=== PATIENT | female | born 1990 ===

== ENCOUNTER 2024-06-25 05:31 | Inpatient (IN) ==
--- NOTE | 2024-06-10 11:53 | Anesthesiology Consultation ---
Date of Service June 10, 2024 Assessment & Plan (1) Encounter for pre-operative examination: Chart Review Chart Review: data entry representative initiated - BSG to anesthesiologist/OB's discretion (gestational DM- on insulin) -Infectious Disease screening: Per PAT nursing assessment on 06/10/24. No known infectious disease contacts in past 10 days or current infectious disease symptoms. No recent travel outside the country. History Surgery Operation Date: 06/25/24 07:30 Proposed Procedures p Repeat Section - Federico Rodriguez MD Height/Weight Height: 5 ft 5 in Weight: 113.398 kg Allergies Allergy/AdvReac Type Severity Reaction Status Date / Time No Known Allergies Allergy Verified 06/10/24 11:17 Medications Home Medications Medication Instructions Recorded Confirmed Last Taken 1 tab PO HS 06/10/24 06/10/24 Unknown insulin glargine 100 unit/mL (3 20 unit subcut HS 06/10/24 06/10/24 Unknown mL) subcutaneous pen (Lantus Solostar U-100 Insulin) Past Medical History Medical History Chronic hypertension no current meds Gestational diabetes IDDM History of asthma as a child Past Surgical History Surgical History History of 11/2021 History of tonsillectomy and adenoidectomy age 17 [place] teeth extracted 2014 Social History Smoking Status: Never smoker Do You Dip or Chew Tobacco: No Hx Alcohol Use: No Hx Substance Use: No substance use type: does not use
[2024-06-25 06:20] LABS: Basophils # (auto) 0.06 K/uL (0.00-0.20); Basophils % (auto) 0.5 %; Eosinophils # (auto) 0.14 K/uL (0.00-0.50); Eosinophils % (auto) 1.2 %; Hematocrit (blood only) 39.9 % (37.0-47.0); Hemoglobin 13.6 g/dl (12.0-16.0); Immature Granulocytes # (auto) 0.08 K/uL (0.01-0.20); Immature Granulocytes % (auto) 0.7 %; Lymphocytes # (auto) 2.65 K/uL (1.20-3.40); Lymphocytes % (auto) 23.2 %; Mean Corpuscular Hemoglobin 28.5 pg (25.0-34.0); Mean Corpuscular Hgb Conc 34.1 g/dL (32.0-36.0); Mean Corpuscular Volume 83.5 fL (80.0-100.0); Mean Platelet Volume 11.2 fL (9.4-12.4); Monocytes # (auto) 0.78 K/uL (0.11-0.59); Monocytes % (auto) 6.8 %; Neutrophils # (auto) 7.69 K/uL (1.40-6.50); Neutrophils % (auto) 67.6 %; Platelet Count 257 K/uL (130-400); RDW Coefficient of Variation 13.2 % (11.5-14.5); RDW Standard Deviation 40.5 fL (36.4-46.3); Red Blood Count 4.78 M/uL (4.20-5.40)
[2024-06-25] MEDS: ACETAMINOPHEN 500 MG TAB PO SCH (06:39)
[2024-06-25] MEDS ORDERED: MoRPHine SULFATE PF 1 MG/ML 10 ML AMP/VIAL ONE (06:45)
[2024-06-25] MEDS ORDERED: fentaNYL citrate PF 100 MCG/2 ML VIAL ONE ×3 (06:45→08:56)
[2024-06-25] MEDS ORDERED: OXYTOCIN 10 UNITS/ML VIAL ONE ×2 (06:45→08:36)
[2024-06-25] MEDS ORDERED: PHENYLEPHRINE HCL 25 MG/250 ML NSS IV ONE (06:46)
[2024-06-25] MEDS: SODIUM CHLORIDE 0.9% 1,000 ML IV SCH ×3 (07:03→10:45)
[2024-06-25] MEDS ORDERED: ePHEDrine sulfate 50 MG/ML AMP IV PRN (07:08)
[2024-06-25] MEDS ORDERED: MoRPHine SULFATE 2 MG/ML CARP IV PRN (07:08)
[2024-06-25] MEDS ORDERED: diphenhydrAMINE 50 MG/ML VIAL IV PRN (07:08)
[2024-06-25] MEDS ORDERED: NALOXONE HCL 1 MG in SODIUM CHLORIDE 0.9% 1,000 ML IV PRN (07:08)
[2024-06-25] MEDS ORDERED: HYDROmorphone INJ 0.5 MG/0.5 ML SYR IV PRN (07:08)
[2024-06-25] MEDS ORDERED: ONDANSETRON INJ 2 MG/ML 2 ML VIAL IV PRN ×2 (07:08→09:23)
[2024-06-25] MEDS ORDERED: NALOXONE HCL 0.4 MG/1 ML VIAL/CARP IV PRN (07:08)
[2024-06-25] MEDS ORDERED: NALOXONE HCL 0.08 MG in SYRINGE 1.8 ML IV PRN (07:08)
[2024-06-25] MEDS ORDERED: NALBUPHINE HCL INJ 10 MG/ML AMP IV PRN (07:08)
[2024-06-25] MEDS ORDERED: NO NARCOTICS OR SEDATIVES SCH (07:15)
[2024-06-25] MEDS ORDERED: DC INTRASPINAL MORPHINE SCH (07:15)
[2024-06-25] MEDS: CITRIC ACID/SODIUM CITRATE 15 ML UDC PO SCH (07:38)
[2024-06-25] MEDS: cefOXitin 2,000 MG in DEXTROSE 5 % MINI-B 50 ML IV SCH (07:40)
[2024-06-25] MEDS ORDERED: DEXAMETHASONE SOD INJ 4 MG/ML VIAL ONE (08:05)
[2024-06-25] MEDS ORDERED: ONDANSETRON INJ 2 MG/ML 2 ML VIAL ONE (08:05)
[2024-06-25] MEDS: OXYTOCIN 10 UNITS/ML 10ML VIAL IM ONE (08:25)
[2024-06-25] MEDS ORDERED: PHENYLEPHRINE 100MCG/ML 5ML SYR ONE (08:36)
[2024-06-25] MEDS ORDERED: SENNA 8.6 MG TAB PO PRN (09:23)
[2024-06-25] MEDS ORDERED: CALCIUM CARBONATE 500 MG CHEWABLE TAB PO PRN (09:23)
[2024-06-25] MEDS ORDERED: HYDROCORTISONE ACETATE 25 MG SUPP PR PRN (09:23)
[2024-06-25] MEDS ORDERED: MAGNESIUM HYDROXIDE SUSP 30 ML UDC PO PRN (09:23)
[2024-06-25] MEDS ORDERED: BENZOCAINE 20% SPRY 85 APPLN/85 GM CAN EXT PRN (09:23)
--- OUTSIDE RECORDS SUMMARY | 2024-06-25 09:25 | External Medical Summary | Summary of Care ---
Author Name Unknown Organization [facility] Address [address] [facility] [place] [address] Phone [phone] Care Team Providers Care Prop Making Supervisor Name Role Phone Elina Will DO Primary Care Provider [phone] Reason for Visit * Reason Comments pre-op exam Encounter Details Date Type Department Care Team (Latest Contact Info) Description 06/12/2024 9:15 AM EST Office Visit Gynecology/Obstetric s Jarvis'chris Alvarado [address] [place] [id number] Federico Rodriguez MD [address] [place] [phone] Cristiane Alvarado Stress Tests [place] [address] [place] [phone] High-risk in third trimester*; Chronic hypertension affecting ; Hx of section; History of gestational hypertension; Obesity in , antepartum; Insulin controlled gestational diabetes mellitus (GDM) in second trimester; Excessive growth affecting management of in third trimester, single or unspecified fetus; GBS (group B Streptococcus carrier), +RV culture, currently Allergies No known active allergiesdocumented as of this encounter (statuses as of 06/12/2024) Medications /Folic Acid Oral Tablet Take 1 Tablet by mouth once. Active two.42.solutions System w/Device Kit Use to test blood sugars 4 times daily (fasting, 1 hour after breakfast, lunch, and dinner) 1 Kit 4 Active OneTouch Verio In Vitro Strip (Glucose Blood) Use to test blood sugars 4 times daily (fasting, 1 hour after breakfast, lunch, and dinner) 125 Strip 6 4 Active OneTouch Delica Lancets 30G Use to test blood sugars 4 times daily (fasting, 1 hour after breakfast, lunch, and dinner) 200 Each 6 4 Active Insulin Pen Needle 31G X 8 MM Use to inject insulin nightly as directed. 100 Each 3 4 Active Insulin Glargine Solostar 100 UNIT/ML Subcutaneous Solution Pen-injector (Lantus SoloStar) Inject 20 Units under the skin at bedtime. 15 mL 3 4 Active Breast PumpIndications:B reast feeding status of mother Use as directed. 1 Each 4 Active Aspirin 81 MG Oral Tablet Delayed Release Take 1 Tablet by mouth in the morning. 06/12/20 24 Discontinu ed(Medicat ion List Clean Up) documented as of this encounter (statuses as of 06/12/2024) Active Problems Problem Noted Date Diagnosed Date GBS (group B Streptococcus c mary), +RV culture, currently 06/04/2024 Excessive growth affec ting management of in third trimester 2024 Assessment & Plan (05/29/2024 4:06 PM EST): Repeat c/s planned, now end of week 39. Could consider moving closer to 39w0d. Discussed that unscheduled c/s would be performed if she presents in labor. Assessment & Plan (2024 12:24 PM EST): EFW today at 99%ile with normal DONNIE. Sandra is planning repeat c/s. Sugars reviewed in and under good control. Delivery currently indicated at ~39 weeks and plan unchanged based on LGA alone. Antepartum anemia complicating 024 Insulin controlled gestation al diabetes mellitus (GDM) in second trimester 01/03/2024 Overview (06/09/2024): Diagnosed at 13 weeks Nutrition consult ordered Lab Results Component Value Date/Time 50-G GESTATIONAL GLUCOSE, 1 HOUR - [facility] 187 (H) 12/26/2023 12:34 PM 100-G GESTATIONAL GLUCOSE, 1 HOUR - [facility] 190 (H) 12/29/2023 09:55 AM 100-G GESTATIONAL GLUCOSE, 2 HOUR - [facility] 161 (H) 12/29/2023 10:56 AM 100-G GESTATIONAL GLUCOSE, 3 HOUR - [facility] 82 12/29/2023 11:54 AM 100-G GESTATIONAL GLUCOSE, FASTING - [facility] 95 (H) 12/29/2023 08:50 AM 01/04/24 hemoglobin A1c in process 01/04/24: MFM ADAPT consult complete. Enrolled in Current Health. Instructions provided to report blood sugars each week for MFM review 01/07/24: RPM reviewed; Stable 01/14/24: RPM reviewed; Stable overall, continue diet control 01/21/20240776-GOA-sairdb 01/28/20246891-TQW-ardyfxwz fasting blood sugars (95-98). Advised to watch diet, eat bedtime snack, and avoid fasting longer than 8 to 10 hours. Will review again next week, and if persists, will schedule for follow up ADAPT with maternal medicine nurse practitioner. 02/04/20247720-VZE-tzwguk (1 elevated fasting blood sugar) 02/11/2024-RPM-4 of 7 elevated fasting blood sugars. Patient and C PARs messaged to schedule follow up ADAPT. 02/12/24: ADAPT f/u complete. FBS elevated; will start Lantus 15 units HS. 02/19/20248457-ERS-viavbmog fasting blood sugars. Maternal medicine nurse practitioners to review. 02/19/24: RPM reviewed; increased to Lantus 20 units at bedtime 02/25/20246218-IFM-ymcuevf stable (1 elevated post prandial lunch) 03/03/20245596-PJQ-lohpoq 03/10/20247455-VTI-xviowi. Few missed readings. 03/17/20247552-OEK-tlwwff 03/24/24: RPM reviewed; Stable 03/31/24: RPM reviewed; Stable; continue Lantus 20 units at bedtime 04/07/20246950-ZXR-ithugf 04/14/20246655-AWB-pircei 04/21/20247338-ZJL-vebnqe (1 elevated post prandial dinner) 04/28/20242102-PZN-qfhvda 05/05/20242704-FXL-zcwlit 05/12/20248801-GRB-hvchod 05/19/24: RPM reviewed; blood sugars stable, continue Lantus 20 units at bedtime 05/26/20242517-ZUE-tlvnght stable (2 elevated post prandial dinner values) 06/02/20249928-WSZ-tmaufu 06/09/24: RPM reviewed; stable Assessment & Plan (05/29/2024 4:09 PM EST): Working with ADAPT. Assessment & Plan (04/03/2024 9:08 AM EDT): Working with ADAPT. Assessment & Plan (03/06/2024 12:34 PM EDT): She presents for follow-up of growth secondary to GDMA2 and class 3 obesity. She has a history of gestational hypertension and a history of previous C- section. Today's ultrasound notes the following: The estimated weight is appropriate for gestational age in the 68th percentile. Mild left urinary tract dilation is noted (5.6 mm). The remainder of the visualized anatomy is unremarkable in appearance. The DONNIE is normal. Assessment & Plan (02/11/2024 2:00 PM EDT): The patient states that her blood sugars are began to become elevated in the fasting time. . I told her that this is typical. Also, because of the early diagnosis in , I would expect for her to be on some type of medication by the end of the . We did discuss the need for nonstress testing beginning at 32 weeks if she is placed on medication for blood sugar control. Assessment & Plan (01/11/2024 9:05 AM EDT): Working with ADAPT. Assessment & Plan (01/04/2024 1:07 PM EDT): CONSIDERATIONS: Reviewed etiology and risks associated with gestational diabetes mellitus (GDM), including risks to , fetus, and maternal progression to Type 2 DM. Instructed on proper use of glucometer; supplies ordered, if indicated. Advised that life-long screening for diabetes is recommended every 1-3 years. RECOMMENDATIONS: Recommend monitoring blood sugars with daily fasting blood sugar (maintained at less than or equal to 95) and 1 hour postprandial measurements (maintained at less than or equal to 140). Medications should be adjusted to maintain these target values. Report levels to MFM (Maternal- Medicine) weekly. Recommend nutrition consult with RDN (Registered Dietitian Fibrous Wallboard Inspector). Lifestyle changes are also indicated including optimizing gestational weight gain and physical activity of 30 minutes per day, if not otherwise contraindicated in . Insulin is preferred if medications are indicated to optimize euglycemia. Metformin (preferred over glyburide) may also be used in some circumstances. Reviewed the risks and benefits of each. Recommend hemoglobin A1c testing now if diagnosed with GDM prior to 24 weeks as there is potential for pre-existing diabetes. (Hemoglobin A1c is currently in process) If result is 6.5% or greater, then will diagnose with overt Type 2 DM and treat as pre-existing diabetes. If compliance later in gestation is question, a HBA1c can be assessed with a goal of less than 6%. Recommend early anatomy evaluation at 11-16 weeks gestation. Recommend anatomy survey at 19-20 weeks. Recommend echocardiography at 21-23 weeks if hemoglobin A1c 6.5% or greater Recommend ultrasound, surveillance and delivery as follows: A1GDM, delivery should be accomplished by EDC due class III obesity. A2GDM, recommend growth assessment with MFM every 4 weeks, initiate surveillance at 32 weeks and continue until delivery at 39 weeks. Recommend intrapartum monitoring every 1-2 hours (A2GDM) or every 4 hours (A1GDM) and treat with insulin if indicated. Recommend 2-hour glucose tolerance testing with 75-gram glucose load 6-8 weeks . History of gestational hypertension 12/14/2023 Overview (12/17/2023): 11/2021: First , induced at 37w due to gestational hypertension Recommend starting daily ASA 81 mg Baseline Preeclampsia Labs Lab Results Component Value Date/Time PLT 300 12/07/2023 12:22 PM CREATININE - [facility] 0.7 12/07/2023 12:22 PM AST - [facility] 14 12/07/2023 12:22 PM ALT - [facility] 17 12/07/2023 12:22 PM PROTEIN/ CREATININE RATIO, URINE - [facility] 113 12/07/2023 11:56 AM BP Readings from Last 10 Encounters: 12/07/23 140/84 Assessment & Plan (12/17/2023 9:43 AM EDT): CONSIDERATIONS: Explained to patient that in a woman who has always had normal blood pressures, gestational hypertension (GHTN) is defined as persistent elevations in her BP after 20 weeks gestation. Elevated BP is defined as greater than or equal to 140mmHg systolic or greater than 90mmHg diastolic on two separate occasions at least 4 hours apart after 20 weeks gestation. Explained to patient that women with hypertension during are at significantly increased risk for placental abruption, pre-eclampsia/eclampsia, delivery, gestational diabetes, growth restriction, stillbirth, delivery, hemorrhage, and maternal morbidity. These risks are related to the severity of the hypertension RECOMMENDATIONS: Recommend patient be followed clinically. Also recommend labwork with AST/ALT and platelets, and urine protein screen. If diagnosed with gestational hypertension recommend Maternal Medicine ultrasound for growth within 1 week of GHTN diagnosis and then every 4 weeks thereafter. Reviewed that GHTN, pre-eclampsia and HELLP are not preventable conditions. There is some evidence that daily ASA 81mg may decrease the risk for recurrence in patients with additional risk factors we recommend that proceed with starting this therapy at 13 weeks. Obesity in , antepartum 12/14/2023 Overview (02/01/2024): Pre gravid BMI: 40.7 Class 3 obesity Lab Results Component Value Date/Time 50-G GESTATIONAL GLUCOSE, 1 HOUR - [facility] 187 (H) 12/26/2023 12:34 PM 100-G GESTATIONAL GLUCOSE, 1 HOUR - [facility] 190 (H) 12/29/2023 09:55 AM 100-G GESTATIONAL GLUCOSE, 2 HOUR - [facility] 161 (H) 12/29/2023 10:56 AM 100-G GESTATIONAL GLUCOSE, 3 HOUR - [facility] 82 12/29/2023 11:54 AM 100-G GESTATIONAL GLUCOSE, FASTING - [facility] 95 (H) 12/29/2023 08:50 AM HEMOGLOBIN A1C - [facility] 5.5 01/04/2024 12:14 PM Assessment & Plan (02/11/2024 1:59 PM EDT): I reviewed the ultrasound with her. The anatomy that was visualized appears unremarkable and the biometry is appropriate for the gestational age. The amniotic fluid volume is subjectively normal and the fetus is in the breech presentation. Assessment & Plan (12/17/2023 9:44 AM EDT): CONSIDERATIONS: Discussed obstetrical risks associated with class III obesity (pre- BMI of greater than or equal to 40) Reviewed that the accuracy of ultrasound at diagnosing anomalies is significantly decreased for women with an increased BMI. RECOMMENDATIONS: Recommend restricting weight gain during to 11-20 pounds. Patient should be referred for a nutrition consult. Recommend evaluation for signs and symptoms (snoring, excessive daytime sleepiness witnessed apnea or unexplained hypoxia) of obstructive sleep apnea. If any of these are present, referral to Sleep Medicine specialist for further evaluation should be considered. Recommend performing gestational diabetes mellitus screen now (if not performed at first visit) and repeat again at 26-28 weeks if early screen is normal. Recommend Maternal- Medicine ultrasound for anatomy at 20 weeks and for growth every 4 weeks thereafter. For patients with Class 3 obesity, we recommend baseline preeclamptic labs with CBC, serum AST/ALT/creatinine and toagqao-pd-uarehgignj ratio or 24-hour urine protein LIDIA if not already done. For patients with Class 3 obesity, we recommend weekly surveillance starting at 34 weeks and delivery by EDC. Recommend anesthesia consult during the antepartum period. Health counseling 12/07/2023 Overview (06/12/2024): Problem Action Taken Date entered Entered by Date resolved Current needs or questions Patient denies having any current needs or questions 12/07/2023 Susannah Leal RN 12/07/2023 Problem Action Taken Date entered Entered by Date resolved Current needs or questions Patient denies having any current needs or questions 01/04/2024 Susannah Leal RN 01/04/2024 Problem Action Taken Date entered Entered by Date resolved Current needs or questions NST today Patient denies having any current needs or questions 05/12/2024 Treesa Azul RN 05/12/2024 Problem Action Taken Date entered Entered by Date resolved Current needs or questions Patient denies having any current needs or questions 06/02/2024 Navjot Renner, GHASSAN 06/02/24 Problem Action Taken Date entered Entered by Date resolved Current needs or questions Patient denies having any current needs or questions 06/06/2024 Susannah Leal RN 06/06/2024 Problem Action Taken Date entered Entered by Date resolved Current needs or questions Patient denies having any current needs or questions 06/09/2024 Gabriella Reeder RN 06/09/2024 Problem Action Taken Date entered Entered by Date resolved Current needs or questions Patient denies having any current needs or questions 06/12/2024 Teresa Azul RN 06/12/2024 Assessment & Plan (05/19/2024 11:00 AM EST): Problem Action Taken Date entered Entered by Date resolved Backache Encourage good posture and body mechanics/ belly band 05/19/2024 Teresa Azul RN 05/19/2024 High-risk 12/07/2023 Class 3 severe obesity due t o excess calories with serious comorbidity and body mass index (BMI) of 40.0 to 44.9 in adult 12/07/2023 Overview (12/22/2023): Recommend restricting weight gain during to 11-20 pounds. Patient should be referred for a nutrition consult. Recommend evaluation for signs and symptoms (snoring, excessive daytime sleepiness witnessed apnea or unexplained hypoxia) of obstructive sleep apnea. If any of these are present, referral to Sleep Medicine specialist for further evaluation should be considered. Recommend performing gestational diabetes mellitus screen now (if not performed at first visit) and repeat again at 26-28 weeks if early screen is normal. Recommend Maternal- Medicine ultrasound for anatomy at 20 weeks and for growth every 4 weeks thereafter. For patients with Class 3 obesity, we recommend baseline preeclamptic labs with CBC, serum AST/ALT/creatinine and mbuogfd-lr-qsxgabgwyg ratio or 24-hour urine protein LIDIA if not already done. For patients with Class 3 obesity, we recommend weekly surveillance starting at 34 weeks and delivery by EDC. . Chronic hypertension affecting 024 Overview (12/14/2023): BP elevated at first visit Past history of gestational hypertension Denies past history of chronic hypertension Per OB note 12/07/23: ? cHTN Will monitor BPs at home, if elevated next visit will make cHTN dx. BP Readings from Last 20 Encounters: 12/07/23 140/84 Assessment & Plan (2024 12:23 PM EST): BP Readings from Last 5 Encounters: 04/28/24 130/80 03/28/24 128/80 02/29/24 124/72 02/01/24 134/72 01/04/24 132/76 BP currently stable without medication. Initiate therapy to maintain BP < 140/90. Assessment & Plan (04/03/2024 9:08 AM EDT): BP Readings from Last 5 Encounters: 03/28/24 128/80 02/29/24 124/72 02/01/24 134/72 01/04/24 132/76 12/07/23 140/84 BP currently stable without medication. Initiate therapy to maintain BP < 140/90. Assessment & Plan (12/07/2023 1:50 PM EDT): BP elevated at NOB 140/84 ? cHTN Will monitor BPs at home, if elevated next visit will make cHTN dx. Hx of section 12/07/2023 Overview (12/17/2023): 11/2021: primary / failed induction 2023 Plan: undecided Estimated Date of Delivery Comme nts Yes 06/29/2024 Based on last me nstrual period of 09/23/2023 (Exact Date) documented as of this encounter (statuses as of 06/12/2024) Resolved Problems Problem Noted Date Diagnosed Date Resolved Date Pyelectasis of fetus on ultrasound 03/06/2024 05/05/2024 Assessment & Plan (2024 12:24 PM EST): Resolved today. Assessment & Plan (03/06/2024 12:59 PM EDT): CONSIDERATIONS: urinary tract dilation is found in approximately 1% of pregnancies and for the woman who is under 35 years of age at the time of delivery, this may be considered a normal variant of and is not associated with an increased risk for aneuploidy. urinary tract dilation can be physiologic 50 to 70 percent of the time. The other common causes of urinary tract dilation are some type of urinary obstruction (10-30%) and bladder reflux (10-40%). RECOMMENDATIONS: We will re-evaluate on follow-up scans. We recommend alerting the director informatics providing care of this finding if it persists into the 3rd trimester. with 12 completed weeks gestation 12/17/2023 02/01/2024 documented as of this encounter (statuses as of 06/12/2024) Immunizations Name Administration Dates Next Due TDAP, Age 7 and older, IM (Adacel) 03/28/2024 documented as of this encounter Social History Tobacco Use Types Packs/Day Years Used Date Smoking Tobacco: Never Smokeless Tobacco: Never Alcohol Use Standard Drinks/Week Comments Not Currently 0 (1 standard drink = 0.6 oz pur e alcohol) PHQ-2 Answer Date Recorded PHQ Adult Total Score 0 05/20/2024 Hunger Vital Sign Answer Date Recorded Within the past 12 months, y ou worried that your food would run out before you got the money to buy more. Never true 04/16/20 24 Within the past 12 months, t he food you bought just didn't last and you didn't have money to get more. Never true 04/16/2024 [place] Depression Scale Answer Date Recorded [place] Depression Scale Total 0 12/07/2023 The thought of harming myself has occurred to me . Never 12/07/2023 Childcare Answer Date Recorded Do you feel overwhelmed with taking care of a child, family member or friend? No 04/16/2024 Does your family need help f inding childcare? (Household - for ages 0-17 years) Not on file 04/16/2024 Clothing Answer Date Recorded Have you been unable to get clothing when it was really needed? No 04/16/2024 Is your family able to get c lothes or diapers when needed? (Household - for ages 0-17 years) Not on file 04/16/2024 Personal Safety Answer Date Recorded Do you feel unsafe or have concerns for your saf ety? No 04/16/2024 Do you have concerns for you r family's safety? (Household - for ages 0-17 years) Not on file 04/16/2024 Utilities Answer Date Recorded Do you have trouble paying y our heating, water, or electric bill? No 04/16/2024 Is your family able to pay t he heat, water, or electric bill? (Household - for ages 0-17 years) Not on file 04/16/2024 Does your family have access to good internet? (Household - for ages 0-17 years) Not on file 04/16/2024 Employment Status Answer Date Recorded Are you unemployed or without regular income? No 04/16/2024 Does the household have a [facility] source [facility] income? (Household - for ages 0-17 years) Not on file 04/16/2024 Social Connections Answer Date Recorded How often do you feel lonely or isolated from th ose around you? Never 04/16/2024 Financial Resource Strain Answer Date R ecorded Do you have any trouble payi ng for your medications, or do you think you might in the future? No 04/16/2024 Does your family have troubl e paying for medicine? (Household - for ages 0-17 years) Not on file 04/16/2024 Transportation Needs Answer Date Record ed Do you have trouble getting a ride to medical visits or work? (Adult - for ages 18 years and over) Not on file 04/16/2024 Does your family have a hard time getting a ride to doctors visits? (Household - for ages 0-17 years) Not on file 04/16/2024 Has lack of transportation k ept you from medical appointments, meetings, work, or from getting things needed for daily living? Check all that apply. No 04/16/2024 Do you (or your family) have trouble finding or paying for a ride (transportation)? (Household - for ages 0-17 years) Not on file 04/16/2024 Housing Stability Answer Date Recorded Do you currently live in a s helter or have no steady place to sleep at night? No 04/16/2024 Do you think you are at risk of becoming homeless? (Adult - for ages 18 years and over) Not on file 04/16/2024 Does your family worry about paying for your home or becoming homeless? (Household - for ages 0-17 years) Not on file 1 Are you homeless or worried that you might be in the future? No 04/16/2024 Are you (or your family) beatrice eless or worried that you might be in the future? (Household - for ages 0-17 years) Not on file Food Insecurity Answer Date Recorded Do you need food for this week? No 04/16/2024 Are you able to get enough f ood for your family? (Household - for ages 0-17 years) Not on file 04/16/2024 Does your family need food t his week? (Household - for ages 0-17 years) Not on file 04/16/2024 Do you always have enough fo od for your family? (Household - for ages 0-17 years) Not on file 04/16/2024 Estimated Date of Delivery Comme nts Yes 06/29/2024 Based on last me nstrual period of 09/23/2023 (Exact Date) Sex and Gender Information Value Date Recorded Sex Assigned at Female 04/09/2023 6:41 PM EDT Legal Sex Female 6:03 AM EST Gender Identity Female 04/09/2023 6:41 PM EDT Sexual Orientation Straight 04/09/2023 6: 41 PM EDT documented as of this encounter Last Filed Vital Signs Vital Sign Reading Time Taken Comments Blood Pressure 132/80 06/12/2024 9:31 AM EST Pulse - - Temperature - - Respiratory Rate - - Oxygen Saturation - - Inhaled Oxygen Concentration - - Weight 115.7 kg (255 lb) 06/12/2024 9:31 AM EST Height - - Body Mass Index 43.77 05/22/2024 10:20 AM EST documented in this encounter Progress Notes * Federico Rodriguez MD - 06/12/2024 12:15 PM EST ASSESSMENT assessment with Non-stress Test completed on 06/12/2024 at 37 weeks gestation for indication of diabetes mellitus and obesity heart baseline: 160 bpm Variability: Moderate Decelerations: absent Accelerations: present Contractions: None NST start time: 9:55am NST stop time: 10:30 NST strip reviewed, interpreted, and approved by OB provider, araceli . NST strip stored in clinic storage file * Federico Rodriguez MD - 06/12/2024 9:54 AM EST Patient is doing well no significant complaints. Patient feels good movement every day. Discussed with the patient reason for repeat section. Discussed her condition of insulin-dependent gestational diabetes. Also the fact it at 37 weeks she had an estimated weight of 8 lb 3 oz. told the patient that I agreed with her decision to have a repeat section especially withher current risk factors. * Teresa Azul RN - 06/12/2024 9:32 AM EST Had nausea and vomiting this am. Here for pre op prior to for 06/25 for repeat . [facility] proven recovery discussed. Scrub given. documented in this encounter H&P Notes * Federico Rodriguez MD - 06/12/2024 9:59 AM EST Sandra Garrido is a 34 year old, , Pre-menopausal female, being consulted for Repeat complicated by insulin-dependent gestational diabetes. Macrosomia diagnosed by ultrasound on 05/29/2024 PAST MEDICAL HISTORY: Past Medical History: Diagnosis Date Gestational diabetes 2023 Gestational hypertension 2021 PAST SURGICAL HISTORY: Past Surgical History: Procedure Laterality Date IA DELIVERY ONLY 2021 IA TONSILLECTOMY PRIMARY/SECONDARY LESS THAN AGE 13 FAMILY HISTORY: Family History Problem Relation Name Age of Onset No Known Problems Mother Hyperlipidemia Father SOCIAL HISTORY: Social History Tobacco Use Smoking status: Never Smokeless tobacco: Never Substance Use Topics Alcohol use: Not Currently Drug use: Not Currently ALLERGIES: Patient has no known allergies. ROS: Constitutional: (-) fever chills sweats or weight loss Eyes: (-) negative, no amaurosis fugax, pain, blurred vision, or redness ENT: (-) negative: no headaches, vertigo, hearing loss, sinus, ear, or throat problems Cardiovascular: (-) negative: no chest pain, dyspnea, syncope, or palpitations Pulmonary : (-) negative: no cough, wheezing, or shortness of breath Abdominal/GI: (-) negative: no pain, heartburn, dysphagia, bleeding, change in bowel habits, nauseaor vomiting Musculoskeletal: (-) negative: no pain Skin: (-) negative: no rash or new or changing moles Neurology: (-) negative: no focal neurologic defect PHYSICAL EXAMINATION: Most Recent Vital Signs: BP 132/80 | Wt 115.7 kg (255 lb) | LMP 09/23/2023 (Exact Date) | BMI 43.77 kg/m | BSA 2.29 m Constitutional: no acute distress HEENT: Head normocephalic, sclera clear, and neck supple, no adenopathy Heart: Regular rate & rhythm and no murmurs Lungs: respirations even and unlabored and lungs clear to auscultation Breast: Inspection negative No nipple retraction or dimpling No nipple discharge or bleeding No axillary or supraclavicular adenopathy Normal to palpation without dominant masses Abdomen: soft, non-tender, and no rebound Neuro: alert and to person, place and time with fluent speech and no focal motor/sensory deficits noted LABS: IMAGING: Abdominal ultrasound on 05/29/2024 revealed an estimated weight of 8 lb 3 oz. IMPRESSION: Sandra Garrido is a 34 year old with intrauterine complicated by gestational diabetes.And macrosomia. PLAN: Repeat at 39+ weeks gestation. documented in this encounter Plan of Treatment Upcoming Encounters Date Type Department Care Team (Late st Contact Info) Description 06/16/2024 1:00 PM EST Office Visit Gynecology/Obstetrics Jumana Alvarado [address] [facility] [place] [address] WilliamerChloe CRNP [address] [place] [address] [place], Non Stress Tests [place]akia [address] [place] [address] 06/20/2024 1:00 PM EST Office Visit Gynecology/Obstetrics Jumana Alvarado [address] [place] [address] BackerChloe CRNP [address] [place] [address] [place], Non Stress Tests [place]akia [address] [place] [address] 07/02/2024 10:30 AM EST Office Visit Gynecology/Obstetrics Jumana Alvarado [address] [place] [address] BackerChloe CRNP [address] [place] [address] Health Maintenance Due Date Last Done Comments Hepatitis B Vaccine (1 of 3 - 19+ 3-dose series) 2010 COVID-19 Vaccine (2023- season) 2024 Influenza Vaccine (FLU shot) (#1) 2024 GFR 03/28/2025 03/28/2024, 11/17, 08/11/2023, Additional history exists Depression Screening 05/20/2025 05/20/2024 Pap Smear 12/06/2026 12/07/2023 Cervical Cancer Screening 12/06/2028 HPV/Co-Test 12/06/2028 12/07/2023 DTap/Tdap Vaccines (2 - Td or Tdap) 03/28/2034 03/28/2024 HPV (Gardasil) Vaccine Aged Out No lo nger eligible based on patient's age to complete this topic MENINGOCOCCAL (MENACTRA/MENVEO) Aged Out No longer eligible based on patient's age to complete this topic Pneumococcal Vaccine: Pediatrics (0 to 5 Years) and At-Risk Patients (6 to 18 Years and 19+ Years) Aged Out No longer eric echavarria based on patient's age to complete this topic documented as of this encounter Medical Devices Not on filedocumented as of this encounter Visit Diagnoses Diagnosis High risk , antepartum- Primary Class 3 severe obesity due to excess calories with serious comorbidity and body mass index (BMI) of 40.0 to 44.9 in adult (FORM[facility]LY [facility]) Screening for malignant neoplasm of cervix Screening for malignant neoplasm of the cervix Elevated BP without diagnosis of hypertension Hx of section Other postprocedural status Obesity in , antepartum- Primary Obesity complicating , childbirth, or the puerperium, antepartum condition or complication Hx of section Other postprocedural status History of gestational hypertension Supervision of high risk in first trimester Unspecified high-risk with 12 completed weeks gestation Diet controlled gestational diabetes mellitus (GDM) in second trimester- Primary Supervision of high risk , antepartum, second trimester 14 weeks gestation of state, incidental Obesity in , antepartum- Primary Obesity complicating , childbirth, or the puerperium, antepartum condition or complication Diet controlled gestational diabetes mellitus (GDM) in second trimester 15 weeks gestation of state, incidental Class 3 severe obesity due to excess calories with serious comorbidity and body mass index (BMI) of 40.0 to 44.9 in adult ([facility])- Primary Obesity in , antepartum Obesity complicating , childbirth, or the puerperium, antepartum condition or complication Diet controlled gestational diabetes mellitus (GDM) in second trimester Insulin controlled gestational diabetes mellitus (GDM) in second trimester- Primary Obesity in , antepartum Obesity complicating , childbirth, or the puerperium, antepartum condition or complication Chronic hypertension affecting Hx of section Other postprocedural status Pyelectasis of fetus on ultrasound Abnormal findings on screening Pyelectasis of fetus on ultrasound- Primary Abnormal findings on screening Insulin controlled gestational diabetes mellitus (GDM) in second trimester Chronic hypertension affecting Obesity in , antepartum Obesity complicating , childbirth, or the puerperium, antepartum condition or complication Ultrasound for screening for growth restriction screening for growth retardation using ultrasonics 27 weeks gestation of state, incidental Insulin controlled gestational diabetes mellitus (GDM) in second trimester- Primary Excessive growth affecting management of in third trimester, single or unspecified fetus Chronic hypertension affecting Pyelectasis of fetus on ultrasound Abnormal findings on screening 31 weeks gestation of state, incidental High-risk in third trimester- Primary Chronic hypertension affecting Hx of section Other postprocedural status History of gestational hypertension Obesity in , antepartum Obesity complicating , childbirth, or the puerperium, antepartum condition or complication Insulin controlled gestational diabetes mellitus (GDM) in second trimester Excessive growth affecting management of in third trimester, single or unspecified fetus Chronic hypertension affecting - Primary Excessive growth affecting management of in third trimester, single or unspecified fetus Insulin controlled gestational diabetes mellitus (GDM) in second trimester High-risk in third trimester- Primary Chronic hypertension affecting Hx of section Other postprocedural status History of gestational hypertension Obesity in , antepartum Obesity complicating , childbirth, or the puerperium, antepartum condition or complication Insulin controlled gestational diabetes mellitus (GDM) in second trimester Excessive growth affecting management of in third trimester, single or unspecified fetus GBS (group B Streptococcus carrier), +RV culture, currently Supervision of other high-risk documented in this encounter Care Teams Prop Making Supervisor Relationship Specialty Start Date End Date Elina Will DO [address] [place] [address] PCP - General Family Medicine 11/09/23 documented as of this encounter"
--- OUTSIDE RECORDS SUMMARY | 2024-06-25 09:25 | External Medical Summary | Summary of Care ---
Author Name Unknown Organization [facility] Address [address] [facility] [place] [address] Phone [phone] Care Team Providers Care Stick Puller Name Role Phone Elina Will DO Primary Care Provider [phone] Reason for Visit * Reason Onset Date Comments Advice 06/16/2024 Encounter Details Date Type Department Care Team (Late st Contact Info) Description 06/16/2024 Telephone Gynecology/Obstetrics [facility] [address] [place] [address] Chloe Hurtado CRNP [address] [facility] [place] [address] Advice Allergies No known active allergiesdocumented as of this encounter (statuses as of 06/17/2024) Medications /Folic Acid Oral Tablet Take 1 Tablet by mouth once. Active Sub[employer]Data Verio Flex System w/Device Kit Use to test blood sugars 4 times daily (fasting, 1 hour after breakfast, lunch, and dinner) 1 Kit 4 Active BoedoTouch Verio In Vitro Strip (Glucose Blood) Use [...] Use as directed. 1 Each 4 Active documented as of this encounter (statuses as of 06/17/2024) Active Problems Problem Noted Date Diagnosed Date GBS (group B Streptococcus c arrliz), +RV culture, currently 06/04/2024 Excessive growth affec [...] mellitus (GDM) in second trimester 01/03/2024 Overview (06/16/2024): Diagnosed at 13 weeks Nutrition consult ordered [...] RPM reviewed; Stable overall, continue diet control 01/21/20248371-SXY-lybbom 01/28/20243876-VAK-uuwoitat fasting blood sugars (95-98). Advised to watch diet, eat bedtime snack, and avoid fasting longer than 8 to 10 hours. Will review again next week, and if persists, will schedule for follow up ADAPT with maternal medicine nurse practitioner. 02/04/20243446-VSZ-czsvmu (1 elevated fasting blood sugar) 02/11/2024-RPM-4 of 7 elevated fasting blood sugars. Patient and C PARs messaged to schedule follow up ADAPT. 02/12/24: ADAPT f/u complete. FBS elevated; will start Lantus 15 units HS. 02/19/20248267-RNJ-wawvgrkf fasting blood sugars. Maternal medicine nurse practitioners to review. 02/19/24: RPM reviewed; increased to Lantus 20 units at bedtime 02/25/20247916-NNE-ouxgsvq stable (1 elevated post prandial lunch) 03/03/20245944-BQV-rdgnut 03/10/20241523-JUY-nbbasi. Few missed readings. 03/17/20241072-ARJ-szxipy 03/24/24: RPM reviewed; Stable 03/31/24: RPM reviewed; Stable; continue Lantus 20 units at bedtime 04/07/20240666-QQC-jjjrfi 04/14/20245814-KPW-egnxrq 04/21/20247746-LCB-awicqd (1 elevated post prandial dinner) 04/28/20248899-MMI-inxvkw 05/05/20242888-NLD-xbuwsp 05/12/20240364-JHZ-tmmrix 05/19/24: RPM reviewed; blood sugars stable, continue Lantus 20 units at bedtime 05/26/20247350-QBE-amqpidq stable (2 elevated post prandial dinner values) 06/02/20246650-UFZ-nveqpx 06/09/24: RPM reviewed; stable 06/16/20242083-EYE-gztfkpq stable (rare elevation) Assessment & Plan (05/29/2024 4:09 PM EST): [...] Recommend nutrition consult with RDN (Registered Dietitian Farm Operations Manager). Lifestyle changes are also indicated including optimizing [...] preeclamptic labs with CBC, serum AST/ALT/creatinine and xdwmqwt-ej-nolmxjxtpr ratio or 24-hour urine protein LIDIA if not already done. For patients with Class 3 obesity, we recommend weekly surveillance starting at 34 weeks and delivery by EDC. Recommend anesthesia consult during the antepartum period. Health counseling 12/07/2023 Overview (06/16/2024): Problem Action Taken Date entered Entered by Date resolved Current needs or questions Patient denies having any current needs or questions 12/07/2023 Susannah Leal, GHASSAN 12/07/2023 Problem Action Taken Date entered Entered by Date resolved Current needs or questions Patient denies having any current needs or questions 01/04/2024 Susannah Leal, GHASSAN 01/04/2024 Problem Action Taken Date entered Entered by Date resolved Current needs or questions NST today Patient denies having any current needs or questions 05/12/2024 Teresa Azul RN 05/12/2024 Problem Action Taken Date [...] or questions 06/12/2024 Teresa Azul RN 06/12/2024 Problem Action Taken Date entered Entered by Date resolved Current needs or questions Patient denies having any current needs or questions 06/16/2024 Teresa Azul RN 06/16/2024 Assessment & Plan (05/19/2024 11:00 AM EST): [...] preeclamptic labs with CBC, serum AST/ALT/creatinine and bblsplx-zp-vzhtspjddi ratio or 24-hour urine protein LIDIA if [...] as of this encounter (statuses as of 06/17/2024) Resolved Problems Problem Noted Date Diagnosed Date [...] on follow-up scans. We recommend alerting the pattern vault clerk providing care of this finding if it persists into the 3rd trimester. with 12 completed weeks gestation 12/17/2023 02/01/2024 documented as of this encounter (statuses as of 06/17/2024) Immunizations Name Administration Dates Next Due TDAP, Age 7 and older, IM (Adacel) 03/28/2024 documented as of this encounter Social History Tobacco Use Types Packs/Day Years Used Date Smoking Tobacco: Never Smokeless Tobacco: Never Alcohol Use Standard Drinks/Week Comments Not Currently 0 (1 standard drink = 0.6 oz pur e alcohol) PHQ-2 Answer Date Recorded PHQ Adult Total Score 0 06/12/2024 Hunger Vital Sign Answer Date Recorded Within the past 12 months, y ou worried that your food would run out before you got the money to buy more. Never true 04/16/20 24 Within the past 12 months, t he food you bought just didn't last and you didn't have money to get more. Never true 04/16/2024 [place] Depression Scale Answer Date Recorded [place] Depression Scale Total 0 12/07/2023 The thought [...] No 04/16/2024 Does the household have a re gular source of income? (Household - for ages [...] PM EDT documented as of this encounter Miscellaneous Notes * Telephone Encounter - Susannah Leal RN - 06/17/2024 9:38 AM EST Patient called back. States last evening she was trying to fix her stove and she felt a little/minor shock from wires. Patient reports feeling fine. Is feeling + FM. Denies pain, bleeding, fluid leaking or any concerning symptoms. Advised patient to continue to monitor movement counts and other symptoms. Advised her to call the nurse triage back with any concerns,changes or DFM. Advised massimo ent office will be closing early today and closed tomorrow so make sure to call nurse/oncall line for any concerns. She verbalized understanding. * Telephone Encounter - Susannah Leal RN - 06/17/2024 7:39 AM EST Attempted to call patient. No answer, LVM to return call. * Telephone Encounter - Anca Hurtado OSA - 06/16/2024 6:00 PM EST Spoke to pt today. Pt states she is 38 weeks and she went over to unplug a wire and got a electric shock . Pt is concerns from the electric shock if the baby will be okay . Pt is requesting a nurse to call her . Please assist. Thank you documented in this encounter Plan of Treatment Upcoming Encounters Date Type Department Care Team (Late st Contact Info) Description 06/20/2024 1:00 PM EST Office Visit Gynecology/Obstetrics Jumana Alvarado [address] [place] [address] Chloe Hurtado CRNP [address] [place] [address] Cristiane Alvarado Stress Tests [facility] [address] [place] [address] 07/02/2024 10:30 AM EST Office Visit Gynecology/Obstetrics Jumana Alvarado [address] [place] [address] Chloe Hurtado CRNP [address] [place] [address] Health Maintenance Due Date Last Done Comments Hepatitis B Vaccine (1 of 3 - 19+ 3-dose series) 2010 COVID-19 Vaccine ( season) 2024 Influenza Vaccine (FLU shot) (#1) 2024 GFR 03/28/2025 03/28/2024, 11/17, 08/11/2023, Additional history exists Depression Screening 06/12/2025 06/12/2024 Pap Smear 12/06/2026 12/07/2023 Cervical Cancer Screening [...] and 19+ Years) Aged Out No longer eligib le based on patient's age to complete this topic documented as of this encounter Medical Devices Not on filedocumented as of this encounter Care Teams Stick Puller Relationship Specialty Start Date End Date Elina Will DO [address] [place] [address] PCP - General Family Medicine 11/09/23 documented as of this encounter
--- OUTSIDE RECORDS SUMMARY | 2024-06-25 09:25 | External Medical Summary | Summary of Care ---
Author Name Unknown Organization [facility] Address [address] [facility] [place] [address] Phone [phone] Care Team Providers Care Teletype Or Varitype Keyboard Operator Name Role Phone Elina Will DO Primary Care Provider [phone] Reason for Visit * Reason Onset Date Comments Advice 06/16/2024 Encounter Details Date Type Department Care Team (Late st Contact Info) Description 06/16/2024 Telephone Gynecology/Obstetrics [facility] [address] [place] [address] Chloe Hurtado CRNP [address] [facility] [place] [address] Advice Allergies No known active allergiesdocumented as of this encounter (statuses as of 06/17/2024) Medications /Folic Acid Oral Tablet Take 1 Tablet by mouth once. Active [employer] Verio Flex System w/Device Kit Use to test blood sugars 4 times daily (fasting, 1 hour after breakfast, lunch, and dinner) 1 Kit 4 Active TechfooTouch Verio In Vitro Strip (Glucose Blood) Use [...] RPM reviewed; Stable overall, continue diet control 01/21/20247299-LYU-mxmllk 01/28/20241401-RMV-thczgnka fasting blood sugars (95-98). Advised to watch diet, eat bedtime snack, and avoid fasting longer than 8 to 10 hours. Will review again next week, and if persists, will schedule for follow up ADAPT with maternal medicine nurse practitioner. 02/04/20248289-YHQ-torepd (1 elevated fasting blood sugar) 02/11/2024-RPM-4 of 7 elevated fasting blood sugars. Patient and C PARs messaged to schedule follow up ADAPT. 02/12/24: ADAPT f/u complete. FBS elevated; will start Lantus 15 units HS. 02/19/20242438-GNF-tfmdzutx fasting blood sugars. Maternal medicine nurse practitioners to review. 02/19/24: RPM reviewed; increased to Lantus 20 units at bedtime 02/25/20243666-BPO-rokdwqc stable (1 elevated post prandial lunch) 03/03/20241927-UTJ-ebyrke 03/10/20247982-XHL-gwsjzj. Few missed readings. 03/17/20247234-WLX-huoepb 03/24/24: RPM reviewed; Stable 03/31/24: RPM reviewed; Stable; continue Lantus 20 units at bedtime 04/07/20244591-PWF-evgqqw 04/14/20248083-NAN-fcdkxe 04/21/20247039-YOG-qdwebb (1 elevated post prandial dinner) 04/28/20248907-QBO-yxtbzs 05/05/20246230-JRR-ewwrlg 05/12/20248963-HPT-kddsxv 05/19/24: RPM reviewed; blood sugars stable, continue Lantus 20 units at bedtime 05/26/20247744-UPY-fozgifh stable (2 elevated post prandial dinner values) 06/02/20242808-VSR-gzfaqy 06/09/24: RPM reviewed; stable 06/16/20244727-DIE-whdesrr stable (rare elevation) Assessment & Plan (05/29/2024 [...] Recommend nutrition consult with RDN (Registered Dietitian Booking Officer). Lifestyle changes are also indicated including optimizing [...] preeclamptic labs with CBC, serum AST/ALT/creatinine and kzlqfqo-lk-uiitkbupzv ratio or 24-hour urine protein LIDIA if [...] any current needs or questions 06/12/2024 Teresa Auzl RN 06/12/2024 Problem Action Taken Date entered [...] preeclamptic labs with CBC, serum AST/ALT/creatinine and hosgecb-jv-chexajvnyi ratio or 24-hour urine protein LIDIA if [...] on follow-up scans. We recommend alerting the lastex thread winder providing care of this finding if it [...] money to get more. Never true 04/16/2024 [place] Depression Scale Answer Date Recorded [place] Depression Scale Total 0 12/07/2023 The thought [...] 06/20/2024 1:00 PM EST [facility] [address] [place] [address] Chloe Hurtado CRNP [address] [place] [address] Christian[place] Non Stress Tests [facility] [address] [place] [address] 07/02/2024 10:30 AM EST Office Visit Gynecology/Obstetrics Jumana Alvarado [address] [place] [address] BackerChloe CRNP [address] [place] [address] Health Maintenance Due Date Last Done Comments Hepatitis B Vaccine (1 of 3 - 19+ 3-dose series) 2010 COVID-19 Vaccine ( - 2023- season) 2024 Influenza Vaccine (FLU shot) (#1) [...] filedocumented as of this encounter Care Teams Teletype Or Varitype Keyboard Operator Relationship Specialty Start Date End Date Elina Will DO [address] [place] [address] PCP - General Family Medicine 11/09/23 documented as of this encounter
--- OUTSIDE RECORDS SUMMARY | 2024-06-25 09:25 | External Medical Summary | Summary of Care ---
Author Name Unknown Organization [facility] Address [address] [facility] [place] [address] Phone [phone] Care Team Providers Care Health Therapist Name Role Phone Elina Will DO Primary Care Provider [phone] Reason for Visit * Reason Comments Return Visit Non Stress Test Encounter Details Date Type Department Care Team (Late st Contact Info) Description 06/06/2024 1:00 PM EST Office Visit Gynecology/Obstetri cs [facility] [address] [place] [address] Chloe Hurtado CRNP [address] [place] [address] [facility] Non Stress Tests [facility] [address] [place] [address] High-risk in third trimester*; Chronic hypertension affecting ; Hx of section; History of gestational hypertension; Obesity in , antepartum; Insulin controlled gestational diabetes mellitus (GDM) in second trimester; Excessive growth affecting management of in third trimester, single or unspecified fetus; GBS (group B Streptococcus carrier), +RV culture, currently Allergies No known active allergiesdocumented as of this encounter (statuses as of 06/06/2024) Medications /Folic Acid Oral Tablet Take 1 Tablet by mouth once. Active Aspirin 81 MG Oral Tablet Delayed Release Take 1 Tablet by mouth in the morning. Active OneTouch Verio Flex System w/Device Kit Use to test blood sugars 4 times daily (fasting, 1 hour after breakfast, lunch, and dinner) 1 Kit 4 Active ChowNowTouch VerGazelle In Vitro Strip (Glucose Blood) Use to test blood sugars 4 times daily (fasting, 1 hour after breakfast, lunch, and dinner) 125 Strip 6 4 Active ChowNowTouch Delica Lancets 30G Use to test blood [...] as of this encounter (statuses as of 06/06/2024) Active Problems Problem Noted Date Diagnosed Date GBS (group B Streptococcus c arrier), +RV culture, currently 06/04/2024 Excessive growth affec [...] mellitus (GDM) in second trimester 01/03/2024 Overview (06/02/2024): Diagnosed at 13 weeks Nutrition consult ordered [...] RPM reviewed; Stable overall, continue diet control 01/21/20248341-CYK-bslqgb 01/28/20248400-LWC-hzqvhkbn fasting blood sugars (95-98). Advised to watch diet, eat bedtime snack, and avoid fasting longer than 8 to 10 hours. Will review again next week, and if persists, will schedule for follow up ADAPT with maternal medicine nurse practitioner. 02/04/20240485-NKW-raewiu (1 elevated fasting blood sugar) 02/11/2024-RPM-4 of 7 elevated fasting blood sugars. Patient and C PARs messaged to schedule follow up ADAPT. 02/12/24: ADAPT f/u complete. FBS elevated; will start Lantus 15 units HS. 02/19/20243601-VBS-swfnztym fasting blood sugars. Maternal medicine nurse practitioners to review. 02/19/24: RPM reviewed; increased to Lantus 20 units at bedtime 02/25/20249634-RVG-qzttqgm stable (1 elevated post prandial lunch) 03/03/20249805-RXU-gkcfwp 03/10/20245708-PLE-ofxigg. Few missed readings. 03/17/20245180-WVI-vqylll 03/24/24: RPM reviewed; Stable 03/31/24: RPM reviewed; Stable; continue Lantus 20 units at bedtime 04/07/20243642-ILF-ppxlvy 04/14/20247222-FJA-zyxggv 04/21/20243818-MSL-uohauc (1 elevated post prandial dinner) 04/28/20248626-DII-rjhjce 05/05/20249089-RJI-isgzsn 05/12/20242077-LDZ-fkdkge 05/19/24: RPM reviewed; blood sugars stable, continue Lantus 20 units at bedtime 05/26/20249585-UGG-ffgtmst stable (2 elevated post prandial dinner values) 06/02/20246719-XAK-omtmnm Assessment & Plan (05/29/2024 4:09 PM EST): [...] Recommend nutrition consult with RDN (Registered Dietitian Shipping Clerk). Lifestyle changes are also indicated including optimizing [...] preeclamptic labs with CBC, serum AST/ALT/creatinine and uwunjek-pi-fkuiqrkntn ratio or 24-hour urine protein LIDIA if not already done. For patients with Class 3 obesity, we recommend weekly surveillance starting at 34 weeks and delivery by EDC. Recommend anesthesia consult during the antepartum period. Health counseling 12/07/2023 Overview (06/06/2024): Problem Action Taken Date entered Entered by [...] any current needs or questions 06/02/2024 Navjot Renner RN 06/02/24 Problem Action Taken Date entered Entered by Date resolved Current needs or questions Patient denies having any current needs or questions 06/06/2024 Susannah Leal RN 06/06/2024 Assessment & Plan (05/19/2024 11:00 AM EST): [...] preeclamptic labs with CBC, serum AST/ALT/creatinine and kzaquyw-xv-zxmmqtoeof ratio or 24-hour urine protein LIDIA if [...] as of this encounter (statuses as of 06/06/2024) Resolved Problems Problem Noted Date Diagnosed Date [...] on follow-up scans. We recommend alerting the leaf coverer providing care of this finding if it persists into the 3rd trimester. with 12 completed weeks gestation 12/17/2023 02/01/2024 documented as of this encounter (statuses as of 06/06/2024) Immunizations Name Administration Dates Next Due TDAP, [...] money to get more. Never true 04/16/2024 [place] Depression Scale Answer Date Recorded [place] Depression Scale Total 0 12/07/2023 The thought [...] Sign Reading Time Taken Comments Blood Pressure 128/80 06/06/2024 12:56 PM EST Pulse - - Temperature - - Respiratory Rate - - Oxygen Saturation - - Inhaled Oxygen Concentration - - Weight 115.2 kg (254 lb) 06/06/2024 12:56 PM EST Height - - Body Mass Index 43.6 05/22/2024 10:20 AM EST documented in this encounter Progress Notes * Carolina Kohler CMA - 06/06/2024 12:56 PM EST 36w5d Waking up with stiff swollen hands and numbness in fingertips. * Chloe Hurtado CRNP - 06/06/2024 12:56 PM EST ASSESSMENT assessment with Non-stress Test completed on 06/06/2024 at 36.5 weeks gestation for indication of gestational diabetes mellitus and obesity heart baseline: 140 bpm Variability: Moderate Decelerations: absent Accelerations: present Contractions: Present x1 NST start time: 1254 NST stop time: 1317 NST strip reviewed, interpreted, and approved by OB provider, LINDA Barclay . NST strip stored in clinic storage file documented in this encounter Nursing Notes * Susannah Leal RN - 06/06/2024 1:18 PM EST Patient seen by [facility] Channel Opener. Patient denies any questions or concerns. Susannah Leal RN documented in this encounter Plan of Treatment Upcoming Encounters Date Type Department Care Team (Late st Contact Info) Description 06/09/2024 9:45 AM EST Office Visit Gynecology/Obstetrics [facility] [address] [place] [address] Jenni Smith CRNP [address] [place] [address] [facility] Non Stress Tests [facility] [address] [place] [address] 06/12/2024 9:15 AM EST Office Visit Gynecology/Obstetrics [facility] [address] [place] [address] Federico Rodriguez MD [address] [place] [address] [facility] Non Stress Tests [facility] [address] [place] [address] 06/16/2024 1:00 PM EST Office Visit Gynecology/Obstetrics [facility] [address] [place] [address] Chloe Hurtado CRNP [address] [place] [address] [facility], Non Stress Tests [facility] [address] [place] [address] 06/20/2024 1:00 PM EST Office Visit Gynecology/Obstetrics [facility] [address] [place] [address] BackChloe garcia CRNP [address] [place] [address] [facility], Non Stress Tests [facility] [address] [place] [address] 07/02/2024 10:30 AM EST Office Visit Gynecology/Obstetrics [facility] [address] [place] [address] BackerChloe CRNP [address] [place] [address] Health Maintenance Due Date Last Done Comments [...] 5 Years) and At-Risk Patients (6 to 64 Years) Aged Out No longer eligible based on patient's age to complete this topic documented as of this encounter Medical Devices Not on filedocumented as of this encounter Visit Diagnoses Diagnosis High risk , antepartum- Primary Class 3 severe obesity due to excess calories with serious comorbidity and body mass index (BMI) of 40.0 to 44.9 in adult ([facility]) Screening for malignant neoplasm of cervix Screening [...] of 40.0 to 44.9 in adult ([facility])- Primary Obesity in , antepartum Obesity complicating [...] high-risk documented in this encounter Care Teams Health Therapist Relationship Specialty Start Date End Date Elina Will DO [address] [place] [address] PCP - General Family Medicine 11/09/23 documented as of this encounter
--- OUTSIDE RECORDS SUMMARY | 2024-06-25 09:25 | External Medical Summary | Summary of Care ---
Author Name Unknown Organization [facility] Address [address] [facility] [place] [address] Phone [phone] Care Team Providers Care Warehouse Supervisor 3Rd Shift Name Role Phone Elina Will DO Primary Care Provider [phone] Reason for Visit * Reason Comments Return Visit Non Stress Test Encounter Details Date Type Department Care Team (Late st Contact Info) Description 06/20/2024 1:00 PM EST Office Visit Gynecology/Obstetri cs [facility] [address] [place] [address] Chloe Hurtado CRNP [address] [place] [address] [facility] Non Stress Tests [facility] [address] [place] [address] High-risk in third trimester*; Chronic hypertension affecting ; Hx of section; History of gestational hypertension; Obesity in , antepartum; Insulin controlled gestational diabetes mellitus (GDM) in second trimester; Excessive growth affecting management of in third trimester, single or unspecified fetus; GBS (group B Streptococcus carrier), +RV culture, currently Allergies No known active allergiesdocumented as of this encounter (statuses as of 06/20/2024) Medications /Folic Acid Oral Tablet Take 1 Tablet by mouth once. Active [employer] System w/Device Kit Use to test blood [...] as of this encounter (statuses as of 06/20/2024) Active Problems Problem Noted Date Diagnosed Date [...] RPM reviewed; Stable overall, continue diet control 01/21/20242001-WDR-qskrau 01/28/20243729-HLF-oupzrctx fasting blood sugars (95-98). Advised to watch diet, eat bedtime snack, and avoid fasting longer than 8 to 10 hours. Will review again next week, and if persists, will schedule for follow up ADAPT with maternal medicine nurse practitioner. 02/04/20243920-WUW-nrxczw (1 elevated fasting blood sugar) 02/11/2024-RPM-4 of 7 elevated fasting blood sugars. Patient and [facility] PARs messaged to schedule follow up ADAPT. 02/12/24: ADAPT f/u complete. FBS elevated; will start Lantus 15 units HS. 02/19/20243222-PNN-gtktdbtv fasting blood sugars. Maternal medicine nurse practitioners to review. 02/19/24: RPM reviewed; increased to Lantus 20 units at bedtime 02/25/20247865-DFT-yonnugj stable (1 elevated post prandial lunch) 03/03/20241782-DEV-kpluri 03/10/20246455-BXX-dlatoz. Few missed readings. 03/17/20249765-UWB-zswgxv 03/24/24: RPM reviewed; Stable 03/31/24: RPM reviewed; Stable; continue Lantus 20 units at bedtime 04/07/20247960-NZU-kintmv 04/14/20243254-ZMK-ddurij 04/21/20245257-YCO-veelzv (1 elevated post prandial dinner) 04/28/20244420-ZNP-jwkmmj 05/05/20242282-IUB-ihrscy 05/12/20249679-WPF-ogyntj 05/19/24: RPM reviewed; blood sugars stable, continue Lantus 20 units at bedtime 05/26/20247695-KLP-iykkori stable (2 elevated post prandial dinner values) 06/02/20249358-TCZ-pagggm 06/09/24: RPM reviewed; stable 06/16/20244582-WQP-xovjxzx stable (rare elevation) Assessment & Plan (05/29/2024 [...] Recommend nutrition consult with RDN (Registered Dietitian Autocad Electrical Designer). Lifestyle changes are also indicated including optimizing [...] preeclamptic labs with CBC, serum AST/ALT/creatinine and agryykq-bk-mxxjerteil ratio or 24-hour urine protein LIDIA if [...] any current needs or questions 06/06/2024 Susannah Leal, GHASSAN 06/06/2024 Problem Action Taken Date entered Entered [...] preeclamptic labs with CBC, serum AST/ALT/creatinine and iscoeqz-fh-jqvvbvamzw ratio or 24-hour urine protein LIDIA if [...] as of this encounter (statuses as of 06/20/2024) Resolved Problems Problem Noted Date Diagnosed Date [...] on follow-up scans. We recommend alerting the communications project lead providing care of this finding if it persists into the 3rd trimester. with 12 completed weeks gestation 12/17/2023 02/01/2024 documented as of this encounter (statuses as of 06/20/2024) Immunizations Name Administration Dates Next Due TDAP, [...] money to get more. Never true 04/16/2024 [place] Depression Scale Answer Date Recorded [place] Depression Scale Total 0 12/07/2023 The thought [...] Sign Reading Time Taken Comments Blood Pressure 132/82 06/20/2024 1:17 PM EST Pulse - - Temperature - - Respiratory Rate - - Oxygen Saturation - - Inhaled Oxygen Concentration - - Weight - - Height - - Body Mass Index - - documented in this encounter Progress Notes * Chloe Hurtado CRNP - 06/20/2024 12:49 PM EST ASSESSMENT assessment with Non-stress Test completed on 06/20/2024 at 38.5 weeks gestation for indication of gestational diabetes mellitus and obesity heart baseline: 140 bpm Variability: Moderate Decelerations: absent Accelerations: present Contractions: None NST start time: 1250 NST stop time: 1313 NST strip reviewed, interpreted, and approved by OB provider, LINDA Barclay . NST strip stored in clinic storage file documented in this encounter Plan of Treatment Upcoming Encounters Date Type Department Care Team (Late st Contact Info) Description 06/24/2024 11:45 AM EST Office Visit Gynecology/Obstetrics [facility] [address] [place] [address] Jenni Smith CRNP [address] [place] [address] [facility] [address] [place] [address] 07/02/2024 10:30 AM EST Office Visit Gynecology/Obstetrics [facility] [address] [place] [address] Chloe Hurtado CRNP [address] [place] [address] Health Maintenance Due Date Last Done Comments Hepatitis B Vaccine (1 of 3 - 19+ 3-dose series) 2010 COVID-19 Vaccine (2023- season) 2024 Influenza Vaccine (FLU shot) (#1) 2024 GFR 03/28/2025 03/28/2024, 0606/2023, 08/11/2023, Additional history exists Depression Screening 06/12/2025 [...] (BMI) of 40.0 to 44.9 in adult ([facility]) Screening for malignant neoplasm of cervix Screening [...] (BMI) of 40.0 to 44.9 in adult ([facility])- Primary Obesity in , antepartum Obesity complicating [...] high-risk documented in this encounter Care Teams Warehouse Supervisor 3Rd Shift Relationship Specialty Start Date End Date Elina Will DO [address] [place] [address] PCP - General Family Medicine 11/09/23 documented as of this encounter
--- OUTSIDE RECORDS SUMMARY | 2024-06-25 09:25 | External Medical Summary | Summary of Care ---
Author Name Unknown Organization [facility] Address [address] [place] [address] Phone [phone] Care Team Providers Care Corporate Tax Preparer Name Role Phone Elina Will DO Primary Care Provider [phone] Reason for Visit * Reason Comments Return Visit Non Stress Test Encounter Details Date Type Department Care Team (Latest Contact Info) Description 06/09/2024 9:45 AM EST Office Visit Gynecology/Obstetric s [facility] [address] [facility] [place] [address] Jenni Smith CRNP [address] [place] [address] [facility] Non Stress Tests [facility] [address] [employer] [place] [address] High-risk in third trimester*; Chronic hypertension affecting ; Hx of section; History of gestational hypertension; Obesity in , antepartum; Insulin controlled gestational diabetes mellitus (GDM) in second trimester; Excessive growth affecting management of in third trimester, single or unspecified fetus; GBS (group B Streptococcus carrier), +RV culture, currently Allergies No known active allergiesdocumented as of this encounter (statuses as of 06/09/2024) Medications /Folic Acid Oral Tablet Take 1 [...] as of this encounter (statuses as of 06/09/2024) Active Problems Problem Noted Date Diagnosed Date [...] RPM reviewed; Stable overall, continue diet control 01/21/20249591-EQZ-cdsomr 01/28/20246147-CJF-xamuenso fasting blood sugars (95-98). Advised to watch diet, eat bedtime snack, and avoid fasting longer than 8 to 10 hours. Will review again next week, and if persists, will schedule for follow up ADAPT with maternal medicine nurse practitioner. 02/04/20240036-VNY-jyyeqj (1 elevated fasting blood sugar) 02/11/2024-RPM-4 of 7 elevated fasting blood sugars. Patient and C PARs messaged to schedule follow up ADAPT. 02/12/24: ADAPT f/u complete. FBS elevated; will start Lantus 15 units HS. 02/19/20242807-FYA-yjgkpgta fasting blood sugars. Maternal medicine nurse practitioners to review. 02/19/24: RPM reviewed; increased to Lantus 20 units at bedtime 02/25/20247803-WGU-aiebjep stable (1 elevated post prandial lunch) 03/03/20249332-NIR-qwwpwq 03/10/20249030-QBU-nrekoh. Few missed readings. 03/17/20243980-TPZ-pgpkiw 03/24/24: RPM reviewed; Stable 03/31/24: RPM reviewed; Stable; continue Lantus 20 units at bedtime 04/07/20249769-VTZ-qyldyb 04/14/20246772-OXG-bvhpnd 04/21/20242230-BVR-wuukbc (1 elevated post prandial dinner) 04/28/20248343-QZO-tabkav 05/05/20248865-BUR-gwdbla 05/12/20241930-SUZ-hbtgeo 05/19/24: RPM reviewed; blood sugars stable, continue Lantus 20 units at bedtime 05/26/20247288-FQD-gxoljad stable (2 elevated post prandial dinner values) 06/02/20244166-CXA-oscakv 06/09/24: RPM reviewed; stable Assessment & Plan [...] Recommend nutrition consult with RDN (Registered Dietitian Rd Mechanical Engineer). Lifestyle changes are also indicated including optimizing [...] preeclamptic labs with CBC, serum AST/ALT/creatinine and ejmczxk-kv-lqnfhgoecl ratio or 24-hour urine protein LIDIA if not already done. For patients with Class 3 obesity, we recommend weekly surveillance starting at 34 weeks and delivery by EDC. Recommend anesthesia consult during the antepartum period. Health counseling 12/07/2023 Overview (06/09/2024): Problem Action Taken Date entered Entered by [...] or questions 06/09/2024 Gabriella Reeder RN 06/09/2024 Assessment & Plan (05/19/2024 11:00 AM EST): [...] preeclamptic labs with CBC, serum AST/ALT/creatinine and bwhiqyt-yb-ijhjfouxfj ratio or 24-hour urine protein LIDIA if [...] as of this encounter (statuses as of 06/09/2024) Resolved Problems Problem Noted Date Diagnosed Date [...] on follow-up scans. We recommend alerting the electric truck operator providing care of this finding if it persists into the 3rd trimester. with 12 completed weeks gestation 12/17/2023 02/01/2024 documented as of this encounter (statuses as of 06/09/2024) Immunizations Name Administration Dates Next Due TDAP, [...] money to get more. Never true 04/16/2024 [place] Depression Scale Answer Date Recorded [place] Depression Scale Total 0 12/07/2023 The thought [...] 04/16/2024 Does the household have a re lar source of income? (Household - for ages [...] Sign Reading Time Taken Comments Blood Pressure 128/82 06/09/2024 10:13 AM EST Pulse - - Temperature - - Respiratory Rate - - Oxygen Saturation - - Inhaled Oxygen Concentration - - Weight 115.8 kg (255 lb 6.4 oz) 024 10:13 AM EST Height - - Body Mass Index 43.84 05/22/2024 10:20 AM EST documented in this encounter Progress Notes * Jenni Smith CRNP - 06/09/2024 11:31 AM EST 37w1d No concerns today. Has preop scheduled for later in the week. ASSESSMENT assessment with Non-stress Test completed on 06/09/2024 at 37.1weeks gestation for indicationof gestational diabetes mellitus heart baseline: 140 bpm Variability: Moderate Decelerations: absent Accelerations: present Contractions: None NST start time: 1108 NST stop time: 1133 NST strip reviewed, interpreted, and approved by OB Jenni levi CRNP . NST strip stored in clinic storage file * Carolina Kohler CMA - 06/09/2024 10:13 AM EST 37w1d Denies any concerns documented in this encounter Nursing Notes * Gabriella Reeder RN - 06/09/2024 10:41 AM EST Patient seen by [facility] Commercial Airplane Pilot. Patient denies any questions or concerns. Gabriella Reeder, RN documented in this encounter Plan of Treatment Upcoming Encounters Date Type Department Care Team (Late st Contact Info) Description 06/12/2024 9:15 AM EST Office Visit Gynecology/Obstetrics [facility] [address] [place] [address] Federico Rodriguez MD [address] [place] [address] [facility], Non Stress Tests [facility] [address] [place] [address] 06/16/2024 1:00 PM EST Office Visit Gynecology/Obstetrics [facility] [address] [place] [address] Chloe Hurtado CRNP [address] [place] [address] [facility], Non Stress Tests [facility] [address] [place] [address] 06/20/2024 1:00 PM EST Office Visit Gynecology/Obstetrics [facility] [address] [place] [address] Chloe Hurtado CRNP [address] [place] [address] [facility], Non Stress Tests [facility] [address] [place] [address] 07/02/2024 10:30 AM EST Office Visit Gynecology/Obstetrics [facility] [address] [place] [address] Backer, LINDA Saxena [address] [place] [address] Health Maintenance Due Date Last Done Comments [...] (BMI) of 40.0 to 44.9 in adult ([facility]) Screening for malignant neoplasm of cervix Screening [...] (BMI) of 40.0 to 44.9 in adult ([facility])- Primary Obesity in , antepartum Obesity complicating [...] high-risk documented in this encounter Care Teams Corporate Tax Preparer Relationship Specialty Start Date End Date Elina Will DO [address] [place] [address] PCP - General Family Medicine 11/09/23 documented as of this encounter
--- OUTSIDE RECORDS SUMMARY | 2024-06-25 09:25 | External Medical Summary | Summary of Care ---
Author Name Unknown Organization [facility] Address [address] [place] [facility] [place] [address] Phone [phone] Care Team Providers Care Buggyman Name Role Phone Elina Will DO Primary Care Provider [phone] Reason for Visit * Reason Comments Non Stress Test Return Visit Encounter Details Date Type Department Care Team (Latest Contact Info) Description 06/24/2024 11:45 AM EST Office Visit Gynecology/Obstetric s [facility] [address] [place] [address] Jenni Smith CRNP [address] [place] [address] [facility] Non Stress Tests [place] [address] [place] [address] High-risk in third trimester*; Chronic hypertension affecting ; Hx of section; History of gestational hypertension; Obesity in , antepartum; Insulin controlled gestational diabetes mellitus (GDM) in second trimester; Excessive growth affecting management of in third trimester, single or unspecified fetus; GBS (group B Streptococcus carrier), +RV culture, currently Allergies No known active allergiesdocumented as of this encounter (statuses as of 06/24/2024) Medications /Folic Acid Oral Tablet Take 1 Tablet by mouth once. Active Electro-LuminX System w/Device Kit Use to test blood [...] as of this encounter (statuses as of 06/24/2024) Active Problems Problem Noted Date Diagnosed Date [...] mellitus (GDM) in second trimester 01/03/2024 Overview (06/23/2024): Diagnosed at 13 weeks Nutrition consult ordered [...] RPM reviewed; Stable overall, continue diet control 01/21/20248142-LNQ-qhcnvy 01/28/20243488-HGE-bqqsfoll fasting blood sugars (95-98). Advised to watch diet, eat bedtime snack, and avoid fasting longer than 8 to 10 hours. Will review again next week, and if persists, will schedule for follow up ADAPT with maternal medicine nurse practitioner. 02/04/20244598-IOL-eqlogr (1 elevated fasting blood sugar) 02/11/2024-RPM-4 of 7 elevated fasting blood sugars. Patient and C PARs messaged to schedule follow up ADAPT. 02/12/24: ADAPT f/u complete. FBS elevated; will start Lantus 15 units HS. 02/19/20242052-MKJ-mjpsladh fasting blood sugars. Maternal medicine nurse practitioners to review. 02/19/24: RPM reviewed; increased to Lantus 20 units at bedtime 02/25/20244114-XES-fiptgzw stable (1 elevated post prandial lunch) 03/03/20243866-JIS-qxjbcc 03/10/20247648-ZBA-wearug. Few missed readings. 03/17/20241579-KYW-qxzsaq 03/24/24: RPM reviewed; Stable 03/31/24: RPM reviewed; Stable; continue Lantus 20 units at bedtime 04/07/20247862-NXA-wxzozp 04/14/20249305-QOW-rfzmxa 04/21/20248280-YBQ-fhnusx (1 elevated post prandial dinner) 04/28/20245853-TSW-soyohe 05/05/20249071-NFH-onghei 05/12/20247377-RHP-njlbpr 05/19/24: RPM reviewed; blood sugars stable, continue Lantus 20 units at bedtime 05/26/20244462-BAW-vqmmwgw stable (2 elevated post prandial dinner values) 06/02/20241546-TBF-funkwl 06/09/24: RPM reviewed; stable 06/16/20244069-QJQ-twqisrg stable (rare elevation) 06/23/20241695-OCM-vbynuo Assessment & Plan (05/29/2024 4:09 PM EST): [...] Recommend nutrition consult with RDN (Registered Dietitian Bale Piler). Lifestyle changes are also indicated including optimizing [...] preeclamptic labs with CBC, serum AST/ALT/creatinine and yjqnmxo-ox-qzhsbrsrzd ratio or 24-hour urine protein LIDIA if not already done. For patients with Class 3 obesity, we recommend weekly surveillance starting at 34 weeks and delivery by EDC. Recommend anesthesia consult during the antepartum period. Health counseling 12/07/2023 Overview (06/24/2024): Problem Action Taken Date entered Entered by [...] or questions 06/16/2024 Teresa Azul RN 06/16/2024 Problem Action Taken Date entered Entered by Date resolved Current needs or questions Patient denies having any current needs or questions 06/24/2024 Susannah Leal RN 06/24/2024 Assessment & Plan (05/19/2024 11:00 AM EST): [...] preeclamptic labs with CBC, serum AST/ALT/creatinine and bhaocrn-ty-gckpmxkzer ratio or 24-hour urine protein LIDIA if [...] as of this encounter (statuses as of 06/24/2024) Resolved Problems Problem Noted Date Diagnosed Date [...] on follow-up scans. We recommend alerting the cryptographic clerk providing care of this finding if it persists into the 3rd trimester. with 12 completed weeks gestation 12/17/2023 02/01/2024 documented as of this encounter (statuses as of 06/24/2024) Immunizations Name Administration Dates Next Due TDAP, Age 7 and older, IM (Adacel) 03/28/2024 documented as of this encounter Social History Tobacco Use Types Packs/Day Years Used Date Smoking Tobacco: Never Smokeless Tobacco: Never Alcohol Use Standard Drinks/Week Comments Not Currently 0 (1 standard drink = 0.6 oz pur e alcohol) PHQ-2 Answer Date Recorded PHQ Adult Total Score 0 06/23/2024 Hunger Vital Sign Answer Date Recorded Within the past 12 months, y ou worried that your food would run out before you got the money to buy more. Never true 04/16/20 24 Within the past 12 months, t he food you bought just didn't last and you didn't have money to get more. Never true 04/16/2024 [place] Depression Scale Answer Date Recorded [place] Depression Scale Total 0 12/07/2023 The thought [...] No 04/16/2024 Does the household have a [facility] source of income? (Household - for ages [...] Sign Reading Time Taken Comments Blood Pressure 140/88 06/24/2024 11:47 AM EST Pulse - - Temperature - - Respiratory Rate - - Oxygen Saturation - - Inhaled Oxygen Concentration - - Weight 116.6 kg (257 lb) 06/24/2024 11:47 AM EST Height - - Body Mass Index 44.11 05/22/2024 10:20 AM EST documented in this encounter Progress Notes * Jenni Smith CRNP - 06/24/2024 12:24 PM EST 39w2d No concerns. C/s scheduled for tomorrow. Aware to call today for time. Planning condoms for PP contraception. ASSESSMENT assessment with Non-stress Test completed on 06/24/2024 at 39.2weeks gestation for indication of gestational diabetes mellitus heart baseline: 140 bpm Variability: Moderate Decelerations: absent Accelerations: present Contractions: None NST start time: 1241 NST stop time: 1317 NST strip reviewed, interpreted, and approved by OB provider, LINDA Hurtado . NST strip stored in clinic storage file * Carolina Kohler CMA - 06/24/2024 11:47 AM EST 39w2d Denies any concerns. scheduled for tomorrow 06/25. documented in this encounter Nursing Notes * Susannah Leal RN - 06/24/2024 12:01 PM EST Patient seen by [facility]. Patient denies any questions or concerns. Susannah Leal RN documented in this encounter Plan of Treatment Upcoming Encounters Date Type Department Care Team (Late st Contact Info) Description 07/02/2024 10:30 AM EST [facility] [address] [place] [address] [place], LINDA Saxena [address] [place] [address] Health Maintenance Due Date Last Done Comments Hepatitis B Vaccine (1 of 3 - 19+ 3-dose series) 2010 COVID-19 Vaccine ( season) 2024 Influenza Vaccine (FLU shot) (#1) 2024 GFR 03/28/2025 03/28/2024, 0606/2023, 08/11/2023, Additional history exists Depression Screening 06/23/2025 06/23/2024 Pap Smear 12/06/2026 12/07/2023 Cervical Cancer Screening [...] (BMI) of 40.0 to 44.9 in adult ([facility]) Screening for malignant neoplasm of [...] (BMI) of 40.0 to 44.9 in adult ([facility])- Primary Obesity in , antepartum [...] high-risk documented in this encounter Care Teams Buggyman Relationship Specialty Start Date End Date Elina Will DO [address] [place] [address] PCP - General Family Medicine 11/09/23 documented as of this encounter
--- OUTSIDE RECORDS SUMMARY | 2024-06-25 09:25 | External Medical Summary | Summary of Care ---
Author Name Unknown Organization [facility] Address [address] [place] [address] Phone [phone] Care Team Providers Care Psychiatric Lpn Name Role Phone Elina Will DO Primary Care Provider [phone] Reason for Visit * Reason Comments Return Visit Non Stress Test Encounter Details Date Type Department Care Team (Late st Contact Info) Description 06/16/2024 1:00 PM EST Office Visit Gynecology/Obstetri cs [facility] [address] [place] [address] Chloe Hurtado CRNP [address] [place] [address] [facility] Non Stress Tests [place] [address] [place] [address] High-risk in third trimester*; Chronic hypertension affecting ; Hx of section; History of gestational hypertension; Obesity in , antepartum; Insulin controlled gestational diabetes mellitus (GDM) in second trimester; Excessive growth affecting management of in third trimester, single or unspecified fetus; GBS (group B Streptococcus carrier), +RV culture, currently Allergies No known active allergiesdocumented as of this encounter (statuses as of 06/16/2024) Medications /Folic Acid Oral Tablet Take 1 Tablet by mouth once. Active [employer] System w/Device Kit Use to test blood [...] as of this encounter (statuses as of 06/16/2024) Active Problems Problem Noted Date Diagnosed Date [...] RPM reviewed; Stable overall, continue diet control 01/21/20247072-DKN-knygfn 01/28/20246604-CGW-qlzhcuzr fasting blood sugars (95-98). Advised to watch diet, eat bedtime snack, and avoid fasting longer than 8 to 10 hours. Will review again next week, and if persists, will schedule for follow up ADAPT with maternal medicine nurse practitioner. 02/04/20244633-ADM-jgfzzs (1 elevated fasting blood sugar) 02/11/2024-RPM-4 of 7 elevated fasting blood sugars. Patient and C PARs messaged to schedule follow up ADAPT. 02/12/24: ADAPT f/u complete. FBS elevated; will start Lantus 15 units HS. 02/19/20243687-BNI-jsewftkl fasting blood sugars. Maternal medicine nurse practitioners to review. 02/19/24: RPM reviewed; increased to Lantus 20 units at bedtime 02/25/20245244-OLK-ddcibcl stable (1 elevated post prandial lunch) 03/03/20247163-DXP-qmwtdy 03/10/20245470-IEU-jswsgw. Few missed readings. 03/17/20247321-JCS-vnukix 03/24/24: RPM reviewed; Stable 03/31/24: RPM reviewed; Stable; continue Lantus 20 units at bedtime 04/07/20248488-EHD-ceaymk 04/14/20248141-NFL-xpdmdc 04/21/20241244-VES-senbxe (1 elevated post prandial dinner) 04/28/20246532-OOD-bzyjjg 05/05/20248807-DXQ-pswwrt 05/12/20247336-AND-ktdfwj 05/19/24: RPM reviewed; blood sugars stable, continue Lantus 20 units at bedtime 05/26/20243978-YOC-fdkbweo stable (2 elevated post prandial dinner values) 06/02/20244641-PYY-vcidbw 06/09/24: RPM reviewed; stable 06/16/20241708-NCB-ztudfco stable (rare elevation) Assessment & Plan (05/29/2024 [...] Recommend nutrition consult with RDN (Registered Dietitian Health Nurse). Lifestyle changes are also indicated including optimizing [...] preeclamptic labs with CBC, serum AST/ALT/creatinine and ftaoxtn-mo-rgifrikuzz ratio or 24-hour urine protein LIDIA if [...] preeclamptic labs with CBC, serum AST/ALT/creatinine and brxgrnj-af-hlfjnsnycg ratio or 24-hour urine protein LIDIA if [...] as of this encounter (statuses as of 06/16/2024) Resolved Problems Problem Noted Date Diagnosed Date [...] on follow-up scans. We recommend alerting the controller instructor providing care of this finding if it persists into the 3rd trimester. with 12 completed weeks gestation 12/17/2023 02/01/2024 documented as of this encounter (statuses as of 06/16/2024) Immunizations Name Administration Dates Next Due TDAP, [...] money to get more. Never true 04/16/2024 [place] Depression Scale Answer Date Recorded [place] Depression Scale Total 0 12/07/2023 The thought [...] Sign Reading Time Taken Comments Blood Pressure 124/74 06/16/2024 1:13 PM EST Pulse - - Temperature - - Respiratory Rate - - Oxygen Saturation - - Inhaled Oxygen Concentration - - Weight 116.2 kg (256 lb 3.2 oz) 06/16/2024 1:13 PM EST Height - - Body Mass Index 43.98 05/22/2024 10:20 AM EST documented in this encounter Progress Notes * Chloe Hurtado CRNP - 06/16/2024 1:26 PM EST 38w1d Good movement. No regular ctx. Denies LOF/bleeding. C/S scheduled for 1/8. Normal BP. Return later this week as scheduled for NST. LINDA Barclay ASSESSMENT assessment with Non-stress Test completed on 06/16/2024 at 38.1 weeks gestation for indication of gestational diabetes mellitus, obesity, and chronic hypertension heart baseline: 140 bpm Variability: Moderate Decelerations: absent Accelerations: present Contractions: x1 NST start time: 1310 NST stop time: 1343 NST strip reviewed, interpreted, and approved by OB provider, LINDA Barclay . NST strip stored in clinic storage file * Carolina Kohler CMA - 06/16/2024 1:13 PM EST 38w1d Denies any concerns Some possible contractions but nothing timeable documented in this encounter Plan of Treatment Upcoming Encounters Date Type Department Care Team (Late st Contact Info) Description 06/20/2024 1:00 PM EST Office Visit Gynecology/Obstetrics [facility] [address] [place] [address] Chloe Hurtado CRNP [address] [place] [address] [facility], Non Stress Tests [place] [address] [place] [address] 07/02/2024 10:30 AM EST Office Visit Gynecology/Obstetrics [facility] [address] [place] [address] Chloe Hurtado CRNP [address] [place] [address] Health Maintenance Due Date Last Done Comments Hepatitis B Vaccine (1 of 3 - 19+ 3-dose series) 2010 COVID-19 Vaccine (2023- season) 2024 Influenza Vaccine (FLU shot) (#1) 2024 GFR 03/28/2025 03/28/2024, 06/06/2023, 08/11/2023, Additional history exists Depression Screening 06/12/2025 [...] (BMI) of 40.0 to 44.9 in adult ([facility]) Screening for malignant neoplasm of cervix [...] (BMI) of 40.0 to 44.9 in adult ([facility])- Primary Obesity in , antepartum Obesity [...] high-risk documented in this encounter Care Teams Psychiatric Lpn Relationship Specialty Start Date End Date Elina Will DO [address] [place] [address] [address] PCP - General Family Medicine 11/09/23 documented as of this encounter
--- OUTSIDE RECORDS SUMMARY | 2024-06-25 09:25 | External Medical Summary | Summary of Care ---
Author Name Unknown Organization [facility] Address [address] [facility] [place] [address] Phone [phone] Care Team Providers Care Probate Judge Name Role Phone Elina Will DO Primary Care Provider [phone] Reason for Visit * Reason Onset Date Comments Advice 06/16/2024 Encounter Details Date Type Department Care Team (Late st Contact Info) Description 06/16/2024 Telephone Gynecology/Obstetrics [facility] [address] [place] [address] Chloe Hurtado CRNP [address] [place] [address] Advice Allergies No known active allergiesdocumented as of this encounter (statuses as of 06/17/2024) Medications /Folic Acid Oral Tablet Take 1 Tablet by mouth once. Active Trigger[employer]io Verio Flex System w/Device Kit Use to test blood sugars 4 times daily (fasting, 1 hour after breakfast, lunch, and dinner) 1 Kit 4 Active Omtool, LtdTouch Verio In Vitro Strip (Glucose Blood) Use [...] RPM reviewed; Stable overall, continue diet control 01/21/20246720-FXQ-atrizk 01/28/20240081-HHR-slimamaj fasting blood sugars (95-98). Advised to watch diet, eat bedtime snack, and avoid fasting longer than 8 to 10 hours. Will review again next week, and if persists, will schedule for follow up ADAPT with maternal medicine nurse practitioner. 02/04/20247079-KXZ-zfjjvi (1 elevated fasting blood sugar) 02/11/2024-RPM-4 of 7 elevated fasting blood sugars. Patient and C PARs messaged to schedule follow up ADAPT. 02/12/24: ADAPT f/u complete. FBS elevated; will start Lantus 15 units HS. 02/19/20244270-MAR-ndrvaudg fasting blood sugars. Maternal medicine nurse practitioners to review. 02/19/24: RPM reviewed; increased to Lantus 20 units at bedtime 02/25/20242780-DJH-rsuzoeo stable (1 elevated post prandial lunch) 03/03/20244106-IJX-wkmjla 03/10/20240333-IUA-xvcbqw. Few missed readings. 03/17/20247069-MNL-suhihl 03/24/24: RPM reviewed; Stable 03/31/24: RPM reviewed; Stable; continue Lantus 20 units at bedtime 04/07/20240492-RKJ-chvmzq 04/14/20249189-KPH-rsppmm 04/21/20246258-NBN-bsrmtl (1 elevated post prandial dinner) 04/28/20245874-TLQ-gibzce 05/05/20247052-RLP-arwfra 05/12/20240189-ZXN-obncvh 05/19/24: RPM reviewed; blood sugars stable, continue Lantus 20 units at bedtime 05/26/20243780-SQV-gcaytei stable (2 elevated post prandial dinner values) 06/02/20245780-MCM-gjrimt 06/09/24: RPM reviewed; stable 06/16/20242437-SHO-rwfubgj stable (rare elevation) Assessment & Plan (05/29/2024 [...] Recommend nutrition consult with RDN (Registered Dietitian Library Science Professor). Lifestyle changes are also indicated including optimizing [...] preeclamptic labs with CBC, serum AST/ALT/creatinine and zzwcdkp-gv-yvdhhcjqjw ratio or 24-hour urine protein LIDIA if [...] preeclamptic labs with CBC, serum AST/ALT/creatinine and tjlupgb-qi-patpsmrppd ratio or 24-hour urine protein LIDIA if [...] on follow-up scans. We recommend alerting the emergency vehicle dispatcher providing care of this finding if it [...] money to get more. Never true 04/16/2024 [place] Depression Scale Answer Date Recorded [place] Depression Scale Total 0 12/07/2023 The thought [...] 06/20/2024 1:00 PM EST [facility] [address] [place] [address] Chloe Hurtado CRNP [address] [place] [address] [facility] Non Stress Tests [place] [address] [place] [address] 07/02/2024 10:30 AM EST Office Visit Gynecology/Obstetrics [facility] [address] [place] [address] BackerChloe CRNP [address] [place] [address] Health Maintenance Due Date Last Done Comments [...] filedocumented as of this encounter Care Teams Probate Judge Relationship Specialty Start Date End Date Elina Will DO [address] [place] [address] PCP - General Family Medicine 11/09/23 documented as of this encounter
--- OUTSIDE RECORDS SUMMARY | 2024-06-25 09:26 | External Medical Summary | Summary of Care ---
Author Name Unknown Organization [facility] Address [address] [place] [facility] [address] Phone [phone] Care Team Providers Care Tank Maker Wood Name Role Phone Elina Will DO Primary Care Provider [phone] Reason for Visit * Reason Comments Return Visit Encounter Details Date Type Department Care Team (Late st Contact Info) Description 05/22/2024 10:15 AM EST Office Visit Gynecology/Obstetric s Jumana Alvarado [address] [place] [address] Jenni Smith CRNP [address] [place] [address] [place] Non Stress Tests [place] [address] [employer] [place] [address] High-risk in third trimester*; Chronic hypertension affecting ; Hx of section; History of gestational hypertension; Obesity in , antepartum; Insulin controlled gestational diabetes mellitus (GDM) in third trimester; Excessive growth affecting management of in third trimester, single or unspecified fetus; Insulin controlled gestational diabetes mellitus (GDM) in second trimester Allergies No known active allergiesdocumented as of this encounter (statuses as of 05/22/2024) Medications /Folic Acid Oral Tablet Take 1 Tablet by mouth once. Active Aspirin 81 MG Oral Tablet Delayed Release Take 1 Tablet by mouth in the morning. Active Regalister Flex System w/Device Kit Use to test [...] as of this encounter (statuses as of 05/22/2024) Active Problems Problem Noted Date Diagnosed Date Excessive growth affec ting management of in third trimester 2024 Assessment & Plan (2024 12:24 PM EST): EFW today at 99%ile with normal DONNIE. Sandra is planning repeat c/s. Sugars reviewed in and under good control. Delivery currently indicated at ~39 weeks and plan unchanged based on LGA alone. Antepartum anemia complicating 024 Insulin controlled gestation al diabetes mellitus (GDM) in second trimester 01/03/2024 Overview (05/19/2024): Diagnosed at 13 weeks Nutrition consult ordered [...] RPM reviewed; Stable overall, continue diet control 01/21/20244439-VSJ-ceezmn 01/28/20247774-LXP-dsepoutf fasting blood sugars (95-98). Advised to watch diet, eat bedtime snack, and avoid fasting longer than 8 to 10 hours. Will review again next week, and if persists, will schedule for follow up ADAPT with maternal medicine nurse practitioner. 02/04/20241440-VDA-mjkgzj (1 elevated fasting blood sugar) 02/11/2024-RPM-4 of 7 elevated fasting blood sugars. Patient and [facility] PARs messaged to schedule follow up ADAPT. 02/12/24: ADAPT f/u complete. FBS elevated; will start Lantus 15 units HS. 02/19/20247171-URU-ubbijpgu fasting blood sugars. Maternal medicine nurse practitioners to review. 02/19/24: RPM reviewed; increased to Lantus 20 units at bedtime 02/25/20241433-WLF-sqonkpk stable (1 elevated post prandial lunch) 03/03/20241484-UKX-tiggya 03/10/20246595-GKQ-kcteia. Few missed readings. 03/17/20249483-EPV-segzeq 03/24/24: RPM reviewed; Stable 03/31/24: RPM reviewed; Stable; continue Lantus 20 units at bedtime 04/07/20248227-FKW-wmujun 04/14/20241380-WEI-gytqig 04/21/20241657-NVD-wqrqsi (1 elevated post prandial dinner) 04/28/20246727-YAZ-hhxuue 05/05/20241773-PPY-skzyjp 05/12/20244571-ZZJ-juibyv 05/19/24: RPM reviewed; blood sugars stable, continue Lantus 20 units at bedtime Assessment & Plan (04/03/2024 9:08 AM EDT): [...] Recommend nutrition consult with RDN (Registered Dietitian Knocker Off). Lifestyle changes are also indicated including optimizing [...] preeclamptic labs with CBC, serum AST/ALT/creatinine and wflrcug-lm-zphcdqqbpq ratio or 24-hour urine protein LIDIA if not already done. For patients with Class 3 obesity, we recommend weekly surveillance starting at 34 weeks and delivery by EDC. Recommend anesthesia consult during the antepartum period. Health counseling 12/07/2023 Overview (05/12/2024): Problem Action Taken Date entered Entered by [...] having any current needs or questions 05/12/2024 Tereas Azul RN 05/12/2024 Assessment & Plan (05/19/2024 11:00 AM EST): [...] preeclamptic labs with CBC, serum AST/ALT/creatinine and sckhmwz-zq-ptbkbgmouv ratio or 24-hour urine protein LIDIA if [...] as of this encounter (statuses as of 05/22/2024) Resolved Problems Problem Noted Date Diagnosed Date [...] on follow-up scans. We recommend alerting the manager style providing care of this finding if it persists into the 3rd trimester. with 12 completed weeks gestation 12/17/2023 02/01/2024 documented as of this encounter (statuses as of 05/22/2024) Immunizations Name Administration Dates Next Due TDAP, [...] money to get more. Never true 04/16/2024 [place] Depression Scale Answer Date Recorded [place] Depression Scale Total 0 12/07/2023 The thought [...] Sign Reading Time Taken Comments Blood Pressure 122/76 05/22/2024 10:20 AM EST Pulse - - Temperature - - Respiratory Rate - - Oxygen Saturation - - Inhaled Oxygen Concentration - - Weight 114.3 kg (252 lb) 05/22/2024 10:20 AM EST Height 162.6 cm (5' 4") 05/22/2024 10:20 AM EST Body Mass Index 43.26 05/22/2024 10:20 AM EST documented in this encounter Progress Notes * Jenni Smith CRNP - 05/22/2024 11:18 AM EST 34w4d No concerns. Baby is active. No contractions or bleeding. Reports good control of blood sugars on insulin. BP is good, checking at home as well. Has growth u/s next with MFM. ASSESSMENT assessment with Non-stress Test completed on 05/22/2024 at 34.4weeks gestation for indication of gestational diabetes mellitus, obesity, and chronic hypertension heart baseline: 140 bpm Variability: Moderate Decelerations: absent Accelerations: present Contractions: None NST start time: 1117 NST stop time: 1200 NST strip reviewed, interpreted, and approved by OB providerJenni CRNP . NST strip stored in clinic storage file documented in this encounter Plan of Treatment Upcoming Encounters Date Type Department Care Team (Late st Contact Info) Description 05/26/2024 1:15 PM EST Office Visit Gynecology/Obstetrics Jumana Alvarado [address] [place] [address] [place], LINDA Saxena [address] [place] [address] [facility] Non Stress Tests [place] [phone] 05/29/2024 11:00 AM EST Imaging [facility], [address] [place] [phone] 06/02/2024 1:00 PM EST Office Visit Gynecology/Obstetrics [place] [address] [place], LINDA Saxena [address] [place] [address] [place], Non Stress Tests [place] [address] [place] [address] 06/06/2024 1:00 PM EST Office Visit Gynecology/Obstetrics [facility] [address] [place] [address] Backer, LINDA Saxena [address] [place] [address] [facility] Non Stress Tests [place] [address] [place] [address] 06/09/2024 9:45 AM EST Office Visit Gynecology/Obstetrics [facility] [address] [place] [address] Jenni Smith CRNP [address] [place] [address] [facility] Non Stress Tests [place] [address] [place] [address] 06/12/2024 9:15 AM EST Office Visit Gynecology/Obstetrics [facility] [address] [place] [address] Federico Rodriguez MD [address] [place] [phone] Alvarado, Non Stress Tests [place] [address] [place] [address] 06/12/2024 10:15 AM EST Office Visit Gynecology/Obstetrics [facility] [address] [place] [address] Jenni Smith CRNP [address] [place] [address] Cristiane Alvarado Stress Tests [place] [address] [place] [address] 06/16/2024 1:00 PM EST Office Visit Gynecology/Obstetrics [facility]visy[facility] Alvarado [address] [place], [place] [address] Chloe Hurtado CRNP [address] [place] [address] Cristiane Alvarado Stress Tests [place] [address] [place] [address] 06/20/2024 1:00 PM EST Office Visit Gynecology/Obstetrics [facility]vis[facility]orah[facility] Alvarado [address] [place] [address] Chloe Hurtado CRNP [address] [place] [address] Cristiane Alvarado Stress Tests [place] [address] [place] [address] 07/02/2024 10:30 AM EST Office Visit Gynecology/Obstetrics Jarvisyeni Alvarado [address] [place] [address] Chloe Hurtado CRNP [address] [place] [address] Health Maintenance Due Date Last Done Comments Hepatitis B Vaccine (1 of 3 - 19+ 3-dose series) 2010 COVID-19 Vaccine (2023-25 season) 2024 Influenza Vaccine (FLU shot) (#1) [...] of 40.0 to 44.9 in adult ([facility]) Screening for malignant neoplasm of cervix Screening [...] of 40.0 to 44.9 in adult ([facility])- Primary Obesity in , antepartum Obesity complicating [...] in third trimester, single or unspecified fetus High-risk in third trimester- Primary Chronic hypertension affecting Hx of section Other postprocedural status History of gestational hypertension Obesity in , antepartum Obesity complicating , childbirth, or the puerperium, antepartum condition or complication Insulin controlled gestational diabetes mellitus (GDM) in third trimester Excessive growth affecting management of in third trimester, single or unspecified fetus Insulin controlled gestational diabetes mellitus (GDM) in second trimester documented in this encounter Care Teams Tank Maker Wood Relationship Specialty Start Date End Date Elina Will DO [address] [place] [address] PCP - General Family Medicine 11/09/23 documented as of this encounter
--- OUTSIDE RECORDS SUMMARY | 2024-06-25 09:26 | External Medical Summary | Summary of Care ---
Author Name Unknown Organization [facility] Address [address] [place] [facility] [place] [address] Phone [phone] Care Team Providers Care Cane Weigher Helper Name Role Phone Elina Will DO Primary Care Provider [phone] Reason for Visit * Reason Comments Non Stress Test Return Visit Encounter Details Date Type Department Care Team (Late st Contact Info) Description 06/02/2024 1:00 PM EST Office Visit Gynecology/Obstetric s [facility] [address] [place] [address] Chloe Hurtado CRNP [address] [place] [address] [place] Non Stress Tests [place] [address] [place] [address] High-risk in third trimester*; Chronic hypertension affecting ; Hx of section; History of gestational hypertension; Obesity in , antepartum; Insulin controlled gestational diabetes mellitus (GDM) in second trimester; Excessive growth affecting management of in third trimester, single or unspecified fetus Allergies No known active allergiesdocumented as of this encounter (statuses as of 06/02/2024) Medications /Folic Acid Oral Tablet Take 1 Tablet by mouth once. Active Aspirin 81 MG Oral Tablet Delayed Release Take 1 Tablet by mouth in the morning. Active Codon Devices[employer] Flex System w/Device Kit Use to test [...] as of this encounter (statuses as of 06/02/2024) Active Problems Problem Noted Date Diagnosed Date [...] RPM reviewed; Stable overall, continue diet control 01/21/20248589-MGY-nubnyg 01/28/20246515-YFO-yljqnuer fasting blood sugars (95-98). Advised to watch diet, eat bedtime snack, and avoid fasting longer than 8 to 10 hours. Will review again next week, and if persists, will schedule for follow up ADAPT with maternal medicine nurse practitioner. 02/04/20240433-WML-tknllm (1 elevated fasting blood sugar) 02/11/2024-RPM-4 of 7 elevated fasting blood sugars. Patient and C PARs messaged to schedule follow up ADAPT. 02/12/24: ADAPT f/u complete. FBS elevated; will start Lantus 15 units HS. 02/19/20249188-CQB-yejhkkby fasting blood sugars. Maternal medicine nurse practitioners to review. 02/19/24: RPM reviewed; increased to Lantus 20 units at bedtime 02/25/20240139-AHW-zidlafn stable (1 elevated post prandial lunch) 03/03/20247090-IRG-yiyaet 03/10/20245774-UQK-osduzw. Few missed readings. 03/17/20242442-ZJT-vfanck 03/24/24: RPM reviewed; Stable 03/31/24: RPM reviewed; Stable; continue Lantus 20 units at bedtime 04/07/20240276-VLM-lhoccb 04/14/20240540-RRB-ilvpvx 04/21/20241713-SEC-hrdoqp (1 elevated post prandial dinner) 04/28/20249987-SGK-wsxysc 05/05/20248946-PVD-cvzijq 05/12/20248816-IEL-alzdzo 05/19/24: RPM reviewed; blood sugars stable, continue Lantus 20 units at bedtime 05/26/20248017-YJP-svuketq stable (2 elevated post prandial dinner values) 06/02/20244993-OYG-longvd Assessment & Plan (05/29/2024 4:09 PM EST): [...] Recommend nutrition consult with RDN (Registered Dietitian Proposal Review Analyst). Lifestyle changes are also indicated including optimizing [...] preeclamptic labs with CBC, serum AST/ALT/creatinine and gomxtih-xs-isqzqgyplx ratio or 24-hour urine protein LIDIA if not already done. For patients with Class 3 obesity, we recommend weekly surveillance starting at 34 weeks and delivery by EDC. Recommend anesthesia consult during the antepartum period. Health counseling 12/07/2023 Overview (06/02/2024): Problem Action Taken Date entered Entered by [...] or questions 06/02/2024 Navjot Renner RN 06/02/24 Assessment & Plan (05/19/2024 11:00 AM EST): [...] preeclamptic labs with CBC, serum AST/ALT/creatinine and lbrwawj-ny-eyxfzgekfo ratio or 24-hour urine protein LIDIA if [...] as of this encounter (statuses as of 06/02/2024) Resolved Problems Problem Noted Date Diagnosed Date [...] on follow-up scans. We recommend alerting the html developer providing care of this finding if it persists into the 3rd trimester. with 12 completed weeks gestation 12/17/2023 02/01/2024 documented as of this encounter (statuses as of 06/02/2024) Immunizations Name Administration Dates Next Due TDAP, [...] money to get more. Never true 04/16/2024 [place] Depression Scale Answer Date Recorded [place] Depression Scale Total 0 12/07/2023 The thought [...] Sign Reading Time Taken Comments Blood Pressure 128/78 06/02/2024 1:37 PM EST Pulse - - Temperature - - Respiratory Rate - - Oxygen Saturation - - Inhaled Oxygen Concentration - - Weight - - Height - - Body Mass Index - - documented in this encounter Progress Notes * Chloe Hurtado CRNP - 06/02/2024 12:56 PM EST 36w1d Baby is active. No ctx or leaking/bleeding. Growth scan with MFM last week - AC and EFW >99%ile. GDMA 2 managed by ADAPT. GBS today. Retail Account Manager Documentation Provider requested calender tender. Name of calender tender: LINDA Villeda ASSESSMENT assessment with Non-stress Test completed on 06/02/2024 at 36.1 weeks gestation for indication of gestational diabetes mellitus, obesity, and chronic hypertension heart baseline: 130 bpm Variability: Moderate Decelerations: absent Accelerations: present Contractions: None NST start time: 1254 NST stop time: 1332 NST strip reviewed, interpreted, and approved by OB provider, LINDA Barclay . NST strip stored in clinic storage file documented in this encounter Nursing Notes * Navjot Renner RN - 06/02/2024 1:19 PM EST Patient seen by [facility] Detail Supervisor. Patient denies any questions or concerns. documented in this encounter Plan of Treatment Upcoming Encounters Date Type Department Care Team (Late st Contact Info) Description 06/06/2024 1:00 PM EST Office Visit Gynecology/Obstetrics Jumana Alvarado [address] [place], [place] [address] Chloe Hurtado CRNP [address] [place] [address] [facility] Non Stress Tests [place] [address] [place] [address] 06/09/2024 9:45 AM EST Office Visit Gynecology/Obstetrics Jumana Alvarado [address] [place] [address] Jenni Smith CRNP [address] [place] [address] Cristiane Alvarado Stress Tests [place] [address] [place] [address] 06/12/2024 9:15 AM EST Office Visit Gynecology/Obstetrics Jumana Escobars [address] [place] [address] Federico Rodriguez MD [address] [place] [address] [facility] Non Stress Tests [place] [address] [place] [address] 06/16/2024 1:00 PM EST Office Visit Gynecology/Obstetrics Jumana Escobars [address] [place] [address] Chloe Hurtado CRNP [address] [place] [address] [place] Non Stress Tests [place] [address] [place] [address] 06/20/2024 1:00 PM EST Office Visit Gynecology/Obstetrics Jumana Alvarado [address] [place] [address] BackChloe garcia CRNP [address] [place] [address] [place], Non Stress Tests [place] [address] [place] [address] 07/02/2024 10:30 AM EST Office Visit Gynecology/Obstetrics Jumana Watts [place] [address] Chloe Hurtado CRNP [address] [place] [address] Pending Results Name Type Priority Associated Diagnoses Date /Time GROUP B STREP CULTURE/PCR Lab Routine High-risk in third trimester 06/02/2024 1:48 PM EST Health Maintenance Due Date Last Done Comments [...] (BMI) of 40.0 to 44.9 in adult ([facility]) Screening for malignant neoplasm of [...] (BMI) of 40.0 to 44.9 in adult ([facility])- Primary Obesity in , antepartum [...] in third trimester, single or unspecified fetus documented in this encounter Care Teams Cane Weigher Helper Relationship Specialty Start Date End Date Elina Will DO [address] [place] [address] [address] PCP - General Family Medicine 11/09/23 documented as of this encounter
--- OUTSIDE RECORDS SUMMARY | 2024-06-25 09:26 | External Medical Summary | Summary of Care ---
Author Name Unknown Organization [facility] Address [address] [place] [address] Phone [phone] Care Team Providers Care Snaker Name Role Phone Elina Will DO Primary Care Provider [phone] Reason for Visit * Reason Comments Healthy Beginnings Return Non Stress Test Encounter Details Date Type Department Care Team (Late st Contact Info) Description 05/19/2024 11:00 AM EST Office Visit Gynecology/Obstetric s [facility]vis[facility]chris Alvarado [address] [place] [address] Hesham Fontenot MD [address] [place] [address] [place] Non Stress Tests [place] [address] [place] [address] High-risk in third trimester*; Chronic hypertension affecting ; Hx of section; History of gestational hypertension; Obesity in , antepartum; Insulin controlled gestational diabetes mellitus (GDM) in second trimester; Excessive growth affecting management of in third trimester, single or unspecified fetus Allergies No known active allergiesdocumented as of this encounter (statuses as of 05/19/2024) Medications /Folic Acid Oral Tablet Take 1 Tablet by mouth once. Active Aspirin 81 MG Oral Tablet Delayed Release Take 1 Tablet by mouth in the morning. Active [employer] Flex System w/Device Kit Use to test [...] as of this encounter (statuses as of 05/19/2024) Active Problems Problem Noted Date Diagnosed Date [...] mellitus (GDM) in second trimester 01/03/2024 Overview (05/12/2024): Diagnosed at 13 weeks Nutrition consult ordered [...] RPM reviewed; Stable overall, continue diet control 01/21/20241301-WWI-bxzqzp 01/28/20249641-ZXE-mntjxzcs fasting blood sugars (95-98). Advised to watch diet, eat bedtime snack, and avoid fasting longer than 8 to 10 hours. Will review again next week, and if persists, will schedule for follow up ADAPT with maternal medicine nurse practitioner. 02/04/20244275-ETF-bbullc (1 elevated fasting blood sugar) 02/11/2024-RPM-4 of 7 elevated fasting blood sugars. Patient and [facility] PARs messaged to schedule follow up ADAPT. 02/12/24: ADAPT f/u complete. FBS elevated; will start Lantus 15 units HS. 02/19/20240983-NDL-pilwrbrp fasting blood sugars. Maternal medicine nurse practitioners to review. 02/19/24: RPM reviewed; increased to Lantus 20 units at bedtime 02/25/20244667-VUP-jkkondr stable (1 elevated post prandial lunch) 03/03/20241229-PTV-wrjutk 03/10/20248141-SQN-jheeoq. Few missed readings. 03/17/20241173-JNW-mcsjne 03/24/24: RPM reviewed; Stable 03/31/24: RPM reviewed; Stable; continue Lantus 20 units at bedtime 04/07/20241237-JBA-kqyxhx 04/14/20244364-DDL-hwpjoh 04/21/20247674-VBA-tweqtx (1 elevated post prandial dinner) 04/28/20241505-IUH-szotua 05/05/20246864-GZT-frxxdu 05/12/20248095-DKI-ekxcep Assessment & Plan (04/03/2024 9:08 AM EDT): [...] Recommend nutrition consult with RDN (Registered Dietitian Clinical Resource Coordinator). Lifestyle changes are also indicated including optimizing [...] preeclamptic labs with CBC, serum AST/ALT/creatinine and rkgbcuq-zg-aqmohztfcv ratio or 24-hour urine protein LIDIA if [...] or questions 05/12/2024 Teresa Azul RN 05/12/2024 Assessment & Plan (05/19/2024 [...] preeclamptic labs with CBC, serum AST/ALT/creatinine and enynpfu-kj-naqkqgkimf ratio or 24-hour urine protein LIDIA if [...] as of this encounter (statuses as of 05/19/2024) Resolved Problems Problem Noted Date Diagnosed Date [...] on follow-up scans. We recommend alerting the annealing torch operator providing care of this finding if it persists into the 3rd trimester. with 12 completed weeks gestation 12/17/2023 02/01/2024 documented as of this encounter (statuses as of 05/19/2024) Immunizations Name Administration Dates Next Due TDAP, Age 7 and older, IM (Adacel) 03/28/2024 documented as of this encounter Social History Tobacco Use Types Packs/Day Years Used Date Smoking Tobacco: Never Smokeless Tobacco: Never Alcohol Use Standard Drinks/Week Comments Not Currently 0 (1 standard drink = 0.6 oz pur e alcohol) PHQ-2 Answer Date Recorded PHQ Adult Total Score 0 04/16/2024 Hunger Vital Sign Answer Date Recorded Within the past 12 months, y ou worried that your food would run out before you got the money to buy more. Never true 04/16/20 24 Within the past 12 months, t he food you bought just didn't last and you didn't have money to get more. Never true 04/16/2024 [place] Depression Scale Answer Date Recorded [place] Depression Scale Total 0 12/07/2023 The thought [...] No 04/16/2024 Does the household have a [facility] source of income? (Household - for ages [...] Sign Reading Time Taken Comments Blood Pressure 118/76 05/19/2024 10:49 AM EST Pulse - - Temperature - - Respiratory Rate - - Oxygen Saturation - - Inhaled Oxygen Concentration - - Weight 117.5 kg (259 lb) 05/19/2024 10:49 AM EST Height 162.6 cm (5' 4") 05/19/2024 10:49 AM EST Body Mass Index 44.46 05/19/2024 10:49 AM EST documented in this encounter Progress Notes * Hesham Fontenot MD - 05/19/2024 11:33 AM EST NST only ASSESSMENT assessment with Non-stress Test completed on 05/19/2024 at 34weeks gestation for indication ofchronic hypertension heart baseline: 140 bpm Variability: Moderate Decelerations: absent Accelerations: present Contractions: None NST start time: 1152 NST stop time: 1220 NST strip reviewed, interpreted, and approved by OB provider, rian. NST strip stored in clinic storage file documented in this encounter Nursing Notes * Georgia Venegas LPN - 05/19/2024 11:31 AM EST 34w1d NST Denies concerns. documented in this encounter Miscellaneous Notes * Assessment & Plan Note - Teresa Azul RN - 05/19/2024 11:00 AM EST Associated Problem(s): Health counseling Problem Action Taken Date entered Entered by Date resolved Backache Encourage good posture and body mechanics/ belly band 05/19/2024 Teresa Azul RN 05/19/2024 documented in this encounter Plan of Treatment Upcoming Encounters Date Type Department Care Team (Late st Contact Info) Description 05/22/2024 10:15 AM EST Office Visit Gynecology/Obstetrics Jumaan Alvarado [address] [place] [address] Jenni Smith CRNP [address] [place] [address] [place], Non Stress Tests [place] [address] [place] [address] 05/26/2024 1:15 PM EST Office Visit Gynecology/Obstetrics Jarvis'chris Escobars [address] [place] [address] Backer, LINDA Saxena [address] [place] [address] Al[place], Non Stress Tests [place] [address] [place] [address] 05/29/2024 11:00 AM EST Imaging Maternal Medicine Imaging, [place]akia Alvarado [address] [place] [address] 06/02/2024 1:00 PM EST Office Visit Gynecology/Obstetrics Jumana Escobars [address] [place] [address] Backer, LINDA Saxena [address] [place] [address] Al[place], Non Stress Tests [place] [address] [place] [address] 06/06/2024 1:00 PM EST Office Visit Gynecology/Obstetrics Jumana Escobars [address] [place] [address] Backer, LINDA Saxena [address] [place] [address] Al[place]ado, Non Stress Tests [place] [address] [place] [address] 06/09/2024 9:45 AM EST Office Visit Gynecology/Obstetrics Jumana Escobars [address] [place] [address] Jenni Smith CRNP [address] [place] [address] [facility] Non Stress Tests [place] [address] [place] [address] 06/12/2024 9:15 AM EST Office Visit Gynecology/Obstetrics [facility] Alvarado [address] [place] [address] Federico Rodriguez MD [address] [place] [address] [facility] Non Stress Tests [place] [address] [place] [address] 06/12/2024 10:15 AM EST Office Visit Gynecology/Obstetrics [facility] Alvarado [address] [place] [address] Jenni Smith CRNP [address] [place] [address] [place] Non Stress Tests [place] [address] [place] [address] 06/16/2024 1:00 PM EST Office Visit Gynecology/Obstetrics [facility] Alvarado [address] [place] [address] Chloe Hurtado CRNP [address] [place] [address] [place] Non Stress Tests [place] [address] [place] [address] 06/20/2024 1:00 PM EST Office Visit Gynecology/Obstetrics [facility] Alvarado [address] [place] [address] Chloe Hurtado CRNP [address] [place] [address] [place] Non Stress Tests [place] [address] [place] [address] 07/02/2024 10:30 AM EST Office Visit Gynecology/Obstetrics Jumana Alvarado [address] [place] [address] Chloe Hurtado CRNP [address] [place] [address] Scheduled Orders Name Type Priority Associated Diagnoses Orde r Schedule NON-STRESS TEST Procedures Routine High-risk in third trimester Chronic hypertension affecting Hx of section History of gestational hypertension Obesity in , antepartum Insulin controlled gestational diabetes mellitus (GDM) in second trimester Excessive growth affecting management of in third trimester, single or unspecified fetus Ordered: 05/19/2024 Health Maintenance Due Date Last Done Comments Hepatitis B Vaccine (1 of 3 - 19+ 3-dose series) 2010 COVID-19 Vaccine ( season) 2024 Influenza Vaccine (FLU shot) (#1) 2024 GFR 03/28/2025 03/28/2024, 11/17, 08/11/2023, Additional history exists Depression Screening 04/16/2025 04/16/2024 Pap Smear 12/06/2026 12/07/2023 Cervical Cancer Screening [...] (BMI) of 40.0 to 44.9 in adult ([facility]) Screening for malignant neoplasm of cervix [...] (BMI) of 40.0 to 44.9 in adult ([facility])- Primary Obesity in , antepartum Obesity [...] fetus documented in this encounter Care Teams Snaker Relationship Specialty Start Date End Date Elina Will DO [address] [place] [address] PCP - General Family Medicine 11/09/23 documented as of this encounter
--- OUTSIDE RECORDS SUMMARY | 2024-06-25 09:26 | External Medical Summary | Summary of Care ---
Author Name Unknown Organization [facility] Address [address] [place] [address] Phone [phone] Care Team Providers Care Mica Patcher Name Role Phone Elina Will DO Primary Care Provider [phone] Encounter Details Date Type Department Care Team (Late st Contact Info) Description 05/29/2024 11:00 AM EST Office Visit [facility] [employer] [facility] Obstetrics Maternal Medicine, [address] [place] [address] Yaneth Cid DO [address] [place] [address] Chronic hypertension affecting *; Excessive growth affecting management of in third trimester, single or unspecified fetus; Insulin controlled gestational diabetes mellitus (GDM) in second trimester Allergies No known active allergiesdocumented as of this encounter (statuses as of 05/30/2024) Medications /Folic Acid Oral Tablet Take 1 Tablet by mouth once. Active Aspirin 81 MG Oral Tablet Delayed Release Take 1 Tablet by mouth in the morning. Active [employer] Flex System w/Device Kit Use to test blood sugars 4 times daily (fasting, 1 hour after breakfast, lunch, and dinner) 1 Kit 4 Active [employer] In Vitro Strip (Glucose Blood) Use to test blood sugars 4 times daily (fasting, 1 hour after breakfast, lunch, and dinner) 125 Strip 6 4 Active [employer] Lancets 30G Use to test blood [...] as of this encounter (statuses as of 05/30/2024) Active Problems Problem Noted Date Diagnosed Date [...] mellitus (GDM) in second trimester 01/03/2024 Overview (05/26/2024): Diagnosed at 13 weeks Nutrition consult ordered [...] RPM reviewed; Stable overall, continue diet control 01/21/20246978-QSZ-trkkls 01/28/20247407-DVC-tlgrtaqn fasting blood sugars (95-98). Advised to watch diet, eat bedtime snack, and avoid fasting longer than 8 to 10 hours. Will review again next week, and if persists, will schedule for follow up ADAPT with maternal medicine nurse practitioner. 02/04/20244069-FBY-vbcesr (1 elevated fasting blood sugar) 02/11/2024-RPM-4 of 7 elevated fasting blood sugars. Patient and [facility] PARs messaged to schedule follow up ADAPT. 02/12/24: ADAPT f/u complete. FBS elevated; will start Lantus 15 units HS. 02/19/20244884-EAO-cgviokvu fasting blood sugars. Maternal medicine nurse practitioners to review. 02/19/24: RPM reviewed; increased to Lantus 20 units at bedtime 02/25/20240392-BRM-dnfuann stable (1 elevated post prandial lunch) 03/03/20246644-CEH-vrofty 03/10/20247726-UCE-lgggav. Few missed readings. 03/17/20243670-CGR-jpoahp 03/24/24: RPM reviewed; Stable 03/31/24: RPM reviewed; Stable; continue Lantus 20 units at bedtime 04/07/20245231-WXN-qvndhl 04/14/20246822-BUK-ygmylf 04/21/20245010-XKF-xoxnln (1 elevated post prandial dinner) 04/28/20248856-UJC-fapmna 05/05/20246965-YPN-usjeum 05/12/20249565-FWT-yvglqw 05/19/24: RPM reviewed; blood sugars stable, continue Lantus 20 units at bedtime 05/26/20245493-MAZ-adipxjt stable (2 elevated post prandial dinner values) Assessment & Plan (05/29/2024 4:09 PM EST): [...] Recommend nutrition consult with RDN (Registered Dietitian Transition Mgr). Lifestyle changes are also indicated including optimizing [...] preeclamptic labs with CBC, serum AST/ALT/creatinine and axzpapn-og-dfdzicqfgv ratio or 24-hour urine protein LIDIA if [...] preeclamptic labs with CBC, serum AST/ALT/creatinine and gkdlccg-zg-eoodibsztd ratio or 24-hour urine protein LIDIA if [...] as of this encounter (statuses as of 05/30/2024) Resolved Problems Problem Noted Date Diagnosed Date [...] on follow-up scans. We recommend alerting the problem manager providing care of this finding if it persists into the 3rd trimester. with 12 completed weeks gestation 12/17/2023 02/01/2024 documented as of this encounter (statuses as of 05/30/2024) Immunizations Name Administration Dates Next Due TDAP, [...] money to buy more. Never true 04/16/20 Within the past 12 months, t he food you bought just didn't last and you didn't have money to get more. Never true 04/16/2024 [place] Depression Scale Answer Date Recorded [place] Depression Scale Total 0 12/07/2023 The [...] PM EDT documented as of this encounter Progress Notes * Yaneth Cid, - 05/29/2024 4:01 PM EST MATERNAL MEDICINE VISIT Patient location: CLINIC. I was not in a hospital or clinic location. After connecting through [employer], patient was verified with two unique identifiers. Patient (or authorized legal product sales representative) was then informed that this was a Telemedicine visit and being conducted confidentially over secure lines. My office door was closed. No one else was in the room with me. Patient acknowledged consent and understanding of privacy and security of the Telemedicine visit, and gave permission to have atelemedicine presenter stay in the room in order to assist with the history and to conduct the examas needed. I informed the patient that I have reviewed their record in [facility] and presented the opportunity for them to ask any questions regarding the visit today. The patient agreed to participate. Sandra Garrido presented today at 35w4d for an ultrasound and follow-up of her high risk . She was seen for the following indications: Problem List Items Addressed This Visit Chronic hypertension affecting - Primary Insulin controlled gestational diabetes mellitus (GDM) in second trimester Working with ADAPT. Excessive growth affecting management of in third trimester Repeat c/s planned, now end of week 39. Could consider moving closer to 39w0d. Discussed that unscheduled c/s would be performed if she presents in labor. We reviewed today's ultrasound findings. Patient presented for growth assessment at 35w 4d. Large AC noted at >99% with overall EFW of 3715 g at >99%. DONNIE 10.8 cm. Cephalic presentation. BPP 8/8. (For full details, please refer to ultrasound report provided separately). Ms. Garrido's questions were answered to her satisfaction. She was advised to contact our office or her OB provider for any additional questions regarding her . RECOMMENDATIONS: Follow up with MFM for ultrasound as clinically indicated. 2x weekly NSTs. Delivery at 39 weeks. Thank you for allowing us to participate in the care of this patient. Please call with any questions. I spent a total of 21 minutes on the date of service in preparation, delivery, and documentation ofthe care provided to Sandra Garrido excluding any time spent in the performance of separately billed services. Yaneth Cid DO 05/29/2024 4:01 PM documented in this encounter Miscellaneous Notes * Assessment & Plan Note - Yaneth Cid DO - 05/29/2024 4:09 PM EST Associated Problem(s): Insulin controlled gestational diabetes mellitus (GDM) in second trimester Working with ADAPT. * Assessment & Plan Note - Yaneth Cid DO - 05/29/2024 4:06 PM EST Associated Problem(s): Excessive growth affecting management of in third trimester Repeat c/s planned, now end of week 39. Could consider moving closer to 39w0d. Discussed that unscheduled c/s would be performed if she presents in labor. documented in this encounter Plan of Treatment Upcoming Encounters Date Type Department Care Team (Late st Contact Info) Description 06/02/2024 1:00 PM EST Office Visit Gynecology/Obstetrics Jumana Alvarado [address] [place] [address] Chloe Hurtado CRNP [address] [place] [address] [place] Non Stress Tests [place] [address] [place] [address] 06/06/2024 1:00 PM EST Office Visit Gynecology/Obstetrics Jumana Alvarado [address] [place] [address] Chloe Hurtado CRNP [address] [place] [address] [place] Non Stress Tests [place] [address] [place] [address] 06/09/2024 9:45 AM EST Office Visit Gynecology/Obstetrics [facility] [address] [place] [address] Jenni Smith CRNP [address] [place] [address] [place], Non Stress Tests [place] [address] [place] [address] 06/12/2024 9:15 AM EST Office Visit Gynecology/Obstetrics [facility] [address] [place] [address] Federico Rodriguez MD [address] [place] [address] [facility] Non Stress Tests [place] [address] [place] [address] 06/16/2024 1:00 PM EST Office Visit Gynecology/Obstetrics [facility] [address] [place] [address] Chloe Hurtado CRNP [address] [place] [address] [facility] Non Stress Tests [place] [address] [place] [address] 06/20/2024 1:00 PM EST Office Visit Gynecology/Obstetrics [facility] [address] [place] [address] Chloe Hurtado CRNP [address] [place] [address] [place], Non Stress Tests [place] [address] [place] [address] 07/02/2024 10:30 AM EST Office Visit Gynecology/Obstetrics Jumana Alvarado [address] [place] [address] Chloe Hurtado CRNP [address] [place] [address] Health Maintenance Due Date Last Done Comments [...] trimester documented in this encounter Care Teams Mica Patcher Relationship Specialty Start Date End Date Elina Will DO [address] [place] [address] PCP - General Family Medicine 11/09/23 documented as of this encounter
--- OUTSIDE RECORDS SUMMARY | 2024-06-25 09:26 | External Medical Summary | Summary of Care ---
Author Name Unknown Organization [facility] Address [address] [place] [address] Phone [phone] Care Team Providers Care Coding Validator Name Role Phone Elina Will DO Primary Care Provider [phone] Reason for Visit * Reason Comments Non Stress Test Encounter Details Date Type Department Care Team (Late st Contact Info) Description 05/12/2024 1:15 PM EST Office Visit Gynecology/Obstetric s [facility] [address] [place] [address] Chloe Hurtado CRNP [address] [place] [address] [place] Non Stress Tests [place] [address] [place] [address] High-risk in third trimester*; Chronic hypertension affecting ; Hx of section; History of gestational hypertension; Obesity in , antepartum; Insulin controlled gestational diabetes mellitus (GDM) in second trimester; Excessive growth affecting management of in third trimester, single or unspecified fetus Allergies No known active allergiesdocumented as of this encounter (statuses as of 05/12/2024) Medications /Folic Acid Oral Tablet Take 1 Tablet by mouth once. Active Aspirin 81 MG Oral Tablet Delayed Release Take 1 Tablet by mouth in the morning. Active [employer] Flex System w/Device Kit Use to test [...] as of this encounter (statuses as of 05/12/2024) Active Problems Problem Noted Date Diagnosed Date [...] RPM reviewed; Stable overall, continue diet control 01/21/20242916-TCA-qqtkdf 01/28/20242538-PIW-efhrbmod fasting blood sugars (95-98). Advised to watch diet, eat bedtime snack, and avoid fasting longer than 8 to 10 hours. Will review again next week, and if persists, will schedule for follow up ADAPT with maternal medicine nurse practitioner. 02/04/20244679-HKN-nktqvr (1 elevated fasting blood sugar) 02/11/2024-RPM-4 of 7 elevated fasting blood sugars. Patient and [facility] PARs messaged to schedule follow up ADAPT. 02/12/24: ADAPT f/u complete. FBS elevated; will start Lantus 15 units HS. 02/19/20244641-QVL-pacigmyu fasting blood sugars. Maternal medicine nurse practitioners to review. 02/19/24: RPM reviewed; increased to Lantus 20 units at bedtime 02/25/20248726-OSQ-fosjmrf stable (1 elevated post prandial lunch) 03/03/20245577-JJC-qlgsmo 03/10/20240782-QZQ-wpbosm. Few missed readings. 03/17/20245286-HOA-ggjwhj 03/24/24: RPM reviewed; Stable 03/31/24: RPM reviewed; Stable; continue Lantus 20 units at bedtime 04/07/20242396-OZX-omjwko 04/14/20244143-TLM-bmhfyr 04/21/20245429-MIG-cflbge (1 elevated post prandial dinner) 04/28/20242794-YVQ-szuqfb 05/05/20248748-NJX-ehrnhr 05/12/20244006-LAY-rsvpvh Assessment & Plan (04/03/2024 9:08 AM EDT): [...] Recommend nutrition consult with RDN (Registered Dietitian Reversing [employer]). Lifestyle changes are also indicated including optimizing [...] preeclamptic labs with CBC, serum AST/ALT/creatinine and aqvaibw-vl-zuqvqlgics ratio or 24-hour urine protein LIDIA if [...] or questions 05/12/2024 Teresa Azul RN 05/12/2024 High-risk 12/07/2023 Class 3 severe obesity due [...] preeclamptic labs with CBC, serum AST/ALT/creatinine and lpdmjvv-jz-tkfufxxdge ratio or 24-hour urine protein LIDIA if [...] as of this encounter (statuses as of 05/12/2024) Resolved Problems Problem Noted Date Diagnosed Date [...] on follow-up scans. We recommend alerting the store stock associate providing care of this finding if it persists into the 3rd trimester. with 12 completed weeks gestation 12/17/2023 02/01/2024 documented as of this encounter (statuses as of 05/12/2024) Immunizations Name Administration Dates Next Due TDAP, [...] money to get more. Never true 04/16/2024 [place] Depression Scale Answer Date Recorded [place] Depression Scale Total 0 12/07/2023 The thought [...] Sign Reading Time Taken Comments Blood Pressure 126/76 05/12/2024 1:08 PM EST Pulse - - Temperature - - Respiratory Rate - - Oxygen Saturation - - Inhaled Oxygen Concentration - - Weight 113.9 kg (251 lb) 05/12/2024 1:08 PM EST Height - - Body Mass Index 43.08 02/29/2024 2:12 PM EDT documented in this encounter Progress Notes * Chloe Hurtado CRNP - 05/12/2024 1:34 PM EST ASSESSMENT assessment with Non-stress Test completed on 05/12/2024 at 33.1 weeks gestation for indication of gestational diabetes mellitus and chronic hypertension heart baseline: 130 bpm Variability: Moderate Decelerations: absent Accelerations: present Contractions: None NST start time: 1404 (time not changed to DST) NST stop time: 1437 NST strip reviewed, interpreted, and approved by OB provider, LINDA Barclay . NST strip stored in clinic storage file documented in this encounter Nursing Notes * Teresa Azul RN - 05/12/2024 1:49 PM EST Patient seen by [facility] Quality Tester. documented in this encounter Plan of Treatment Upcoming Encounters Date Type Department Care Team (Late st Contact Info) Description 05/16/2024 2:30 PM EST Office Visit Gynecology/Obstetrics [facility] Alvarado [address] [place] [address] Hesham Fontenot MD [address] [place] [address] [place] Non Stress Tests [place] [address] [place] [address] 05/19/2024 11:00 AM EST Office Visit Gynecology/Obstetrics [facility]os Alvarado [address] [place] [address] Hesham Fontenot MD [address] [place] [address] [place], Non Stress Tests [place] [address] [place] [address] 05/22/2024 10:15 AM EST Office Visit Gynecology/Obstetrics Nicos Alvarado [address] [place] [address] Jenni Smith CRNP [address] [place] [address] [place], Non Stress Tests [place] [address] [place] [address] 05/26/2024 1:15 PM EST Office Visit Gynecology/Obstetrics [facility] [address] [place] [address] Chloe Hurtado CRNP [address] [place] [address] [place], Non Stress Tests [place] [address] [place] [address] 05/29/2024 11:00 AM EST Imaging Maternal Medicine Imaging, [place] Alvarado [address] [place], [place] [address] 06/02/2024 1:00 PM EST Office Visit Gynecology/Obstetrics Nicos Alvarado [address] [place] [address] Chloe Hurtado CRNP [address] [place] [address] [place], Non Stress Tests [place] [address] [place] [address] 06/06/2024 1:00 PM EST Office Visit Gynecology/Obstetrics [facility] [address] [place] [address] Chloe Hurtado CRNP [address] [place] [address] [place], Non Stress Tests [place] [address] [place] [address] 06/09/2024 9:45 AM EST Office Visit Gynecology/Obstetrics [facility] [address] [place] [address] Jenni Smith CRNP [address] [place] [address] [place], Non Stress Tests [place] [address] [place] [address] 06/12/2024 9:15 AM EST Office Visit Gynecology/Obstetrics [facility] [address] [place] [address] Federico Rodriguez MD [address] [place] [address] [place], Non Stress Tests [place] [address] [place] [address] 06/12/2024 10:15 AM EST Office Visit Gynecology/Obstetrics [facility] [address] [place] [address] Jenni Smith CRNP [address] [place] [address] [place], Non Stress Tests [place] [address] [place] [address] 06/16/2024 1:00 PM EST Office Visit Gynecology/Obstetrics [facility] [address] [place] [address] Chloe Hurtado CRNP [address] [place] [address] [place], Non Stress Tests [place] [address] [place] [address] 06/20/2024 1:00 PM EST Office Visit Gynecology/Obstetrics [facility]umana Alvarado [address] [place] [address] Chloe Hurtado CRNP [address] [place] [address] [place], Non Stress Tests [place] [address] [place] [address] 07/02/2024 10:30 AM EST Office Visit Gynecology/Obstetrics [facility] Alvarado [address] [place] [address] Chloe Hurtado CRNP [address] [place] [address] Health Maintenance Due Date Last Done Comments [...] (BMI) of 40.0 to 44.9 in adult ([facility]) Screening for malignant neoplasm of cervix Screening [...] (BMI) of 40.0 to 44.9 in adult ([facility])- Primary Obesity in , antepartum Obesity complicating [...] fetus documented in this encounter Care Teams Coding Validator Relationship Specialty Start Date End Date Elina Will DO [address] [place] [address] PCP - General Family Medicine 11/09/23 documented as of this encounter
--- OUTSIDE RECORDS SUMMARY | 2024-06-25 09:26 | External Medical Summary ---
Author Name Unknown Address Unknown Organization K01:[facility] [place] [address] [place] [address] Laboratory Report Ordering Provider Test Date Status ANIVAL BUSCH 06/02/2024 13:48:35 Final Observation Date Value Abnormality Reference (Units ) Status Streptococcus agalactiae DNA [Presence] in Specimen by SHELBY with probe detection 06/02/2024 13:48:35 Positive Abnormal Negative Final Group B Streptococcus detect ed by culture-enhanced PCR (amplified probe). GBS GBSCT - [facility] 06/02/2024 13:48:35 13.5 Final GBS SPCCT - [facility] 06/02/2024 13:48:35 0.0 Final Performing Location [facility] [place] - [address] [place] [address]
--- OUTSIDE RECORDS SUMMARY | 2024-06-25 09:26 | External Medical Summary | Summary of Care ---
Author Name Unknown Organization [facility] Address [address] [place] [address] Phone [phone] Care Team Providers Care Supervisor [employer] Name Role Phone Elina Will DO Primary Care Provider [phone] Reason for Visit * Reason Comments Non Stress Test Encounter Details Date Type Department Care Team (Late st Contact Info) Description 05/26/2024 1:15 PM EST Office Visit Gynecology/Obstetric s [facility] [address] [place] [address] Chloe Hurtado CRNP [address] [place] [address] [place] Non Stress Tests [place] [address] [place] [address] High-risk in third trimester*; Chronic hypertension affecting ; Hx of section; History of gestational hypertension; Obesity in , antepartum; Insulin controlled gestational diabetes mellitus (GDM) in second trimester; Excessive growth affecting management of in third trimester, single or unspecified fetus Allergies No known active allergiesdocumented as of this encounter (statuses as of 05/26/2024) Medications /Folic Acid Oral Tablet Take 1 Tablet by mouth once. Active Aspirin 81 MG Oral Tablet Delayed Release Take 1 Tablet by mouth in the morning. Active [employer] [facility] Flex System w/Device Kit Use to test [...] as of this encounter (statuses as of 05/26/2024) Active Problems Problem Noted Date Diagnosed Date [...] RPM reviewed; Stable overall, continue diet control 01/21/20244564-SJS-nukwtm 01/28/20248881-NLH-oedofcfd fasting blood sugars (95-98). Advised to watch diet, eat bedtime snack, and avoid fasting longer than 8 to 10 hours. Will review again next week, and if persists, will schedule for follow up ADAPT with maternal medicine nurse practitioner. 02/04/20242680-IIG-qgzooe (1 elevated fasting blood sugar) 02/11/2024-RPM-4 of 7 elevated fasting blood sugars. Patient and [facility] PARs messaged to schedule follow up ADAPT. 02/12/24: ADAPT f/u complete. FBS elevated; will start Lantus 15 units HS. 02/19/20246424-YTD-kvqaaoqp fasting blood sugars. Maternal medicine nurse practitioners to review. 02/19/24: RPM reviewed; increased to Lantus 20 units at bedtime 02/25/20244100-KSX-dbmpifm stable (1 elevated post prandial lunch) 03/03/20248689-PGF-kjjqtd 03/10/20246919-FBO-ovejxw. Few missed readings. 03/17/20244781-GNQ-vxomye 03/24/24: RPM reviewed; Stable 03/31/24: RPM reviewed; Stable; continue Lantus 20 units at bedtime 04/07/20247219-UWD-lxxvxs 04/14/20246588-NTR-gmsafl 04/21/20244937-WSX-relrqu (1 elevated post prandial dinner) 04/28/20243520-JCT-fkdjqk 05/05/20240168-JZS-jnwvkb 05/12/20249186-ODJ-eutdcn 05/19/24: RPM reviewed; blood sugars stable, continue Lantus 20 units at bedtime 05/26/20248288-VYB-mvyvajy stable (2 elevated post prandial dinner values) Assessment & Plan (04/03/2024 9:08 AM EDT): [...] Recommend nutrition consult with RDN (Registered Dietitian Lube Man). Lifestyle changes are also indicated including optimizing [...] preeclamptic labs with CBC, serum AST/ALT/creatinine and atqpszr-vj-ldijzdgiyd ratio or 24-hour urine protein LIDIA if [...] preeclamptic labs with CBC, serum AST/ALT/creatinine and llnjsiu-go-qxbkssocio ratio or 24-hour urine protein LIDIA if [...] as of this encounter (statuses as of 05/26/2024) Resolved Problems Problem Noted Date Diagnosed Date [...] on follow-up scans. We recommend alerting the mounter hand providing care of this finding if it persists into the 3rd trimester. with 12 completed weeks gestation 12/17/2023 02/01/2024 documented as of this encounter (statuses as of 05/26/2024) Immunizations Name Administration Dates Next Due TDAP, [...] money to get more. Never true 04/16/2024 [place] Depression Scale Answer Date Recorded [place] Depression Scale Total 0 12/07/2023 The thought [...] Reading Time Taken Comments Blood Pressure 118/76 05/26/2024 1:12 PM EST Pulse - - Temperature - - Respiratory Rate - - Oxygen Saturation - - Inhaled Oxygen Concentration - - Weight 114.3 kg (252 lb) 05/26/2024 1:12 PM EST Height - - Body Mass Index 43.26 05/22/2024 10:20 AM EST documented in this encounter Progress Notes * Chloe Hurtado CRNP - 05/26/2024 1:10 PM EST ASSESSMENT assessment with Non-stress Test completed on 05/26/2024 at 35.1 weeks gestation for indicationof gestational diabetes mellitus, obesity, and chronic hypertension heart baseline: 140 bpm Variability: Moderate Decelerations: absent Accelerations: present Contractions: None NST start time: 1310 NST stop time: 1335 NST strip reviewed, interpreted, and approved by OB provider, LINDA Barclay . NST strip stored in clinic storage file documented in this encounter Plan of Treatment Upcoming Encounters Date Type Department Care Team (Late st Contact Info) Description 05/29/2024 11:00 AM EST Imaging Maternal Medicine Imaging, [place] Alvarado [address] [place] [phone] 06/02/2024 1:00 PM EST Office Visit Gynecology/Obstetrics [facility]ana Alvarado [address] [place] [address] Chloe Hurtado CRNP [address] [place] [address] [place] Non Stress Tests [place] [address] [place] [address] 06/06/2024 1:00 PM EST Office Visit Gynecology/Obstetrics [facility]umana Alvarado [address] [place] [address] Chloe Hurtado CRNP [address] [place] [address] [place], Non Stress Tests [place] [address] [place] [address] 06/09/2024 9:45 AM EST Office Visit Gynecology/Obstetrics [facility] [address] [place] [address] Jenni Smith CRNP [address] [place] [address] [place], Non Stress Tests [place] [address] [place] [address] 06/12/2024 9:15 AM EST Office Visit Gynecology/Obstetrics [facility] [address] [place] [address] Federico Rodriguez MD [address] [place] [address] [place], Non Stress Tests [place] [address] [place] [address] 06/12/2024 10:15 AM EST Office Visit Gynecology/Obstetrics [facility] [address] [place] [address] Jenni Smith CRNP [address] [place] [address] [place], Non Stress Tests [place] [address] [place] [address] 06/16/2024 1:00 PM EST Office Visit Gynecology/Obstetrics [facility] [address] [place] [address] Chloe Hurtado CRNP [address] [place] [address] [place], Non Stress Tests [place] [place] [address] 06/20/2024 1:00 PM EST Office Visit Gynecology/Obstetrics Jumana Alvarado [address] [place] [address] BackerChloe CRNP [address] [place] [address] [place], Non Stress Tests [place] [address] [place] [address] 07/02/2024 10:30 AM EST Office Visit Gynecology/Obstetrics Jumana Alvarado [address] [place] [address] BackerChloe CRNP [address] [place] [address] Health Maintenance Due Date Last Done Comments Hepatitis B Vaccine (1 of 3 - 19+ 3-dose series) 2010 COVID-19 Vaccine (2023- season) 2024 Influenza Vaccine (FLU shot) (#1) 2024 GFR 03/28/2025 03/28/2024, 0606/2023, 08/11/2023, Additional history exists Depression Screening 05/20/2025 [...] (BMI) of 40.0 to 44.9 in adult ([facility]) Screening for malignant neoplasm of cervix Screening [...] (BMI) of 40.0 to 44.9 in adult ([facility])- Primary Obesity in , antepartum Obesity complicating [...] fetus documented in this encounter Care Teams Supervisor [employer] Relationship Specialty Start Date End Date Elina Will DO [address] [place] [address] PCP - General Family Medicine 11/09/23 documented as of this encounter
--- OUTSIDE RECORDS SUMMARY | 2024-06-25 09:26 | External Medical Summary | Summary of Care ---
Author Name Unknown Organization [facility] Address [address] [facility] [place] [address] Phone [phone] Care Team Providers Care Computational Sciences Professor Name Role Phone Elina Will DO Primary Care Provider [phone] Reason for Visit * Reason Comments Return Visit Encounter Details Date Type Department Care Team (Late st Contact Info) Description 05/16/2024 2:30 PM EST Office Visit Gynecology/Obstetric s [facility]um[facility] Alvarado [address] [place] [address] Hesham Fontenot MD [address] [employer] [place] [address] Cristiane Alvarado Stress Tests [place] [address] [employer] [place] [address] High-risk in third trimester*; Chronic hypertension affecting ; Hx of section; History of gestational hypertension; Obesity in , antepartum; Insulin controlled gestational diabetes mellitus (GDM) in second trimester; Excessive growth affecting management of in third trimester, single or unspecified fetus Allergies No known active allergiesdocumented as of this encounter (statuses as of 05/16/2024) Medications /Folic Acid Oral Tablet Take 1 Tablet by mouth once. Active Aspirin 81 MG Oral Tablet Delayed Release Take 1 Tablet by mouth in the morning. Active Valmet AutomotiveTouch Mediastreamio Flex System w/Device Kit Use to test [...] as of this encounter (statuses as of 05/16/2024) Active Problems Problem Noted Date Diagnosed Date [...] RPM reviewed; Stable overall, continue diet control 01/21/20248817-WLD-akygpq 01/28/20245389-JOB-lcvsitsp fasting blood sugars (95-98). Advised to watch diet, eat bedtime snack, and avoid fasting longer than 8 to 10 hours. Will review again next week, and if persists, will schedule for follow up ADAPT with maternal medicine nurse practitioner. 02/04/20241361-JMB-hfzjsi (1 elevated fasting blood sugar) 02/11/2024-RPM-4 of 7 elevated fasting blood sugars. Patient and [facility] PARs messaged to schedule follow up ADAPT. 02/12/24: ADAPT f/u complete. FBS elevated; will start Lantus 15 units HS. 02/19/20240948-BOC-mqyqgwer fasting blood sugars. Maternal medicine nurse practitioners to review. 02/19/24: RPM reviewed; increased to Lantus 20 units at bedtime 02/25/20243798-JRS-mdzwglz stable (1 elevated post prandial lunch) 03/03/20242864-LUP-qeimii 03/10/20244261-OOC-pejcdx. Few missed readings. 03/17/20242299-FHK-gjgsrj 03/24/24: RPM reviewed; Stable 03/31/24: RPM reviewed; Stable; continue Lantus 20 units at bedtime 04/07/20244661-VQU-amulqu 04/14/20240563-QAA-rmbelr 04/21/20242106-FDY-bbbiqb (1 elevated post prandial dinner) 04/28/20240262-UOU-bwtpmm 05/05/20245296-XDN-anhibg 05/12/20244062-BRP-vbiwiv Assessment & Plan (04/03/2024 9:08 AM EDT): [...] Recommend nutrition consult with RDN (Registered Dietitian Flower Maker). Lifestyle changes are also indicated including optimizing [...] preeclamptic labs with CBC, serum AST/ALT/creatinine and gzttoly-xw-axacizfmoq ratio or 24-hour urine protein LIDIA if [...] preeclamptic labs with CBC, serum AST/ALT/creatinine and wnyegte-gx-eznnctogai ratio or 24-hour urine protein LIDIA if [...] as of this encounter (statuses as of 05/16/2024) Resolved Problems Problem Noted Date Diagnosed Date [...] on follow-up scans. We recommend alerting the sprinkler fitter providing care of this finding if it persists into the 3rd trimester. with 12 completed weeks gestation 12/17/2023 02/01/2024 documented as of this encounter (statuses as of 05/16/2024) Immunizations Name Administration Dates Next Due TDAP, [...] money to get more. Never true 04/16/2024 [place] Depression Scale Answer Date Recorded [place] Depression Scale Total 0 12/07/2023 The thought [...] Sign Reading Time Taken Comments Blood Pressure 124/76 05/16/2024 2:55 PM EST Pulse - - Temperature - - Respiratory Rate - - Oxygen Saturation - - Inhaled Oxygen Concentration - - Weight 114.8 kg (253 lb) 05/16/2024 2:55 PM EST Height 162.6 cm (5' 4") 05/16/2024 2:55 PM EST Body Mass Index 43.43 05/16/2024 2:55 PM EST documented in this encounter Progress Notes * Hesham Fontenot MD - 05/16/2024 2:50 PM EST NST Only . ASSESSMENT assessment with Non-stress Test completed on 05/16/2024 at 33weeks gestation for indication of chronic hypertension heart baseline: 130 bpm Variability: Moderate Decelerations: absent Accelerations: present Contractions: None NST start time: 1531 NST stop time: 1540 NST strip reviewed, interpreted, and approved by OB provider, Po. NST strip stored in clinic storage file documented in this encounter Plan of Treatment Upcoming Encounters Date Type Department Care Team (Late st Contact Info) Description 05/19/2024 11:00 AM EST Office Visit Gynecology/Obstetrics [facility] [address] [place] [address] Hesham Fontenot MD [address] [place] [address] [facility] Non Stress Tests [place] [address] [place] [address] 05/22/2024 10:15 AM EST Office Visit Gynecology/Obstetrics [facility] [address] [place] [address] Jenni Smith CRNP [address] [place] [address] [facility] Non Stress Tests [place] [address] [place] [address] 05/26/2024 1:15 PM EST Office Visit Gynecology/Obstetrics [facility] [address] [place] [address] Chloe Hurtado CRNP [address] [place] [address] [facility] Non Stress Tests [place] [address] [place] [address] 05/29/2024 11:00 AM EST Imaging Maternal Medicine Imaging, Lakia Alvarado [address] [place] [id number] 06/02/2024 1:00 PM EST Office Visit Gynecology/Obstetrics Jumana Escobars [address] [place] [address] Chloe Hurtado CRNP [address] [place] [address] Alvarado, Non Stress Tests [place] [address] [place] [address] 06/06/2024 1:00 PM EST Office Visit Gynecology/Obstetrics Jumana Alvarado [address] [place] [address] Chloe Hurtado CRNP [address] [place] [address] Alvarado, Non Stress Tests [place] [address] [place] [address] 06/09/2024 9:45 AM EST Office Visit Gynecology/Obstetrics Jumana Alvarado [address] [place] [address] Jenni Smith CRNP [address] [place] [address] Alvarado, Non Stress Tests [place] [address] [place] [address] 06/12/2024 9:15 AM EST Office Visit Gynecology/Obstetrics Jumana Escobars [address] [place] [address] Federico Rodriguez MD [address] [place] [address] Alvarado, Non Stress Tests [place] [address] [place] [address] 06/12/2024 10:15 AM EST Office Visit Gynecology/Obstetrics [facility] [address] [place] [address] Jenni Smith CRNP [address] [place] [address] Alvarado, Non Stress Tests [place] [address] [place] [address] 06/16/2024 1:00 PM EST Office Visit Gynecology/Obstetrics [facility] [address] [place] [address] BackChloe garcia CRNP [address] [place] [address] Alvarado, Non Stress Tests [place] [address] [place] [address] 06/20/2024 1:00 PM EST Office Visit Gynecology/Obstetrics [facility] [address] [place] [address] Chloe Hurtado CRNP [address] [place] [address] Alvarado, Non Stress Tests [place] [address] [place] [address] 07/02/2024 10:30 AM EST Office Visit Gynecology/Obstetrics [facility] [address] [place] [address] BackerChloe CRNP [address] [place] [address] Health Maintenance Due Date Last Done Comments Hepatitis B Vaccine (1 of 3 - 19+ 3-dose series) 2010 COVID-19 Vaccine (2023- season) 2024 Influenza Vaccine (FLU shot) (#1) 2024 GFR 03/28/2025 03/28/2024, 0606/2023, 08/11/2023, Additional history exists Depression Screening 04/16/2025 [...] fetus documented in this encounter Care Teams Computational Sciences Professor Relationship Specialty Start Date End Date Elina Will DO [address] [place] [address] [address] PCP - General Family Medicine 11/09/23 documented as of this encounter
--- OUTSIDE RECORDS SUMMARY | 2024-06-25 09:26 | External Medical Summary | Summary of Care ---
Author Name Unknown Organization [facility] Address [address] [facility] [place] [address] Phone [phone] Care Team Providers Care Public Health Administrator Name Role Phone Elina Will DO Primary Care Provider [phone] Reason for Visit * Reason Onset Date Comments 05/30/2024 FMLA forms Encounter Details Date Type Department Care Team (Late st Contact Info) Description 05/30/2024 Telephone [facility] [address] [place] [address] Chloe Hurtado CRNP [address] [place] [address] (FMLA forms) Allergies No known active allergiesdocumented as of this encounter (statuses as of 05/30/2024) Medications /Folic Acid Oral Tablet Take 1 Tablet by mouth once. Active Aspirin 81 MG Oral Tablet Delayed Release Take 1 Tablet by mouth in the morning. Active Homeloc Verio Flex System w/Device Kit Use to test blood sugars 4 times daily (fasting, 1 hour after breakfast, lunch, and dinner) 1 Kit 4 Active InsightsOneuch Verio In Vitro Strip (Glucose Blood) Use to test blood sugars 4 times daily (fasting, 1 hour after breakfast, lunch, and dinner) 125 Strip 6 4 Active flipClassTouch Delica Lancets 30G Use to test blood [...] RPM reviewed; Stable overall, continue diet control 01/21/20243763-UHE-mjvhxp 01/28/20247638-TNQ-xryoudir fasting blood sugars (95-98). Advised to watch diet, eat bedtime snack, and avoid fasting longer than 8 to 10 hours. Will review again next week, and if persists, will schedule for follow up ADAPT with maternal medicine nurse practitioner. 02/04/20243539-NCS-nzifjv (1 elevated fasting blood sugar) 02/11/2024-RPM-4 of 7 elevated fasting blood sugars. Patient and [facility] PARs messaged to schedule follow up ADAPT. 02/12/24: ADAPT f/u complete. FBS elevated; will start Lantus 15 units HS. 02/19/20247501-ITD-abhslfhh fasting blood sugars. Maternal medicine nurse practitioners to review. 02/19/24: RPM reviewed; increased to Lantus 20 units at bedtime 02/25/20247649-SVQ-crxsmww stable (1 elevated post prandial lunch) 03/03/20244395-EWZ-mmkbbw 03/10/20242196-PJK-hwzxtb. Few missed readings. 03/17/20243377-LJX-ibccev 03/24/24: RPM reviewed; Stable 03/31/24: RPM reviewed; Stable; continue Lantus 20 units at bedtime 04/07/20247846-SPL-fwxzha 04/14/20240519-EMR-ioudpn 04/21/20241250-YYC-cdsvvr (1 elevated post prandial dinner) 04/28/20245497-TRR-paujyc 05/05/20244237-IVS-bifvxi 05/12/20244054-VAM-tqioen 05/19/24: RPM reviewed; blood sugars stable, continue Lantus 20 units at bedtime 05/26/20240841-TML-lcnexyq stable (2 elevated post prandial dinner values) [...] Recommend nutrition consult with RDN (Registered Dietitian Accountant Tax). Lifestyle changes are also indicated including optimizing [...] preeclamptic labs with CBC, serum AST/ALT/creatinine and mecwiqx-cv-nqhnwqlwfi ratio or 24-hour urine protein LIDIA if [...] preeclamptic labs with CBC, serum AST/ALT/creatinine and zqtamty-py-xgrvsqfsud ratio or 24-hour urine protein LIDIA if [...] on follow-up scans. We recommend alerting the rn behavioral health providing care of this finding if it [...] money to get more. Never true 04/16/2024 [place] Depression Scale Answer Date Recorded [place] Depression Scale Total 0 12/07/2023 The thought [...] encounter Miscellaneous Notes * Telephone Encounter - Carolina Kohler CMA - 05/30/2024 7:33 AM EST FMLA forms for fiance filled out and placed in triage for product picker on Sunday at appointment. documented in this encounter Plan of Treatment Upcoming Encounters Date Type Department Care Team (Late st Contact Info) Description 06/02/2024 1:00 PM EST Office Visit Gynecology/Obstetrics [facility] [address] [place] [address] Chloe Hurtado CRNP [address] [place] [address] [facility] Non Stress Tests [place] [address] [place] [address] 06/06/2024 1:00 PM EST Office Visit Gynecology/Obstetrics [facility] [address] [place] [address] Chloe Hurtado CRNP [address] [place] [address] [facility] Non Stress Tests [place] [address] [place] [address] 06/09/2024 9:45 AM EST Office Visit Gynecology/Obstetrics [facility] [address] [place] [address] Jenni Smith CRNP [address] [place] [address] Christiano, Non Stress Tests [place] [address] [place] [address] 06/12/2024 9:15 AM EST Office Visit Gynecology/Obstetrics [facility] [address] [place] [address] Federico Rodriguez MD [address] [place] [address] Cristiane Alvarado Stress Tests [place] [address] [place] [address] 06/16/2024 1:00 PM EST Office Visit Gynecology/Obstetrics [facility]um[facility] Alvarado [address] [place] [address] Chloe Hurtado CRNP [address] [place] [address] Cristiane Alvarado Stress Tests [place] [address] [place] [address] 06/20/2024 1:00 PM EST Office Visit Gynecology/Obstetrics Jumana Alvarado [address] [place] [address] Chloe Hurtado CRNP [address] [place] [address] Cristiane Alvarado Stress Tests [place] [address] [place] [address] 07/02/2024 10:30 AM EST Office Visit Gynecology/Obstetrics Jumana Alvarado [address] [place] [address] Chloe Hurtado CRNP [address] [place] [address] Health Maintenance Due Date Last Done Comments [...] filedocumented as of this encounter Care Teams Public Health Administrator Relationship Specialty Start Date End Date Elina Will DO [address] [place] [address] PCP - General Family Medicine 11/09/23 documented as of this encounter
--- OUTSIDE RECORDS SUMMARY | 2024-06-25 09:26 | External Medical Summary | Summary of Care ---
Author Name Unknown Organization [facility] Address [address] [place] [facility] [place] [address] Phone [phone] Care Team Providers Care Consumer Advocate Name Role Phone Elina Will DO Primary Care Provider [phone] Reason for Visit * Reason Comments Non Stress Test Return Visit Encounter Details Date Type Department Care Team (Late st Contact Info) Description 06/02/2024 1:00 PM EST Office Visit Gynecology/Obstetric s [facility] [address] [place] [address] Chloe Hurtado CRNP [address] [place] [address] [facility] Non Stress Tests [place] [address] [place] [address] High-risk in third trimester*; Chronic hypertension affecting [...] Tablet by mouth in the morning. Active Vtion Wireless Technologyio Flex System w/Device Kit Use to test [...] RPM reviewed; Stable overall, continue diet control 01/21/20247502-YQE-uojgmw 01/28/20244162-GDC-hhqqdexh fasting blood sugars (95-98). Advised to watch diet, eat bedtime snack, and avoid fasting longer than 8 to 10 hours. Will review again next week, and if persists, will schedule for follow up ADAPT with maternal medicine nurse practitioner. 02/04/20242825-KEF-xrmaxj (1 elevated fasting blood sugar) 02/11/2024-RPM-4 of 7 elevated fasting blood sugars. Patient and C PARs messaged to schedule follow up ADAPT. 02/12/24: ADAPT f/u complete. FBS elevated; will start Lantus 15 units HS. 02/19/20245176-XWU-qgznimta fasting blood sugars. Maternal medicine nurse practitioners to review. 02/19/24: RPM reviewed; increased to Lantus 20 units at bedtime 02/25/20244011-OYO-ewvqptc stable (1 elevated post prandial lunch) 03/03/20245740-VYF-vjrnsg 03/10/20245475-WWT-yjiapj. Few missed readings. 03/17/20245884-ZTY-ffcvfc 03/24/24: RPM reviewed; Stable 03/31/24: RPM reviewed; Stable; continue Lantus 20 units at bedtime 04/07/20241718-CID-ifbwll 04/14/20240129-DZC-ftpatg 04/21/20245254-DBV-xyysbv (1 elevated post prandial dinner) 04/28/20245400-JNJ-tiqmhw 05/05/20246551-EVG-sbziqg 05/12/20245786-WNC-qmgvvp 05/19/24: RPM reviewed; blood sugars stable, continue Lantus 20 units at bedtime 05/26/20244529-HVW-diwohbu stable (2 elevated post prandial dinner values) 06/02/20245638-MVW-spwrcs Assessment & Plan (05/29/2024 4:09 PM EST): [...] Recommend nutrition consult with RDN (Registered Dietitian Employee Benefits Director). Lifestyle changes are also indicated including optimizing [...] preeclamptic labs with CBC, serum AST/ALT/creatinine and swfzqwj-hn-rwugrrbrxq ratio or 24-hour urine protein LIDIA if [...] preeclamptic labs with CBC, serum AST/ALT/creatinine and tpvbxqv-id-jnxyejfqgn ratio or 24-hour urine protein LIDIA if [...] on follow-up scans. We recommend alerting the occupational medicine physician providing care of this finding if it [...] money to get more. Never true 04/16/2024 [place] Depression Scale Answer Date Recorded [place] Depression Scale Total 0 12/07/2023 The thought [...] GDMA 2 managed by ADAPT. GBS today. Estimator Paperboard Boxes Documentation Provider requested svp innovation partnerships. Name of svp innovation partnerships: LINDA Villeda ASSESSMENT assessment with Non-stress Test [...] 06/02/2024 1:19 PM EST Patient seen by [facility] Shield Operator. Patient denies any questions or concerns. documented in this encounter Plan of Treatment Upcoming Encounters Date Type Department Care Team (Late st Contact Info) Description 06/06/2024 1:00 PM EST Office Visit Gynecology/Obstetrics [facility] Alvarado [address] [place] [address] Chloe Hurtado CRNP [address] [place] [address] [facility] Non Stress Tests [place] [address] [place] [address] 06/09/2024 9:45 AM EST Office Visit Gynecology/Obstetrics Jumana Alvarado [address] [place] [address] Jenni Smith CRNP [address] [place] [address] Cristiane Alvarado Stress Tests [facility] [address] [place] [address] 06/12/2024 9:15 AM EST Office Visit Gynecology/Obstetrics [facility] Escobars [address] [place] [address] Federico Rodriguez MD [address] [place] [address] Christiano Non Stress Tests [place] [address] [place] [address] 06/16/2024 1:00 PM EST Office Visit Gynecology/Obstetrics Jum[facility] Escobars [address] [place] [address] Chloe Hurtado CRNP [address] [place] [address] Christian[facility] Non Stress Tests [place] [address] [place] [address] 06/20/2024 1:00 PM EST Office Visit Gynecology/Obstetrics Jumana Alvarado [address] [place] [address] BackChloe garcia CRNP [address] [place] [address] Christiano, Non Stress Tests [place] [address] 07/02/2024 10:30 AM EST Office Visit Gynecology/Obstetrics [facility]umana Watts [place] [address] Chloe Hurtado CRNP [address] [place] [address] Pending Results Name Type Priority Associated Diagnoses [...] (BMI) of 40.0 to 44.9 in adult ([facility]) Screening for malignant neoplasm of [...] (BMI) of 40.0 to 44.9 in adult ([facility])- Primary Obesity in , antepartum [...] fetus documented in this encounter Care Teams Consumer Advocate Relationship Specialty Start Date End Date Elina Will DO [address] [place] [address] PCP - General Family Medicine 11/09/23 documented as of this encounter
--- OUTSIDE RECORDS SUMMARY | 2024-06-25 09:26 | External Medical Summary | Summary of Care ---
Author Name Unknown Organization [facility] Address [address] [place] [address] Phone [phone] Care Team Providers Care Java Websphere Developer Name Role Phone Elina Will DO Primary Care Provider [phone] Encounter Details Date Type Department Care Team (Late st Contact Info) Description 05/29/2024 11:00 AM EST Office Visit Pole Lift Operator Obstetrics Maternal Medicine, [address] [place] [address] Yaneth Cid DO [address] [place] [address] Chronic hypertension affecting *; Excessive growth affecting management of in third trimester, single or unspecified fetus; Insulin controlled gestational diabetes mellitus (GDM) in second trimester Allergies No known active allergiesdocumented as of this encounter (statuses as of 05/29/2024) Medications /Folic Acid Oral Tablet Take 1 Tablet by mouth once. Active Aspirin 81 MG Oral Tablet Delayed Release Take 1 Tablet by mouth in the morning. Active Delve Networks Flex System w/Device Kit Use to test blood sugars 4 times daily (fasting, 1 hour after breakfast, lunch, and dinner) 1 Kit 4 Active Alteryx[employer]io In Vitro Strip (Glucose Blood) Use to test blood sugars 4 times daily (fasting, 1 hour after breakfast, lunch, and dinner) 125 Strip 6 4 Active NeuralieveTouch Delica Lancets 30G Use to test blood [...] as of this encounter (statuses as of 05/29/2024) Active Problems Problem Noted Date Diagnosed Date [...] RPM reviewed; Stable overall, continue diet control 01/21/20246228-BVP-znbvpz 01/28/20248059-GYX-mbxoxowb fasting blood sugars (95-98). Advised to watch diet, eat bedtime snack, and avoid fasting longer than 8 to 10 hours. Will review again next week, and if persists, will schedule for follow up ADAPT with maternal medicine nurse practitioner. 02/04/20244130-YNH-bascsp (1 elevated fasting blood sugar) 02/11/2024-RPM-4 of 7 elevated fasting blood sugars. Patient and [facility] PARs messaged to schedule follow up ADAPT. 02/12/24: ADAPT f/u complete. FBS elevated; will start Lantus 15 units HS. 02/19/20240177-YZI-ycflraqa fasting blood sugars. Maternal medicine nurse practitioners to review. 02/19/24: RPM reviewed; increased to Lantus 20 units at bedtime 02/25/20245408-FVB-wfvjbxb stable (1 elevated post prandial lunch) 03/03/20247324-PDT-pfques 03/10/20246254-AXZ-zchvtf. Few missed readings. 03/17/20241016-SZC-gpxazx 03/24/24: RPM reviewed; Stable 03/31/24: RPM reviewed; Stable; continue Lantus 20 units at bedtime 04/07/20247707-NPV-zvyhmb 04/14/20245984-YOU-mmbkqc 04/21/20242721-KCW-bylbse (1 elevated post prandial dinner) 04/28/20243833-LAP-xqcbxz 05/05/20243626-NEU-tjkwkk 05/12/20246882-RYQ-lgtfuf 05/19/24: RPM reviewed; blood sugars stable, continue Lantus 20 units at bedtime 05/26/20248480-LSL-nhefeyp stable (2 elevated post prandial dinner values) [...] Recommend nutrition consult with RDN (Registered Dietitian Chinese Medicine Practitioner). Lifestyle changes are also indicated including optimizing [...] preeclamptic labs with CBC, serum AST/ALT/creatinine and aagtuhv-co-sdrobyawza ratio or 24-hour urine protein LIDIA if [...] preeclamptic labs with CBC, serum AST/ALT/creatinine and dvuushj-vo-rusfmxnrwj ratio or 24-hour urine protein LIDIA if [...] as of this encounter (statuses as of 05/29/2024) Resolved Problems Problem Noted Date Diagnosed Date [...] on follow-up scans. We recommend alerting the practice representative providing care of this finding if it persists into the 3rd trimester. with 12 completed weeks gestation 12/17/2023 02/01/2024 documented as of this encounter (statuses as of 05/29/2024) Immunizations Name Administration Dates Next Due TDAP, [...] money to get more. Never true 04/16/2024 [place] Depression Scale Answer Date Recorded [place] Depression Scale Total 0 12/07/2023 The thought [...] hospital or clinic location. After connecting through [employer], patient was verified with two unique identifiers. Patient (or authorized legal used equipment sales representative) was then informed that this [...] that I have reviewed their record in [employer] and presented the opportunity for them to [...] [facility]um[facility]ado [address] [place] [address] Chloe Hurtado CRNP [address] [place] [address] [place] Non Stress Tests [facility] [address] [place] [address] 06/06/2024 1:00 PM EST Office Visit Gynecology/Obstetrics [facility] [address] [place] [address] Chloe Hurtado CRNP [address] [place] [address] [place] Non Stress Tests [facility] [address] [place] [address] 06/09/2024 9:45 AM EST Office Visit Gynecology/Obstetrics [facility] [address] [place] [address] Jenni Smith CRNP [address] [place] [address] [place], Non Stress Tests [facility] [address] [place] [address] 06/12/2024 9:15 AM EST Office Visit Gynecology/Obstetrics [facility] [address] [place] [address] Federico Rodriguez MD [address] [place] [address] [facility] Non Stress Tests [facility] [address] [place] [address] 06/16/2024 1:00 PM EST Office Visit Gynecology/Obstetrics [facility] [address] [place] [address] Chloe Hurtado CRNP [address] [place] [address] [place] Non Stress Tests [facility] [address] [place] [address] 06/20/2024 1:00 PM EST Office Visit Gynecology/Obstetrics [facility] [address] [place] [address] Chloe Hurtado CRNP [address] [place] [address] [place], Non Stress Tests [facility] [address] [place] [address] 07/02/2024 10:30 AM EST Office Visit Gynecology/Obstetrics [facility] [address] [place] [address] Chloe Hurtado CRNP [address] [place] [address] Health Maintenance Due Date Last Done Comments [...] trimester documented in this encounter Care Teams Java Websphere Developer Relationship Specialty Start Date End Date Elina Will DO [address] [place] [address] PCP - General Family Medicine 11/09/23 documented as of this encounter
--- OUTSIDE RECORDS SUMMARY | 2024-06-25 09:27 | External Medical Summary | Summary of Care ---
Author Name Unknown Organization [facility] Address [address] [facility] [place] [address] Phone [phone] Care Team Providers Care Drainlayer Name Role Phone Elina Will DO Primary Care Provider [phone] Reason for Visit * Reason Onset Date Comments Non Stress Test 05/02/2024 Encounter Details Date Type Department Care Team (Late st Contact Info) Description 05/02/2024 [facility] [address] [place] [address] Jenni Smith CRNP [address] [facility] [place] [address] Non Stress Test Allergies No known active allergiesdocumented as of this encounter (statuses as of 05/02/2024) Medications /Folic Acid Oral Tablet Take 1 Tablet by mouth once. Active Aspirin 81 MG Oral Tablet Delayed Release Take 1 Tablet by mouth in the morning. Active [employer]Apps Verio Flex System w/Device Kit Use to test blood sugars 4 times daily (fasting, 1 hour after breakfast, lunch, and dinner) 1 Kit 4 Active MyLifeio In Vitro Strip (Glucose Blood) Use to test blood sugars 4 times daily (fasting, 1 hour after breakfast, lunch, and dinner) 125 Strip 6 4 Active Compl[employer] Control[employer] Delica Lancets 30G Use to test blood [...] as of this encounter (statuses as of 05/02/2024) Active Problems Problem Noted Date Diagnosed Date Excessive growth affec ting management of in third trimester 2024 Assessment & Plan (2024 12:24 PM EST): EFW today at 99%ile with normal DONNIE. Sandra is planning repeat c/s. Sugars reviewed in and under good control. Delivery currently indicated at ~39 weeks and plan unchanged based on LGA alone. Antepartum anemia complicating 024 Pyelectasis of fetus on ultrasound 02/16 Assessment & Plan (2024 12:24 PM EST): [...] on follow-up scans. We recommend alerting the jacquard card lacer providing care of this finding if it persists into the 3rd trimester. Insulin controlled gestation al diabetes mellitus (GDM) in second trimester 01/03/2024 Overview (04/28/2024): Diagnosed at 13 weeks Nutrition consult ordered [...] RPM reviewed; Stable overall, continue diet control 01/21/20247926-EIN-kngtek 01/28/20245290-RME-atrfabkt fasting blood sugars (95-98). Advised to watch diet, eat bedtime snack, and avoid fasting longer than 8 to 10 hours. Will review again next week, and if persists, will schedule for follow up ADAPT with maternal medicine nurse practitioner. 02/04/20246370-LBB-psrxuy (1 elevated fasting blood sugar) 02/11/2024-RPM-4 of 7 elevated fasting blood sugars. Patient and C PARs messaged to schedule follow up ADAPT. 02/12/24: ADAPT f/u complete. FBS elevated; will start Lantus 15 units HS. 02/19/20246501-RUY-zlhiinoo fasting blood sugars. Maternal medicine nurse practitioners to review. 02/19/24: RPM reviewed; increased to Lantus 20 units at bedtime 02/25/20241818-PSD-yskxeow stable (1 elevated post prandial lunch) 03/03/20243600-ESH-dldlnx 03/10/20247500-TDH-rxmchi. Few missed readings. 03/17/20246435-UFA-fhofua 03/24/24: RPM reviewed; Stable 03/31/24: RPM reviewed; Stable; continue Lantus 20 units at bedtime 04/07/20243652-WHX-jhrlue 04/14/20249778-UOE-mhtozd 04/21/20241397-FNP-uluxfl (1 elevated post prandial dinner) 04/28/20242088-GBK-nmjooz Assessment & Plan (04/03/2024 9:08 AM EDT): [...] Recommend nutrition consult with RDN (Registered Dietitian Forming Yardage Control Operator). Lifestyle changes are also indicated including optimizing [...] preeclamptic labs with CBC, serum AST/ALT/creatinine and xjqmgbu-ei-hjwpxprqph ratio or 24-hour urine protein LIDIA if not already done. For patients with Class 3 obesity, we recommend weekly surveillance starting at 34 weeks and delivery by EDC. Recommend anesthesia consult during the antepartum period. Health counseling 12/07/2023 Overview (01/04/2024): Problem Action Taken Date entered Entered by Date resolved Current needs or questions Patient denies having any current needs or questions 12/07/2023 Susannah Leal RN 12/07/2023 Problem Action Taken Date entered Entered by Date resolved Current needs or questions Patient denies having any current needs or questions 01/04/2024 Susannah Leal RN 01/04/2024 High-risk 12/07/2023 Class 3 severe obesity due [...] preeclamptic labs with CBC, serum AST/ALT/creatinine and mobvhmc-ha-ofxeddjhyp ratio or 24-hour urine protein LIDIA if [...] as of this encounter (statuses as of 05/02/2024) Resolved Problems Problem Noted Date Diagnosed Date Resolved Date with 12 completed weeks gestation 12/17/2023 02/01/2024 documented as of this encounter (statuses as of 05/02/2024) Immunizations Name Administration Dates Next Due TDAP, [...] money to get more. Never true 04/16/2024 [place] Depression Scale Answer Date Recorded [place] Depression Scale Total 0 12/07/2023 The thought [...] 04/16/2024 Transportation Needs Answer Date Record ed READ ONLY Do you have troubl e getting a ride to medical visits or work? Never True 04/16/2024 Does your family have a hard [...] place to sleep at night? No 04/16/2024 READ ONLY Do you think you a re at risk of becoming homeless? No 04/16/2024 Does your family worry about paying [...] encounter Miscellaneous Notes * Telephone Encounter - Genesis Haney OSA - 05/02/2024 1:12 PM EST Patient is rescheduled to 06/20 due to the holiday and having no providers. * Telephone Encounter - Julianna Carmona OSA - 05/02/2024 12:29 PM EST Pt gets NSTs done 2x per week Her 06/19/2024 NST w/ Jenni Smith was cx due to change in Jenni's schedule. NO available appts to reschedule her to. Please contact pt directly w/ new appt date/time, documented in this encounter Plan of Treatment Upcoming Encounters Date Type Department Care Team (Late st Contact Info) Description 05/05/2024 10:00 AM EST Office Visit Gynecology/Obstetrics [facility] [address] [place] [address] Chloe Hurtado CRNP [address] [place] [address] Cristiane Alvarado Stress Tests [facility] [address] [place] [address] 05/08/2024 11:15 AM EST Office Visit Gynecology/Obstetrics [facility] [address] [place] [address] Jenni Smith CRNP [address] [place] [address] [facility], Non Stress Tests [facility] [address] [place] [address] 05/12/2024 10:45 AM EST Office Visit Gynecology/Obstetrics [facility] [address] [place] [address] Chloe Hurtado CRNP [address] [place] [address] [place] Non Stress Tests [facility] [address] [place] [address] 05/16/2024 2:30 PM EST Office Visit Gynecology/Obstetrics [facility] [address] [place] [address] Hesham Fontenot MD [address] [place] [address] [facility] Non Stress Tests [facility] [address] [place] [address] 05/19/2024 9:00 AM EST Office Visit Gynecology/Obstetrics [facility] [address] [place] [address] Hesham Fontenot MD [address] [place] [address] [place] Non Stress Tests [facility] [address] [place] [address] 05/22/2024 10:15 AM EST Office Visit Gynecology/Obstetrics [facility] [address] [place] [address] Jenni Smith CRNP [address] [place] [address] [facility], Non Stress Tests [facility] [address] [place] [address] 05/26/2024 1:15 PM EST Office Visit Gynecology/Obstetrics [facility] [address] [place] [address] Chloe Hurtado CRNP [address] [place] [address] [facility], Non Stress Tests [facility] [address] [place] [address] 05/29/2024 11:00 AM EST Imaging Maternal Medicine Imaging, [facility] [address] [place] [address] 06/02/2024 1:00 PM EST Office Visit Gynecology/Obstetrics [facility] [address] [place] [address] Chloe Hurtado CRNP [address] [place] [address] [facility], Non Stress Tests [facility] [address] [place] [address] 06/06/2024 1:00 PM EST Office Visit Gynecology/Obstetrics [facility] [address] [place] [address] Chloe Hurtado CRNP [address] [place] [address] [facility], Non Stress Tests [facility] [address] [place] [address] 06/09/2024 9:45 AM EST Office Visit Gynecology/Obstetrics [facility] [address] [place] [address] Jenni Smith CRNP [address] [place] [address] [facility], Non Stress Tests [facility] [address] [place] [address] 06/12/2024 10:15 AM EST Office Visit Gynecology/Obstetrics [facility] [address] [place] [address] Jenni Smith CRNP [address] [place] [address] [place] Non Stress Tests [facility] [address] [place] [address] 06/16/2024 1:00 PM EST Office Visit Gynecology/Obstetrics [facility] [address] [place] [address] Chloe Hurtado CRNP [address] [place] [address] [facility], Non Stress Tests [facility] [address] [place] [address] 06/20/2024 1:00 PM EST Office Visit Gynecology/Obstetrics [facility] [address] [place] [address] Chloe Hurtado CRNP [address] [place] [address] [facility], Non Stress Tests [facility] [address] [place] [address] Health Maintenance Due Date Last Done Comments [...] filedocumented as of this encounter Care Teams Drainlayer Relationship Specialty Start Date End Date Elina Will DO [address] [place] [address] PCP - General Family Medicine 11/09/23 documented as of this encounter
--- OUTSIDE RECORDS SUMMARY | 2024-06-25 09:27 | External Medical Summary | Summary of Care ---
Author Name Unknown Organization [facility] Address [address] [facility] [place] [address] Phone [phone] Care Team Providers Care Sanitary Landfill Operator Name Role Phone Elina Will DO Primary Care Provider [phone] Reason for Visit * Reason Comments Return Visit Non Stress Test Encounter Details Date Type Department Care Team (Late st Contact Info) Description 05/05/2024 10:00 AM EST Office Visit Gynecology/Obstetric s [facility] [address] [place] [address] Chloe Hurtado CRNP [address] [place] [address] [place] Non Stress Tests [facility] [address] [place] [address] High-risk in third trimester*; Chronic hypertension affecting ; Hx of section; History of gestational hypertension; Obesity in , antepartum; Insulin controlled gestational diabetes mellitus (GDM) in third trimester; Excessive growth affecting management of in third trimester, single or unspecified fetus Allergies No known active allergiesdocumented as of this encounter (statuses as of 05/05/2024) Medications /Folic Acid Oral Tablet Take 1 Tablet by mouth once. Active Aspirin 81 MG Oral Tablet Delayed Release Take 1 Tablet by mouth in the morning. Active SlickLoginio Flex System w/Device Kit Use to test [...] as of this encounter (statuses as of 05/05/2024) Active Problems Problem Noted Date Diagnosed Date [...] mellitus (GDM) in second trimester 01/03/2024 Overview (05/05/2024): Diagnosed at 13 weeks Nutrition consult ordered [...] RPM reviewed; Stable overall, continue diet control 01/21/20246956-WXA-lmtlgb 01/28/20243653-ILJ-pilddogu fasting blood sugars (95-98). Advised to watch diet, eat bedtime snack, and avoid fasting longer than 8 to 10 hours. Will review again next week, and if persists, will schedule for follow up ADAPT with maternal medicine nurse practitioner. 02/04/20240589-DLM-wecoqv (1 elevated fasting blood sugar) 02/11/2024-RPM-4 of 7 elevated fasting blood sugars. Patient and [facility] PARs messaged to schedule follow up ADAPT. 02/12/24: ADAPT f/u complete. FBS elevated; will start Lantus 15 units HS. 02/19/20245300-ROY-gywenobj fasting blood sugars. Maternal medicine nurse practitioners to review. 02/19/24: RPM reviewed; increased to Lantus 20 units at bedtime 02/25/20241176-GJZ-fckvqae stable (1 elevated post prandial lunch) 03/03/20241148-XCL-dqvqqj 03/10/20249006-JGN-rdsnqa. Few missed readings. 03/17/20247743-VDS-ljanje 03/24/24: RPM reviewed; Stable 03/31/24: RPM reviewed; Stable; continue Lantus 20 units at bedtime 04/07/20249591-AGM-nziojt 04/14/20249429-MDD-gxeibw 04/21/20246269-TLQ-zuwmrq (1 elevated post prandial dinner) 04/28/20249688-LOM-tchsmu 05/05/20242869-MFG-kygwco Assessment & Plan (04/03/2024 9:08 AM EDT): [...] Recommend nutrition consult with RDN (Registered Dietitian Commission Auditor). Lifestyle changes are also indicated including optimizing [...] preeclamptic labs with CBC, serum AST/ALT/creatinine and kkfqljn-ym-xouscbcgch ratio or 24-hour urine protein LIDIA if [...] preeclamptic labs with CBC, serum AST/ALT/creatinine and tcpqghi-ve-fevngtrlkb ratio or 24-hour urine protein LIDIA if [...] as of this encounter (statuses as of 05/05/2024) Resolved Problems Problem Noted Date Diagnosed Date [...] on follow-up scans. We recommend alerting the refractory specialist providing care of this finding if it persists into the 3rd trimester. with 12 completed weeks gestation 12/17/2023 02/01/2024 documented as of this encounter (statuses as of 05/05/2024) Immunizations Name Administration Dates Next Due TDAP, [...] money to get more. Never true 04/16/2024 [place] Depression Scale Answer Date Recorded [place] Depression Scale Total 0 12/07/2023 The thought [...] Sign Reading Time Taken Comments Blood Pressure - - Pulse - - Temperature - - Respiratory Rate - - Oxygen Saturation - - Inhaled Oxygen Concentration - - Weight 112.8 kg (248 lb 9.6 oz) 10:16 AM EST Height - - Body Mass Index 42.67 02/29/2024 2:12 PM EDT documented in this encounter Progress Notes * Carolina Kohler CMA - 05/05/2024 10:16 AM EST [id number] Denies any concerns * Chloe Hurtado CRNP - 05/05/2024 10:12 AM EST ASSESSMENT assessment with Non-stress Test completed on 05/05/2024 at 32.1 weeks gestation for indication of gestational diabetes mellitus and chronic hypertension heart baseline: 140 bpm Variability: Moderate Decelerations: absent Accelerations: present Contractions: None NST start time: 1107 (time not changed to DST) NST stop time: 1142 NST strip reviewed, interpreted, and approved by OB provider, LINDA Barclay . NST strip stored in clinic storage file documented in this encounter Plan of Treatment Upcoming Encounters Date Type Department Care Team (Late st Contact Info) Description 05/08/2024 11:15 AM EST Office Visit Gynecology/Obstetrics [facility] [address] [place] [address] Jenni Smith CRNP [address] [place] [address] [place], Non Stress Tests [facility] [address] [place] [address] 05/12/2024 10:45 AM EST Office Visit Gynecology/Obstetrics [facility] [address] [place] [address] Chloe Hurtado CRNP [address] [place] [address] [facility], Non Stress Tests [facility] [address] [place] [address] 05/16/2024 2:30 PM EST Office Visit Gynecology/Obstetrics [facility] [address] [place] [address] Hesham Fontenot MD [address] [place] [address] [facility], Non Stress Tests [facility] [address] [place] [address] 05/19/2024 9:00 AM EST Office Visit Gynecology/Obstetrics [facility] [address] [place] [address] Hesham Fontenot MD [address] [place] [address] [facility], Non Stress Tests [facility] [address] [place] [address] 05/22/2024 10:15 AM EST Office Visit Gynecology/Obstetrics [facility] [address] [place] [address] Jenni Smith CRNP [address] [place] [address] [facility], Non Stress Tests [facility] [address] [place] [address] 05/26/2024 1:15 PM EST Office Visit Gynecology/Obstetrics [facility] [address] [place] [address] Chloe Hurtado CRNP [address] [place] [address] [facility], Non Stress Tests [facility] [address] [place] [address] 05/29/2024 11:00 AM EST Imaging Maternal Medicine Imaging, [facility] [address] [place] [address] 06/02/2024 1:00 PM EST Office Visit Gynecology/Obstetrics [facility] [address] [place] [address] Chloe Hurtado CRNP [address] [place] [address] [facility], Non Stress Tests [facility] [address] [place] [address] 06/06/2024 1:00 PM EST Office Visit Gynecology/Obstetrics [facility] [address] [place] [address] BackerChloe CRNP [address] [place] [address] [facility], Non Stress Tests [facility] [address] [place] [address] 06/09/2024 9:45 AM EST Office Visit Gynecology/Obstetrics [facility] [address] [place] [address] Jenni Smith CRNP [address] [place] [address] [facility], Non Stress Tests [facility] [address] [place] [address] 06/12/2024 10:15 AM EST Office Visit Gynecology/Obstetrics [facility] [address] [place] [address] Jenni Smith CRNP [address] [place] [address] [facility], Non Stress Tests [facility] [address] [place] [address] 06/16/2024 1:00 PM EST Office Visit Gynecology/Obstetrics [facility] [address] [place] [address] BackerChloe CRNP [address] [place] [address] [facility], Non Stress Tests [facility] [address] [place] [address] 06/20/2024 1:00 PM EST Office Visit Gynecology/Obstetrics [facility] [address] [place] [address] Backer, Chloe Corteznett, LINDA [address] [place] [address] [place], Non Stress Tests [facility] [address] [place] [address] Health Maintenance Due Date Last Done Comments [...] fetus documented in this encounter Care Teams Sanitary Landfill Operator Relationship Specialty Start Date End Date Elina Will DO [address] [place] [address] PCP - General Family Medicine 11/09/23 documented as of this encounter
--- OUTSIDE RECORDS SUMMARY | 2024-06-25 09:27 | External Medical Summary | Summary of Care ---
Author Name Unknown Organization [facility] Address [address] [place] [address] Phone [phone] Care Team Providers Care Button Breaker Name Role Phone Elina Will DO Primary Care Provider [phone] Encounter Details Date Type Department Care Team (Late st Contact Info) Description 04/29/2024 Telephone [facility] [address] [place] [address] Elina Haddad PA-C [address] [place] [address] Allergies No known active allergiesdocumented as of this encounter (statuses as of 04/29/2024) Medications /Folic Acid Oral Tablet Take 1 Tablet by mouth once. Active Aspirin 81 MG Oral Tablet Delayed Release Take 1 Tablet by mouth in the morning. Active [employer] Verio Flex System w/Device Kit Use to test blood sugars 4 times daily (fasting, 1 hour after breakfast, lunch, and dinner) 1 Kit 4 Active VeriTaineruch Verio In Vitro Strip (Glucose Blood) Use [...] as of this encounter (statuses as of 04/29/2024) Active Problems Problem Noted Date Diagnosed Date Antepartum anemia complicating 024 Pyelectasis of fetus on ultrasound 02/16 Assessment & Plan (03/06/2024 12:59 PM EDT): [...] on follow-up scans. We recommend alerting the assistant toddler teacher providing care of this finding if it [...] RPM reviewed; Stable overall, continue diet control 01/21/20245132-LRM-avgxyy 01/28/20242513-HYB-ncumxxty fasting blood sugars (95-98). Advised to watch diet, eat bedtime snack, and avoid fasting longer than 8 to 10 hours. Will review again next week, and if persists, will schedule for follow up ADAPT with maternal medicine nurse practitioner. 02/04/20240372-SNK-svuvqw (1 elevated fasting blood sugar) 02/11/2024-RPM-4 of 7 elevated fasting blood sugars. Patient and [facility] PARs messaged to schedule follow up ADAPT. 02/12/24: ADAPT f/u complete. FBS elevated; will start Lantus 15 units HS. 02/19/20243780-KIF-ajwwkpwb fasting blood sugars. Maternal medicine nurse practitioners to review. 02/19/24: RPM reviewed; increased to Lantus 20 units at bedtime 02/25/20248770-HIO-wlhnhjk stable (1 elevated post prandial lunch) 03/03/20245463-MXP-gyrejl 03/10/20241903-ZQL-itirhq. Few missed readings. 03/17/20242801-JOG-bgamnr 03/24/24: RPM reviewed; Stable 03/31/24: RPM reviewed; Stable; continue Lantus 20 units at bedtime 04/07/20248885-IYG-znbdmt 04/14/20249468-SPK-rpbxxh 04/21/20246468-CKU-nltonh (1 elevated post prandial dinner) 04/28/20242190-QSN-bksktx Assessment & Plan (04/03/2024 9:08 AM EDT): [...] Recommend nutrition consult with RDN (Registered Dietitian Dinner Cook). Lifestyle changes are also indicated including optimizing [...] preeclamptic labs with CBC, serum AST/ALT/creatinine and ruoiyjz-hl-awmzxgjszx ratio or 24-hour urine protein LIDIA if [...] preeclamptic labs with CBC, serum AST/ALT/creatinine and xpnefck-vz-qceahoggxl ratio or 24-hour urine protein LIDIA if [...] 20 Encounters: 12/07/23 140/84 Assessment & Plan (04/03/2024 9:08 AM EDT): [...] as of this encounter (statuses as of 04/29/2024) Resolved Problems Problem Noted Date Diagnosed Date Resolved Date with 12 completed weeks gestation 12/17/2023 02/01/2024 documented as of this encounter (statuses as of 04/29/2024) Immunizations Name Administration Dates Next Due TDAP, [...] money to get more. Never true 04/16/2024 [place] Depression Scale Answer Date Recorded [place] Depression Scale Total 0 12/07/2023 The thought [...] encounter Miscellaneous Notes * Telephone Encounter - Georgia Venegas LPN - 04/29/2024 7:59 AM EST ----- Message from Elina Haddad sent at 04/29/2024 7:58 AM EST ----- Please inform patient her recent CBC shows anemia has improved. We do not need iron supplementationat this time. Thanks! Elina Haddad PA-C documented in this encounter Plan of Treatment Upcoming Encounters Date Type Department Care Team (Late st Contact Info) Description 2024 11:00 AM EST Imaging Maternal Medicine Imaging, [facility] [address] [place] [phone] 2024 11:00 AM EST Office Visit Public Health Teacher Obstetrics Maternal Medicine, [facility] [address] [place] [address] Yaneth Cid, DO [address] [place] [address] 05/05/2024 10:00 AM EST Office Visit Gynecology/Obstetrics [facility] [address] [place] [address] Chloe Hurtado CRNP [address] [place] [address] Christian[place], Non Stress Tests [facility] [address] [place] [address] 05/08/2024 11:15 AM EST Office Visit Gynecology/Obstetrics [facility] [address] [place] [address] Jenni Smith CRNP [address] [place] [address] Christiano, Non Stress Tests [facility] [address] [place] [address] 05/12/2024 10:45 AM EST Office Visit Gynecology/Obstetrics [facility] [address] [place] [address] Chloe Hurtado CRNP [address] [place] [address] [place], Non Stress Tests [facility] [address] [place] [address] 05/16/2024 2:30 PM EST Office Visit Gynecology/Obstetrics [facility] [address] [place] [address] Hesham Fontenot MD [address] [place] [address] [facility], Non Stress Tests [facility] [address] [place] [address] 05/19/2024 9:00 AM EST Office Visit Gynecology/Obstetrics [facility] [address] [place] [address] Hesham Fontenot MD [address] [place] [address] [place], Non Stress Tests [facility] [address] [place] [address] 05/22/2024 10:15 AM EST Office Visit Gynecology/Obstetrics [facility] [address] [place] [address] Jenni Smith CRNP [address] [place] [address] [place], Non Stress Tests [facility] [address] [place] [address] 05/26/2024 1:15 PM EST Office Visit Gynecology/Obstetrics [facility] [address] [place] [address] Chloe Hurtado CRNP [address] [place] [address] [facility], Non Stress Tests [facility] [address] [place] [address] 05/29/2024 11:00 AM EST Imaging Maternal Medicine Imaging, [facility]ado [address] [place] [address] 06/02/2024 1:00 PM EST Office Visit Gynecology/Obstetrics [facility] [address] [place] [address] Chloe Hurtado CRNP [address] [place] [address] [place], Non Stress Tests [facility] [address] [place] [address] 06/06/2024 1:00 PM EST Office Visit Gynecology/Obstetrics [facility]o [address] [place] [address] Chloe Hurtado CRNP [address] [place] [address] [facility], Non Stress Tests [facility] [address] [place] [address] 06/09/2024 9:45 AM EST Office Visit Gynecology/Obstetrics [facility] [address] [place] [address] Jenni Smith CRNP [address] [place] [address] [facility], Non Stress Tests [facility] [address] [place] [address] 06/12/2024 10:15 AM EST Office Visit Gynecology/Obstetrics [facility] [address] [place] [address] Jenni Smith CRNP [address] [place] [address] [facility], Non Stress Tests [facility] [address] [place] [address] 06/16/2024 1:00 PM EST Office Visit Gynecology/Obstetrics [facility] [address] [place] [address] Chloe Hurtado CRNP [address] [place] [address] Christiano Non Stress Tests [facility] [address] [place] [address] 06/19/2024 10:15 AM EST Office Visit Gynecology/Obstetrics [facility] [address] [place] [address] Jenni Smith CRNP [address] [place] [address] Christiano Non Stress Tests [facility] [address] [place] [address] Health Maintenance Due Date Last Done Comments [...] filedocumented as of this encounter Care Teams Button Breaker Relationship Specialty Start Date End Date Elina Will DO [address] [place] [address] PCP - General Family Medicine 11/09/23 documented as of this encounter
--- OUTSIDE RECORDS SUMMARY | 2024-06-25 09:27 | External Medical Summary ---
Author Name Unknown Address Unknown Organization K0G[facility] - [address] [place] [address] Laboratory Report Ordering Provider Test Date Status ANIVAL BUSCH 04/28/2024 13:44:00 Final Observation Date Value Abnormality Reference (Units ) Status Color of Urine by Auto 04/28/2024 13:44:00 Yellow Light Yellow, Yellow Final Clarity, Urine 04/28/2024 13:44:00 Clear Clear Final Glucose [Mass/volume] in Urine by Automated test strip 04/28/2024 13:44:00 Negative Negative (mg/dL) Final Bilirubin.total [Presence] in Urine by Automated test strip 04/28/2024 13:44:00 Negative Negative Final Ketones [Mass/volume] in Urine by Automated test strip 04/28/2024 13:44:00 Negative Negative (mg/dL) Final Specific gravity, Urine 04/28/2024 13:44:00 >=1.030 1.003-1.030 Final Hemoglobin [Presence] in Urine by Automated test strip 04/28/2024 13:44:00 Negative Negative Final pH, Urine 04/28/2024 13:44:00 6.5 5.0, 5.5, 6.0, 6.5, 7.0, 7.5 (units) Final Protein [Mass/volume] in Urine by Automated test strip 04/28/2024 13:44:00 Negative Negative (mg/dL) Final Urobilinogen, Urine 04/28/2024 13:44:00 0.2 0.2, 1.0 (mg/dL) Final Nitrite [Presence] in Urine by Automated test strip 04/28/2024 13:44:00 Negative Negative Final Leukocyte esterase [Presence] in Urine by Automated test strip 04/28/2024 13:44:00 Negative Negative Final Performing Location [facility] [address] - [address] [place] [address]
--- OUTSIDE RECORDS SUMMARY | 2024-06-25 09:27 | External Medical Summary | Summary of Care ---
Author Name Unknown Organization [facility] Address [address] [place] [address] Phone [phone] Care Team Providers Care Sash Maker Name Role Phone Elina Will DO Primary Care Provider [phone] Encounter Details Date Type Department Care Team (Late st Contact Info) Description 2024 11:00 AM EST Office Visit Waiter/Waitress Counter Obstetrics Maternal Medicine, [address] [place] [address] Yaneth Cid DO [address] [place], [place] [id number] Insulin controlled gestational diabetes mellitus (GDM) in second trimester*; Excessive growth affecting management of in third trimester, single or unspecified fetus; Chronic hypertension affecting ; Pyelectasis of fetus on ultrasound; 31 weeks gestation of Allergies No known active allergiesdocumented as of this encounter (statuses as of 05/02/2024) Medications /Folic Acid Oral Tablet Take 1 Tablet by mouth once. Active Aspirin 81 MG Oral Tablet Delayed Release Take 1 Tablet by mouth in the morning. Active BlueStripe SoftwareTouch Verio Flex System w/Device Kit Use to [...] EFW today at 99%ile with normal DONNIE. Carmenbreonna is planning repeat c/s. Sugars reviewed in [...] on follow-up scans. We recommend alerting the outside physical damage appraiser providing care of this finding if it [...] RPM reviewed; Stable overall, continue diet control 01/21/20248277-BAE-txpqft 01/28/20245610-VXH-qjkldftw fasting blood sugars (95-98). Advised to watch diet, eat bedtime snack, and avoid fasting longer than 8 to 10 hours. Will review again next week, and if persists, will schedule for follow up ADAPT with maternal medicine nurse practitioner. 02/04/20247108-NDT-elxsuf (1 elevated fasting blood sugar) 02/11/2024-RPM-4 of 7 elevated fasting blood sugars. Patient and [facility] PARs messaged to schedule follow up ADAPT. 02/12/24: ADAPT f/u complete. FBS elevated; will start Lantus 15 units HS. 02/19/20243913-TFC-nrmmgidz fasting blood sugars. Maternal medicine nurse practitioners to review. 02/19/24: RPM reviewed; increased to Lantus 20 units at bedtime 02/25/20247058-[facility]MC-mfrnyfm stable (1 elevated post prandial lunch) 03/03/20244774-RQA-pqoqzo 03/10/20246986-IKF-nmlhtu. Few missed readings. 03/17/20249394-ADT-xopgce 03/24/24: RPM reviewed; Stable 03/31/24: RPM reviewed; Stable; continue Lantus 20 units at bedtime 04/07/20249878-QEZ-xmyozn 04/14/20249405-KAP-heopvd 04/21/20241994-IDI-kknamo (1 elevated post prandial dinner) 04/28/20248268-YUO-tqqggm Assessment & Plan (04/03/2024 9:08 AM EDT): [...] Recommend nutrition consult with RDN (Registered Dietitian Physician Vice President). Lifestyle changes are also indicated including optimizing [...] preeclamptic labs with CBC, serum AST/ALT/creatinine and ippwxwc-ox-nltqgpvdlx ratio or 24-hour urine protein LIDIA if [...] preeclamptic labs with CBC, serum AST/ALT/creatinine and lnrmsqi-bj-pswwjchuvr ratio or 24-hour urine protein LIDIA if [...] money to get more. Never true 04/16/2024 [place] Depression Scale Answer Date Recorded [place] Depression Scale Total 0 12/07/2023 The thought [...] encounter Progress Notes * Yaneth Cid, - 2024 12:25 PM EST Sandra presented today at 31w4d for an ultrasound for the following indications: Insulin controlled gestational diabetes mellitus (GDM) in second trimester Excessive growth affecting management of in third trimester, single or unspecified fetus Assessment & Plan: EFW today at 99%ile with normal DONNIE. Sandra is planning repeat c/s. Sugars reviewed in and under good control. Delivery currently indicated at ~39 weeks and plan unchanged based on LGA alone. Chronic hypertension affecting Assessment & Plan: BP Readings from Last 5 Encounters: 04/28/24 130/80 03/28/24 128/80 02/29/24 124/72 02/01/24 134/72 01/04/24 132/76 BP currently stable without medication. Initiate therapy to maintain BP < 140/90. Pyelectasis of fetus on ultrasound Assessment & Plan: Resolved today. 31 weeks gestation of Ultrasound summary: Patient presented for growth assessment at 31w 4d. Large AC noted at >99% with overall EFW of 2466 g at >99%. DONNIE 13.8 cm. Cephalic presentation. I reviewed the ultrasound images. Sandra was given the opportunity to meet with me if she had anyquestions. Please refer to the ultrasound report for additional details about today's ultrasound examination. RECOMMENDATIONS: Recommend follow up ultrasound with MFM in 4 weeks for growth secondary to above indications. 2x weekly NSTs. See prior formal MFM consultation note. Thank you for allowing us to participate in the care of this patient. Please call with any questions. Yaneth Cid DO 2024 12:25 PM documented in this encounter Miscellaneous Notes * Assessment & Plan Note - Yaneth Cid DO - 2024 12:24 PM EST Associated Problem(s): Pyelectasis of fetus on ultrasound Resolved today. * Assessment & Plan Note - Yaneth Cid DO - 2024 12:23 PM EST Associated Problem(s): Chronic hypertension affecting BP Readings from Last 5 Encounters: 04/28/24 130/80 03/28/24 128/80 02/29/24 124/72 02/01/24 134/72 01/04/24 132/76 BP currently stable without medication. Initiate therapy to maintain BP < 140/90. * Assessment & Plan Note - Yaneth Cid DO - 2024 12:23 PM EST Associated Problem(s): Excessive growth affecting management of in third trimester EFW today at 99%ile with normal DONNIE. Sandra is planning repeat c/s. Sugars reviewed in and under good control. Delivery currently indicated at ~39 weeks and plan unchanged based on LGA alone. documented in this encounter Plan of Treatment Upcoming Encounters Date Type Department Care Team (Late st Contact Info) Description 05/05/2024 10:00 AM EST Office Visit Gynecology/Obstetrics [facility] [address] [place], [place] [address] Chloe Hurtado CRNP [address] [place] [address] Christiano Non Stress Tests [facility] [address] [place] [address] 05/08/2024 11:15 AM EST Office Visit Gynecology/Obstetrics [facility] [address] [place] [address] Jenni Smith CRNP [address] [place] [address] Christiano Non Stress Tests [facility] [address] [place] [address] 05/12/2024 10:45 AM EST Office Visit Gynecology/Obstetrics [facility] [address] [place] [address] Chloe Hurtado CRNP [address] [place] [address] Christiano Non Stress Tests [facility] [address] [place] [address] 05/16/2024 2:30 PM EST Office Visit Gynecology/Obstetrics [facility] [address] [place] [address] Hesham Fontenot MD [address] [place] [address] Christiano Non Stress Tests [facility] [address] [place] [address] 05/19/2024 9:00 AM EST Office Visit Gynecology/Obstetrics [facility] [address] [place] [address] Hesham Fontenot MD [address] [place] [address] [facility], Non Stress Tests [facility] [address] [place] [address] 05/22/2024 10:15 AM EST Office Visit Gynecology/Obstetrics [facility] [address] [place] [address] Jenni Smith CRNP [address] [place] [address] Christiano Non Stress Tests [facility] [address] [place] [address] 05/26/2024 1:15 PM EST Office Visit Gynecology/Obstetrics [facility] [address] [place] [address] Chloe Hurtado CRNP [address] [place] [address] Christiano Non Stress Tests [facility] [address] [place] [address] 05/29/2024 11:00 AM EST Imaging Maternal Medicine Imaging, [facility] Alvarado [address] [place] [address] 06/02/2024 1:00 PM EST Office Visit Gynecology/Obstetrics [facility] [address] [place] [address] Chloe Hurtado CRNP [address] [place] [address] Al[facility], Non Stress Tests [facility] [address] [place] [address] 06/06/2024 1:00 PM EST Office Visit Gynecology/Obstetrics [facility] [address] [place] [address] Chloe Hurtado CRNP [address] [place] [address] Alvarado, Non Stress Tests [facility] [address] [place] [address] 06/09/2024 9:45 AM EST Office Visit Gynecology/Obstetrics [facility] [address] [place] [address] Jenni Smith CRNP [address] [place] [address] [facility], Non Stress Tests [facility] [address] [place] [address] 06/12/2024 10:15 AM EST Office Visit Gynecology/Obstetrics [facility] [address] [place] [address] Jenni Smith CRNP [address] [place] [address] Al[facility]ado, Non Stress Tests [facility] [address] [place] [address] 06/16/2024 1:00 PM EST Office Visit Gynecology/Obstetrics [facility] [address] [place] [address] Chloe Hurtado CRNP [address] [place] [address] Christiano, Non Stress Tests [facility] [address] [place] [address] 06/19/2024 10:15 AM EST Office Visit Gynecology/Obstetrics [facility] [address] [place] [address] Jenni Smith CRNP [address] [place] [address] Christiano, Non Stress Tests [facility] [address] [place] [address] Health Maintenance Due Date Last Done Comments [...] screening 31 weeks gestation of state, incidental documented in this encounter Care Teams Sash Maker Relationship Specialty Start Date End Date Elina Will DO [address] [place] [address] PCP - General Family Medicine 11/09/23 documented as of this encounter
--- OUTSIDE RECORDS SUMMARY | 2024-06-25 09:27 | External Medical Summary ---
Author Name Unknown Address Unknown Organization K01:[facility] - [address] [place] [address] Laboratory Report Ordering Provider Test Date Status CALDERON ALCARAZ 04/28/2024 14:00:34 Final Observation Date Value Abnormality Reference (Units ) Status WBC, Total 04/28/2024 14:00:34 12.95 Above high normal 4 .00-10.80 (K/uL) Final RBC 04/28/2024 14:00:34 4.34 3.85-5.15 (M/uL) Final Hemoglobin 04/28/2024 14:00:34 12.4 12.0-15.3 (g/dL) Final Anemia reflex testing trigge rs on a HGB < 12.0 for Females and HGB < 13.0 for Males in accordance with the WHO Anemia Guidelines
Anemia reflex testing triggers on a HGB < 12.0 for Females and HGB < 13.0 for Males in accordance with the WHO Anemia Guidelines HCT 04/28/2024 14:00:34 38.9 36.0-45.2 (%) Final MCV 04/28/2024 14:00:34 89.6 81.5-97.5 (fL) Final MCH 04/28/2024 14:00:34 28.6 27.0-34.0 (pg) Final MCHC 04/28/2024 14:00:34 31.9 32.0-36.0 (g/dL) Final RDW 04/28/2024 14:00:34 13.1 11.5-15.5 (%) Final Platelets 04/28/2024 14:00:34 276 140-400 (K /uL) Final MPV 04/28/2024 14:00:34 11.4 6.6-11.1 ( fL) Final Nucleated erythrocytes/100 leukocytes [Ratio] in Blood by Automated count 04/28/2024 14:00:34 0 <=0 (/100 WBCs) Fi nal Performing Location [facility] - [address] [facility] [address]
--- OUTSIDE RECORDS SUMMARY | 2024-06-25 09:27 | External Medical Summary | Summary of Care ---
Author Name Unknown Organization [facility] Address [address] [facility] [place] [address] Phone [phone] Care Team Providers Care Disability Rater Name Role Phone Elina Will DO Primary Care Provider [phone] Reason for Visit * Reason Onset Date Comments Diabetes 04/11/2024 Encounter Details Date Type Department Care Team (Late st Contact Info) Description 04/11/2024 1:00 PM EDT Scheduled Telephone Lakia Christensen [address] [place] [address] Alysha Eckert RDN [address] [place] [id number] Allergies No known active allergiesdocumented as of this encounter (statuses as of 04/11/2024) Medications Medication Sig Dispensed Refills Start Date End Date Status /Folic Acid Oral Tablet Take 1 Tablet by mouth once. Active Aspirin 81 MG Oral Tablet Delayed Release Take 1 Tablet by mouth in the morning. Active [employer] SpAToKDPOF Verio Flex System w/Device Kit Use to test blood sugars 4 times daily (fasting, 1 hour after breakfast, lunch, and dinner) 1 Kit 01/01/2024 Active OneTouch Verio In Vitro Strip (Glucose Blood) Use to test blood sugars 4 times daily (fasting, 1 hour after breakfast, lunch, and dinner) 125 Strip 6 01/01/2024 Active OneTouch Delica Lancets 30G Use to test blood sugars 4 times daily (fasting, 1 hour after breakfast, lunch, and dinner) 200 Each 6 01/01/2024 Active Insulin Pen Needle 31G X 8 MM Use to inject insulin nightly as directed. 100 Each 3 02/12/2024 Active Insulin Glargine Solostar 100 UNIT/ML Subcutaneous Solution Pen-injector (Lantus SoloStar) Inject 20 Units under the skin at bedtime. 15 mL 3 02/19/2024 Active Breast PumpIndications:Breast feeding status of mother Use as directed. 1 Each 03/28/2024 Active documented as of this encounter (statuses as of 04/11/2024) Active Problems Problem Noted Date Diagnosed Date Antepartum anemia complicating 024 Pyelectasis of fetus on ultrasound 02/16 Last Assessment & Plan: CONSIDERATIONS: urinary tract dilation is found in [...] on follow-up scans. We recommend alerting the sas developer providing care of this finding if it persists into the 3rd trimester. Insulin controlled gestation al diabetes mellitus (GDM) in second trimester 01/03/2024 Overview: Diagnosed at 13 weeks Nutrition consult ordered [...] RPM reviewed; Stable overall, continue diet control 01/21/20245106-COD-humpwz 01/28/20248583-TAD-lrhbwjfy fasting blood sugars (95-98). Advised to watch diet, eat bedtime snack, and avoid fasting longer than 8 to 10 hours. Will review again next week, and if persists, will schedule for follow up ADAPT with maternal medicine nurse practitioner. 02/04/20248933-GUK-ozhyeh (1 elevated fasting blood sugar) 02/11/2024-RPM-4 of 7 elevated fasting blood sugars. Patient and [facility] PARs messaged to schedule follow up ADAPT. 02/12/24: ADAPT f/u complete. FBS elevated; will start Lantus 15 units HS. 02/19/20243762-STQ-cbszfwjf fasting blood sugars. Maternal medicine nurse practitioners to review. 02/19/24: RPM reviewed; increased to Lantus 20 units at bedtime 02/25/20246934-ZRK-zqnqylu stable (1 elevated post prandial lunch) 03/03/20248369-ZWC-rjhdhc 03/10/20246989-ZYW-wznosz. Few missed readings. 03/17/20245828-PTY-onmroo 03/24/24: RPM reviewed; Stable 03/31/24: RPM reviewed; Stable; continue Lantus 20 units at bedtime 04/07/20249990-KVN-hxsggn Last Assessment & Plan: Working with ADAPT. History of gestational hypertension 12/14/2023 Overview: 11/2021: First , induced at 37w due [...] Readings from Last 10 Encounters: 12/07/23 140/84 Last Assessment & Plan: CONSIDERATIONS: Explained to patient that in a [...] 13 weeks. Obesity in , antepartum 12/14/2023 Overview: Pre gravid BMI: 40.7 Class 3 obesity [...] A1C - [facility] 5.5 01/04/2024 12:14 PM Last Assessment & Plan: I reviewed the ultrasound with her. The anatomy that was visualized appears unremarkable and the biometry is appropriate for the gestational age. The amniotic fluid volume is subjectively normal and the fetus is in the breech presentation. Health counseling 12/07/2023 Overview: Problem Action Taken Date entered Entered by Date resolved Current needs or questions Patient denies having any current needs or questions 12/07/2023 Susannah Leal RN 12/07/2023 Problem Action Taken Date entered Entered by Date resolved Current needs or questions Patient denies having any current needs or questions 01/04/2024 Susannah Leal RN 01/04/2024 Supervision of high-risk , second trime ster 12/07/2023 Class 3 severe obesity due t o excess calories with serious comorbidity and body mass index (BMI) of 40.0 to 44.9 in adult 12/07/2023 Overview: Recommend restricting weight gain during to 11-20 [...] preeclamptic labs with CBC, serum AST/ALT/creatinine and utoylgo-ys-aaqdgvsnab ratio or 24-hour urine protein LIDIA if not already done. For patients with Class 3 obesity, we recommend weekly surveillance starting at 34 weeks and delivery by EDC. . Chronic hypertension affecting 024 Overview: BP elevated at first visit Past history of gestational hypertension Denies past history of chronic hypertension Per OB note 12/07/23: ? cHTN Will monitor BPs at home, if elevated next visit will make cHTN dx. BP Readings from Last 20 Encounters: 12/07/23 140/84 Last Assessment & Plan: BP Readings from Last 5 Encounters: 03/28/24 128/80 02/29/24 124/72 02/01/24 134/72 01/04/24 132/76 12/07/23 140/84 BP currently stable without medication. Initiate therapy to maintain BP < 140/90. Hx of section 12/07/2023 Overview: 11/2021: primary / failed induction 2023 Plan: undecided Estimated Date of Delivery Comme nts Yes 06/29/2024 Based on last me nstrual period of 09/23/2023 (Exact Date) documented as of this encounter (statuses as of 04/11/2024) Resolved Problems Problem Noted Date Diagnosed Date Resolved Date with 12 completed weeks gestation 12/17/2023 02/01/2024 documented as of this encounter (statuses as of 04/11/2024) Immunizations Name Administration Dates Next Due TDAP, Age 7 and older, IM (Adacel) 03/28/2024 documented as of this encounter Social History Tobacco Use Types Packs/Day Years Used Date Smoking Tobacco: Never Smokeless Tobacco: Never Alcohol Use Standard Drinks/Week Comments Not Currently 0 (1 standard drink = 0.6 oz pur e alcohol) Hunger Vital Sign Answer Date Recorded Within the past 12 months, y ou worried that your food would run out before you got the money to buy more. Never true 02/26/20 24 Within the past 12 months, t he food you bought just didn't last and you didn't have money to get more. Never true 02/26/2024 Friend Depression Scale Answer Date Recorded Friend Depression Scale Total 0 12/07/2023 The thought of harming myself has occurred to me . Never 12/07/2023 Childcare Answer Date Recorded Do you feel overwhelmed with taking care of a child, family member or friend? No 02/26/2024 Does your family need help f inding childcare? (Household - for ages 0-17 years) Not on file 02/26/2024 Clothing Answer Date Recorded Have you been unable to get clothing when it was really needed? No 02/26/2024 Is your family able to get c lothes or diapers when needed? (Household - for ages 0-17 years) Not on file 02/26/2024 Personal Safety Answer Date Recorded Do you feel unsafe or have concerns for your saf ety? No 02/26/2024 Do you have concerns for you r family's safety? (Household - for ages 0-17 years) Not on file 02/26/2024 Utilities Answer Date Recorded Do you have trouble paying y our heating, water, or electric bill? No 02/26/2024 Is your family able to pay t he heat, water, or electric bill? (Household - for ages 0-17 years) Not on file 02/26/2024 Does your family have access to good internet? (Household - for ages 0-17 years) Not on file 02/26/2024 Employment Status Answer Date Recorded Are you unemployed or without regular income? No 02/26/2024 Does the household have a re lar source of income? (Household - for ages 0-17 years) Not on file 02/26/2024 Social Connections Answer Date Recorded How often do you feel lonely or isolated from th ose around you? Never 02/26/2024 Financial Resource Strain Answer Date R ecorded Do you have any trouble payi ng for your medications, or do you think you might in the future? No 02/26/2024 Does your family have troubl e paying for medicine? (Household - for ages 0-17 years) Not on file 02/26/2024 Transportation Needs Answer Date Record ed READ ONLY Do you have troubl e getting a ride to medical visits or work? Never True 02/26/2024 Does your family have a hard time getting a ride to doctors visits? (Household - for ages 0-17 years) Not on file 02/26/2024 Has lack of transportation k ept you from medical appointments, meetings, work, or from getting things needed for daily living? Check all that apply. No 02/26/2024 Do you (or your family) have trouble finding or paying for a ride (transportation)? (Household - for ages 0-17 years) Not on file 02/26/2024 Housing Stability Answer Date Recorded Do you currently live in a s helter or have no steady place to sleep at night? No 02/26/2024 READ ONLY Do you think you a re at risk of becoming homeless? No 02/26/2024 Does your family worry about paying for your home or becoming homeless? (Household - for ages 0-17 years) Not on file 0 02/26/2024 Are you homeless or worried that you might be in the future? No 02/26/2024 Are you (or your family) beatrice eless or worried that you might be in the future? (Household - for ages 0-17 years) Not on file Food Insecurity Answer Date Recorded Do you need food for this week? No 02/26/2024 Are you able to get enough f ood for your family? (Household - for ages 0-17 years) Not on file 02/26/2024 Does your family need food t his week? (Household - for ages 0-17 years) Not on file 02/26/2024 Do you always have enough fo od for your family? (Household - for ages 0-17 years) Not on file 02/26/2024 Estimated Date of Delivery Comme nts Yes 06/29/2024 Based on last me nstrual period of 09/23/2023 (Exact Date) Sex and Gender Information Value Date Recorded Sex Assigned at Female 04/09/2023 6:41 PM EDT Gender Identity Female 04/09/2023 6:41 PM EDT Sexual Orientation Straight 04/09/2023 6: 41 PM EDT Job Start Date Occupation Industry Not on file Not on file Not on file documented as of this encounter Miscellaneous Notes * Telephone Encounter - Alysha Eckert RDN - 04/11/2024 2:37 PM EDT Contacted pt regarding rescheduling canceled GDM follow-up appointment from February 27. Patientstates she is doing well, but notes she is now taking insulin to help improve her fasting glucose levels. States she is still following diet plan we discussed at previous visit. States she is priminginsulin pen and rotating sites of injection. Notes since taking insulin, her fasting glucose levelshave been from 78-84. She notes post prandial levels have been 90-120. She denies elevated levels.Reminded her of need for monitoring portion sizes of high-carb foods. She again declines follow-up appointment, but states she will contact me if any questions or concerns arise. Alysha Eckert RDN, Clinical Dietitian II, [facility] Clinical Nutrition Services [facility] [address] [place] [phone] Available via [employer] documented in this encounter Plan of Treatment Upcoming Encounters Date Type Department Care Team (Late st Contact Info) Description 04/28/2024 1:30 PM EST Office Visit Gynecology/Obstetrics Jarvisyeni Escobars [address] [place] [address] Backer, LINDA Saxena [address] [place] [address] Nurse Christiano [facility] Return Lakia [address] [place] [address] 2024 11:00 AM EST Imaging Maternal Medicine Imaging, Lakia Dacostagail [place] [phone] 05/29/2024 11:00 AM EST Imaging Maternal Medicine Imaging, Lakia Delgado[address] [place] [phone] Health Maintenance Due Date Last Done Comments Depression Screening 2003 Hepatitis B Vaccine (1 of 3 - 19+ 3-dose series) 2010 COVID-19 Vaccine ( season) 2024 Influenza Vaccine (FLU shot) (#1) 2024 GFR 03/28/2025 03/28/2024, 11/17, 08/11/2023, Additional history exists Pap Smear 12/06/2026 12/07/2023 Cervical Cancer Screening [...] filedocumented as of this encounter Care Teams Disability Rater Relationship Specialty Start Date End Date Elina Will DO [address] [place] [address] PCP - General Family Medicine 11/09/23 documented as of this encounter
--- OUTSIDE RECORDS SUMMARY | 2024-06-25 09:27 | External Medical Summary | Summary of Care ---
Author Name Unknown Organization [facility] Address [address] [place] [facility] [place] [address] Phone [phone] Care Team Providers Care Real Estate Associate Name Role Phone Elina Will DO Primary Care Provider [phone] Reason for Visit * Reason Comments Return Visit Encounter Details Date Type Department Care Team (Late st Contact Info) Description 04/28/2024 1:30 PM EST Office Visit Gynecology/Obstetri sruthi Alvarado [address] [place] [phone] Chloe Hurtado CRNP [address] [place] [address] Nurse Jonny Alvarado Beginnings Return Lakia [address] [place] [address] High-risk in third trimester*; Chronic hypertension affecting ; Hx of section; History of gestational hypertension; Obesity in , antepartum; Insulin controlled gestational diabetes mellitus (GDM) in second trimester; Pyelectasis of fetus on ultrasound Allergies No known active allergiesdocumented as of this encounter (statuses as of 04/28/2024) Medications /Folic Acid Oral Tablet Take 1 Tablet by mouth once. Active Aspirin 81 MG Oral Tablet Delayed Release Take 1 Tablet by mouth in the morning. Active Pivot3Touch Hivelocity Flex System w/Device Kit Use to test [...] as of this encounter (statuses as of 04/28/2024) Active Problems Problem Noted Date Diagnosed Date [...] on follow-up scans. We recommend alerting the property condition assessor providing care of this finding if it [...] RPM reviewed; Stable overall, continue diet control 01/21/20248859-OAG-pjmefm 01/28/20246594-ZWA-qjuofnvy fasting blood sugars (95-98). Advised to watch diet, eat bedtime snack, and avoid fasting longer than 8 to 10 hours. Will review again next week, and if persists, will schedule for follow up ADAPT with maternal medicine nurse practitioner. 02/04/20244877-UEB-tlrkck (1 elevated fasting blood sugar) 02/11/2024-RPM-4 of 7 elevated fasting blood sugars. Patient and [facility] PARs messaged to schedule follow up ADAPT. 02/12/24: ADAPT f/u complete. FBS elevated; will start Lantus 15 units HS. 02/19/20249016-EZU-ijxlrhvn fasting blood sugars. Maternal medicine nurse practitioners to review. 02/19/24: RPM reviewed; increased to Lantus 20 units at bedtime 02/25/20240669-ODT-ilnwkkt stable (1 elevated post prandial lunch) 03/03/20245831-XIM-xuwqzc 03/10/20249232-ZMT-ejphwn. Few missed readings. 03/17/20243033-YFL-sytmuf 03/24/24: RPM reviewed; Stable 03/31/24: RPM reviewed; Stable; continue Lantus 20 units at bedtime 04/07/20249961-ZPN-qswjhb 04/14/20242865-KTJ-rorktl 04/21/20244560-AWK-hstlsv (1 elevated post prandial dinner) 04/28/20249151-NBX-dvfowd Assessment & Plan (04/03/2024 9:08 AM EDT): [...] Recommend nutrition consult with RDN (Registered Dietitian Psychology Department Chair). Lifestyle changes are also indicated including optimizing [...] preeclamptic labs with CBC, serum AST/ALT/creatinine and wotwfww-mg-kehkrunoei ratio or 24-hour urine protein LIDIA if [...] preeclamptic labs with CBC, serum AST/ALT/creatinine and ccezftp-mi-rvzchabifl ratio or 24-hour urine protein LIDIA if [...] as of this encounter (statuses as of 04/28/2024) Resolved Problems Problem Noted Date Diagnosed Date Resolved Date with 12 completed weeks gestation 12/17/2023 02/01/2024 documented as of this encounter (statuses as of 04/28/2024) Immunizations Name Administration Dates Next Due TDAP, [...] Sign Reading Time Taken Comments Blood Pressure 130/80 04/28/2024 1:35 PM EST Pulse - - Temperature - - Respiratory Rate - - Oxygen Saturation - - Inhaled Oxygen Concentration - - Weight 112 kg (247 lb) 04/28/2024 1:35 PM EST Height - - Body Mass Index 42.4 02/29/2024 2:12 PM EDT documented in this encounter Progress Notes * Ashanti Shrestha LPN - 04/28/2024 1:39 PM EST 31w1d Denies vaginal bleeding/rom + movement No new concerns * Chloe Hurtado CRNP - 04/28/2024 1:35 PM EST 31w1d Baby is moving well. No leaking, bleeding, regular ctx. BP stable. Pt has decided she wants a repeat C/S; message sent to Katerina to schedule. Followed by MFM, has a growth scan with them this week. ADAPT is managing blood sugars. Start twice weekly NSTs at 32 weeks for GDMA 2. LINDA Barclay documented in this encounter Plan of Treatment Upcoming Encounters Date Type Department Care Team (Late st Contact Info) Description 2024 11:00 AM EST Imaging Maternal Medicine Imaging, [facility] [address] [place] [phone] 05/16/2024 2:30 PM EST Office Visit Gynecology/Obstetrics [facility] [address] [place] [address] Hesham Fontenot MD [address] [place] [address] Alvarado, Non Stress Tests Lakia [address] [place] [address] 05/22/2024 10:15 AM EST Office Visit Gynecology/Obstetrics [facility] [address] [place] [address] Jenni Smith CRNP [address] [place] [address] Alvarado, Non Stress Tests Lakia [address] [place] [address] 05/26/2024 1:15 PM EST Office Visit Gynecology/Obstetrics Jumana Escobars [address] [place] [address] BackerChloe CRNP [address] [place] [address] Alvarado, Non Stress Tests Lakia [address] [place] [address] 05/29/2024 11:00 AM EST Imaging Maternal Medicine Imaging, Lakia Alvarado [address] [place] [phone] 06/02/2024 1:00 PM EST Office Visit Gynecology/Obstetrics [facility] [address] [place] [address] BackerChloe CRNP [address] [place] [address] Alvarado, Non Stress Tests Lakia [address] [place] [address] 06/06/2024 1:00 PM EST Office Visit Gynecology/Obstetrics [facility] [address] [place] [address] Chloe Hurtado CRNP [address] [place] [address] Alvarado, Non Stress Tests Lakia [address] [place] [address] 06/09/2024 9:45 AM EST Office Visit Gynecology/Obstetrics [facility] Al[facility] [address] [place] [address] Jenni Smith CRNP [address] [place] [address] Christiano, Non Stress Tests Lakia [address] [place] [address] 06/12/2024 10:15 AM EST Office Visit Gynecology/Obstetrics [facility] [address] [place] [address] Jenni Smith CRNP [address] [place] [address] Christiano Non Stress Tests Lakia [address] [place] [address] 06/16/2024 1:00 PM EST Office Visit Gynecology/Obstetrics [facility] [address] [place] [address] Chloe Hurtado CRNP [address] [place] [address] Christiano, Non Stress Tests Lakia [address] [place] [address] 06/19/2024 10:15 AM EST Office Visit Gynecology/Obstetrics [facility] [address] [place] [address] Jenni Smith CRNP [address] [place] [address] Alvarado, Non Stress Tests Lakia [address] [place] [address] Health Maintenance Due Date Last Done Comments [...] Not on filedocumented as of this encounter Procedures Procedure Name Priority Date/Time Associated Diagnosis Comments URINALYSIS OBSTETRICS, POINT OF CARE Routine 04/28/2024 1:44 PM EST High-risk in third trimester Chronic hypertension affecting documented in this encounter Results * URINALYSIS OBSTETRICS, POINT OF CARE (04/28/2024 1:44 PM EST) Color, Urine Yellow Light Yellow, Yellow 04/28/2024 1:47 PM EST [facility] [place] [address] Clarity, Urine Clear Clear 04/28/2024 1:47 PM EST [facility] [place] [facility] Glucose, Urine Negative Negative mg/dL 04/28/2024 1:47 PM EST [facility] [place] [address] Bilirubin, Urine Negative Negative 04/28/2024 1:47 PM EST [facility] [place] [facility] Ketone, Urine Negative Negative mg/dL 04/28/2024 1:47 PM EST [facility] [place] Specific [place], Urine >=1.030 1.003 - 1.030 04/28/2024 1:47 PM EST [facility] [place] Blood, Urine Negative Negative 04/28/2024 1:47 PM EST [facility] [place] [address] pH, Urine 6.5 5.0, 5.5, 6.0, 6.5, 7.0, 7.5 units 04/28/2024 1:47 PM EST [facility] [place] Protein, Urine Negative Negative mg/dL 04/28/2024 1:47 PM EST [facility] [place] [address] Urobilinogen, Urine 0.2 0.2, 1.0 mg/dL 04/28/2024 1:47 PM EST [facility] [place] [facility] Nitrite, Urine Negative Negative 04/28/2024 1:47 PM EST [facility] [place] [address] Esterase, Urine Negative Negative 04/28/2024 1:47 PM EST [facility] [place] [address] Urine 04/28/2024 1:44 PM EST 04/28/2024 1:47 PM EST Chloe Wall Backer WIND SITE MANAGER LAB POINT O F CARE TEST DOCKED DEVICE UNSOLICITED RESULTS Final Result [facility] [place] [address] [facility] [place] [address] documented in this encounter Visit Diagnoses Diagnosis High risk [...] ultrasonics 27 weeks gestation of state, incidental High-risk in third trimester- Primary Chronic hypertension affecting Hx of section Other postprocedural status History of gestational hypertension Obesity in , antepartum Obesity complicating , childbirth, or the puerperium, antepartum condition or complication Insulin controlled gestational diabetes mellitus (GDM) in second trimester Pyelectasis of fetus on ultrasound Abnormal findings on screening documented in this encounter Care Teams Real Estate Associate Relationship Specialty Start Date End Date Elina Will DO [address] [place] [address] PCP - General Family Medicine 11/09/23 documented as of this encounter
--- OUTSIDE RECORDS SUMMARY | 2024-06-25 09:27 | External Medical Summary | Summary of Care ---
Author Name Unknown Organization [facility] Address [address] [facility] [place] [address] Phone [phone] Care Team Providers Care Machine Brush Maker Name Role Phone Elina Will DO Primary Care Provider [phone] Reason for Visit * Reason Comments Outpatient Testing Encounter Details Date Type Department Care Team (Late st Contact Info) Description 04/28/2024 2:10 PM EST Laboratory Laboratory, [facility] [address] [facility] [address] [facility] [address] [facility] [place] [address] Antepartum anemia complicating Allergies No known active allergiesdocumented as of this encounter (statuses as of 04/28/2024) Medications /Folic Acid Oral Tablet Take 1 Tablet by mouth once. Active Aspirin 81 MG Oral Tablet Delayed Release Take 1 Tablet by mouth in the morning. Active [employer] in [employer] Box Verio Flex System w/Device Kit Use to test blood sugars 4 times daily (fasting, 1 hour after breakfast, lunch, and dinner) 1 Kit 4 Active Jukedocsuch Verio In Vitro Strip (Glucose Blood) Use [...] on follow-up scans. We recommend alerting the middle school baseball coach providing care of this finding if it [...] RPM reviewed; Stable overall, continue diet control 01/21/20241976-HRR-afynsd 01/28/20247303-CJW-ibpktpxt fasting blood sugars (95-98). Advised to watch diet, eat bedtime snack, and avoid fasting longer than 8 to 10 hours. Will review again next week, and if persists, will schedule for follow up ADAPT with maternal medicine nurse practitioner. 02/04/20245869-IOE-nexljd (1 elevated fasting blood sugar) 02/11/2024-RPM-4 of 7 elevated fasting blood sugars. Patient and [facility] PARs messaged to schedule follow up ADAPT. 02/12/24: ADAPT f/u complete. FBS elevated; will start Lantus 15 units HS. 02/19/20245987-UFD-asarnvua fasting blood sugars. Maternal medicine nurse practitioners to review. 02/19/24: RPM reviewed; increased to Lantus 20 units at bedtime 02/25/20249055-OMN-xcapyib stable (1 elevated post prandial lunch) 03/03/20241974-FBS-eiehge 03/10/20241775-QSC-xkgslw. Few missed readings. 03/17/20243593-IRF-bvboof 03/24/24: RPM reviewed; Stable 03/31/24: RPM reviewed; Stable; continue Lantus 20 units at bedtime 04/07/20241541-TGC-ttgjxl 04/14/20242083-FQC-kgxkmk 04/21/20242442-QPX-vonykm (1 elevated post prandial dinner) 04/28/20242906-KZA-wynydd Assessment & Plan (04/03/2024 9:08 AM EDT): [...] Recommend nutrition consult with RDN (Registered Dietitian Ceramic Restorer). Lifestyle changes are also indicated including optimizing [...] preeclamptic labs with CBC, serum AST/ALT/creatinine and xygannf-uh-taglnqxdbp ratio or 24-hour urine protein LIDIA if [...] preeclamptic labs with CBC, serum AST/ALT/creatinine and fsuhbhk-gj-qgomkwyaug ratio or 24-hour urine protein LIDIA if [...] money to get more. Never true 04/16/2024 [place] Depression Scale Answer Date Recorded [place] Depression Scale Total 0 12/07/2023 The thought [...] PM EDT documented as of this encounter Plan of Treatment Upcoming Encounters Date Type Department Care Team (Late st Contact Info) Description 2024 11:00 AM EST Imaging Maternal Medicine Imaging, [facility] [address] [place] [address] 05/05/2024 10:00 AM EST Office Visit Gynecology/Obstetrics [facility] [address] [place] [address] Chloe Hurtado CRNP [address] [place] [address] [place], Non Stress Tests [facility] [address] [place] [address] 05/16/2024 2:30 PM EST Office Visit Gynecology/Obstetrics [facility] [address] [place] [address] Hesham Fontenot MD [address] [place] [address] Christiano Non Stress Tests [facility] [address] [place] [address] 05/22/2024 10:15 AM EST Office Visit Gynecology/Obstetrics [facility] [address] [place] [address] Jenni Smith CRNP [address] [place] [address] Christian[place] Non Stress Tests [facility] [address] [place] [address] 05/26/2024 1:15 PM EST Office Visit Gynecology/Obstetrics [facility] [address] [place] [address] Chloe Hurtado CRNP [address] [place] [address] Christian[place] Non Stress Tests [facility] [address] [place] [address] 05/29/2024 11:00 AM EST Imaging Maternal Medicine Imaging, [facility] [address] [place], [place] [address] 06/02/2024 1:00 PM EST Office Visit Gynecology/Obstetrics [facility] [address] [place] [address] Chloe Hurtado CRNP [address] [place] [address] [place], Non Stress Tests [facility] [address] [place] [address] 06/06/2024 1:00 PM EST Office Visit Gynecology/Obstetrics [facility] [address] [place] [address] Chloe Hurtado CRNP [address] [place] [address] [place], Non Stress Tests [facility] [address] [place] [address] 06/09/2024 9:45 AM EST Office Visit Gynecology/Obstetrics [facility] [address] [place] [address] Jenni Smith CRNP [address] [place] [address] [place], Non Stress Tests [facility] [address] [place] [address] 06/12/2024 10:15 AM EST Office Visit Gynecology/Obstetrics [facility] [address] [place] [address] Jenni Smith CRNP [address] [place] [address] [place], Non Stress Tests [facility] [address] [place] [address] 06/16/2024 1:00 PM EST Office Visit Gynecology/Obstetrics [facility] [address] [place] [address] Chloe Hurtado CRNP [address] [place] [address] [place], Non Stress Tests [facility] [address] [place] [address] 06/19/2024 10:15 AM EST Office Visit Gynecology/Obstetrics [facility] [address] [place] [address] Jenni Smith CRNP [address] [place] [address] [place], Non Stress Tests [facility] [address] [place] [address] Pending Results Name Type Priority Associated Diagnoses Date /Time CBC WITH WBC DIFFERENTIAL AND ANEMIA REFLEX WORKUP Lab Routine Antepartum anemia complicating 04/28/2024 2:00 PM EST ANEMIA CBC Lab Routine Antepartum anemia complicating 04/28/2024 2:00 PM EST DIFFERENTIAL, AUTOMATED Lab Routine Antepartum anemia complicating 04/28/2024 2:00 PM EST ANEMIA REFLEX CHEMISTRY HOLD Lab Routine Antepartum anemia complicating 04/28/2024 2:00 PM EST Health Maintenance Due Date Last [...] (BMI) of 40.0 to 44.9 in adult ([facility]) Screening for malignant neoplasm of cervix Screening [...] (BMI) of 40.0 to 44.9 in adult ([facility])- Primary Obesity in , antepartum Obesity complicating [...] ultrasonics 27 weeks gestation of state, incidental Antepartum anemia complicating Anemia, antepartum documented in this encounter Care Teams Machine Brush Maker Relationship Specialty Start Date End Date Elina Will DO [address] [place] [address] PCP - General Family Medicine 11/09/23 documented as of this encounter
--- OUTSIDE RECORDS SUMMARY | 2024-06-25 09:27 | External Medical Summary | Summary of Care ---
Author Name Unknown Organization [facility] Address [address] [place] [address] Phone [phone] Care Team Providers Care Acoustic Engineer Name Role Phone Elina Will DO Primary Care Provider [phone] Encounter Details Date Type Department Care Team (Late st Contact Info) Description 2024 11:00 AM EST Office Visit Proofer Obstetrics Maternal Medicine, [address] [place] [address] Yaneth Cid DO [address], [place] [id number] Insulin controlled gestational diabetes mellitus (GDM) in second trimester*; Excessive growth affecting management of in third trimester, single or unspecified fetus; Chronic hypertension affecting ; Pyelectasis of fetus on ultrasound; 31 weeks gestation of Allergies No known active allergiesdocumented as of this encounter (statuses as of 2024) Medications /Folic Acid Oral Tablet Take 1 Tablet by mouth once. Active Aspirin 81 MG Oral Tablet Delayed Release Take 1 Tablet by mouth in the morning. Active Di[employer]onicsTouch Verio Flex System w/Device Kit Use to [...] as of this encounter (statuses as of 2024) Active Problems Problem Noted Date Diagnosed Date [...] on follow-up scans. We recommend alerting the collar tacker providing care of this finding if it [...] RPM reviewed; Stable overall, continue diet control 01/21/20247085-HNI-onitdp 01/28/20244684-KTU-serdgrrz fasting blood sugars (95-98). Advised to watch diet, eat bedtime snack, and avoid fasting longer than 8 to 10 hours. Will review again next week, and if persists, will schedule for follow up ADAPT with maternal medicine nurse practitioner. 02/04/20241776-QWO-mexdba (1 elevated fasting blood sugar) 02/11/2024-RPM-4 of 7 elevated fasting blood sugars. Patient and C PARs messaged to schedule follow up ADAPT. 02/12/24: ADAPT f/u complete. FBS elevated; will start Lantus 15 units HS. 02/19/20248536-SMO-zihmxzpf fasting blood sugars. Maternal medicine nurse practitioners to review. 02/19/24: RPM reviewed; increased to Lantus 20 units at bedtime 02/25/20240102-MRR-aonqvnj stable (1 elevated post prandial lunch) 03/03/20242927-RBF-hmfuaj 03/10/20247848-HFG-ityzmd. Few missed readings. 03/17/20242354-UVI-pryqzn 03/24/24: RPM reviewed; Stable 03/31/24: RPM reviewed; Stable; continue Lantus 20 units at bedtime 04/07/20242674-PIS-ngcdih 04/14/20243433-NDR-xvvgbe 04/21/20242027-TVC-fpvxak (1 elevated post prandial dinner) 04/28/20249692-OKH-edmzcd Assessment & Plan (04/03/2024 9:08 AM EDT): [...] Recommend nutrition consult with RDN (Registered Dietitian Sock Examiner). Lifestyle changes are also indicated including optimizing [...] preeclamptic labs with CBC, serum AST/ALT/creatinine and iaquuwe-ae-zaezydkyak ratio or 24-hour urine protein LIDIA if [...] preeclamptic labs with CBC, serum AST/ALT/creatinine and lmmnkxe-om-isbzowllzi ratio or 24-hour urine protein LIDIA if [...] as of this encounter (statuses as of 2024) Resolved Problems Problem Noted Date Diagnosed Date Resolved Date with 12 completed weeks gestation 12/17/2023 02/01/2024 documented as of this encounter (statuses as of 2024) Immunizations Name Administration Dates Next Due TDAP, [...] money to get more. Never true 04/16/2024 [place] Depression Scale Answer Date Recorded [place] Depression Scale Total 0 12/07/2023 The thought [...] [address] [place], [place] [address] Chloe Hurtado CRNP [address] [place] [address] [place] Non Stress Tests [facility] [address] [place] [address] 05/08/2024 11:15 AM EST Office Visit Gynecology/Obstetrics [facility] [address] [place] [address] Jenni Smith CRNP [address] [place] [address] [place] Non Stress Tests [facility] [address] [place] [address] 05/12/2024 10:45 AM EST Office Visit Gynecology/Obstetrics [facility] [address] [place] [address] Chloe Hurtado CRNP [address] [place] [address] Christian[place] Non Stress Tests [facility] [address] [place] [address] 05/16/2024 2:30 PM EST Office Visit Gynecology/Obstetrics [facility] [address] [place] [address] Hesham Fontenot MD [address] [place] [address] [place] Non Stress Tests [facility] [address] [place] [address] 05/19/2024 9:00 AM EST Office Visit Gynecology/Obstetrics [facility] [address] [place] [address] Hesham Fontenot MD [address] [place] [address] [place], Non Stress Tests [facility] [address] [place] [address] 05/22/2024 10:15 AM EST Office Visit Gynecology/Obstetrics [facility] [address] [place] [address] Jenni Smith CRNP [address] [place] [address] Christian[place] Non Stress Tests [facility] [address] [place] [address] 05/26/2024 1:15 PM EST Office Visit Gynecology/Obstetrics [facility] [address] [place] [address] Chloe Hurtado CRNP [address] [place] [address] Christiano Non Stress Tests [facility] [address] [place] [address] 05/29/2024 11:00 AM EST Imaging Maternal Medicine Imaging, [facility] [address] [place] [address] 06/02/2024 1:00 PM EST Office Visit Gynecology/Obstetrics [facility] [address] [place] [address] Chloe Hurtado CRNP [address] [place] [address] [place], Non Stress Tests [facility] [address] [place] [address] 06/06/2024 1:00 PM EST Office Visit Gynecology/Obstetrics [facility] [address] [place] [address] Chloe Hurtdao CRNP [address] [place] [address] [place], Non Stress Tests [facility] [address] [place] [address] 06/09/2024 9:45 AM EST Office Visit Gynecology/Obstetrics [facility] [address] [place] [address] Jenni Smith CRNP [address] [place] [address] [place], Non Stress Tests [facility] [address] [place] [address] 06/12/2024 10:15 AM EST Office Visit Gynecology/Obstetrics [facility] [address] [place] [address] Jenni Smith CRNP [address] [place] [address] [place], Non Stress Tests [facility] [address] [place] [address] 06/16/2024 1:00 PM EST Office Visit Gynecology/Obstetrics [facility] [address] [place] [address] Chloe Hurtado CRNP [address] [place] [address] Christiano, Non Stress Tests [facility] [address] [place] [address] 06/19/2024 10:15 AM EST Office Visit Gynecology/Obstetrics [facility] [address] [place] [address] Jenni Smith CRNP [address] [place] [address] Christian[place], Non Stress Tests [facility] [address] [place] [address] Health Maintenance Due Date Last Done Comments [...] incidental documented in this encounter Care Teams Acoustic Engineer Relationship Specialty Start Date End Date Elina Will DO [address] [place] [address] PCP - General Family Medicine 11/09/23 documented as of this encounter
--- OUTSIDE RECORDS SUMMARY | 2024-06-25 09:27 | External Medical Summary | Summary of Care ---
Author Name Unknown Organization [facility] Address [address] [facility] [address] Phone [phone] Care Team Providers Care Enterprise Systems Manager Name Role Phone Elina Will DO Primary Care Provider [phone] Reason for Visit * Reason Comments Return Visit Non Stress Test Encounter Details Date Type Department Care Team (Late st Contact Info) Description 05/05/2024 10:00 AM EST Office Visit Gynecology/Obstetric s [facility] [address] [place] [address] Chloe Hurtado CRNP [address] [place] [address] [place] Non Stress Tests [facility] [address] [place] [address] High-risk in third trimester*; Chronic hypertension affecting [...] Tablet by mouth in the morning. Active [employer] Energyio Flex System w/Device Kit Use to test [...] RPM reviewed; Stable overall, continue diet control 01/21/20247928-NYH-lomjjd 01/28/20244402-LZY-midxfggl fasting blood sugars (95-98). Advised to watch diet, eat bedtime snack, and avoid fasting longer than 8 to 10 hours. Will review again next week, and if persists, will schedule for follow up ADAPT with maternal medicine nurse practitioner. 02/04/20241472-PNF-fwnbig (1 elevated fasting blood sugar) 02/11/2024-RPM-4 of 7 elevated fasting blood sugars. Patient and [facility] PARs messaged to schedule follow up ADAPT. 02/12/24: ADAPT f/u complete. FBS elevated; will start Lantus 15 units HS. 02/19/20247176-GSY-fgoevbcq fasting blood sugars. Maternal medicine nurse practitioners to review. 02/19/24: RPM reviewed; increased to Lantus 20 units at bedtime 02/25/20244869-RPC-yxydmtx stable (1 elevated post prandial lunch) 03/03/20245081-PGN-xxldbz 03/10/20241562-NYW-runnch. Few missed readings. 03/17/20249576-AQQ-erlyuc 03/24/24: RPM reviewed; Stable 03/31/24: RPM reviewed; Stable; continue Lantus 20 units at bedtime 04/07/20244832-CXH-wcankv 04/14/20245553-YFX-mnzgga 04/21/20240874-DXS-icrsbl (1 elevated post prandial dinner) 04/28/20240079-JXD-lokvbr 05/05/20248865-YGQ-nymyrd Assessment & Plan (04/03/2024 9:08 AM EDT): [...] Recommend nutrition consult with RDN (Registered Dietitian Asset Administrator). Lifestyle changes are also indicated including optimizing [...] preeclamptic labs with CBC, serum AST/ALT/creatinine and nrxpprf-mf-jlkzgiuyro ratio or 24-hour urine protein LIDIA if [...] preeclamptic labs with CBC, serum AST/ALT/creatinine and waitcjr-so-orpkkulmdi ratio or 24-hour urine protein LIDIA if [...] on follow-up scans. We recommend alerting the traffic survey technician providing care of this finding if it [...] money to get more. Never true 04/16/2024 [place] Depression Scale Answer Date Recorded [place] Depression Scale Total 0 12/07/2023 The thought [...] [address] [place] [address] Jenni Smith CRNP [address] [place] [address] [place], Non Stress Tests [facility] [address] [place] [address] 05/12/2024 10:45 AM EST Office Visit Gynecology/Obstetrics [facility] [address] [place] [address] Chloe Hurtado CRNP [address] [place] [address] [place], Non Stress Tests [facility] [address] [place] [address] 05/16/2024 2:30 PM EST Office Visit Gynecology/Obstetrics [facility] [address] [place] [address] Hesham Fontenot MD [address] [place] [address] [place], Non Stress Tests [facility] [address] [place] [address] 05/19/2024 9:00 AM EST Office Visit Gynecology/Obstetrics [facility] [address] [place] [address] Hesham Fontenot MD [address] [place] [address] [place], Non Stress Tests [facility] [address] [place] [address] 05/22/2024 10:15 AM EST Office Visit Gynecology/Obstetrics [facility] [address] [place] [address] Jenni Smith CRNP [address] [place] [address] [place], Non Stress Tests [facility] [address] [place] [address] 05/26/2024 1:15 PM EST Office Visit Gynecology/Obstetrics [facility] [address] [place] [address] Chloe Hurtado CRNP [address] [place] [address] [place], Non Stress Tests [facility] [address] [place] [address] 05/29/2024 11:00 AM EST Imaging Maternal Medicine Imaging, [facility] [address] [place] [address] 06/02/2024 1:00 PM EST Office Visit Gynecology/Obstetrics [facility] [address] [place] [address] Chloe Hurtado CRNP [address] [place] [address] [place], Non Stress Tests [facility] [address] [place] [address] 06/06/2024 1:00 PM EST Office Visit Gynecology/Obstetrics [facility] [address] [place] [address] BackerChloe CRNP [address] [place] [address] [place], Non Stress Tests [facility] [address] [place] [address] 06/09/2024 9:45 AM EST Office Visit Gynecology/Obstetrics [facility] [address] [place] [address] Jenni Smith CRNP [address] [place] [address] [place], Non Stress Tests [facility] [address] [place] [address] 06/12/2024 10:15 AM EST Office Visit Gynecology/Obstetrics [facility] [address] [place] [address] Jenni Smith CRNP [address] [place] [address] [place], Non Stress Tests [facility] [address] [place] [address] 06/16/2024 1:00 PM EST Office Visit Gynecology/Obstetrics [facility] [address] [place] [address] BackerChloe CRNP [address] [place] [address] [place], Non Stress Tests [facility] [address] [place] [address] 06/20/2024 1:00 PM EST Office Visit Gynecology/Obstetrics [facility] [address] [place] [address] Backer, Chloe Corteznett, LINDA [address] [place] [address] [place], Non Stress Tests [facility] [address] [place] [address] Health Maintenance Due Date Last Done Comments [...] fetus documented in this encounter Care Teams Enterprise Systems Manager Relationship Specialty Start Date End Date Elina iWll DO [address] [place] [address] PCP - General Family Medicine 11/09/23 documented as of this encounter
--- OUTSIDE RECORDS SUMMARY | 2024-06-25 09:27 | External Medical Summary | Summary of Care ---
Author Name Unknown Organization [facility] Address [address] [place] [address] Phone [phone] Care Team Providers Care Juice Mixer Name Role Phone Elina Will DO Primary Care Provider [phone] Reason for Visit * Reason Comments Non Stress Test Encounter Details Date Type Department Care Team (Late st Contact Info) Description 05/08/2024 11:15 AM EST Office Visit Gynecology/Obstetric s [facility] [address] [place] [address] Jenni Smith CRNP [address] [employer] [place] [address] [place] Non Stress Tests [place] [address] [place] [address] High-risk in third trimester*; Chronic hypertension affecting ; Hx of section; History of gestational hypertension; Obesity in , antepartum; Insulin controlled gestational diabetes mellitus (GDM) in second trimester; Excessive growth affecting management of in third trimester, single or unspecified fetus Allergies No known active allergiesdocumented as of this encounter (statuses as of 05/08/2024) Medications /Folic Acid Oral Tablet Take 1 Tablet by mouth once. Active Aspirin 81 MG Oral Tablet Delayed Release Take 1 Tablet by mouth in the morning. Active VlingoToZagsterio Flex System w/Device Kit Use to test [...] as of this encounter (statuses as of 05/08/2024) Active Problems Problem Noted Date Diagnosed Date [...] RPM reviewed; Stable overall, continue diet control 01/21/20246744-TOZ-bzlrkk 01/28/20245314-RBN-rvqhzidf fasting blood sugars (95-98). Advised to watch diet, eat bedtime snack, and avoid fasting longer than 8 to 10 hours. Will review again next week, and if persists, will schedule for follow up ADAPT with maternal medicine nurse practitioner. 02/04/20240759-RDK-lmsjpx (1 elevated fasting blood sugar) 02/11/2024-RPM-4 of 7 elevated fasting blood sugars. Patient and [facility] PARs messaged to schedule follow up ADAPT. 02/12/24: ADAPT f/u complete. FBS elevated; will start Lantus 15 units HS. 02/19/20241909-AAF-pveolcxu fasting blood sugars. Maternal medicine nurse practitioners to review. 02/19/24: RPM reviewed; increased to Lantus 20 units at bedtime 02/25/20246591-QRE-xuverjl stable (1 elevated post prandial lunch) 03/03/20240305-HTD-bygufv 03/10/20241787-OJC-yvhrkt. Few missed readings. 03/17/20243598-KDD-sfhray 03/24/24: RPM reviewed; Stable 03/31/24: RPM reviewed; Stable; continue Lantus 20 units at bedtime 04/07/20242424-OAF-qerpxe 04/14/20244522-QHU-kjibrb 04/21/20249068-LNL-kzvoit (1 elevated post prandial dinner) 04/28/20240521-JPZ-rqjtth 05/05/20246039-TLG-zyecgr Assessment & Plan (04/03/2024 9:08 AM EDT): [...] Recommend nutrition consult with RDN (Registered Dietitian Thread Machine Operator). Lifestyle changes are also indicated including [...] at first visit) and repeat again at -28 weeks if early screen is normal. Recommend Maternal- Medicine ultrasound for anatomy at 20 weeks and for growth every 4 weeks thereafter. For patients with Class 3 obesity, we recommend baseline preeclamptic labs with CBC, serum AST/ALT/creatinine and yqptrme-nc-xjkbbkxukv ratio or 24-hour urine protein LIDIA if [...] preeclamptic labs with CBC, serum AST/ALT/creatinine and pqllyzi-rt-qxfpsfgvgx ratio or 24-hour urine protein LIDIA if [...] as of this encounter (statuses as of 05/08/2024) Resolved Problems Problem Noted Date Diagnosed Date [...] on follow-up scans. We recommend alerting the freelance programmer/app developer providing care of this finding if it persists into the 3rd trimester. with 12 completed weeks gestation 12/17/2023 02/01/2024 documented as of this encounter (statuses as of 05/08/2024) Immunizations Name Administration Dates Next Due TDAP, [...] money to get more. Never true 04/16/2024 [place] Depression Scale Answer Date Recorded [place] Depression Scale Total 0 12/07/2023 The thought [...] - Inhaled Oxygen Concentration - - Weight 113.5 kg (250 lb 3.2 oz) 11:16 AM EST Height - - Body Mass Index 42.95 02/29/2024 2:12 PM EDT documented in this encounter Progress Notes * Jenni Smith CRNP - 05/08/2024 11:38 AM EST 32w4d No concerns. Following with ADAPT for GDM, dose of insulin has remained stable. Baby is very active. Denies contractions, bleeding, LOF. ASSESSMENT assessment with Non-stress Test completed on 05/08/2024 at 32.4weeks gestation for indicationof gestational diabetes mellitus heart baseline: 130 bpm Variability: Moderate Decelerations: absent Accelerations: present Contractions: None NST start time: 1210 NST stop time: 1239 NST strip reviewed, interpreted, and approved by OB provider, LINDA Hurtado . NST strip stored in clinic storage file * Carolina Kohler CMA - 05/08/2024 11:16 AM EST 32w4d NST Denies any concerns documented in this encounter Plan of Treatment Upcoming Encounters Date Type Department Care Team (Late st Contact Info) Description 05/12/2024 1:15 PM EST Office Visit Gynecology/Obstetrics [facility] [address] [place] [address] Backer, LINDA Saxena [address] [place] [address] [place], Non Stress Tests [place] [address] [place] [address] 05/16/2024 2:30 PM EST Office Visit Gynecology/Obstetrics [facility] [address] [place] [address] Hesham Fontenot MD [address] [place] [address] [place], Non Stress Tests [place] [address] [place] [address] 05/19/2024 11:00 AM EST Office Visit Gynecology/Obstetrics [facility] [address] [place] [address] Hesham Fontenot MD [address] [place] [address] Christiano, Non Stress Tests [place] [address] [place] [address] 05/22/2024 10:15 AM EST Office Visit Gynecology/Obstetrics [facility] [address] [place] [address] Jenni Smith CRNP [address] [place] [address] [place], Non Stress Tests [place] [address] [place] [address] 05/26/2024 1:15 PM EST Office Visit Gynecology/Obstetrics [facility] [address] [place] [address] Chloe Hurtado CRNP [address] [place] [address] Christiano, Non Stress Tests [place] [address] [place] [address] 05/29/2024 11:00 AM EST Imaging Maternal Medicine Imaging, [facility] [address] [place] [phone] 06/02/2024 1:00 PM EST Office Visit Gynecology/Obstetrics [facility] [address] [place] [address] Chloe Hurtado CRNP [address] [place] [address] [place], Non Stress Tests [place] [address] [place] [address] 06/06/2024 1:00 PM EST Office Visit Gynecology/Obstetrics [facility] [address] [place] [address] Chloe Hurtado CRNP [address] [place], [place] [address] [place], Non Stress Tests [place] [address] [place] [address] 06/09/2024 9:45 AM EST Office Visit Gynecology/Obstetrics [facility] [address] [place] [address] Jenni Smith CRNP [address] [place] [address] [place], Non Stress Tests [place] [address] [place] [address] 06/12/2024 9:15 AM EST Office Visit Gynecology/Obstetrics [facility] [address] [place] [address] Federico Rodriguez MD [address] [place] [address] [place], Non Stress Tests [place] [address] [place] [address] 06/12/2024 10:15 AM EST Office Visit Gynecology/Obstetrics [facility] [address] [place] [address] Jenni Smith CRNP [address] [place] [address] [place], Non Stress Tests [place] [address] [place] [address] 06/16/2024 1:00 PM EST Office Visit Gynecology/Obstetrics [facility] [address] [place] [address] Chloe Hurtado CRNP [address] [place] [address] Christian[place], Non Stress Tests [place] [address] [place] [address] 06/20/2024 1:00 PM EST Office Visit Gynecology/Obstetrics [facility] [address] [place] [address] Chloe Hurtado CRNP [address] [place] [address] Christian[place], Non Stress Tests [place] [address] [place] [address] 07/02/2024 10:30 AM EST Office Visit Gynecology/Obstetrics [facility] [address] [place] [address] Chloe Hurtado CRNP [address] [place] [address] Health Maintenance Due Date Last Done Comments [...] (BMI) of 40.0 to 44.9 in adult ([facility]) Screening for malignant neoplasm of [...] (BMI) of 40.0 to 44.9 in adult ([facility])- Primary Obesity in , antepartum [...] fetus documented in this encounter Care Teams Juice Mixer Relationship Specialty Start Date End Date Elina Will DO [address] [place] [address] PCP - General Family Medicine 11/09/23 documented as of this encounter
--- OUTSIDE RECORDS SUMMARY | 2024-06-25 09:27 | External Medical Summary ---
Author Name Unknown Address Unknown Organization K01:[facility] [place] [address] [facility] [address] Laboratory Report Ordering Provider Test Date Status CALDERON ALCARAZ 04/28/2024 14:00:34 Final Observation Date Value Abnormality Reference (Units ) Status SYNC LEUKOCYTES IN BLOOD BY AUTOMATED COUNT 04/28/2024 14:00:34 12.95 Above high normal 4.00-10.80 (K/uL) Final Segs 04/28/2024 14:00:34 72.2 40.0-75.0 (%) Final Lymphs % 04/28/2024 14:00:34 19.8 18.0-42.0 (%) Final Monos 04/28/2024 14:00:34 5.8 1.0-11.0 (%) Final Eosinophils 04/28/2024 14:00:34 0.8 0.0-6.0 (%) Final Basos 04/28/2024 14:00:34 0.4 0.0-2.0 (%) Final Immature Granulocyte, Percent 04/28/2024 14:00:34 1.0 0.0-2.0 (%) Final Absolute Segs 04/28/2024 14:00:34 9.35 Above high normal 1.80-7.70 (K/uL) Final Lymphs, absolute 04/28/2024 14:00:34 2.57 1.00-4.80 (K/ul) Final Monos, Abs 04/28/2024 14:00:34 0.75 0.00-1.10 (K/uL) Final Eos, Abs 04/28/2024 14:00:34 0.10 0.00-0.70 (K/uL) Final Basos, Abs 04/28/2024 14:00:34 0.05 0.00-0.20 (K/uL) Final Immature Granulocytes, Number 04/28/2024 14:00:34 0.13 0.00-0.20 (K/uL) Final Performing Location [facility] [place] - [address] [facility] [address]
--- OUTSIDE RECORDS SUMMARY | 2024-06-25 09:28 | External Medical Summary ---
Author Name Unknown Address Unknown Organization K01:[facility] [place] [address] [facility] [address] Laboratory Report Ordering Provider Test Date Status CALDERON ALCARAZ 03/28/2024 16:05:34 Final Observation Date Value Abnormality Reference (Units ) Status SYNC LEUKOCYTES IN BLOOD BY AUTOMATED COUNT 03/28/2024 16:05:34 12.70 Above high normal 4.00-10.80 (K/uL) Final Segs 03/28/2024 16:05:34 73.2 40.0-75.0 (%) Final Lymphs % 03/28/2024 16:05:34 19.1 18.0-42.0 (%) Final Monos 03/28/2024 16:05:34 5.9 1.0-11.0 (%) Final Eosinophils 03/28/2024 16:05:34 0.9 0.0-6.0 (%) Final Basos 03/28/2024 16:05:34 0.3 0.0-2.0 (%) Final Immature Granulocyte, Percent 03/28/2024 16:05:34 0.6 0.0-2.0 (%) Final Absolute Segs 03/28/2024 16:05:34 9.28 Above high normal 1.80-7.70 (K/uL) Final Lymphs, absolute 03/28/2024 16:05:34 2.43 1.00-4.80 (K/ul) Final Monos, Abs 03/28/2024 16:05:34 0.75 0.00-1.10 (K/uL) Final Eos, Abs 03/28/2024 16:05:34 0.12 0.00-0.70 (K/uL) Final Basos, Abs 03/28/2024 16:05:34 0.04 0.00-0.20 (K/uL) Final Immature Granulocytes, Number 03/28/2024 16:05:34 0.08 0.00-0.20 (K/uL) Final Performing Location [facility] [place] [address] [facility] [address]
--- OUTSIDE RECORDS SUMMARY | 2024-06-25 09:28 | External Medical Summary | Summary of Care ---
Author Name Unknown Organization [facility] Address [address] [place] [address] Phone [phone] Care Team Providers Care Order Editor Name Role Phone Elina Will DO Primary Care Provider [phone] Encounter Details Date Type Department Care Team (Late st Contact Info) Description 04/09/2024 Population Health External Data Unspecified Department Allergies No known active allergiesdocumented as of this encounter (statuses as of 04/09/2024) Medications Medication Sig Dispensed Refills Start Date [...] as of this encounter (statuses as of 04/09/2024) Active Problems Problem Noted Date Diagnosed Date [...] follow-up scans. We recommend alerting the manager consumer insights providing care of this finding if it [...] RPM reviewed; Stable overall, continue diet control 01/21/20242765-JNK-nkkrmg 01/28/20244062-HRH-pclzkrlr fasting blood sugars (95-98). Advised to watch diet, eat bedtime snack, and avoid fasting longer than 8 to 10 hours. Will review again next week, and if persists, will schedule for follow up ADAPT with maternal medicine nurse practitioner. 02/04/20247778-YOK-plpfsc (1 elevated fasting blood sugar) 02/11/2024-RPM-4 of 7 elevated fasting blood sugars. Patient and C PARs messaged to schedule follow up ADAPT. 02/12/24: ADAPT f/u complete. FBS elevated; will start Lantus 15 units HS. 02/19/20240959-YMI-efsfxhcn fasting blood sugars. Maternal medicine nurse practitioners to review. 02/19/24: RPM reviewed; increased to Lantus 20 units at bedtime 02/25/20246508-QDC-tniesly stable (1 elevated post prandial lunch) 03/03/20248830-WAR-gmmdsn 03/10/20249394-JHX-pncspa. Few missed readings. 03/17/20244128-ZUA-tsiiez 03/24/24: RPM reviewed; Stable 03/31/24: RPM reviewed; Stable; continue Lantus 20 units at bedtime 04/07/20246627-GSO-skblxh Last Assessment & Plan: Working with ADAPT. [...] preeclamptic labs with CBC, serum AST/ALT/creatinine and iobpwzg-oh-spupgkqobm ratio or 24-hour urine protein LIDIA if [...] as of this encounter (statuses as of 04/09/2024) Resolved Problems Problem Noted Date Diagnosed Date Resolved Date with 12 completed weeks gestation 12/17/2023 02/01/2024 documented as of this encounter (statuses as of 04/09/2024) Immunizations Name Administration Dates Next Due TDAP, [...] money to get more. Never true 02/26/2024 [place] Depression Scale Answer Date Recorded [place] Depression Scale Total 0 12/07/2023 The thought [...] 02/26/2024 Does the household have a re gular [...] on file documented as of this encounter Plan of Treatment Upcoming Encounters Date Type Department Care Team (Late st Contact Info) Description 04/28/2024 1:30 PM EST Office Visit Gynecology/Obstetrics [facility] [address] [place] [address] BackerChloe CRNP [address] [place] [address] Nurse [facility] [place] [phone] 11:00 AM EST Imaging Maternal Medicine Imaging, [place] [phone] 05/29/2024 11:00 AM EST Imaging Maternal Medicine Imaging, [place] [phone] Health Maintenance Due Date Last Done Comments Depression Screening 2003 Hepatitis B Vaccine (1 of 3 - 19+ 3-dose series) 2010 COVID-19 Vaccine ( - 2023- season) 2024 Influenza Vaccine (FLU shot) (#1) 2024 GFR 03/28/2025 03/28/2024, 06/06/2023, 08/11/2023, Additional history exists Pap Smear 12/06/2026 [...] filedocumented as of this encounter Care Teams Order Editor Relationship Specialty Start Date End Date Elina Will DO [address] [place] [address] [address] PCP - General Family Medicine 11/09/23 documented as of this encounter
--- OUTSIDE RECORDS SUMMARY | 2024-06-25 09:28 | External Medical Summary | Summary of Care ---
Author Name Unknown Organization [facility] Address [address] [place] [address] Phone [phone] Care Team Providers Care [employer] Name Role Phone Elina Will DO Primary Care Provider Reason for Visit * Reason Comments Return Visit Encounter Details Date Type Department Care Team (Late st Contact Info) Description 03/28/2024 3:30 PM EDT Office Visit Gynecology/Obstetri sruthi Alvarado [address] [facility] [place] [address] Elina Haddad PA-C [address] [place] [address] Nurse Jonny Alvarado Beginnings Return [place] [address] [place] [address] Supervision of high-risk , second trimester*; Chronic hypertension affecting ; History of gestational hypertension; Obesity in , antepartum; Class 3 severe obesity due to excess calories with serious comorbidity and body mass index (BMI) of 40.0 to 44.9 in adult (HCC); Insulin controlled gestational diabetes mellitus (GDM) in second trimester; Hx of section; Pyelectasis of fetus on ultrasound; Breast feeding status of mother; Need for olldhnekei-ukxipbz-ab rtussis (Tdap) vaccine Allergies No known active allergiesdocumented as of this encounter (statuses as of 03/28/2024) Medications Medication Sig Dispensed Refills Start Date End Date Status /Folic Acid Oral Tablet Take 1 Tablet by mouth once. Active Aspirin 81 MG Oral Tablet Delayed Release Take 1 Tablet by mouth in the morning. Active [employer] Verio Flex System w/Device Kit Use to test blood sugars 4 times daily (fasting, 1 hour after breakfast, lunch, and dinner) 1 Kit 01/01/2024 Active OneTouch Verio In Vitro Strip (Glucose Blood) Use to test blood sugars 4 times daily (fasting, 1 hour after breakfast, lunch, and dinner) 125 Strip 6 01/01/2024 Active [employer] Delica Lancets 30G Use to test blood [...] as of this encounter (statuses as of 03/28/2024) Active Problems Problem Noted Date Diagnosed Date Pyelectasis of fetus on ultrasound 02/16 Last [...] on follow-up scans. We recommend alerting the panel saw operator providing care of this finding if [...] RPM reviewed; Stable overall, continue diet control 01/21/20247607-XBL-jirgip 01/28/20246823-OYM-rvwwmvaq fasting blood sugars (95-98). Advised to watch diet, eat bedtime snack, and avoid fasting longer than 8 to 10 hours. Will review again next week, and if persists, will schedule for follow up ADAPT with maternal medicine nurse practitioner. 02/04/20240838-SBH-ppesdl (1 elevated fasting blood sugar) 02/11/2024-RPM-4 of 7 elevated fasting blood sugars. Patient and [facility] PARs messaged to schedule follow up ADAPT. 02/12/24: ADAPT f/u complete. FBS elevated; will start Lantus 15 units HS. 02/19/20246846-ZKU-ojcunykd fasting blood sugars. Maternal medicine nurse practitioners to review. 02/19/24: RPM reviewed; increased to Lantus 20 units at bedtime 02/25/20243922-ZNT-zzbsgwf stable (1 elevated post prandial lunch) 03/03/20247581-BQX-eqlqdf 03/10/20243820-SCE-whwvqr. Few missed readings. 03/17/20244586-RQY-pndufo 03/24/24: RPM reviewed; Stable Last Assessment & Plan: She presents for follow-up of growth secondary [...] unremarkable in appearance. The DONNIE is normal. History of gestational hypertension 12/14/2023 Overview: 11/2021: [...] preeclamptic labs with CBC, serum AST/ALT/creatinine and riiswcy-kd-bvrsmordmp ratio or 24-hour urine protein LIDIA if [...] 12/07/23 140/84 Last Assessment & Plan: BP elevated at NOB 140/84 ? cHTN Will monitor BPs at home, if elevated next visit will make cHTN dx. Hx of section 12/07/2023 Overview: 11/2021: primary / failed induction 2023 Plan: undecided Estimated Date of Delivery Comme nts Yes 06/29/2024 Based on last me nstrual period of 09/23/2023 (Exact Date) documented as of this encounter (statuses as of 03/28/2024) Resolved Problems Problem Noted Date Diagnosed Date Resolved Date with 12 completed weeks gestation 12/17/2023 02/01/2024 documented as of this encounter (statuses as of 03/28/2024) Immunizations Name Administration Dates Next Due TDAP, [...] money to get more. Never true 02/26/2024 [place] Depression Scale Answer Date Recorded [place] Depression Scale Total 0 12/07/2023 The thought [...] on file documented as of this encounter Last Filed Vital Signs Vital Sign Reading Time Taken Comments Blood Pressure 128/80 03/28/2024 3:31 PM EDT Pulse - - Temperature - - Respiratory Rate - - Oxygen Saturation - - Inhaled Oxygen Concentration - - Weight 110.8 kg (244 lb 3.2 oz) 03/28/2024 3:31 PM EDT Height - - Body Mass Index 41.92 02/29/2024 2:12 PM EDT documented in this encounter Progress Notes * Carolina Kohler CMA - 03/28/2024 3:56 PM EDT Patient here for TDAP injection. Patient doing well no complaints. Injection given IM as ordered. Patient tolerated well. Patient to follow up as directed. Patient instructed to call if any complications. Patient verbalized understanding of instructions given and her follow up appt for WILSON Injection site: Left Deltoid Medication Source: Dispensed stock medication * Carolina Kohler CMA - 03/28/2024 3:31 PM EDT 26w5d Denies any concerns * Elina Haddad PA-C - 03/28/2024 3:20 PM EDT Sandra Garrido is a 33 year old female here for her routine OB appointment at 26w5d Her Estimated Date of Delivery: 06/29/24 She has been having some increased pelvic pressure in the AM. Denies any bleeding, LOF, regular contractions. REVIEW OF SYSTEMS She affirms movement. Denies vaginal bleeding, LOF, contractions, N/V, headaches, vision changes, chest pain, RUQ pain. PHYSICAL EXAM Filed Vitals: 03/28/24 1531 BP: 128/80 Weight: 110.8 kg (244 lb 3.2 oz) +FHT 140s Fundal height 28 cm ASSESSMENT/PLAN Supervision of high-risk , second trimester (Primary) - SYPHILIS ANTIBODY SCREEN WITH REFLEX TO RPR; Future; Expected date: 04/07/2024 - CBC WITH WBC DIFFERENTIAL AND ANEMIA REFLEX WORKUP; Future; Expected date: 04/07/2024 Chronic hypertension affecting - URINALYSIS OBSTETRICS, POINT OF CARE History of gestational hypertension Obesity in , antepartum Class 3 severe obesity due to excess calories with serious comorbidity and body mass index (BMI) of40.0 to 44.9 in adult (HCC) Insulin controlled gestational diabetes mellitus (GDM) in second trimester Hx of section Pyelectasis of fetus on ultrasound Breast feeding status of mother - Breast Pump; Use as directed. Need for pgzyyjbyds-ykmmima-icciizgsp (Tdap) vaccine - TDAP (AGE 7 AND OLDER), ADACEL Supervision of - recommended flu vaccine - patient declined today - recommended tdap vaccine - patient received today - planning to complete CBC and RPR following appointment. - she desires prescription for a breast pump - is planning condoms for contraception - rhogam is not needed d/t AB+ blood type - asking about dental care in , specifically, x-rays. Encouraged to let the office know she is . Can have x-rays with shielding at the abdomen. - labor precautions and kick counts reviewed RTO in 4 weeks for WILSON, PRN with concern. Elina Haddad PA-C 03/28/2024 documented in this encounter Plan of Treatment Upcoming Encounters Date Type Department Care Team (Late st Contact Info) Description 04/03/2024 11:45 AM EDT Imaging Maternal Medicine Imaging, [place] Alvarado [address] [place] [phone] 04/03/2024 11:45 AM EDT Office Visit Production Machine Operator Obstetrics Maternal Medicine, [place] [address] [place] [address] Yaneth Cid, DO [address] [place] [address] 04/28/2024 1:45 PM EST Office Visit Gynecology/Obstetrics Jumana Alvarado [address] [facility] [place] [address] Chloe Hurtado CRNP [address] [place] [address] 2024 11:00 AM EST Imaging Maternal Medicine Lakia Patel [address] [place] [phone] 05/29/2024 11:00 AM EST Imaging Maternal Medicine Imaging, [address] [place] [phone] Pending Results Name Type Priority Associated Diagnoses Date /Time SYPHILIS ANTIBODY SCREEN WITH REFLEX TO RPR Lab Routine Supervision of high-risk , second trimester 03/28/2024 4:05 PM EDT CBC WITH WBC DIFFERENTIAL AND ANEMIA REFLEX WORKUP Lab Routine Supervision of high-risk , second trimester 03/28/2024 4:05 PM EDT Scheduled Orders Name Type Priority Associated Diagnoses Orde r Schedule SYPHILIS ANTIBODY SCREEN WITH REFLEX TO RPR Lab Routine Supervision of high-risk , second trimester Expected: 04/07/2024 (Approximate), Expires: 03/28/2025 CBC WITH WBC DIFFERENTIAL AND ANEMIA REFLEX WORKUP Lab Routine Supervision of high-risk , second trimester Expected: 04/07/2024 (Approximate), Expires: 03/28/2025 Health Maintenance Due Date Last Done Comments Depression Screening 2003 Hepatitis B Vaccine (1 of 3 - 19+ 3-dose series) 2010 COVID-19 Vaccine (2023-2 5 season) 2024 Influenza Vaccine (FLU shot) (#1) 2024 GFR 12/06/2024 12/07/2023, 08/11/2023, 06/27/2023 Pap Smear 12/06/2026 12/07/2023 Cervical Cancer Screening 12/06/2028 HPV/Co-Test 12/06/2028 12/07/2023 DTap/Tdap Vaccines (2 - Td o r Tdap) 03/28/2034 03/28/2024 HPV (Gardasil) Vaccine Aged Out No lo nger eligible based on patient's age to complete this topic MENINGOCOCCAL (MENACTRA/MENVEO) Aged Out No longer eligible b ased on patient's age to complete this topic Pneumococcal Vaccine: Pediatrics (0 to 5 Years) and At-Risk Patients (6 to 64 Years) Aged Out No longer eligible b ased on patient's age to complete this topic documented as of this encounter Medical Devices Not on filedocumented as of this encounter Procedures Procedure Name Priority Date/Time Associated Diagnosis Comments URINALYSIS OBSTETRICS, POINT OF CARE Routine 03/28/2024 3:46 PM EDT Chronic hypertension affecting documented in this encounter Results * URINALYSIS OBSTETRICS, POINT OF CARE (03/28/2024 3:46 PM EDT) Color, Urine Yellow Light Yellow, Yellow 03/28/2024 3:48 PM EDT [facility] Clarity, Urine Clear Clear 03/28/2024 3:48 PM EDT [facility] Glucose, Urine Negative Negative mg/dL 03/28/2024 3:48 PM EDT [facility] Bilirubin, Urine Negative Negative 03/28/2024 3:48 PM EDT [facility] Ketone, Urine Negative Negative mg/dL 03/28/2024 3:48 PM EDT [facility] Specific [place], Urine >=1.030 1.003 - 1.030 03/28/2024 3:48 PM EDT [facility] Blood, Urine Negative Negative 03/28/2024 3:48 PM EDT [facility] pH, Urine 6.0 5.0, 5.5, 6.0, 6.5, 7.0, 7.5 units 03/28/2024 3:48 PM EDT [facility] Protein, Urine Negative Negative mg/dL 03/28/2024 3:48 PM EDT [facility] Urobilinogen, Urine 0.2 0.2, 1.0 mg/dL 03/28/2024 3:48 PM EDT [facility] Nitrite, Urine Negative Negative 03/28/2024 3:48 PM EDT [facility] Esterase, Urine Negative Negative 03/28/2024 3:48 PM EDT [facility] Urine 03/28/2024 3:46 PM EDT 03/28/2024 3:48 PM EDT Elina Haddad PA-C LAB POINT OF CARE TEST DOCKED DEVICE UNSOLICITED RESULTS [facility] [address] [place] [address] documented in this encounter Visit Diagnoses Diagnosis Supervision of high-risk , second trimester- Primary Chronic hypertension affecting History of gestational hypertension Obesity in , antepartum Obesity complicating , childbirth, or the puerperium, antepartum condition or complication Class 3 severe obesity due to excess calories with serious comorbidity and body mass index (BMI) of 40.0 to 44.9 in adult (HCC) Insulin controlled gestational diabetes mellitus (GDM) in second trimester Hx of section Other postprocedural status Pyelectasis of fetus on ultrasound Abnormal findings on screening Breast feeding status of mother care and examination of lactating mother Need for lfjicrkqmi-hjxpxvq-sququdigo (Tdap) vaccine Need for prophylactic vaccination with combined pyhpzedlhj-dqejmvc-zofjguvec (DTP) vaccine documented in this encounter Care Teams [employer] Relationship Specialty Start Date End Date Elina Will DO [address] [place] [address] PCP - General Family Medicine 11/09/23 documented as of this encounter
--- OUTSIDE RECORDS SUMMARY | 2024-06-25 09:28 | External Medical Summary ---
Author Name Unknown Address Unknown Organization [id number] [place] [address] [place] [address] Laboratory Report Ordering Provider Test Date Status CALDERON ALCARAZ 03/28/2024 16:05:34 Final Observation Date Value Abnormality Reference (Units ) Status Ferritin 03/28/2024 16:05:34 32 13-150 (ng /mL) Final Performing Location [facility] [place] [address] [facility] [place] [address]
--- OUTSIDE RECORDS SUMMARY | 2024-06-25 09:28 | External Medical Summary | Summary of Care ---
Author Name Unknown Organization [facility] Address [address] [place] [address] Phone [phone] Care Team Providers Care Paradi Operator Name Role Phone Elina Will DO Primary Care Provider [phone] Encounter Details Date Type Department Care Team (Late st Contact Info) Description 03/31/2024 Orders Only Laboratory, [facility] [address] [facility] [place] [phone] Elina Haddad PA-[place] [address] [facility] [place] [id number] Antepartum anemia complicating * Allergies No known active allergiesdocumented as of this encounter (statuses as of 03/31/2024) Medications Medication Sig Dispensed Refills Start Date End Date Status /Folic Acid Oral Tablet Take 1 Tablet by mouth once. Active Aspirin 81 MG Oral Tablet Delayed Release Take 1 Tablet by mouth in the morning. Active [employer] Verio Flex System w/Device Kit Use to [...] as of this encounter (statuses as of 03/31/2024) Active Problems Problem Noted Date Diagnosed Date [...] on follow-up scans. We recommend alerting the rustic fence builder providing care of this finding if it [...] RPM reviewed; Stable overall, continue diet control 01/21/20241073-JQX-ycbvhc 01/28/20247736-YNH-vdgblszm fasting blood sugars (95-98). Advised to watch diet, eat bedtime snack, and avoid fasting longer than 8 to 10 hours. Will review again next week, and if persists, will schedule for follow up ADAPT with maternal medicine nurse practitioner. 02/04/20247157-OLZ-mnjbzx (1 elevated fasting blood sugar) 02/11/2024-RPM-4 of 7 elevated fasting blood sugars. Patient and C PARs messaged to schedule follow up ADAPT. 02/12/24: ADAPT f/u complete. FBS elevated; will start Lantus 15 units HS. 02/19/20240786-RVX-umramfis fasting blood sugars. Maternal medicine nurse practitioners to review. 02/19/24: RPM reviewed; increased to Lantus 20 units at bedtime 02/25/20249427-BOI-yfjurmm stable (1 elevated post prandial lunch) 03/03/20246296-OCG-iqakhc 03/10/20247048-RWC-wlaolf. Few missed readings. 03/17/20247187-NFN-letiuj 03/24/24: RPM reviewed; Stable 03/31/24: RPM reviewed; Stable; continue Lantus 20 units at bedtime Last Assessment & Plan: She presents for [...] preeclamptic labs with CBC, serum AST/ALT/creatinine and jgyaldk-uz-yjmsvutuhv ratio or 24-hour urine protein LIDIA if [...] as of this encounter (statuses as of 03/31/2024) Resolved Problems Problem Noted Date Diagnosed Date Resolved Date with 12 completed weeks gestation 12/17/2023 02/01/2024 documented as of this encounter (statuses as of 03/31/2024) Immunizations Name Administration Dates Next Due TDAP, [...] money to get more. Never true 02/26/2024 [place] Depression Scale Answer Date Recorded [place] Depression Scale Total 0 12/07/2023 The thought [...] AM EDT Imaging Maternal Medicine Imaging, [place] [address] [facility] [place] [phone] 04/03/2024 11:45 AM EDT Office Visit Reliability Engineer Obstetrics Maternal Medicine, [address] [place] [address] Yaneth Cid, DO [address] [place] [facility] [place] [id number] 04/28/2024 1:45 PM EST [facility] [address] [place] [address] Chloe Hurtado CRNP [address] [place] [address] 2024 11:00 AM EST Imaging Maternal Medicine Imaging, [place] Alvarado [address] [place] [phone] 05/29/2024 11:00 AM EST Imaging Maternal Medicine [place] Patel [address] [place] [phone] Scheduled Orders Name Type Priority Associated Diagnoses Orde r Schedule CBC WITH WBC DIFFERENTIAL AND ANEMIA REFLEX WORKUP Lab Routine Antepartum anemia complicating Expected: 04/28/2024 (Approximate), Expires: 03/31/2025 Health Maintenance Due Date Last Done Comments [...] as of this encounter Visit Diagnoses Diagnosis Antepartum anemia complicating - Primary Anemia, antepartum documented in this encounter Care Teams Paradi Operator Relationship Specialty Start Date End Date Elina Will DO [address] [place] [phone] PCP - General Family Medicine 11/09/23 documented as of this encounter
--- OUTSIDE RECORDS SUMMARY | 2024-06-25 09:28 | External Medical Summary ---
Author Name Unknown Address Unknown Organization K[facility] [address] [place] [address] Laboratory Report Ordering Provider Test Date Status CALDERON ALCARAZ 03/28/2024 15:46:00 Final Observation Date Value Abnormality Reference (Units ) Status Color of Urine by Auto 03/28/2024 15:46:00 Yellow Light Yellow, Yellow Final Clarity, Urine 03/28/2024 15:46:00 Clear Clear Final Glucose [Mass/volume] in Urine by Automated test strip 03/28/2024 15:46:00 Negative Negative (mg/dL) Final Bilirubin.total [Presence] in Urine by Automated test strip 03/28/2024 15:46:00 Negative Negative Final Ketones [Mass/volume] in Urine by Automated test strip 03/28/2024 15:46:00 Negative Negative (mg/dL) Final Specific gravity, Urine 03/28/2024 15:46:00 >=1.030 1.003-1.030 Final Hemoglobin [Presence] in Urine by Automated test strip 03/28/2024 15:46:00 Negative Negative Final pH, Urine 03/28/2024 15:46:00 6.0 5.0, 5.5, 6.0, 6.5, 7.0, 7.5 (units) Final Protein [Mass/volume] in Urine by Automated test strip 03/28/2024 15:46:00 Negative Negative (mg/dL) Final Urobilinogen, Urine 03/28/2024 15:46:00 0.2 0.2, 1.0 (mg/dL) Final Nitrite [Presence] in Urine by Automated test strip 03/28/2024 15:46:00 Negative Negative Final Leukocyte esterase [Presence] in Urine by Automated test strip 03/28/2024 15:46:00 Negative Negative Final Performing Location [facility] - [address] [place] [address]
--- OUTSIDE RECORDS SUMMARY | 2024-06-25 09:28 | External Medical Summary | Summary of Care ---
Author Name Unknown Organization [facility] Address [address] [place] [address] Phone [phone] Care Team Providers Care Casino Supervisor Name Role Phone Elina Will DO Primary Care Provider [phone] Encounter Details Date Type Department Care Team (Late st Contact Info) Description 04/03/2024 11:45 AM EDT Office Visit Floor [facility] Maternal Medicine, [address] [place] [address] Yaneth Cid DO [address] [place], [place] [id number] Pyelectasis of fetus on ultrasound*; Insulin controlled gestational diabetes mellitus (GDM) in second trimester; Chronic hypertension affecting ; Obesity in , antepartum; Ultrasound for screening for growth restriction; 27 weeks gestation of Allergies No known active allergiesdocumented as of this encounter (statuses as of 04/03/2024) Medications Medication Sig Dispensed Refills Start Date End Date Status /Folic Acid Oral Tablet Take 1 Tablet by mouth once. Active Aspirin 81 MG Oral Tablet Delayed Release Take 1 Tablet by mouth in the morning. Active ChangeMobTouch Verio Flex System w/Device Kit Use to [...] as of this encounter (statuses as of 04/03/2024) Active Problems Problem Noted Date Diagnosed Date [...] on follow-up scans. We recommend alerting the administrative liaison providing care of this finding if it [...] - [facility] 95 (H) 12/29/2023 08:50 AM 7/19/24 hemoglobin A1c in process 01/04/24: MFM ADAPT consult complete. Enrolled in Current Health. Instructions provided to report blood sugars each week for MFM review 01/07/24: RPM reviewed; Stable 01/14/24: RPM reviewed; Stable overall, continue diet control 01/21/20245269-QJJ-xpgobv 01/28/20240042-ZBO-lmfrwzcq fasting blood sugars (95-98). Advised to watch diet, eat bedtime snack, and avoid fasting longer than 8 to 10 hours. Will review again next week, and if persists, will schedule for follow up ADAPT with maternal medicine nurse practitioner. 02/04/20247217-TDC-mhuxpj (1 elevated fasting blood sugar) 02/11/2024-RPM-4 of 7 elevated fasting blood sugars. Patient and [facility] PARs messaged to schedule follow up ADAPT. 02/12/24: ADAPT f/u complete. FBS elevated; will start Lantus 15 units HS. 02/19/20243483-XGS-ghzajfww fasting blood sugars. Maternal medicine nurse practitioners to review. 02/19/24: RPM reviewed; increased to Lantus 20 units at bedtime 02/25/20244543-HUS-regghhy stable (1 elevated post prandial lunch) 03/03/20247255-ZYW-qyblih 03/10/20240755-CKY-pvkydo. Few missed readings. 03/17/20240363-EBN-duekjr 03/24/24: RPM reviewed; Stable 03/31/24: RPM reviewed; Stable; continue Lantus 20 units at bedtime Last Assessment & Plan: Working with ADAPT. [...] preeclamptic labs with CBC, serum AST/ALT/creatinine and vwdqget-lt-dbctrsbehp ratio or 24-hour urine protein LIDIA if [...] as of this encounter (statuses as of 04/03/2024) Resolved Problems Problem Noted Date Diagnosed Date Resolved Date with 12 completed weeks gestation 12/17/2023 02/01/2024 documented as of this encounter (statuses as of 04/03/2024) Immunizations Name Administration Dates Next Due TDAP, [...] money to get more. Never true 02/26/2024 [place] Depression Scale Answer Date Recorded [place] Depression Scale Total 0 12/07/2023 The thought [...] on file documented as of this encounter Progress Notes * Yaneth Cid, DO - 04/03/2024 3:18 PM EDT Sandra presented today at 27w4d for an ultrasound for the following indications: Pyelectasis of fetus on ultrasound Insulin controlled gestational diabetes mellitus (GDM) in second trimester Assessment & Plan: Working with ADAPT. Chronic hypertension affecting Assessment & Plan: BP Readings from Last 5 Encounters: 03/28/24 128/80 02/29/24 124/72 02/01/24 134/72 01/04/24 132/76 12/07/23 140/84 BP currently stable without medication. Initiate therapy to maintain BP < 140/90. Obesity in , antepartum Ultrasound for screening for growth restriction 27 weeks gestation of Ultrasound summary: Patient presented at 27w 4d for growth assessment. Normal growth with EFW 1382 g at 94%ile. Normal DONNIE at 16.2 cm. Cephalic presentation. Very mild UTD persists. I reviewed the ultrasound images. Sandra was given the opportunity to meet with me if she had anyquestions. Please refer to the ultrasound report for additional details about today's ultrasound examination. RECOMMENDATIONS: Recommend follow up ultrasound with MFM in 4-6 weeks for growth secondary to above indications. See prior formal MFM consultation note. Thank you for allowing us to participate in the care of this patient. Please call with any questions. Yaneth Cid DO 04/03/2024 3:18 PM documented in this encounter Miscellaneous Notes * Assessment & Plan Note - Yaneth Cid DO - 04/03/2024 9:08 AM EDT Associated Problem(s): Chronic hypertension affecting BP Readings from Last 5 Encounters: 03/28/24 128/80 02/29/24 124/72 02/01/24 134/72 01/04/24 132/76 12/07/23 140/84 BP currently stable without medication. Initiate therapy to maintain BP < 140/90. * Assessment & Plan Note - Yaneth Cid DO - 04/03/2024 9:08 AM EDT Associated Problem(s): Insulin controlled gestational diabetes mellitus (GDM) in second trimester Working with ADAPT. documented in this encounter Plan of Treatment Upcoming Encounters Date Type Department Care Team (Late st Contact Info) Description 04/28/2024 1:30 PM EST Office Visit Gynecology/Obstetrics Jumana Alvarado [address] [place] [id number] Chloe Hurtado CRNP [address] [place] [address] Nurse [facility] [place] [address] [place] [address] 2024 11:00 AM EST Imaging Maternal Medicine Imaging, [place] Alvarado [address] [place] [address] 05/29/2024 11:00 AM EST Imaging Maternal Medicine Imaging, [place] Alvarado [address] [place] [address] Health Maintenance Due Date Last Done Comments [...] as of this encounter Visit Diagnoses Diagnosis Pyelectasis of fetus on ultrasound- Primary Abnormal findings on screening Insulin controlled gestational diabetes mellitus (GDM) in second trimester Chronic hypertension affecting Obesity in , antepartum Obesity complicating , childbirth, or the puerperium, antepartum condition or complication Ultrasound for screening for growth restriction screening for growth retardation using ultrasonics 27 weeks gestation of state, incidental documented in this encounter Care Teams Casino Supervisor Relationship Specialty Start Date End Date Elina Will DO [address] [place] [address] PCP - General Family Medicine 11/09/23 documented as of this encounter
--- OUTSIDE RECORDS SUMMARY | 2024-06-25 09:28 | External Medical Summary | Summary of Care ---
Author Name Unknown Organization [facility] Address [address] [place] [address] Phone [phone] Care Team Providers Care Pack Press Operator Name Role Phone Elina Will DO Primary Care Provider [phone] Encounter Details Date Type Department Care Team (Late st Contact Info) Description 04/03/2024 11:45 AM EDT Office Visit [facility] Obstetrics Maternal Medicine, [address] [place] [address] Yaneth Cid DO [address], [place] [phone] Pyelectasis of fetus on ultrasound*; Insulin controlled gestational diabetes mellitus (GDM) in second trimester; Chronic hypertension affecting ; Obesity in , antepartum; Ultrasound for screening for growth restriction; 27 weeks gestation of Allergies No known active allergiesdocumented as of this encounter (statuses as of 04/04/2024) Medications Medication Sig Dispensed Refills Start Date End Date Status /Folic Acid Oral Tablet Take 1 Tablet by mouth once. Active Aspirin 81 MG Oral Tablet Delayed Release Take 1 Tablet by mouth in the morning. Active [employer] ExperienceTouch Verio Flex System w/Device Kit Use to [...] as of this encounter (statuses as of 04/04/2024) Active Problems Problem Noted Date Diagnosed Date [...] on follow-up scans. We recommend alerting the order clerk providing care of this finding if [...] RPM reviewed; Stable overall, continue diet control 01/21/20248748-KUN-rxwutg 01/28/20244711-BBD-watfyuvg fasting blood sugars (95-98). Advised to watch diet, eat bedtime snack, and avoid fasting longer than 8 to 10 hours. Will review again next week, and if persists, will schedule for follow up ADAPT with maternal medicine nurse practitioner. 02/04/20241024-GEK-ecmgzx (1 elevated fasting blood sugar) 02/11/2024-RPM-4 of 7 elevated fasting blood sugars. Patient and [facility] PARs messaged to schedule follow up ADAPT. 02/12/24: ADAPT f/u complete. FBS elevated; will start Lantus 15 units HS. 02/19/20240070-HSZ-lpsvxrod fasting blood sugars. Maternal medicine nurse practitioners to review. 02/19/24: RPM reviewed; increased to Lantus 20 units at bedtime 02/25/20249923-AFU-cwbbfxk stable (1 elevated post prandial lunch) 03/03/20244766-EZD-lhhydw 03/10/20248021-SJV-wdwsqk. Few missed readings. 03/17/20248531-OHS-hwgesi 03/24/24: RPM reviewed; Stable 03/31/24: RPM reviewed; [...] preeclamptic labs with CBC, serum AST/ALT/creatinine and rfycecu-hi-xdgoshqiuf ratio or 24-hour urine protein LIDIA if [...] as of this encounter (statuses as of 04/04/2024) Resolved Problems Problem Noted Date Diagnosed Date Resolved Date with 12 completed weeks gestation 12/17/2023 02/01/2024 documented as of this encounter (statuses as of 04/04/2024) Immunizations Name Administration Dates Next Due TDAP, [...] money to get more. Never true 02/26/2024 [place] Depression Scale Answer Date Recorded [place] Depression Scale Total 0 12/07/2023 The thought [...] Gynecology/Obstetrics Jumana Alvarado [address] [place] [address] Chloe Hurtado CRNP [address] [place] [address] Nurse [facility] [place] [address] [place] [address] 2024 11:00 AM EST Imaging Maternal Medicine [...] incidental documented in this encounter Care Teams Pack Press Operator Relationship Specialty Start Date End Date Elina Will DO [address] [place] [address] PCP - General Family Medicine 11/09/23 documented as of this encounter
--- OUTSIDE RECORDS SUMMARY | 2024-06-25 09:28 | External Medical Summary ---
Author Name Unknown Address Unknown Organization K01:[facility] [place] [address] [place] [address] Laboratory Report Ordering Provider Test Date Status CALDERON ALCARAZ 03/28/2024 16:05:34 Final Observation Date Value Abnormality Reference (Units ) Status Creatinine 03/28/2024 16:05:34 0.7 0.5-1.0 (mg/dL) Final Glomerular filtration rate/1.73 sq M.predicted [Volume Rate/Area] in Serum, Plasma or Blood by Creatinine-based formula (CKD-EPI) 03/28/2024 16:05:34 >90 >=60 (mL/min) Final eGFR is calculated based on the CKD-EPI 2020 equation. Performing Location [facility] [place] [address] [place] [address]
--- OUTSIDE RECORDS SUMMARY | 2024-06-25 09:28 | External Medical Summary | Summary of Care ---
Author Name Unknown Organization [facility] Address [address] [place] [address] Phone [phone] Care Team Providers Care Septic Tank Service Technician Name Role Phone Elina Will DO Primary Care Provider [phone] Encounter Details Date Type Department Care Team (Late st Contact Info) Description 03/31/2024 Telephone Gynecology/Obstetrics [facility] [address] [facility] [place] [address] Elina Haddad PA-C [address] [facility] [place] [address] Allergies No known active allergiesdocumented as of this encounter (statuses as of 03/31/2024) Medications Medication Sig Dispensed Refills Start Date End Date Status /Folic Acid Oral Tablet Take 1 Tablet by mouth once. Active Aspirin 81 MG Oral Tablet Delayed Release Take 1 Tablet by mouth in the morning. Active ATOMOOToOne Block Off the Grid (1BOG) Verio Flex System w/Device Kit Use to test blood sugars 4 times daily (fasting, 1 hour after breakfast, lunch, and dinner) 1 Kit 01/01/2024 Active ATOMOOTouch Verio In Vitro Strip (Glucose Blood) Use [...] inject insulin nightly as directed. 100 Each 02/12/2024 Active Insulin Glargine Solostar 100 UNIT/ML [...] on follow-up scans. We recommend alerting the transport manager providing care of this finding if [...] RPM reviewed; Stable overall, continue diet control 01/21/20249306-MKP-alnrtv 01/28/20249004-ATW-zufeawst fasting blood sugars (95-98). Advised to watch diet, eat bedtime snack, and avoid fasting longer than 8 to 10 hours. Will review again next week, and if persists, will schedule for follow up ADAPT with maternal medicine nurse practitioner. 02/04/20249788-DYR-dyyoip (1 elevated fasting blood sugar) 02/11/2024-RPM-4 of 7 elevated fasting blood sugars. Patient and C PARs messaged to schedule follow up ADAPT. 02/12/24: ADAPT f/u complete. FBS elevated; will start Lantus 15 units HS. 02/19/20244098-NEA-meqomrdo fasting blood sugars. Maternal medicine nurse practitioners to review. 02/19/24: RPM reviewed; increased to Lantus 20 units at bedtime 02/25/20246393-GOB-iogkcbw stable (1 elevated post prandial lunch) 03/03/20240033-IBT-pnkncw 03/10/20245757-CHS-cjvtwa. Few missed readings. 03/17/20244441-SBJ-nicyry 03/24/24: RPM reviewed; Stable 03/31/24: RPM reviewed; [...] preeclamptic labs with CBC, serum AST/ALT/creatinine and ivjxhxo-iv-bxyreqxxor ratio or 24-hour urine protein LIDIA if [...] money to get more. Never true 02/26/2024 [place] Depression Scale Answer Date Recorded [place] Depression Scale Total 0 12/07/2023 The thought [...] encounter Miscellaneous Notes * Telephone Encounter - Carmen Stark LPN - 03/31/2024 1:07 PM EDT Spoke with pt she verbalized understanding * Telephone Encounter - Tameka Momin LPN - 03/31/2024 11:36 AM EDT ----- Message from Elina Haddad sent at 03/31/2024 11:07 AM EDT ----- Please inform patient her recent CBC showed anemia. At this time, I would recommend she increase iron-rich foods in her diet. We will plan to repeat this in 4 weeks. If anemia worsening, may need to start iron supplementation. Thanks! Elina Haddad PA-C documented in this encounter Plan of Treatment Upcoming Encounters Date Type Department Care Team (Late st Contact Info) Description 04/03/2024 11:45 AM EDT Imaging Maternal Medicine Imaging, [address] [place] [phone] 04/03/2024 11:45 AM EDT Office Visit [facility] Obstetrics Maternal Medicine, [address] [place] [address] Yaneth Cid, DO [address] [place] [address] 04/28/2024 1:45 PM EST Office Visit Gynecology/Obstetrics Jumana Alvarado [address] [place] [address] Chloe Hurtado CRNP [address] [place] [address] 2024 11:00 AM EST Imaging Maternal Medicine Imaging, [address] [place] [phone] 05/29/2024 11:00 AM EST Imaging Maternal Medicine Imaging, [address] [place] [phone] Health Maintenance Due Date Last Done Comments [...] filedocumented as of this encounter Care Teams Septic Tank Service Technician Relationship Specialty Start Date End Date Elina Will DO [address] [place] [address] PCP - General Family Medicine 11/09/23 documented as of this encounter
--- OUTSIDE RECORDS SUMMARY | 2024-06-25 09:28 | External Medical Summary ---
Author Name Unknown Address Unknown Organization K01:LABORATORY [facility] [place] - [address] [place] [address] Laboratory Report Ordering Provider Test Date Status CALDERON ALCARAZ 03/28/2024 16:05:34 Final Observation Date Value Abnormality Reference (Units ) Status WBC, Total 03/28/2024 16:05:34 12.70 Above high normal 4 .00-10.80 (K/uL) Final RBC 03/28/2024 16:05:34 4.18 3.85-5.15 (M/uL) Final Hemoglobin 03/28/2024 16:05:34 11.9 Below low normal 12 .0-15.3 (g/dL) Final Anemia reflex testing trigge rs on a HGB < 12.0 for Females and HGB < 13.0 for Males in accordance with the WHO Anemia Guidelines
Anemia reflex testing triggers on a HGB < 12.0 for Females and HGB < 13.0 for Males in accordance with the WHO Anemia Guidelines HCT 03/28/2024 16:05:34 36.9 36.0-45.2 (%) Final MCV 03/28/2024 16:05:34 88.3 81.5-97.5 (fL) Final MCH 03/28/2024 16:05:34 28.5 27.0-34.0 (pg) Final MCHC 03/28/2024 16:05:34 32.2 32.0-36.0 (g/dL) Final RDW 03/28/2024 16:05:34 13.1 11.5-15.5 (%) Final Platelets 03/28/2024 16:05:34 296 140-400 (K /uL) Final MPV 03/28/2024 16:05:34 11.3 6.6-11.1 ( fL) Final Nucleated erythrocytes/100 leukocytes [Ratio] in Blood by Automated count 03/28/2024 16:05:34 0 <=0 (/100 WBCs) Replaced by [facility] Performing Location LAB[facility]ATORY [facility] - [address] [facility] [address]
--- OUTSIDE RECORDS SUMMARY | 2024-06-25 09:28 | External Medical Summary ---
Author Name Unknown Address Unknown Organization K01:LABORATORY [facility] [place] - [address] [place] [address] Laboratory Report Ordering Provider Test Date Status CALDERON ALCARAZ 03/28/2024 16:05:34 Final Observation Date Value Abnormality Reference (Units ) Status Retic, % (auto) 03/28/2024 16:05:34 2.02 Above high normal 0.80-1.90 (%) Final Reticulocytes, Absolute 03/28/2024 16:05:34 84.4 31.3-100.1 (K/uL) Final Reticulocyte fraction, immature 03/28/2024 16:05:34 14.6 2.5-20.6 (%) Final Reticulocyte HGB 03/28/2024 16:05:34 32.4 29.7-37.4 (pg) Final Performing Location LABORATORY [facility] [place] - [address] [place] [address]
--- OUTSIDE RECORDS SUMMARY | 2024-06-25 09:28 | External Medical Summary ---
Author Name Unknown Address Unknown Organization K01[place] [place] [address] [place] [address] Laboratory Report Ordering Provider Test Date Status CALDERON ALCARAZ 03/28/2024 16:05:34 Final Observation Date Value Abnormality Reference (Units ) Status Treponema pallidum Ab [Presence] in Serum by Immunoassay 03/28/2024 16:05:34 Nonreactive Nonreactive Final No serologic evidence of syp hilis. No additional testing clinicially indicated at this time. Consider repeat testing in 2-4 weeks if acute or primary syphilis is suspected. Performing Location [facility] [place] [address] [place] [address]
--- OUTSIDE RECORDS SUMMARY | 2024-06-25 09:28 | External Medical Summary ---
Author Name Unknown Address Unknown Organization K01:[facility]ORATORY [facility] [place] - [address] [place] [address] Laboratory Report Ordering Provider Test Date Status CALDERON ALCARAZ 03/28/2024 16:05:34 Final Observation Date Value Abnormality Reference (Units ) Status Iron 03/28/2024 16:05:34 50 33-151 (ug/dL) Final Iron-binding capacity 03/28/2024 16:05:34 412 250-425 (ug/dL) Final Transferrin Sat % 03/28/2024 16:05:34 12 Below low normal 15-55 (%) Final Performing Location LABORATORY [facility] - [address] [place] [address]
--- OUTSIDE RECORDS SUMMARY | 2024-06-25 09:28 | External Medical Summary | Summary of Care ---
Author Name Unknown Organization [facility] Address [address] [facility] [place] [address] Phone [phone] Care Team Providers Care School Administrator Name Role Phone Elina Will DO Primary Care Provider [phone] Reason for Visit * Reason Comments Outpatient Testing Encounter Details Date Type Department Care Team (Late st Contact Info) Description 03/28/2024 4:10 PM EDT Laboratory Laboratory, [facility] [address] [facility] [place] [phone] [facility] 132 [place] [address] Supervision of high-risk , second trimester Allergies No known active allergiesdocumented as of this encounter (statuses as of 03/28/2024) Medications Medication Sig Dispensed Refills Start Date End Date Status /Folic Acid Oral Tablet Take 1 Tablet by mouth once. Active Aspirin 81 MG Oral Tablet Delayed Release Take 1 Tablet by mouth in the morning. Active [employer] Verio Flex System w/Device Kit Use to test blood sugars 4 times daily (fasting, 1 hour after breakfast, lunch, and dinner) 1 Kit 01/01/2024 Active [employer]ik[employer] Verio In Vitro Strip (Glucose Blood) Use to test blood sugars 4 times daily (fasting, 1 hour after breakfast, lunch, and dinner) 125 Strip 6 01/01/2024 Active KahuaTouch Delica Lancets 30G Use to test blood [...] on follow-up scans. We recommend alerting the second facing baster providing care of this finding if it [...] RPM reviewed; Stable overall, continue diet control 01/21/20246971-HXY-bokggm 01/28/20241240-TIT-qlrrrhik fasting blood sugars (95-98). Advised to watch diet, eat bedtime snack, and avoid fasting longer than 8 to 10 hours. Will review again next week, and if persists, will schedule for follow up ADAPT with maternal medicine nurse practitioner. 02/04/20245130-RHS-amynwh (1 elevated fasting blood sugar) 02/11/2024-RPM-4 of 7 elevated fasting blood sugars. Patient and C PARs messaged to schedule follow up ADAPT. 02/12/24: ADAPT f/u complete. FBS elevated; will start Lantus 15 units HS. 02/19/20244262-SJV-wgsuifhn fasting blood sugars. Maternal medicine nurse practitioners to review. 02/19/24: RPM reviewed; increased to Lantus 20 units at bedtime 02/25/20246430-KYD-mnmvooj stable (1 elevated post prandial lunch) 03/03/20245612-TBV-bvzfxs 03/10/20242958-HKB-csontz. Few missed readings. 03/17/20248701-PBF-pbeooi 03/24/24: RPM reviewed; Stable Last Assessment & [...] preeclamptic labs with CBC, serum AST/ALT/creatinine and ygcrbrj-qk-nxwrfzbypn ratio or 24-hour urine protein LIDIA if [...] money to get more. Never true 02/26/2024 [place] Depression Scale Answer Date Recorded [place] Depression Scale Total 0 12/07/2023 The thought [...] 11:45 AM EDT Imaging Maternal Medicine Imaging, [place] Alvarado [address] [place] [address] [place] [phone] 04/03/2024 11:45 AM EDT Office Visit [facility] Obstetrics Maternal Medicine, [place] [place] [address] [place] [address] Yaneth Cid, DO [address] [place] [address] 04/28/2024 1:45 PM EST Office Visit Gynecology/Obstetrics Jarvischris Escobars [address] [facility] [place] [address] Chloe Hurtado CRNP 132 [facility] [place] [address] 2024 11:00 AM EST Imaging Maternal Medicine Imaging, [place] Alvarado [address] [place] [phone] 05/29/2024 11:00 AM EST Imaging Maternal Medicine Imaging, [place] Alvarado [address] [place] [phone] Pending Results Name Type Priority Associated Diagnoses Date /Time SYPHILIS ANTIBODY SCREEN WITH REFLEX TO RPR Lab Routine Supervision of high-risk , second trimester 03/28/2024 4:05 PM EDT CBC WITH WBC DIFFERENTIAL AND ANEMIA REFLEX WORKUP Lab Routine Supervision of high-risk , second trimester 03/28/2024 4:05 PM EDT SYPHILIS ANTIBODY SCREEN Lab Routine Supervision of high-risk , second trimester 03/28/2024 4:05 PM EDT ANEMIA CBC Lab Routine Supervision of high-risk , second trimester 03/28/2024 4:05 PM EDT DIFFERENTIAL, AUTOMATED Lab Routine Supervision of high-risk , second trimester 03/28/2024 4:05 PM EDT ANEMIA REFLEX CHEMISTRY HOLD Lab Routine Supervision of high-risk , second trimester 03/28/2024 4:05 PM EDT Health Maintenance Due Date Last Done Comments [...] as of this encounter Visit Diagnoses Diagnosis Supervision of high-risk , second trimester documented in this encounter Care Teams School Administrator Relationship Specialty Start Date End Date Elina Will DO [address] [place] [address] PCP - General Family Medicine 11/09/23 documented as of this encounter
--- OUTSIDE RECORDS SUMMARY | 2024-06-25 09:29 | External Medical Summary | Summary of Care ---
Author Name Unknown Organization [facility] Address [address] [place] [address] Phone [phone] Care Team Providers Care Electric Lineman Name Role Phone Elina Will DO Primary Care Provider [phone] Reason for Visit * Reason Comments Outpatient Testing Encounter Details Date Type Department Care Team (Late st Contact Info) Description 02/01/2024 12:20 PM EDT Laboratory Laboratory, [facility] [address] [facility] [id number] [facility] [address] [facility] [place] [address] Supervision of high risk , antepartum Allergies No known active allergiesdocumented as of this encounter (statuses as of 02/01/2024) Medications Medication Sig Dispensed Refills Start Date End Date Status /Folic Acid Oral Tablet Take 1 Tablet by mouth once. Active Aspirin 81 MG Oral Tablet Delayed Release Take 1 Tablet by mouth in the morning. Active What's Trending Verio Flex System w/Device Kit Use to test blood sugars 4 times daily (fasting, 1 hour after breakfast, lunch, and dinner) 1 Kit 01/01/2024 Active [employer] Verio In Vitro Strip (Glucose Blood) Use to test blood sugars 4 times daily (fasting, 1 hour after breakfast, lunch, and dinner) 125 Strip 6 01/01/2024 Active Cosmos[employer] Delica Lancets 30G Use to test blood sugars 4 times daily (fasting, 1 hour after breakfast, lunch, and dinner) 200 Each 6 01/01/2024 Active documented as of this encounter (statuses as of 02/01/2024) Active Problems Problem Noted Date Diagnosed Date GDM (gestational diabetes mellitus) 01/03/2024 Overview: Diagnosed at 13 weeks Nutrition [...] RPM reviewed; Stable overall, continue diet control 01/21/20242389-ZUW-mpryuq 01/28/20249984-DDP-jbxnpxoa fasting blood sugars (95-98). Advised to watch diet, eat bedtime snack, and avoid fasting longer than 8 to 10 hours. Will review again next week, and if persists, will schedule for follow up [facility] with maternal medicine nurse practitioner. Last Assessment & Plan: Working with [facility]. [...] 01/04/2024 12:14 PM Last Assessment & Plan: CONSIDERATIONS: Discussed obstetrical risks associated with class [...] preeclamptic labs with CBC, serum AST/ALT/creatinine and txpfpgd-ay-xdtcctfrax ratio or 24-hour urine protein LIDIA if not already done. For patients with Class 3 obesity, we recommend weekly surveillance starting at 34 weeks and delivery by EDC. Recommend anesthesia consult during the antepartum period. Health counseling 12/07/2023 Overview: Problem Action Taken Date entered Entered by Date resolved Current needs or questions Patient denies having any current needs or questions 12/07/2023 Susannah Leal RN 12/07/2023 Problem Action Taken Date entered Entered by Date resolved Current needs or questions Patient denies having any current needs or questions 01/04/2024 Susannah Leal RN 01/04/2024 Supervision of high risk , antepartum 0 12/07/2023 Class 3 severe obesity due t [...] preeclamptic labs with CBC, serum AST/ALT/creatinine and iuhwvzb-xx-twwantwgyx ratio or 24-hour urine protein LIDIA if [...] as of this encounter (statuses as of 02/01/2024) Resolved Problems Problem Noted Date Diagnosed Date Resolved Date with 12 completed weeks gestation 12/17/2023 02/01/2024 documented as of this encounter (statuses as of 02/01/2024) Social History Tobacco Use Types Packs/Day Years Used Date Smoking Tobacco: Never Smokeless Tobacco: Never Alcohol Use Standard Drinks/Week Comments Not Currently 0 (1 standard drink = 0.6 oz pur e alcohol) Hunger Vital Sign Answer Date Recorded Within the past 12 months, y ou worried that your food would run out before you got the money to buy more. Never true 02/01/20 24 Within the past 12 months, t he food you bought just didn't last and you didn't have money to get more. Never true 02/01/2024 Montreal Depression Scale Answer Date Recorded Montreal Depression Scale Total 0 12/07/2023 The thought of harming myself has occurred to me . Never 12/07/2023 Childcare Answer Date Recorded Do you feel overwhelmed with taking care of a child, family member or friend? No 02/01/2024 Does your family need help f inding childcare? (Household - for ages 0-17 years) Not on file 02/01/2024 Clothing Answer Date Recorded Have you been unable to get clothing when it was really needed? No 02/01/2024 Is your family able to get c lothes or diapers when needed? (Household - for ages 0-17 years) Not on file 02/01/2024 Personal Safety Answer Date Recorded Do you feel unsafe or have concerns for your saf ety? No 02/01/2024 Do you have concerns for you r family's safety? (Household - for ages 0-17 years) Not on file 02/01/2024 Utilities Answer Date Recorded Do you have trouble paying y our heating, water, or electric bill? No 02/01/2024 Is your family able to pay t he heat, water, or electric bill? (Household - for ages 0-17 years) Not on file 02/01/2024 Does your family have access to good internet? (Household - for ages 0-17 years) Not on file 02/01/2024 Employment Status Answer Date Recorded Are you unemployed or without regular income? No 02/01/2024 Does the household have a re lar source of income? (Household - for ages 0-17 years) Not on file 02/01/2024 Social Connections Answer Date Recorded How often do you feel lonely or isolated from th ose around you? Never 02/01/2024 Financial Resource Strain Answer Date R ecorded Do you have any trouble payi ng for your medications, or do you think you might in the future? No 02/01/2024 Does your family have troubl e paying for medicine? (Household - for ages 0-17 years) Not on file 02/01/2024 Transportation Needs Answer Date Record ed READ ONLY Do you have troubl e getting a ride to medical visits or work? Never True 02/01/2024 Does your family have a hard time getting a ride to doctors visits? (Household - for ages 0-17 years) Not on file 02/01/2024 Has lack of transportation k ept you from medical appointments, meetings, work, or from getting things needed for daily living? Check all that apply. No 02/01/2024 Do you (or your family) have trouble finding or paying for a ride (transportation)? (Household - for ages 0-17 years) Not on file 02/01/2024 Housing Stability Answer Date Recorded Do you currently live in a s helter or have no steady place to sleep at night? No 02/01/2024 READ ONLY Do you think you a re at risk of becoming homeless? No 02/01/2024 Does your family worry about paying for your home or becoming homeless? (Household - for ages 0-17 years) Not on file 0 02/01/2024 Are you homeless or worried that you might be in the future? No 02/01/2024 Are you (or your family) beatrice eless or worried that you might be in the future? (Household - for ages 0-17 years) Not on file Food Insecurity Answer Date Recorded Do you need food for this week? No 02/01/2024 Are you able to get enough f ood for your family? (Household - for ages 0-17 years) Not on file 02/01/2024 Does your family need food t his week? (Household - for ages 0-17 years) Not on file 02/01/2024 Do you always have enough fo od for your family? (Household - for ages 0-17 years) Not on file 02/01/2024 Estimated Date of Delivery Comme nts Yes [...] Care Team (Late st Contact Info) Description 02/11/2024 12:45 PM EDT Office Visit Customer Solutions [facility] [address] [place] [address] Isiah Yee MD [address] [place] [address] 02/11/2024 12:45 PM EDT Imaging Radiology [facility] [address] [facility] [place] [address] 02/28/2024 10:00 AM EDT Telemedicine Nutrition, Lakia Alvarado [address] [place] [address] Alysha Eckert, RDN [address] [place] [address] 02/29/2024 11:15 AM EDT Office Visit Gynecology/Obstetrics Jumana Alvarado [address] [place] [address] Ruth Busby PA-C [address] [place] [address] Nurse [facility] [place] [address] [place] [id number] Pending Results Name Type Priority Associated Diagnoses Date /Time MATERNAL SERUM AFP Lab Routine Supervision of high risk , antepartum 02/01/2024 12:14 PM EDT Health Maintenance Due Date Last Done Comments Depression Screening 2003 DTaP,Tdap,and Td Vaccines (1 - Tdap) 2010 Hepatitis B Vaccine (1 of 3 - 19+ 3-dose series) 2010 COVID-19 Vaccine (1 - 2022-2 4 season) 2023 Influenza Vaccine (FLU shot) (#1) 2024 GFR 12/06/2024 12/07/2023, 08/11/2023, 06/27/2023 Pap Smear 12/06/2026 12/07/2023 Cervical Cancer Screening 12/06/2028 HPV/Co-Test 12/06/2028 12/07/2023 HPV (Gardasil) Vaccine Aged Out No lo [...] this encounter Visit Diagnoses Diagnosis Supervision of high risk , antepartum documented in this encounter Care Teams Electric Lineman Relationship Specialty Start Date End Date Elina Will DO [address] [place] [address] PCP - General Family Medicine 11/09/23 documented as of this encounter
--- OUTSIDE RECORDS SUMMARY | 2024-06-25 09:29 | External Medical Summary | Summary of Care ---
Author Name Unknown Organization [facility] Address [address] [place] [address] Phone [phone] Care Team Providers Care Mental Health Clinician Name Role Phone Elina Will DO Primary Care Provider [phone] Reason for Visit * Reason Comments and diabetes ADAPT follow-up Encounter Details Date Type Department Care Team ([facility] st Contact Info) Description 02/12/2024 2:30 PM EDT Telemedicine [facility] Obstetric MFM [facility] [address] [place] [address] Ami Coles CRNP [address] [place] [address] Insulin controlled gestational diabetes mellitus (GDM) in second trimester*; Supervision of high-risk , second trimester Allergies No known active allergiesdocumented as of this encounter (statuses as of 02/12/2024) Medications Medication Sig Dispensed Refills Start Date End Date Status /Folic Acid Oral Tablet Take 1 Tablet by mouth once. Active Aspirin 81 MG Oral Tablet Delayed Release Take 1 Tablet by mouth in the morning. Active [employer] Verio Flex System w/Device Kit Use to test blood sugars 4 times daily (fasting, 1 hour after breakfast, lunch, and dinner) 1 Kit 01/01/2024 Active [employer] Verio In Vitro Strip (Glucose Blood) Use to test blood sugars 4 times daily (fasting, 1 hour after breakfast, lunch, and dinner) 125 Strip 6 01/01/2024 Active [employer] Delica Lancets 30G Use to test blood sugars 4 times daily (fasting, 1 hour after breakfast, lunch, and dinner) 200 Each 6 01/01/2024 Active Insulin Glargine Solostar 100 UNIT/ML Subcutaneous Solution Pen-injector (Lantus SoloStar) Inject 15 Units under the skin at bedtime. 15 mL 3 02/12/2024 Active Insulin Pen Needle 31G X 8 MM Use to inject insulin nightly as directed. 100 Each 3 02/12/2024 Active documented as of this encounter (statuses as of 02/12/2024) Active Problems Problem Noted Date Diagnosed Date Insulin controlled gestation al diabetes mellitus (GDM) [...] RPM reviewed; Stable overall, continue diet control 01/21/20245498-BFL-jnqreg 01/28/20242708-MRQ-krxuusxj fasting blood sugars (95-98). Advised to watch diet, eat bedtime snack, and avoid fasting longer than 8 to 10 hours. Will review again next week, and if persists, will schedule for follow up ADAPT with maternal medicine nurse practitioner. 02/04/20244675-LKG-wwdspr (1 elevated fasting blood sugar) 02/11/2024-RPM-4 of 7 elevated fasting blood sugars. Patient and [facility] PARs messaged to schedule follow up ADAPT. 02/12/24: ADAPT f/u complete. FBS elevated; will start Lantus 15 units HS. Last Assessment & Plan: The patient states that her blood sugars [...] placed on medication for blood sugar control. History of gestational hypertension 12/14/2023 Overview: 11/2021: [...] preeclamptic labs with CBC, serum AST/ALT/creatinine and dkceuxu-oq-utcncdzowo ratio or 24-hour urine protein LIDIA if [...] as of this encounter (statuses as of 02/12/2024) Resolved Problems Problem Noted Date Diagnosed Date Resolved Date with 12 completed weeks gestation 12/17/2023 02/01/2024 documented as of this encounter (statuses as of 02/12/2024) Social History Tobacco Use Types Packs/Day Years [...] money to get more. Never true 02/01/2024 Palmer Depression Scale Answer Date Recorded Palmer Depression Scale Total 0 12/07/2023 The thought [...] 02/01/2024 Does the household have a re gular [...] as of this encounter Progress Notes * Ami Coles CRNP - 02/12/2024 2:38 PM EDT Images from the original note were not included. MATERNAL MEDICINE VISIT Patient location: HOME. I was not in a hospital or clinic location. After connecting through [email or web address], patient was verified with two unique identifiers. Patient (or authorized legal account retention representative) was then informed that this was a Telemedicine visit and being conducted confidentially over secure lines. Methods to assure confidentiality were taken. Patient acknowledged consent and understanding of privacy and security of the Telemedicine visit. The patient agreed to participate. Sandra Garrido is a 33 year old year old with intrauterine at 20w2d who presents to [facility] for management of diabetes in . CC/HPI: Here for f/u visit. Current issues include: elevated fasting blood sugars Current management: Diet Diet: gestational diabetes diet Exercise: occasional, walking Hypoglycemia episodes:N/A Recent scan (anatomy): [facility] US: 02/10 at 20w1d DONNIE: WNL EFW: 391 g (81 % Hadlock) Glucose review: Hemoglobin A1C last 3 results: Lab Results Component Value Date/Time HEMOGLOBIN A1C - EKTAER 5.5 01/04/2024 12:14 PM She reports her home blood glucose as following: REVIEW OF SYSTEMS: headaches: no nausea/vomiting: denies reports movement: yes abdominal pain/tenderness/cramping/contractions: no vaginal bleeding: no vaginal leaking of fluid: no all other systems negative PHYSICAL EXAM: LMP 09/23/2023 (Exact Date) Constitutional: pleasant, well-developed, well nourished General: pleasant, alert and oriented Neuro: mood and affect normal, alert and oriented, no acute distress DISCUSSION: We discussed continuing to test blood sugars 4 times a day (fasting, one hour after breakfast, lunch, and dinner) 2. Briefly reviewed GDM diet recommendations including, avoiding processed suagars, sweetened drinks, white flour. Recommend Counting carbohydrates - Breakfast: 45 grams carbohydrate, Snack: 15-20 grams carbohydrate, Lunch: 45 grams carbohydrate, Afternoon Snack: 15-20 grams carbohydrate, Dinner: 45 grams carbohydrate, bedtime snack 20-30 grams carbohydrate. Advised to have protein with every meal and snack, 70 grams total daily. Advised compliance with Collision Repair Technician consult. 3. We discussed the sign and symptoms of hypoglycemia (low blood sugar which is <70) and how to respond. If this should happen, we recommend the Rule of 15: 1) Test blood sugar. 2) Eat 15 grams of carbohydrate (choose one) --3 glucose tablets --4-6 oz of juice --8 oz of skim or low-fat milk --6 saltines 3) Wait 15 minutes. 4) Retest blood glucose. 5) If blood glucose less than 80 mg/dl, repeat above steps. 4. We discussed eating a snack to help with sugar control in the fasting timeframe. 5. Encouraged 20-30 minutes a day of exercise (walking, light upper body strength training, yoga, stationary cycling, or swimming) 6. We discussed the predisposing factors for gestational diabetes including ethnic background, family history, maternal body mass index, and use of some medications. We discussed that placental hormones often cause a woman who is not diabetic but has predisposing factors before to exhibitinsulin resistance and gestational diabetes during 7. We discussed the goal of euglycemia in order to create a stable environment for the fetus. She is aware that with diabetes are at increased risk for multiple complications to both mother and fetus 8. I encouraged the patient to reach out to MFM in the event that she has any questions regarding diabetes management. 9. Reviewed insulin administration instruction. I advised her on appropriate technique for administration and she verbalized understanding. RECOMMENDATIONS: Management: Start Lantus 15 units at bedtime. Scheduled on 03/06 with M for growth scan Recommend twice weekly NSTs starting at 32 weeks for A2GDM Recommend delivery during the 39th week of by EDC for A2GDM Follow up for glucose management in 1 week via [facility]. Follow up as needed via telemedicine for ADAPT (Advanced Diabetes And Team). Thank you for allowing us to participate in the care of this patient. Please call with any questions. LINDA Steinberg 02/12/2024 2:54 PM documented in this encounter Miscellaneous Notes * Pt Handout (on AVS) - Ami Coles CRNP - 02/12/2024 3:01 PM EDT Images from the original note were not included. Lantus Solostar Pen: How to Inject a Dose - Video Let's take a minute to talk about how to use your Lantus SoloStar insulin pen. You will need clean hands, alcohol swabs, and a compatible needle, like BD Ultra-Fine pen needles. You will also need anapproved "sharps container". To dispose of the needles. To view the video go to this web address: https://bit.ly/3HaXFMJ Or, scan this QR code with your smart phone 2023 [place] / [employer] All Rights Reserved. * Pt Handout (on AVS) - Ami Coles CRNP - 02/12/2024 3:01 PM EDT Images from the original note were not included. [address]92 Insulin: How to Use and Where to Inject You give yourself insulin as a shot (injection). It's injected in the fatty layer under the skin (subcutaneous). Some people use an implanted device called an insulin pump. Others inject insulin using prefilled pens. Your healthcare team will teach you how to use insulin. Make sure you follow all instructions about when and where you use it. Where to inject your insulin Insulin is most often injected in belly (abdominal) fat. That's where it's absorbed fastest. Change the injection site each time you give yourself insulin. This helps prevent problems. Plan out how you'll move from site to site. Leave at least 2 inches around your belly button (navel). Ask your healthcare provider to teach you about rotating your injection site. This will help prevent a bump from forming under the skin from using the same spot. Also ask how to prevent injecting it into the muscle. Injecting into the muscle or into the bump can lead to incorrect insulin absorption. Injection sites in adults include the belly (abdomen), front of thighs, back of upper arms and upper buttocks. When to inject your insulin Follow your healthcare provider's instructions about when to give yourself insulin. It's very important to time your insulin shots with meals or snacks. Think about using the same part of the body for injecting insulin at the same time each day. For instance, you could always useyour abdomen for morning injections and your legs for afternoon injections. Getting ready to inject insulin from a bottle Wash your hands. Use soap and clean, running water. Check the expiration date on the insulin. Don't use insulin. Look at the insulin. Clear insulin shouldn't be discolored or have crystals. Cloudy insulin shouldn't have clumps or crystals stuck to the side of the vial or pen. Let the insulin bottle reach room temperature before injecting. Wipe the top of the insulin bottle (vial) with alcohol. Single-dose prep 1. Pull back the plunger until the end of the plunger is even with the number of units of insulin you take. Always read the number of units of insulin at your eye level. 2. Put the needle into the top of the bottle. Then push the plunger in all the way. This pushes airinto the insulin bottle. 3. Turn the bottle and syringe upside down. The bottle will be on top. 4. Hold the needle and bottle straight up and down. Check that the needle is in the insulin. 5. Pull back on the plunger until the end of the plunger is even with the number of units of insulin you take. 6. Remove the needle. Then tap the syringe with a fingertip to remove any air bubbles. Mixed-dose prep Important: Some insulins shouldn't be mixed. Always check with your healthcare provider before mixing insulin. 1. Before you start, add up the 2 insulin doses. This is so that you will know the total of the 2 doses. For instance, you need 6 units of regular (clear) insulin and 7 units of NPH (cloudy). Your total will be 13 units. 2. Pull back the plunger until the end of the plunger is even with the number of units of insulin you take. Always read the number of units of insulin at your eye level. 3. Put the needle into the top of the bottle. Then push the plunger in all the way. This pushes airinto the insulin bottle. 4. If you use both regular and NPH insulin in a single syringe, carefully remove the needle from the first bottle. Repeat the above steps for the second bottle. 5. With both bottles prefilled with air, you're now ready to draw up the insulin. Always draw up regular (clear) insulin before NPH (cloudy). Put the needle in the bottle of regular (clear) insulin. 6. Turn the bottle and syringe upside down. The bottle will be on top. 7. Hold the needle and bottle straight up and down. Check that the needle is in the insulin. 8. Pull back on the plunger until the end of the plunger is even with the number of units of regular insulin you take. 9. Remove the needle from the regular (clear) insulin. Insert it into the NPH (cloudy) insulin bottle. Be careful not to push on the plunger. 10. Turn the bottle and syringe upside down. The bottle will be on top. 11. Hold the needle and bottle straight up and down. Check that the needle is in the insulin. 12. Pull back on the plunger until the end of the plunger is even with the total number of units you're taking. This number is the total of the 2 insulin doses together as shown in step 1 above. 13. Remove the needle. Then tap the syringe with a fingertip to remove any air bubbles. Injecting the insulin Wash your hands with clean, running water and soap for 20 seconds. Gently pinch up about 1 inch of skin. Don't squeeze the skin. Pinching up the skin may not be needed for certain body types or if you're using a shorter needle. Ask your healthcare provider if youshould pinch up your skin for the injection. Put the needle straight into the skin, at a right (90-degree) angle. A 45- degree angle may be better for very thin people and children. Ask your provider which angle is best for you. Push in the plunger. Press until the syringe is empty. Let go of the skin. Then remove the needle. Don?t rub the site after you remove the needle. Wash your hands again when you're done. Getting rid of the syringe Put the needle and syringe in a sharps container. Don?t recap the needle. You can buy a sharps container at a pharmacy or medical supply store. Or you can also use an empty laundry detergent bottle or any other puncture-proof container and lid. When the sharps container is full, put it into a garbage bag and secure the top. Label the bag ?needles? or ?sharps.? Call your local [employer] company to ask about removing the sharps container. You can also check with the [employer] for Safe Community Needle Disposal at www.safeneedledisposal.org or 163-813-6806. Storing your insulin Keep unopened insulin bottles in the refrigerator. An open bottle can be stored at room temperature, such as on the kitchen counter. But don?t let the insulin get too hot. Always keep it below 86F (30C). And never let it freeze. Always use insulin before the expiration date on the bottle. Throw bottles away. Use insulin within 28 days of opening the bottle. After 28 days, throw it away. To remember, write the date you opened it on the bottle. When you travel, take all of your diabetes supplies. Put them in a bag made to protect insulin from heat and cold. Always keep them with you. Then you'll have what you need if there's a delay or your suitcase is lost. Never leave insulin in the car. It can get too hot or too cold. Last Reviewed Date: 03/18/202319999845-1469 [employer]. All rights reserved. This information is not intended as a substitute for professional medical care. Always follow your healthcare professional's instructions. * Pt Handout (on AVS) - Ami Coles CRNP - 02/12/2024 3:01 PM EDT Images from the original note were not included. 21352 If You Need Extra Insulin During During , your body may not be able to make enough insulin to control your blood sugar. If this happens, you may need extra insulin. This will help control your blood sugar. In some cases, anoral antidiabetic medicine may be used. An example of this is glyburide. But insulin is used most often. Insulin is a natural substance. It is not addictive. It does not harm your baby. It does not cross the placenta. That means it does not affect your baby the way taking a pill would. If you did not have diabetes before , you will likely stop taking insulin after your baby is born. Learning to use insulin Your healthcare provider will prescribe your insulin. They will teach you how to give yourself a shot. With practice, you?ll get comfortable doing it. You will need to inject it 1 or more times a day. Insulin is injected into fatty tissue. The best site for a shot of insulin is in your belly area. But you can also do the shot in your upper arm or thigh. Talk with your healthcare provider about where to give the shot. Here are some steps to follow: Choose an injection site. Clean it with alcohol if the skin is dirty. Pinch a fold of skin. Insert the needle at a steep angle. The best angle will depend on your body type, the length of the needle, and where you put the shot. Your healthcare provider will help youfind the best angle. Keeping the skin pinched, push the plunger down. This injects the insulin. Release the pinched skin. Remove the needle from your skin. If you see blood or insulin leaking from your skin, press firmly on the site for 5 to 8 seconds. Don?t rub your skin in the area. [place] and syringes should be used only 1 time. After using, throw them away in a puncture-proof container. This is known as a sharps container. Don?t throw needles in your household trash. Talk to your healthcare provider if you have any questions or concerns about taking insulin. The best site for injecting insulin is your abdomen. But you can also inject into an upper arm or thigh. Talk with your health care provider about where to give yourself a shot. Finding the right dose for you Your healthcare provider will work with you to find the right dose of insulin for you. It may take time. This is because you need to balance your insulin with your food and exercise. And your body needs more insulin as your baby grows. You must check your blood sugar several times a day. This is to be sure your insulin is working. Ifyour blood sugar is too high or too low, your healthcare provider will adjust your dose. Low blood sugar Taking insulin puts you at risk of low blood sugar. Symptoms of low blood sugar include: Shakiness Dizziness Weakness Confusion If you feel any of these symptoms, check your blood sugar right away. Always treat low blood sugar quickly. To do this, eat 15 grams of fast-acting sugar, such as: 3 glucose tablets 5 to 6 pieces of hard candy 1 to 2 tablespoons of honey or sugar cup fruit juice or regular, nondiet soda 1 cup fat-free milk Then check your blood sugar again in 15 minutes. If your blood sugar is still low, eat another 15 grams of sugar. If your blood sugar does not return to the target range in 30 minutes, call your healthcare provider. Last Reviewed Date: 05/18/202219994516-2500 [employer]. All rights reserved. This information is not intended as a substitute for professional medical care. Always follow your healthcare professional's instructions. * Pt Handout (on AVS) - Ami Coles CRNP - 02/12/2024 3:01 PM EDT Images from the original note were not included. 54697 Low Blood Sugar (Hypoglycemia) Low blood sugar (hypoglycemia) means you don?t have enough sugar (glucose) in your bloodstream to help your body work. This may be a level of sugar lower than 70 mg/dL. But talk with your healthcare provider about your own target range. Ask what level is too low for you. Diabetes doesn?t cause low blood sugar. But some treatments for diabetes may raise the risk for it.These include oral medicines or insulin. Skipping or delaying meals can also increase your risk forhypoglycemia. In severe cases, low blood sugar may make you pass out or have a seizure. This is a medical emergency. So always treat low blood sugar right away as noted below. This is to prevent moreserious problems. Safety note Always carry a source of fast-acting sugar and a snack in case you have low blood sugar. Examples include: 4 glucose tablets 1 tube of glucose gel 1 packet of sugar or honey 2 tablespoons of raisins Symptoms of low blood sugar If you have low blood sugar, you may have 1 or more of these symptoms: Shakiness Dizziness Cold, clammy skin or sweating Hunger Headache Nervous feeling A hard, fast heartbeat Weakness Confusion or irritability Trouble seeing or talking Having nightmares or waking up confused or sweating Numbness or tingling in the lips or tongue What to do If you think you have low blood sugar: 1. Check your sugar. First, check your blood sugar. If it's too low (out of your target range), eator drink 15 to 20 grams of fast-acting sugar. This may be 3 to 4 glucose tablets, or 4 ounces (halfa cup) of fruit juice or regular (not diet) soda, or 1 tablespoon of honey. Don?t take more than this. If you do, your blood sugar may go too high. 2. Don?t have protein. Don't eat or drink things high in protein to treat low blood sugar. This includes milk, nuts, and meat. Protein may increase your insulin response. It may lower your blood sugar even more. 3. Check again. Wait 15 minutes. Then recheck your blood sugar if you can. If your blood sugar is still too low, repeat the steps above until your blood sugar is back to normal. 4. Eat a snack. When your blood sugar is back at target range, eat a snack or meal. 5. Get help if needed. If you still don?t feel well and your blood sugar is still low, have someonedrive you to the emergency room. Preventing low blood sugar Things you can do include the below: If your diabetes needs a strict treatment plan, eat meals and snacks at the same times each day.Don?t skip meals. If you have trouble paying for food, talk with your healthcare team for help. If your treatment plan lets you change when and what you eat, learn how to change the time and dose of your rapid-acting insulin to match. Ask your healthcare provider if it's safe to drink alcohol. But never drink on an empty stomach.Alcohol may keep you from feeling the first symptoms of low blood sugar. Take your medicine at the prescribed times. Always carry a source of fast-acting sugar and a snack when you?re away from home. If you have had repeated low blood sugar episodes: You may not notice the symptoms of low blood sugar until it gets to a dangerous level. Work withyour provider for the best ways to safely manage your blood sugar. Ask your healthcare provider if you can take less or different medicine. Many newer types of diabetes medicines have less risk of low blood sugar. Talk with your provider about a continuous glucose monitor. This is a device that tracks your blood sugar. Ask your provider if you should be prescribed a medicine called glucagon. Glucagon is a hormone that quickly raises blood sugar. It can reverse serious symptoms. It is available as an injection oras a powder that's put into the nose. Ask your healthcare provider which type of glucagon is best for you and how to use it. Other safety tips Make sure to: Carry a medical ID card or wear a medical alert bracelet or necklace. It should say that you have diabetes. It should say what to do if you pass out or have a seizure. Teach your family, friends, and coworkers the signs of low blood sugar. Tell them what to do if your blood sugar falls very low and you can?t treat yourself. Keep a glucagon emergency kit handy. Show your family, friends, and coworkers how and when to use it. Check it often. Replace the glucagon before it expires. Talk with your healthcare team about other things you can do to prevent low blood sugar. These include using new ways of continuous glucose tracking. Important If you have unexplained low blood sugar or have it several times, call your healthcare provider. Last Reviewed Date: 02/16/202319996337-6452 [employer]. All rights reserved. This information is not intended as a substitute for professional medical care. Always follow your healthcare professional's instructions. documented in this encounter Plan of Treatment Upcoming Encounters Date Type Department Care Team (Late st Contact Info) Description 02/28/2024 10:00 AM EDT Telemedicine [facility] [address] [place] [id number] Alysha Eckert RDN [address] [place] [id number] 02/29/2024 11:15 AM EDT Office Visit Gynecology/Obstetrics Jumana Alvarado [address] [place] [address] Ruth Busby PA-C [address] [place] [address] Nurse [facility] Return [place] [address] 03/06/2024 11:45 AM EDT Imaging Maternal Medicine Imaging, [place] [address] 04/03/2024 11:45 AM EDT Imaging Maternal Medicine Imaging, [place] Escobars [address] [place] [address] 2024 11:00 AM EST Imaging Maternal Medicine Imaging, [place] [address] 05/29/2024 11:00 AM EST Imaging Maternal Medicine Imaging, Lakiachris Escoabrs [address] [place] [address] Health Maintenance Due Date Last Done Comments Depression Screening 2003 DTap/Tdap Vaccines (1 - Tdap) 2010 Hepatitis B Vaccine (1 of 3 - 19+ 3-dose series) 2010 COVID-19 Vaccine ( - 2022-2 4 season) 2023 Influenza Vaccine [...] as of this encounter Visit Diagnoses Diagnosis Insulin controlled gestational diabetes mellitus (GDM) in second trimester- Primary Supervision of high-risk , second trimester documented in this encounter Care Teams Mental Health Clinician Relationship Specialty Start Date End Date Elina Will DO [address] [place] [address] PCP - General Family Medicine 5/24/24 documented as of this encounter
--- OUTSIDE RECORDS SUMMARY | 2024-06-25 09:29 | External Medical Summary | Summary of Care ---
Author Name Unknown Organization [facility] Address [address] [place] [address] Phone [phone] Care Team Providers Care Glass Bender Name Role Phone Elina Will DO Primary Care Provider [phone] Encounter Details Date Type Department Care Team (Late st Contact Info) Description 03/06/2024 11:45 AM EDT Office Visit [facility] Obstetrics Maternal Medicine, [address] [place] [address] Ger Cuellar DO [address], [place] [id number] Insulin controlled gestational diabetes mellitus (GDM) in second trimester*; Obesity in , antepartum; Chronic hypertension affecting ; Hx of section; Pyelectasis of fetus on ultrasound Allergies No known active allergiesdocumented as of this encounter (statuses as of 03/07/2024) Medications Medication Sig Dispensed Refills Start Date End Date Status /Folic Acid Oral Tablet Take 1 Tablet by mouth once. Active Aspirin 81 MG Oral Tablet Delayed Release Take 1 Tablet by mouth in the morning. Active SimpleGeo Flex System w/Device Kit Use to test blood sugars 4 times daily (fasting, 1 hour after breakfast, lunch, and dinner) 1 Kit 01/01/2024 Active Sakhr Softwareio In Vitro Strip (Glucose Blood) Use to test blood sugars 4 times daily (fasting, 1 hour after breakfast, lunch, and dinner) 125 Strip 6 01/01/2024 Active SavvyCardToLiztic Delica Lancets 30G Use to test blood [...] at bedtime. 15 mL 3 02/19/2024 Active documented as of this encounter (statuses as of 03/07/2024) Active Problems Problem Noted Date Diagnosed Date [...] on follow-up scans. We recommend alerting the conservation officer providing care of this finding if it [...] RPM reviewed; Stable overall, continue diet control 01/21/20243700-XKD-roankl 01/28/20245956-RCP-xfmsswaj fasting blood sugars (95-98). Advised to watch diet, eat bedtime snack, and avoid fasting longer than 8 to 10 hours. Will review again next week, and if persists, will schedule for follow up ADAPT with maternal medicine nurse practitioner. 02/04/20248595-WKF-pfgxoi (1 elevated fasting blood sugar) 02/11/2024-RPM-4 of 7 elevated fasting blood sugars. Patient and C PARs messaged to schedule follow up ADAPT. 02/12/24: ADAPT f/u complete. FBS elevated; will start Lantus 15 units HS. 02/19/20246220-LAA-sakudboo fasting blood sugars. Maternal medicine nurse practitioners to review. 02/19/24: RPM reviewed; increased to Lantus 20 units at bedtime 02/25/20244086-FLF-vcedscx stable (1 elevated post prandial lunch) 03/03/20242975-SXZ-wqrcry Last Assessment & Plan: She presents for [...] preeclamptic labs with CBC, serum AST/ALT/creatinine and ofclerw-cp-ehvetkiqmf ratio or 24-hour urine protein LIDIA if [...] as of this encounter (statuses as of 03/07/2024) Resolved Problems Problem Noted Date Diagnosed Date Resolved Date with 12 completed weeks gestation 12/17/2023 02/01/2024 documented as of this encounter (statuses as of 03/07/2024) Social History Tobacco Use Types Packs/Day Years [...] money to get more. Never true 02/26/2024 Burnett Depression Scale Answer Date Recorded Burnett Depression Scale Total 0 12/07/2023 The thought [...] as of this encounter Progress Notes * Ger Cuellar, DO - 03/06/2024 12:59 PM EDT MATERNAL MEDICINE VISIT Sandra Garrido is at 23w4d who presents to [facility] for an ultrasound and follow- up of her high risk . Patient location: CLINIC. I was in a different facility from the patient. After connecting through [employer], patient was verified with two unique identifiers. Patient (or authorized legal telephone services sales representative) was then informed that this was a Telemedicine visit and being conducted confidentially over secure lines. My office door was closed. No one else was in the room with me. Patient acknowledged consent and understanding of privacy and security of the Telemedicine visit, and gave permission to have a telemedicine presenter stay in the room in order to assist with the history and to conduct the exam as needed. I informed the patient that I have reviewed their record in [employer] and presented the opportunity for them to ask any questions regarding the visit today. The patient agreed to participate. PHYSICAL EXAM: General: pleasant, alert and oriented, no acute distress She is being seen today by Maternal- Medicine for the following reasons: Problem List Items Addressed This Visit Chronic hypertension affecting Hx of section Obesity in , antepartum Insulin controlled gestational diabetes mellitus (GDM) in second trimester - Primary She presents for follow-up of growth secondary to GDMA2 and class 3 obesity. She has a history of gestational hypertension and a history of previous . Today's ultrasound notes the following: The estimated weight is appropriate for gestational age in the 68th percentile. Mild left urinary tract dilation is noted (5.6 mm). The remainder of the visualized anatomy is unremarkable in appearance. The DONNIE is normal. Pyelectasis of fetus on ultrasound CONSIDERATIONS: urinary tract dilation is found in [...] on follow-up scans. We recommend alerting the conservation officer providing care of this finding if it persists into the 3rd trimester. We reviewed today's ultrasound findings. (For full report, please refer to ultrasound report provided separately). Ms. Garrido's questions were answered to her satisfaction. RECOMMENDATIONS: Recommend surveillance starting at 32 weeks secondary to GDMA2. Recommend follow up ultrasound with MFM in 4 weeks for growth. Recommend delivery at 39 weeks gestation. Thank you for allowing us to participate in the care of this patient. Please call with any questions. Ger Cuellar DO 03/06/2024 12:59 PM documented in this encounter Miscellaneous Notes * Assessment & Plan Note - Ger Cuellar DO - 03/06/2024 12:59 PM EDT Associated Problem(s): Pyelectasis of fetus on ultrasound CONSIDERATIONS: urinary tract dilation is found in [...] on follow-up scans. We recommend alerting the conservation officer providing care of this finding if it persists into the 3rd trimester. * Assessment & Plan Note - Ger Cuellar DO - 03/06/2024 12:34 PM EDT Associated Problem(s): Insulin controlled gestational diabetes mellitus (GDM) in second trimester She presents for follow-up of growth secondary to GDMA2 and class 3 obesity. She has a history of gestational hypertension and a history of previous . Today's ultrasound notes the following: The estimated weight is appropriate for gestational age in the 68th percentile. Mild left urinary tract dilation is noted (5.6 mm). The remainder of the visualized anatomy is unremarkable in appearance. The DONNIE is normal. documented in this encounter Plan of Treatment Upcoming Encounters Date Type Department Care Team (Late st Contact Info) Description 03/28/2024 3:30 PM EDT Office Visit Gynecology/Obstetrics [place] [address] Elina Haddad PA-C [address] [place] [address] [place] [address] Nurse [facility] [place] [address] 04/03/2024 11:45 AM EDT [place] [address] 2024 11:00 AM EST [place] [address] 05/29/2024 11:00 AM EST [place] [address] Health Maintenance Due Date Last Done Comments Depression Screening 2003 DTap/Tdap Vaccines (1 - Tdap) 2010 Hepatitis B Vaccine (1 of 3 - 19+ 3-dose series) 2010 COVID-19 Vaccine (1 - 2023-2 5 season) 2024 Influenza Vaccine (FLU shot) [...] screening documented in this encounter Care Teams Glass Bender Relationship Specialty Start Date End Date Elina Will DO [address] [place] [address] PCP - General Family Medicine 11/09/23 documented as of this encounter
--- OUTSIDE RECORDS SUMMARY | 2024-06-25 09:29 | External Medical Summary | Summary of Care ---
Author Name Unknown Organization [facility] Address [address] [facility] [place] [address] Phone [phone] Care Team Providers Care Mill Operator Name Role Phone Elina Will DO Primary Care Provider [phone] Reason for Visit * Reason Comments Return Visit Encounter Details Date Type Department Care Team (Late st Contact Info) Description 02/29/2024 2:00 PM EDT Office Visit Gynecology/Obstetri sruthi Alvarado [address] [place] [address] Hesham Fontenot MD [address] [place] [address] Nurse Christiano [facility] Beginnings Return [place] [address] [place] [address] Supervision of high-risk , second trimester*; Chronic hypertension affecting ; Hx of section; History of gestational hypertension; Obesity in , antepartum; Insulin controlled gestational diabetes mellitus (GDM) in second trimester Allergies No known active allergiesdocumented as of this encounter (statuses as of 02/29/2024) Medications Medication Sig Dispensed Refills Start Date End Date Status /Folic Acid Oral Tablet Take 1 Tablet by mouth once. Active Aspirin 81 MG Oral Tablet Delayed Release Take 1 Tablet by mouth in the morning. Active First Stop HealthTouch Verio Flex System w/Device Kit Use to test blood sugars 4 times daily (fasting, 1 hour after breakfast, lunch, and dinner) 1 Kit 01/01/2024 Active OneTouch Verio In Vitro Strip (Glucose Blood) Use to test blood sugars 4 times daily (fasting, 1 hour after breakfast, lunch, and dinner) 125 Strip 6 01/01/2024 Active First Stop HealthTouch Delica Lancets 30G Use to test blood [...] as of this encounter (statuses as of 02/29/2024) Active Problems Problem Noted Date Diagnosed Date [...] RPM reviewed; Stable overall, continue diet control 01/21/20246689-XUT-esechi 01/28/20246303-DDG-tpuusojw fasting blood sugars (95-98). Advised to watch diet, eat bedtime snack, and avoid fasting longer than 8 to 10 hours. Will review again next week, and if persists, will schedule for follow up ADAPT with maternal medicine nurse practitioner. 02/04/20247514-TAJ-qvkdmi (1 elevated fasting blood sugar) 02/11/2024-RPM-4 of 7 elevated fasting blood sugars. Patient and C PARs messaged to schedule follow up ADAPT. 02/12/24: ADAPT f/u complete. FBS elevated; will start Lantus 15 units HS. 02/19/20242296-GHB-udxgichi fasting blood sugars. Maternal medicine nurse practitioners to review. 02/19/24: RPM reviewed; increased to Lantus 20 units at bedtime 02/25/20243265-PIA-lpqojbl stable (1 elevated post prandial lunch) Last Assessment & Plan: The patient states [...] preeclamptic labs with CBC, serum AST/ALT/creatinine and hplabee-vj-kyohnfcbuv ratio or 24-hour urine protein LIDIA if [...] as of this encounter (statuses as of 02/29/2024) Resolved Problems Problem Noted Date Diagnosed Date Resolved Date with 12 completed weeks gestation 12/17/2023 02/01/2024 documented as of this encounter (statuses as of 02/29/2024) Social History Tobacco Use Types Packs/Day Years [...] money to get more. Never true 02/26/2024 Tyler Depression Scale Answer Date Recorded Tyler Depression Scale Total 0 12/07/2023 The thought [...] Sign Reading Time Taken Comments Blood Pressure 124/72 02/29/2024 2:12 PM EDT Pulse - - Temperature - - Respiratory Rate - - Oxygen Saturation - - Inhaled Oxygen Concentration - - Weight 108.9 kg (240 lb) 02/29/2024 2:12 PM EDT Height 162.6 cm (5' 4") 02/29/2024 2:12 PM EDT Body Mass Index 41.2 02/29/2024 2:12 PM EDT documented in this encounter Progress Notes * Hesham Fontenot MD - 02/29/2024 2:16 PM EDT Pt doing well No complaints CHTN on no Meds; Cy today 124/72 GDMA2 on Insulin- seeing MFM Prior c/sec - decision for mode of delivery still unsure RTC 4 week * Carmen Stark LPN - 02/29/2024 2:12 PM EDT 22w5d documented in this encounter Plan of Treatment Upcoming Encounters Date Type Department Care Team (Late st Contact Info) Description 03/06/2024 11:45 AM EDT Imaging Maternal Medicine Imaging, [place] [facility] [address] [place] [phone] 03/28/2024 3:30 PM EDT [facility] [address] [place] [address] Elina Haddad [place] [address] [place], [place] [address] [address] Nurse [facility] Return [place] [address] 04/03/2024 11:45 AM EDT Imaging Maternal Medicine Imaging, [place] [address] 2024 11:00 AM EST Imaging Maternal Medicine Imaging, [place] [address] 05/29/2024 11:00 AM EST Imaging Maternal Medicine Imaging, [place] [address] Health Maintenance Due Date Last Done Comments Depression Screening 2003 DTap/Tdap Vaccines (1 - Tdap) 2010 Hepatitis B Vaccine (1 of 3 - 19+ 3-dose series) 2010 COVID-19 Vaccine ( - 2023-2 5 season) 2024 Influenza Vaccine [...] , second trimester- Primary Chronic hypertension affecting Hx of section Other postprocedural status History of gestational hypertension Obesity in , antepartum Obesity complicating , childbirth, or the puerperium, antepartum condition or complication Insulin controlled gestational diabetes mellitus (GDM) in second trimester documented in this encounter Care Teams Mill Operator Relationship Specialty Start Date End Date Elina Will DO [address] [place] [address] PCP - General Family Medicine 11/09/23 documented as of this encounter
--- OUTSIDE RECORDS SUMMARY | 2024-06-25 09:29 | External Medical Summary | Summary of Care ---
Author Name Unknown Organization [facility] Address [address] [place] [address] Phone [phone] Care Team Providers Care Business Planning Manager Name Role Phone Elina Will DO Primary Care Provider [phone] Encounter Details Date Type Department Care Team (Late st Contact Info) Description 02/19/2024 Orders Only Motel Manager Obstetrics Maternal Medicine [facility], Ivan Gtz [facility] [place] [address] Domitila Elaine CRNP [address] [address] Allergies No known active allergiesdocumented as of this encounter (statuses as of 02/19/2024) Medications Medication Sig Dispensed Refills Start Date End Date Status /Folic Acid Oral Tablet Take 1 Tablet by mouth once. Active Aspirin 81 MG Oral Tablet Delayed Release Take 1 Tablet by mouth in the morning. Active CostPrizeTouch Verio Flex System w/Device Kit Use to [...] at bedtime. 15 mL 3 02/19/2024 Active Insulin Glargine Solostar 100 UNIT/ML Subcutaneous Solution Pen-injector (Lantus SoloStar) Inject 15 Units under the skin at bedtime. 15 mL 3 02/12/2024 02/19/2024 Discontinued documented as of this encounter (statuses as of 02/19/2024) Active Problems Problem Noted Date Diagnosed Date [...] RPM reviewed; Stable overall, continue diet control 01/21/20242553-SXZ-kphdtn 01/28/20241213-BXA-navhnfbh fasting blood sugars (95-98). Advised to watch diet, eat bedtime snack, and avoid fasting longer than 8 to 10 hours. Will review again next week, and if persists, will schedule for follow up ADAPT with maternal medicine nurse practitioner. 02/04/20242935-QGP-vfyygj (1 elevated fasting blood sugar) 02/11/2024-RPM-4 of 7 elevated fasting blood sugars. Patient and [facility] PARs messaged to schedule follow up ADAPT. 02/12/24: ADAPT f/u complete. FBS elevated; will start Lantus 15 units HS. 02/19/20241717-PVR-nnydybcd fasting blood sugars. Maternal medicine nurse practitioners to review. 02/19/24: RPM reviewed; increased to Lantus 20 units at bedtime Last Assessment & Plan: The patient states [...] preeclamptic labs with CBC, serum AST/ALT/creatinine and uwnqfgz-il-rkpydynrel ratio or 24-hour urine protein LIDIA if [...] as of this encounter (statuses as of 02/19/2024) Resolved Problems Problem Noted Date Diagnosed Date Resolved Date with 12 completed weeks gestation 12/17/2023 02/01/2024 documented as of this encounter (statuses as of 02/19/2024) Social History Tobacco Use Types Packs/Day Years Used Date Smoking Tobacco: Never Smokeless Tobacco: Never Alcohol Use Standard Drinks/Week Comments Not Currently 0 (1 standard drink = 0.6 oz pur e alcohol) Hunger Vital Sign Answer Date Recorded Within the past 12 months, y ou worried that your food would run out before you got the money to buy more. Never true 02/15/20 24 Within the past 12 months, t he food you bought just didn't last and you didn't have money to get more. Never true 02/15/2024 [place] Depression Scale Answer Date Recorded [place] Depression Scale Total 0 12/07/2023 The thought of harming myself has occurred to me . Never 12/07/2023 Childcare Answer Date Recorded Do you feel overwhelmed with taking care of a child, family member or friend? No 02/15/2024 Does your family need help f inding childcare? (Household - for ages 0-17 years) Not on file 02/15/2024 Clothing Answer Date Recorded Have you been unable to get clothing when it was really needed? No 02/15/2024 Is your family able to get c lothes or diapers when needed? (Household - for ages 0-17 years) Not on file 02/15/2024 Personal Safety Answer Date Recorded Do you feel unsafe or have concerns for your saf ety? No 02/15/2024 Do you have concerns for you r family's safety? (Household - for ages 0-17 years) Not on file 02/15/2024 Utilities Answer Date Recorded Do you have trouble paying y our heating, water, or electric bill? No 02/15/2024 Is your family able to pay t he heat, water, or electric bill? (Household - for ages 0-17 years) Not on file 02/15/2024 Does your family have access to good internet? (Household - for ages 0-17 years) Not on file 02/15/2024 Employment Status Answer Date Recorded Are you unemployed or without regular income? No 02/15/2024 Does the household have a re gular source of income? (Household - for ages 0-17 years) Not on file 02/15/2024 Social Connections Answer Date Recorded How often do you feel lonely or isolated from th ose around you? Never 02/15/2024 Financial Resource Strain Answer Date R ecorded Do you have any trouble payi ng for your medications, or do you think you might in the future? No 02/15/2024 Does your family have troubl e paying for medicine? (Household - for ages 0-17 years) Not on file 02/15/2024 Transportation Needs Answer Date Record ed READ ONLY Do you have troubl e getting a ride to medical visits or work? Never True 02/15/2024 Does your family have a hard time getting a ride to doctors visits? (Household - for ages 0-17 years) Not on file 02/15/2024 Has lack of transportation k ept you from medical appointments, meetings, work, or from getting things needed for daily living? Check all that apply. No 02/15/2024 Do you (or your family) have trouble finding or paying for a ride (transportation)? (Household - for ages 0-17 years) Not on file 02/15/2024 Housing Stability Answer Date Recorded Do you currently live in a s helter or have no steady place to sleep at night? No 02/15/2024 READ ONLY Do you think you a re at risk of becoming homeless? No 02/15/2024 Does your family worry about paying for your home or becoming homeless? (Household - for ages 0-17 years) Not on file 0 02/15/2024 Are you homeless or worried that you might be in the future? No 02/15/2024 Are you (or your family) beatrice eless or worried that you might be in the future? (Household - for ages 0-17 years) Not on file Food Insecurity Answer Date Recorded Do you need food for this week? No 02/15/2024 Are you able to get enough f ood for your family? (Household - for ages 0-17 years) Not on file 02/15/2024 Does your family need food t his week? (Household - for ages 0-17 years) Not on file 02/15/2024 Do you always have enough fo od for your family? (Household - for ages 0-17 years) Not on file 02/15/2024 Estimated Date of Delivery Comme nts Yes [...] Info) Description 02/28/2024 10:00 AM EDT Telemedicine Nutrition, [place] Delgado [address] [place] [address] Alysha Eckert, RDN [address] [place] [address] 02/29/2024 11:15 AM EDT Office Visit Gynecology/Obstetrics Jumana Delgado [address] [place] [address] Ruth Busby PA-C [address] [place] [address] Nurse [facility] Return [place] [address] [place] [address] 03/06/2024 11:45 AM EDT Imaging Maternal Medicine Imaging, [place] [phone] 04/03/2024 11:45 AM EDT Imaging Maternal Medicine Imaging, [place] [address] [place] [phone] 2024 11:00 AM EST Imaging Maternal Medicine Imaging, [place] [phone] 05/29/2024 11:00 AM EST Imaging Maternal Medicine Imaging, [place] [phone] Health Maintenance Due Date Last Done Comments Depression Screening 2003 DTap/Tdap Vaccines (1 - Tdap) 2010 Hepatitis B Vaccine (1 of 3 - 19+ 3-dose series) 2010 COVID-19 Vaccine (1 - 2022-2 4 season) 2024 Influenza Vaccine (FLU shot) (#1) [...] filedocumented as of this encounter Care Teams Business Planning Manager Relationship Specialty Start Date End Date Elina Will DO [address] [place] [address] PCP - General Family Medicine 11/09/23 documented as of this encounter
--- OUTSIDE RECORDS SUMMARY | 2024-06-25 09:29 | External Medical Summary | Summary of Care ---
Author Name Unknown Organization [facility] Address [address] [facility] [place] [address] Phone [phone] Care Team Providers Care Brick Setter Name Role Phone Elina Will DO Primary Care Provider [phone] Encounter Details Date Type Department Care Team (Late st Contact Info) Description 02/22/2024 Population Health External Data Unspecified Department Allergies No known active allergiesdocumented as of this encounter (statuses as of 02/22/2024) Medications Medication Sig Dispensed Refills Start Date End Date Status /Folic Acid Oral Tablet Take 1 Tablet by mouth once. Active Aspirin 81 MG Oral Tablet Delayed Release Take 1 Tablet by mouth in the morning. Active SimpleGeoTouch Verio Flex System w/Device Kit Use to [...] as of this encounter (statuses as of 02/22/2024) Active Problems Problem Noted Date Diagnosed Date [...] RPM reviewed; Stable overall, continue diet control 01/21/20240578-MMG-xusbsl 01/28/20241285-TAA-ztzlqnps fasting blood sugars (95-98). Advised to watch diet, eat bedtime snack, and avoid fasting longer than 8 to 10 hours. Will review again next week, and if persists, will schedule for follow up ADAPT with maternal medicine nurse practitioner. 02/04/20247705-BGV-tilhyn (1 elevated fasting blood sugar) 02/11/2024-RPM-4 of 7 elevated fasting blood sugars. Patient and [facility] PARs messaged to schedule follow up ADAPT. 02/12/24: ADAPT f/u complete. FBS elevated; will start Lantus 15 units HS. 02/19/20243714-GBA-qdgdqngp fasting blood sugars. Maternal medicine nurse practitioners [...] preeclamptic labs with CBC, serum AST/ALT/creatinine and tafmdmb-ql-tttmefsowy ratio or 24-hour urine protein LIDIA if [...] as of this encounter (statuses as of 02/22/2024) Resolved Problems Problem Noted Date Diagnosed Date Resolved Date with 12 completed weeks gestation 12/17/2023 02/01/2024 documented as of this encounter (statuses as of 02/22/2024) Social History Tobacco Use Types Packs/Day Years [...] money to get more. Never true 02/15/2024 [place] Depression Scale Answer Date Recorded [place] Depression Scale Total 0 12/07/2023 The thought [...] No 02/15/2024 Does the household have a up health systemr source of income? (Household - for ages [...] Info) Description 02/28/2024 10:00 AM EDT Telemedicine L[place] Christensen [address] [place] [address] Alysha Eckert RDN [address] [place] [address] 02/29/2024 11:15 AM EDT Office Visit Gynecology/Obstetrics Jumana Alvarado [address] [place] [address] Ruth Busby PA-C [address] [place] [address] Nurse [facility] Return [place] [address] 03/06/2024 11:45 AM EDT Imaging Maternal Medicine Imaging, [place] [address] 04/03/2024 11:45 AM EDT Imaging Maternal Medicine Imaging, [place] [address] 2024 11:00 AM EST Imaging Maternal Medicine Imaging, [place] Escobars Danny Watts [place] [address] 05/29/2024 11:00 AM EST Imaging Maternal Medicine Imaging, [place] [address] Health Maintenance Due Date Last Done Comments [...] filedocumented as of this encounter Care Teams Brick Setter Relationship Specialty Start Date End Date Elina Will DO [address] [place] [address] PCP - General Family Medicine 11/09/23 documented as of this encounter
--- OUTSIDE RECORDS SUMMARY | 2024-06-25 09:29 | External Medical Summary | Summary of Care ---
Author Name Unknown Organization [facility] Address [address] [facility] [place] [address] Phone [phone] Care Team Providers Care Sr Vice President Name Role Phone Elina Will DO Primary Care Provider [phone] Reason for Visit * Reason Comments Return Visit Encounter Details Date Type Department Care Team (Late st Contact Info) Description 02/01/2024 11:35 AM EDT Office Visit Gynecology/Obstetric s Jumana Alvarado [address] [place] [address] Chloe Hurtado CRNP [address] [place] [address] Supervision of high risk , antepartum*; Hx of section; History of gestational hypertension; Obesity in , antepartum; Diet controlled gestational diabetes mellitus (GDM) in second trimester; Chronic hypertension affecting Allergies No known active allergiesdocumented as of this encounter (statuses as of 02/01/2024) Medications Medication Sig Dispensed Refills Start Date End Date Status /Folic Acid Oral Tablet Take 1 Tablet by mouth once. Active Aspirin 81 MG Oral Tablet Delayed Release Take 1 Tablet by mouth in the morning. Active [employer] Verio Flex System w/Device Kit Use to [...] RPM reviewed; Stable overall, continue diet control 01/21/20247389-YEC-zhazqc 01/28/20246717-NNH-jrhbemsp fasting blood sugars (95-98). Advised to watch [...] preeclamptic labs with CBC, serum AST/ALT/creatinine and leiwpsa-sr-nzsehxtvoa ratio or 24-hour urine protein LIDIA if [...] preeclamptic labs with CBC, serum AST/ALT/creatinine and psdhpuc-nu-inuytcizez ratio or 24-hour urine protein LIDIA if [...] money to get more. Never true 02/01/2024 [place] Depression Scale Answer Date Recorded [place] Depression Scale Total 0 12/07/2023 The thought [...] Sign Reading Time Taken Comments Blood Pressure 134/72 02/01/2024 11:53 AM EDT Pulse - - Temperature - - Respiratory Rate - - Oxygen Saturation - - Inhaled Oxygen Concentration - - Weight 108 kg (238 lb) 02/01/2024 11:43 AM EDT Height - - Body Mass Index 40.85 01/04/2024 11:26 AM EDT documented in this encounter Progress Notes * Chloe Hurtado CRNP - 02/01/2024 11:49 AM EDT 18w5d Denies cramping, bleeding. + movement. GDM, working with ADAPT. Anatomy scan to be completed with MFM. Discussed MSAFP and role in screening for ONTD; accepts, will obtain today. Chronic HTN based on elevated BPs. Checking BP at home - 120s/high 70s. Discussed anti hypertensivemedication if >/=140/90. Call office with elevated readings. Taking baby ASA. 4 week return LINDA Barclay documented in this encounter Nursing Notes * Ashanti Shrestha LPN - 02/01/2024 11:44 AM EDT 18w5d Denies vaginal bleeding/rom + movement No new concerns Anatomy scan with MFM documented in this encounter Plan of Treatment Upcoming Encounters Date Type Department Care Team (Late st Contact Info) Description 02/01/2024 12:20 PM EDT Laboratory Laboratory, [facility] [address] [place] [id number] [facility] [address] [place] [address] Supervision of high risk , antepartum 02/11/2024 12:45 PM EDT Office Visit Expressive Therapist Obstetrics Maternal Medicine, [address] [address] Isiah Yee MD [address] [place] [address] 02/11/2024 12:45 PM EDT Imaging Radiology [facility] [address] [place] [address] 02/28/2024 10:00 AM EDT Telemedicine Nutrition, [place] Alvarado [address] [facility] [place] [address] Alysha Eckert, RDN [address] [place] [address] 02/29/2024 11:15 AM EDT Office Visit Gynecology/Obstetri cs Jumana Alvarado [address] [facility] [place] [address] Ruth Busby PA-C [address] [place] [address] Nurse [facility] Return [place] [address] [place] [address] Pending Results Name Type Priority Associated Diagnoses Date /Time MATERNAL SERUM AFP Lab Routine Supervision of high risk , antepartum 02/01/2024 12:14 PM EDT Scheduled Orders Name Type Priority Associated Diagnoses Orde r Schedule MATERNAL SERUM AFP Lab Routine Supervision of high risk , antepartum Expected: 02/01/2024 (Approximate), Expires: 01/31/2025 Health Maintenance Due Date Last Done Comments [...] Procedure Name Priority Date/Time Associated Diagnosis Comments URINALYSIS, POINT OF CARE (ENTER/EDIT) Routine 02/01/2024 Supervision of high risk , antepartum Chronic hypertension affecting documented in this encounter Results * URINALYSIS, POINT OF CARE (ENTER/EDIT) (02/01/2024) Color, Urine Yellow Yellow or Light Yellow Clarity, Urine Clear Clear Glucose, Urine Negative Negative mg/dL Bilirubin, Urine Negative Negative Ketone, Urine Negative Negative mg/dL Specific [place], Urine 1.030 1.003 - 1.030 Blood, Urine Negative Negative pH, Urine 6.0 5.0 - 7.5 units Protein, Urine Negative Negative mg/dL Urobilinogen, Urine 0.2 0.2 - 1.0 mg/dL Nitrite, Urine Negative Negative Esterase, Urine Negative Negative Urine 02/01/2024 Chloe [facility] POINT O F CARE TEST ENTER/EDIT ORDERABLES documented in this encounter Visit Diagnoses Diagnosis Supervision of high risk , antepartum- Primary Hx of section Other postprocedural status History of gestational hypertension Obesity in , antepartum Obesity complicating , childbirth, or the puerperium, antepartum condition or complication Diet controlled gestational diabetes mellitus (GDM) in second trimester Chronic hypertension affecting Supervision of high risk , antepartum documented in this encounter Care Teams Sr Vice President Relationship Specialty Start Date End Date Elina Will DO [address] [place] [address] PCP - General Family Medicine 11/09/23 documented as of this encounter
--- OUTSIDE RECORDS SUMMARY | 2024-06-25 09:29 | External Medical Summary | Summary of Care ---
Author Name Unknown Organization [facility] Address [address] [place] [address] Phone [phone] Care Team Providers Care Roundhouse Worker Name Role Phone Elina Will DO Primary Care Provider Encounter Details Date Type Department Care Team (Late st Contact Info) Description 03/06/2024 11:45 AM EDT Office Visit Dopster Obstetrics Maternal Medicine, [address] [place] [address] Ger Cuellar DO [address] [place], [place] [id number] Insulin controlled gestational diabetes mellitus (GDM) in second trimester*; Obesity in , antepartum; Chronic hypertension affecting ; Hx of section; Pyelectasis of fetus on ultrasound Allergies No known active allergiesdocumented as of this encounter (statuses as of 03/06/2024) Medications Medication Sig Dispensed Refills Start Date End Date Status /Folic Acid Oral Tablet Take 1 Tablet by mouth once. Active Aspirin 81 MG Oral Tablet Delayed Release Take 1 Tablet by mouth in the morning. Active [employer] Continent Flex System w/Device Kit Use to test blood sugars 4 times daily (fasting, 1 hour after breakfast, lunch, and dinner) 1 Kit 01/01/2024 Active Silentsoftio In Vitro Strip (Glucose Blood) Use to test blood sugars 4 times daily (fasting, 1 hour after breakfast, lunch, and dinner) 125 Strip 6 01/01/2024 Active YouEyeToKu[employer] Delica Lancets 30G Use to test blood [...] as of this encounter (statuses as of 03/06/2024) Active Problems Problem Noted Date Diagnosed Date [...] on follow-up scans. We recommend alerting the automotive parts person providing care of this finding if it [...] RPM reviewed; Stable overall, continue diet control 01/21/20241835-KOC-uvzasm 01/28/20244116-RUD-hsexjriw fasting blood sugars (95-98). Advised to watch diet, eat bedtime snack, and avoid fasting longer than 8 to 10 hours. Will review again next week, and if persists, will schedule for follow up ADAPT with maternal medicine nurse practitioner. 02/04/20248561-GBH-wviyqb (1 elevated fasting blood sugar) 02/11/2024-RPM-4 of 7 elevated fasting blood sugars. Patient and C PARs messaged to schedule follow up ADAPT. 02/12/24: ADAPT f/u complete. FBS elevated; will start Lantus 15 units HS. 02/19/20249831-XZX-mxnmxxze fasting blood sugars. Maternal medicine nurse practitioners to review. 02/19/24: RPM reviewed; increased to Lantus 20 units at bedtime 02/25/20244013-ZFF-mwiabke stable (1 elevated post prandial lunch) 03/03/20240200-ZCL-eauulo Last Assessment & Plan: She presents for [...] preeclamptic labs with CBC, serum AST/ALT/creatinine and zqnxmvi-of-wbbvhjcinq ratio or 24-hour urine protein LIDIA if [...] as of this encounter (statuses as of 03/06/2024) Resolved Problems Problem Noted Date Diagnosed Date Resolved Date with 12 completed weeks gestation 12/17/2023 02/01/2024 documented as of this encounter (statuses as of 03/06/2024) Social History Tobacco Use Types Packs/Day Years [...] money to get more. Never true 02/26/2024 [place] Depression Scale Answer Date Recorded [place] Depression Scale Total 0 12/07/2023 The thought [...] Garrido is at 23w4d who presents to [facility] for an ultrasound and follow- up of her high risk . Patient location: CLINIC. I was in a different facility from the patient. After connecting through televCollectiveo, patient was verified with two unique identifiers. Patient (or authorized legal new accounts representative) was then informed that this was [...] that I have reviewed their record in enEvolv and presented the opportunity for them to [...] on follow-up scans. We recommend alerting the automotive parts person providing care of this finding if it [...] on follow-up scans. We recommend alerting the automotive parts person providing care of this finding if it [...] PM EDT Office Visit Gynecology/Obstetrics [place] [address] Elina Haddad PA-C [address] [place] [address] [place] [address] Nurse [facility] Return [place] [address] 04/03/2024 11:45 AM EDT [place] [address] 2024 11:00 AM EST [place] [address] 05/29/2024 11:00 AM EST [place] [address] Health Maintenance Due Date Last Done Comments [...] screening documented in this encounter Care Teams Roundhouse Worker Relationship Specialty Start Date End Date Elina Will DO [address] [place] [address] PCP - General Family Medicine 11/09/23 documented as of this encounter
--- OUTSIDE RECORDS SUMMARY | 2024-06-25 09:29 | External Medical Summary ---
Author Name Unknown Address Unknown Organization : Laboratory Report Ordering Provider Test Date Status ANIVAL BUSCH 02/01/2024 12:14:28 Final Observation Date Value Abnormality Reference (Units ) Status INTERPRETATION 02/01/2024 12:14:28 SEE BELOW Final Screen negative for open NTD . RISK FOR ONTD 02/01/2024 12:14:28 1:1831 Final CALC'D GESTATIONAL AGE 0802/01/2024 12:14:28 18.7 Final AFP, SERUM 02/01/2024 12:14:28 60.8 (ng/mL) Final AFP MOM 02/01/2024 12:14:28 1.65 Final Reference Range:
NTD <2 .50
IDD <1.90
TWINS <4.00
TWINS IDD <3.50
TRIPLETS <4.50
The AFP test result indicates that this patient is
screen negative for open NTD. It should be noted
that normal test results can never guarantee the
of a normal baby and that 2-3% of newborns
have some type of physical or mental defect, many
of which are undetectable through any known
diagnostic technique.
This is a screening test, not a diagnostic test.
This risk assessment report is based in part on
demographic data provided by the ordering
physician. Please notify the laboratory promptly
if any data are incorrect. For assistance with
recalculations, please call your local [facility] laboratory. For assistance with
interpretation of these results, please contact
your Local [facility] genetic counselor or
call [phone] ([phone]).
Interpretive Cutoffs
Screen Positive for Open NTD:
> or = 2.50 adjusted MOM
> or = 1.90 adjusted MOM for insulin-dependent diabetics
> or = 4.00 adjusted MOM for twins
> or = 3.50 adjusted MOM for twins insulin-dependent diabetics
> or = 4.50 adjusted MOM for triplets
For additional information, please refer to
[email or web address]
(This link is being provided for
informational/educational purposes only.) DATE OF 02/01/2024 12:14:28 1991 Final COLLECTION DATE 02/01/2024 12:14:28 02/01/2024 Final MATERNAL WEIGHT 02/01/2024 12:14:28 237 (lbs ) Final EST'D DATE OF DELIVERY 02/01/2024 12:14:28 06/29/2024 Final GINGER DETERMINED BY 02/01/2024 12:14:28 NG Final MOTHER'S ETHNIC ORIGIN 02/01/2024 12:14:28 WHITE Final NUMBER OF FETUSES 02/01/2024 12:14:28 1 Final INSULIN DEPEND DIABETIC 02/01/2024 12:14:28 NO Final REPEAT SPECIMEN 02/01/2024 12:14:28 NO Final HX OF NEURAL TUBE DEFECTS 02/01/2024 12:14:28 NO Final PREV DOWN SYND 02/01/2024 12:14:28 NO Final DONOR EGG 02/01/2024 12:14:28 NO Final DONOR AGE: EGG RETRIEVAL 02/01/2024 12:14:28 NOT GIVEN Final Test performed by [facility]
[address],
[place] [address]

Spare Person: Lubna Weaver MD,PHD,LEWIS
Test Reported by Arthur Sanon,
[facility],
[address] [place], [place]
Marvin Domingo M.D., Ph.D., Director of Laboratories
, [place] [id number] Performing Location
--- OUTSIDE RECORDS SUMMARY | 2024-06-25 09:29 | External Medical Summary | Summary of Care ---
Author Name Unknown Organization [facility] Address [address] [facility] [place] [address] Phone [phone] Care Team Providers Care Book Canvasser Name Role Phone Elina Will DO Primary Care Provider [phone] Encounter Details Date Type Department Care Team (Late st Contact Info) Description 03/10/2024 Population Health External Data Unspecified Department Allergies No known active allergiesdocumented as of this encounter (statuses as of 03/10/2024) Medications Medication Sig Dispensed Refills Start Date End Date Status /Folic Acid Oral Tablet Take 1 Tablet by mouth once. Active Aspirin 81 MG Oral Tablet Delayed Release Take 1 Tablet by mouth in the morning. Active AccelaloxTouch Verio Flex System w/Device Kit Use to [...] as of this encounter (statuses as of 03/10/2024) Active Problems Problem Noted Date Diagnosed Date [...] on follow-up scans. We recommend alerting the housing quality standard inspector providing care of this finding if it [...] RPM reviewed; Stable overall, continue diet control 01/21/20243907-LUZ-cyyfmd 01/28/20247920-TKS-jntufpbm fasting blood sugars (95-98). Advised to watch diet, eat bedtime snack, and avoid fasting longer than 8 to 10 hours. Will review again next week, and if persists, will schedule for follow up ADAPT with maternal medicine nurse practitioner. 02/04/20241282-BME-aymrzi (1 elevated fasting blood sugar) 02/11/2024-RPM-4 of 7 elevated fasting blood sugars. Patient and [facility] PARs messaged to schedule follow up ADAPT. 02/12/24: ADAPT f/u complete. FBS elevated; will start Lantus 15 units HS. 02/19/20247529-NSN-wcyushmt fasting blood sugars. Maternal medicine nurse practitioners to review. 02/19/24: RPM reviewed; increased to Lantus 20 units at bedtime 02/25/20248002-CBW-oridzuu stable (1 elevated post prandial lunch) 03/03/20242685-TMV-brwzmy Last Assessment & Plan: She presents for [...] preeclamptic labs with CBC, serum AST/ALT/creatinine and iribxpt-vz-vtzgargqpr ratio or 24-hour urine protein LIDIA if [...] as of this encounter (statuses as of 03/10/2024) Resolved Problems Problem Noted Date Diagnosed Date Resolved Date with 12 completed weeks gestation 12/17/2023 02/01/2024 documented as of this encounter (statuses as of 03/10/2024) Social History Tobacco Use Types Packs/Day Years [...] money to get more. Never true 02/26/2024 [place] Depression Scale Answer Date Recorded [place] Depression Scale Total 0 12/07/2023 The thought [...] 03/28/2024 3:30 PM EDT Office Visit Gynecology/Obstetrics [place] Escobars Danny [place] [address] Elina Haddad PA-C [address] [place] [address] [place] [address] Nurse Christiano [facility] Return [place] [address] 04/03/2024 11:45 AM EDT Imaging Maternal Medicine Imaging, [place] [address] 2024 11:00 AM EST Imaging Maternal Medicine Imaging [place] [address] 05/29/2024 11:00 AM EST Imaging Maternal Medicine Imaging [place] [address] Health Maintenance Due Date Last Done Comments [...] filedocumented as of this encounter Care Teams Book Canvasser Relationship Specialty Start Date End Date Elnia Will DO [address] [place] [address] PCP - General Family Medicine 11/09/23 documented as of this encounter
--- OUTSIDE RECORDS SUMMARY | 2024-06-25 09:29 | External Medical Summary | Summary of Care ---
Author Name Unknown Organization [facility] Address [address] [place] [address] Phone [phone] Care Team Providers Care Paintings Conservator Name Role Phone Elina Will DO Primary Care Provider [phone] Reason for Visit * Reason Comments DSMT INITIAL * Evaluate & Treat - Unlimited Visits (Within 10 days (routine)) - Authorized Specialty Diagnoses / Procedures Referred By Contac t Referred To Contact Road Hogger Operator / Nutrition Services Diagnoses Diet controlled gestational diabetes mellitus (GDM) in second trimester Erin Gould PA-C [address] [place] [address] Referral ID Status Reason Start Date Expiration Date Visits Requested Visits Authorized [id number] Authorized Specialty Services Required 01/01/2024 [id number] Encounter Details Date Type Department Care Team (Late st Contact Info) Description 01/17/2024 11:00 AM EDT [facility] [address] [place] [address] Alysha Eckert RDN [facility] [place] [address] Diet controlled gestational diabetes mellitus (GDM) in second trimester*; Obesity, Class II, BMI 35-39.9; Dietary counseling and surveillance Allergies No known active allergiesdocumented as of this encounter (statuses as of 01/17/2024) Medications Medication Sig Dispensed Refills Start Date End Date Status /Folic Acid Oral Tablet Take 1 Tablet by mouth once. Active Aspirin 81 MG Oral Tablet Delayed Release Take 1 Tablet by mouth in the morning. Active [employer] Flex System w/Device Kit Use to test blood sugars 4 times daily (fasting, 1 hour after breakfast, lunch, and dinner) 1 Kit 01/01/2024 Active [employer] In Vitro Strip (Glucose Blood) Use to test blood sugars 4 times daily (fasting, 1 hour after breakfast, lunch, and dinner) 125 Strip 6 01/01/2024 Active [employer] Lancets 30G Use to test blood sugars 4 times daily (fasting, 1 hour after breakfast, lunch, and dinner) 200 Each 6 01/01/2024 Active documented as of this encounter (statuses as of 01/17/2024) Active Problems Problem Noted Date Diagnosed Date [...] RPM reviewed; Stable overall, continue diet control Last Assessment & Plan: Working with ADAPT. with 12 completed weeks gestation 06/2023 History of gestational hypertension 12/14/2023 Overview: 11/2021: [...] Pre gravid BMI: 40.7 Class 3 obesity Early 1 hour GTT ordered, not yet completed No results found for: "50-G GESTATIONAL GLUCOSE", "100-G GESTATIONAL GLUCOSE", "HEMOGLOBIN A1C - [facility]", "50-G GESTATIONAL GLUCOSE, 1 HOUR - [facility]", "100-G GESTATIONAL GLUCOSE, FASTING - [facility]" Last Assessment & Plan: CONSIDERATIONS: Discussed obstetrical [...] preeclamptic labs with CBC, serum AST/ALT/creatinine and mhjhahd-dd-nvvlvaozml ratio or 24-hour urine protein LIDIA if [...] preeclamptic labs with CBC, serum AST/ALT/creatinine and rcwuasb-jw-uaiuyaxfna ratio or 24-hour urine protein LIDIA if not already done. For patients with Class 3 obesity, we recommend weekly surveillance starting at 34 weeks and delivery by EDC. . Elevated BP without diagnosis of hypertension Overview: BP elevated at first visit Past [...] as of this encounter (statuses as of 01/17/2024) Social History Tobacco Use Types Packs/Day Years Used Date Smoking Tobacco: Never Smokeless Tobacco: Never Alcohol Use Standard Drinks/Week Comments Not Currently 0 (1 standard drink = 0.6 oz pur e alcohol) Hunger Vital Sign Answer Date Recorded Within the past 12 months, y ou worried that your food would run out before you got the money to buy more. Never true 05/12/20 23 Within the past 12 months, t he food you bought just didn't last and you didn't have money to get more. Never true 05/12/2023 [place] Depression Scale Answer Date Recorded [place] Depression Scale Total 0 12/07/2023 The thought of harming myself has occurred to me . Never 12/07/2023 Childcare Answer Date Recorded Do you feel overwhelmed with taking care of a child, family member or friend? No 05/12/2023 Does your family need help f inding childcare? (Household - for ages 0-17 years) Not on file 05/12/2023 Clothing Answer Date Recorded Have you been unable to get clothing when it was really needed? No 05/12/2023 Is your family able to get c lothes or diapers when needed? (Household - for ages 0-17 years) Not on file 05/12/2023 Personal Safety Answer Date Recorded Do you feel unsafe or have concerns for your saf ety? No 05/12/2023 Do you have concerns for you r family's safety? (Household - for ages 0-17 years) Not on file 05/12/2023 Utilities Answer Date Recorded Do you have trouble paying y our heating, water, or electric bill? No 05/12/2023 Is your family able to pay t he heat, water, or electric bill? (Household - for ages 0-17 years) Not on file 05/12/2023 Does your family have access to good internet? (Household - for ages 0-17 years) Not on file 05/12/2023 Employment Status Answer Date Recorded Are you unemployed or without regular income? No 05/12/2023 Does the household have a re lar source of income? (Household - for ages 0-17 years) Not on file 05/12/2023 Social Connections Answer Date Recorded How often do you feel lonely or isolated from th ose around you? Never 05/12/2023 Financial Resource Strain Answer Date R ecorded Do you have any trouble payi ng for your medications, or do you think you might in the future? No 05/12/2023 Does your family have troubl e paying for medicine? (Household - for ages 0-17 years) Not on file 05/12/2023 Transportation Needs Answer Date Record ed READ ONLY Do you have troubl e getting a ride to medical visits or work? Never True 05/12/2023 Does your family have a hard time getting a ride to doctors visits? (Household - for ages 0-17 years) Not on file 05/12/2023 Has lack of transportation k ept you from medical appointments, meetings, work, or from getting things needed for daily living? Check all that apply. (Adult - for ages 18 years and over) Not on file 05/12/2023 Do you (or your family) have trouble finding or paying for a ride (transportation)? (Household - for ages 0-17 years) Not on file 05/12/2023 Housing Stability Answer Date Recorded Do you currently live in a s helter or have no steady place to sleep at night? No 05/12/2023 READ ONLY Do you think you a re at risk of becoming homeless? No 05/12/2023 Does your family worry about paying for your home or becoming homeless? (Household - for ages 0-17 years) Not on file 1 07/12/2022 Are you homeless or worried that you might be in the future? (Adult - for ages 18 years and over) Not on file Are you (or your family) beatrice eless or worried that you might be in the future? (Household - for ages 0-17 years) Not on file Food Insecurity Answer Date Recorded Do you need food for this week? No 05/12/2023 Are you able to get enough f ood for your family? (Household - for ages 0-17 years) Not on file 05/12/2023 Does your family need food t his week? (Household - for ages 0-17 years) Not on file 05/12/2023 Do you always have enough fo od for your family? (Household - for ages 0-17 years) Not on file 05/12/2023 Estimated Date of Delivery Comme nts Yes [...] on file documented as of this encounter Patient Instructions * Patient Instructions* Alysha Eckert RDN - 01/17/2024 11:43 AM EDT Participant will continue with present meal regimen as doing. Become familiar with recommended portion sizes of high-carb foods. documented in this encounter Progress Notes * Alysha Eckert RDN - 01/17/2024 11:07 AM EDT DIABETES SELF-MANAGEMENT TRAINING/INITIAL NOTE Name: Sandra Garrido Date: 01/17/2024 Attempted to connect with participant via video but was unable to maintain connection. Therefore the visit was completed over the telephone. After connecting to the patient via telephone, the patient was identified by name and date of . Patient was then informed that this was a telephone call only visit. The patient agreed to participate. Visit Disposition: Routine follow-up Total call duration was 38 minutes. Last order of DIABETES MANAGEMENT EDUCATION (ADA) REFERRAL was found on 01/01/2024 from Telephone on01/01/2024 No order of CLINICAL NUTRITION AND DIABETES EDUCATION ANNUAL RENEWAL is found. No order of PEDIATRIC DIABETES MANAGEMENT EDUCATION (ADA) REFERRAL OP is found. ADA referral in place? Yes Participant scheduled for 1:1 training due to lack of classes scheduled within 2 months of appointment. What diabetes concerns and/or barriers to care would you like to discuss in your appointment: none In your words, what is diabetes? Has something to do with blood sugar levels Do you know the risks of uncontrolled diabetes? Yes Do you believe that diabetes can be controlled? Yes Are you ready to make small changes to help with diabetes self-management: Yes What type of diabetes do you have? Gestational Diabetes Mellitus: Are you aware of the post- glucose screening recommendations? Yes Diabetes diagnosis year: 2023 Do you have a family history of diabetes? No Have you had any previous diabetes education? No Support systems: Spouse Barriers to care: None Special Needs: None Psychosocial Screening: Lately have you been feeling down, depressed or hopeless most of the day? No How Do You Manage Stress? Walking Coloring Playing with son Food Insecurity: Within the past 12 months, I worried whether our food would run out before we got money to buy more. No Within the past 12 months, the food we bought just did not last and we did not have money to buy more. No Sleep Health: Addressed - How many hours are you sleeping during the night? 8 hours a night Do you have difficulty falling or staying asleep? No Do you snore? No Are you waking up during the night with symptoms of low glucose levels (shaky, sweaty, nightmares)?No Are you waking up during the night to urinate frequently? Yes Diabetes Medications: None Monitoring blood glucose, interpreting and using results Results for orders placed or performed in visit on 01/04/24 HEMOGLOBIN A1C Result Value Ref Range Hemoglobin A1C 5.5 4.0 - 5.6 % Estimated Average Glucose 111 <126 mg/dL Self-Monitoring Blood Glucose Source of Information: Participant verbally reviewed from memory Frequency of tests: 4 times daily FBS 88-92 After breakfast 95-120 After lunch 95-120 After dinner 95-120 85 lowest level Hypoglycemia?: No Diet: Describes typical diet history/24-hour recall Breakfast: protein shake, sometimes whole wheat toast and an egg and cheese, water Snacks: carrots or peppers and ranch dressing Lunch: salad with chicken, cheese, peppers, onions, cucumbers ranch dressing or burger with cheese on 2 pieces of whole wheat toast with mustard or chicken salad with barlow, celery, and onion on crackers, water Snacks: apple with PB or carrots or cucumbers or peppers or cheese cubes and crackers Dinner: chicken or beef, broccoli or asparagus-2 helpings or 1 helping with a side salad or a grilled chicken sandwich and broccoli with cheese, usually few carb's for supper, water Snacks: cheese and crackers or pepperoni and cheese or apple with PB Drinks: water-plenty per participant Restaurant meals: rare Alcohol: None Tobacco Use: No Weight management review: Wt Readings from Last 6 Encounters: 01/04/24 107.5 kg (237 lb) 12/07/23 107.6 kg (237 lb 3.2 oz) 08/30/23 104.3 kg (230 lb) Recent weight changes: increased 7 lbs in past 4 months per EPIC review Physical Activity: Walking, swimming and playing with toddler ADA STANDARDS OF CARE/BUNDLE MEASURES Diabetes Bundle / Standards of Care: Gestational Diabetes Participant Therapy Management Plan: Hypertension: BP Readings from Last 3 Encounters: 01/04/24 132/76 12/07/23 140/84 Gestational Diabetes Participant, being monitored by X RAY DEVELOPING MACHINE OPERATOR. Dyslipidemia: No results found for: "LDL" No results found for: "TRIG", "CHOL", "HDL" Gestational Diabetes Mellitus Participant Kidney function review: Lab Results Component Value Date/Time ESTIMATED GLOMERULAR FILTRATION RATE - [facility] >90 12/07/2023 12:22 PM No results found for: "ALBUMIN / CREATININE RATIO", "ALBUMIN / CREATININE RATIO, URINE - [facility]" Lab Results Component Value Date/Time PROTEIN/ CREATININE RATIO, URINE - [facility] 113 12/07/2023 11:56 AM Gestational Diabetes Mellitus Participant DSMT Initial Visit Assessment of Content Areas: Choose the answer that represents the participant's competency in each area. All need to be assessed at initial. Areas taught must match intervention. If content area not assessed and/or intervened today, it will be deferred to future session. Diabetes disease process and treatment process: Needs instruction (1) Incorporating nutrition management into lifestyle: Needs review (2) Incorporating physical activity into lifestyle: Needs instruction (1) Using medications safely: Needs instruction (1) Monitoring blood glucose, interpreting and using results: Needs review (2) Prevention, detection, and treatment of acute complications: Needs instruction (1) Prevention, detection, and treatment of chronic complications: Needs review (2) Developing strategies to address psychosocial issues: Needs instruction (1) Developing strategies to promote health/change behavior: Needs instruction (1) DSMT/ Diabetes MNT intervention: Pathophysiology: Defined disease process. Participant denies family history of diabetes. Nutrition: Educated on the effects of macronutrients on diabetes control and diabetes complications. Taught and had participant identify foods that contain carbohydrates. GDM nutrition: Taught participant how to read a food label. Stressed importance of avoiding sugar sweetened beverages, fruit juices. Encouraged bedtime snack 8-10 hours before fasting test the next day. Emphasized importance of eating consistent meals and snacks including consistent amounts of carb's throughout the day. Reviewed recommended portion sizes of some common high-carb foods. States she was encouraged to aim for 30-45 grams of carb's at meals and 15-30 grams at snacks. Discussed this was a good meal pattern to follow. States since being diagnosed she has been avoiding "junk food", limiting high-carb foods, and increasing whole grains. Reviewed benefit of fiber on glucose levels, but also noted that whole grains also count as carb's. She states she has been using My Fitness Pal to track macro's in the past and will use this again. Physical Activity: Educated on the role of physical activity on glucose control. Encouraged participant to do short sessions of activity such as walking if she has any elevated post prandial glucose levels. Monitoring: Participant notes no issues with checking glucose levels. She rotates fingers when checking and uses a new lancet with each check. She starts with clean hands. Encouraged her to avoid using evaporator when checking. She has been disposing of used lancets properly. She is able to list target ranges for fasting and post prandial glucose levels. States her glucose levels have been in target range majority of the time. She uses [employer] calli for logging her glucose levels. Chronic Complications: Briefly reviewed complications on baby of elevated glucose levels. Promote health/Change behavior: Participant aware of recommendation for repeat OGTT following delivery. Participant Selected Behavioral Objective: Nutrition: To improve blood glucose control I will continue with present meal regimen as doing. Become familiar with recommended portion sizes of high-carb foods. Recommended Medication Changes: No changes. Education materials given to participant/caregiver and reviewed during today's visit: Planning Healthy Meals GDM info Understanding CHO's These materials will be mailed and/or portal messaged to the participant. Diabetes Self-Management Support:: Apps/Smart Phone Technology: [employer] calli Possible Future Topics: Content areas that were not assessed in first visit: All content areas have been assessed. Time Spent With Patient: Time in: 11:06 AM Time out: 11:44 AM Billing: DSMT: 30 Minutes Plan for Return: 02/28/2024 Participant provided with contact information for Diabetes Care and Post Splitter. All isinger providers within the system are able to see [place] [employer] education and outcomes within the participant's electronic medical record. Alysha Eckert RDN, [facility] Diabetes Care and Post Splitter documented in this encounter Plan of Treatment Upcoming Encounters Date Type Department Care Team (Late st Contact Info) Description 02/01/2024 11:30 AM EDT Office Visit Gynecology/Obstetrics [facility] [address] [place] [address] Chloe Hurtado CRNP [address] [place] [address] 02/11/2024 12:45 PM EDT Office Visit Collection Clerk Obstetrics Maternal Medicine, [place] [address] [place] [address] Isiah Yee MD [address] [place] [address] 02/11/2024 12:45 PM EDT Imaging [facility], [place] [address] [place] [address] 02/28/2024 10:00 AM EDT Telemedicine [facility] [address] [facility] [place] [address] Alysha Eckert RDN [address] [place] [address] Scheduled Referrals Name Type Priority Associated Diagnoses Orde r Schedule DIABETES MANAGEMENT EDUCATION (ADA) REFERRAL Referral Within 10 days (routine) Diet controlled gestational diabetes mellitus (GDM) in second trimester Ordered: 01/01/2024 Health Maintenance Due Date Last Done Comments Depression Screening 2003 DTaP,Tdap,and Td Vaccines (1 - Tdap) 2010 Hepatitis B Vaccine (1 of 3 - 19+ 3-dose series) 2010 COVID-19 Vaccine ( - 2022-2 4 season) 2023 Influenza Vaccine (FLU shot) (#1) 2024 Pap Smear 12/06/2026 12/07/2023 Cervical Cancer Screening 12/06/2028 HPV/Co-Test 12/06/2028 12/07/2023 HPV (Gardasil) Vaccine Aged Out No lo nger eligible based on patient's age to complete this topic MENINGOCOCCAL (MENACTRA/MENVEO) Aged Out No longer eligible based on patient's age to complete this topic Pneumococcal Vaccine: Pediat rics (0 to 5 Years) and At-Risk Patients (6 to 64 Years) Aged Out No longer eligi ble based on patient's age to complete this topic documented as of this encounter Medical Devices Not on filedocumented as of this encounter Visit Diagnoses Diagnosis Diet controlled gestational diabetes mellitus (GDM) in second trimester- Primary Obesity, Class II, BMI 35-39.9 Morbid obesity Dietary counseling and surveillance Dietary surveillance and counseling documented in this encounter Care Teams Paintings Conservator Relationship Specialty Start Date End Date Elina Will DO [address] [place] [address] PCP - General Family Medicine 11/09/23 documented as of this encounter
--- OUTSIDE RECORDS SUMMARY | 2024-06-25 09:29 | External Medical Summary | Summary of Care ---
Author Name Unknown Organization [facility] Address [address] [place] [address] Phone [phone] Care Team Providers Care Lock Maintenance Supervisor Name Role Phone Elina Will DO Primary Care Provider [phone] Encounter Details Date Type Department Care Team (Late st Contact Info) Description 02/11/2024 Telephone Entry Level Software Developer Obstetrics Maternal Medicine, [place] [address] [place], [place] [id number] [place], Nurse Entry Level Software Developer [facility] [address] [place] [address] Allergies No known active allergiesdocumented as of this encounter (statuses as of 02/11/2024) Medications Medication Sig Dispensed Refills Start Date End Date Status /Folic Acid Oral Tablet Take 1 Tablet by mouth once. Active Aspirin 81 MG Oral Tablet Delayed Release Take 1 Tablet by mouth in the morning. Active [employer] Ver[employer] Flex System w/Device Kit Use to test blood sugars 4 times daily (fasting, 1 hour after breakfast, lunch, and dinner) 1 Kit 01/01/2024 Active [employer] In Vitro Strip (Glucose Blood) Use to test blood sugars 4 times daily (fasting, 1 hour after breakfast, lunch, and dinner) 125 Strip 6 01/01/2024 Active [employer] Delica Lancets 30G Use to test blood sugars 4 times daily (fasting, 1 hour after breakfast, lunch, and dinner) 200 Each 6 01/01/2024 Active documented as of this encounter (statuses as of 02/11/2024) Active Problems Problem Noted Date Diagnosed Date [...] RPM reviewed; Stable overall, continue diet control 01/21/20242753-ODR-hyvqus 01/28/20241796-OJR-tfqomqhu fasting blood sugars (95-98). Advised to watch diet, eat bedtime snack, and avoid fasting longer than 8 to 10 hours. Will review again next week, and if persists, will schedule for follow up ADAPT with maternal medicine nurse practitioner. 02/04/20249808-RVY-wpykgc (1 elevated fasting blood sugar) 02/11/2024-RPM-4 of 7 elevated fasting blood sugars. Patient and [facility] PARs messaged to schedule follow up ADAPT. Last Assessment & Plan: Working with ADAPT. [...] preeclamptic labs with CBC, serum AST/ALT/creatinine and jcccjax-pc-xwriuksokv ratio or 24-hour urine protein LIDIA if [...] preeclamptic labs with CBC, serum AST/ALT/creatinine and scoetss-sm-sitixjhims ratio or 24-hour urine protein LIDIA if [...] as of this encounter (statuses as of 02/11/2024) Resolved Problems Problem Noted Date Diagnosed Date Resolved Date with 12 completed weeks gestation 12/17/2023 02/01/2024 documented as of this encounter (statuses as of 02/11/2024) Social History Tobacco Use Types Packs/Day Years [...] money to get more. Never true 02/01/2024 [place] Depression Scale Answer Date Recorded [place] Depression Scale Total 0 12/07/2023 The thought [...] encounter Miscellaneous Notes * Telephone Encounter - Wendy Orr OSA - 02/11/2024 9:35 AM EDT Spoke with Sandra. Appointment scheduled. Patient aware of date, time and location of Maternal Medicine appointment. documented in this encounter Plan of Treatment Upcoming Encounters Date Type Department Care Team (Late st Contact Info) Description 02/11/2024 12:45 PM EDT Office Visit Entry Level Software Developer Obstetrics Maternal Medicine, [place] [address] [place] [address] Isiah Yee MD [address] [place] [address] 02/11/2024 12:45 PM EDT [facility] [place] [address] [place] [address] 02/12/2024 2:30 PM EDT Telemedicine Entry Level Software Developer Obstetric [facility] [address], [place] [address] [place] [address] Ami Coles CRNP [address] [place] [address] 02/28/2024 10:00 AM EDT Telemedicine Lakia Christensen [address] [place] [address] Alysha Eckert, KELLY [address] [place] [address] 02/29/2024 11:15 AM EDT Office Visit Gynecology/Obstetrics Jumana Alvarado [address] [place] [address] Ruth Busby PA-C [address] [place] [address] Nurse [facility] [address] [place] [address] Health Maintenance Due Date Last Done Comments [...] filedocumented as of this encounter Care Teams Lock Maintenance Supervisor Relationship Specialty Start Date End Date Elina Will DO [address] [place] [address] PCP - General Family Medicine 11/09/23 documented as of this encounter
--- OUTSIDE RECORDS SUMMARY | 2024-06-25 09:29 | External Medical Summary | Summary of Care ---
Author Name Unknown Organization [facility] Address [address] [place] [address] Phone [phone] Care Team Providers Care Plant Director Name Role Phone Elina Will DO Primary Care Provider [phone] Reason for Visit * Reason Comments Ultrasound Encounter Details Date Type Department Care Team (Late st Contact Info) Description 02/11/2024 12:45 PM EDT Office Visit Hotel Assistant Manager Obstetrics Maternal Medicine, [place] [address] [place] [address] Isiah Yee MD [address] [place] [address] Class 3 severe obesity due to excess calories with serious comorbidity and body mass index (BMI) of 40.0 to 44.9 in adult (HCC)*; Obesity in , antepartum; Diet controlled gestational diabetes mellitus (GDM) in second trimester Allergies No known active allergiesdocumented as of this encounter (statuses as of 02/11/2024) Medications Medication Sig Dispensed Refills Start Date End Date Status /Folic Acid Oral Tablet Take 1 Tablet by mouth once. Active Aspirin 81 MG Oral Tablet Delayed Release Take 1 Tablet by mouth in the morning. Active Social Shopping NetworkTouch Verio Flex System w/Device Kit Use to [...] RPM reviewed; Stable overall, continue diet control 01/21/20246977-ITS-yrmvki 01/28/20240944-IHN-tedjlyaa fasting blood sugars (95-98). Advised to watch diet, eat bedtime snack, and avoid fasting longer than 8 to 10 hours. Will review again next week, and if persists, will schedule for follow up ADAPT with maternal medicine nurse practitioner. 02/04/20243099-MSI-ypuvze (1 elevated fasting blood sugar) 02/11/2024-RPM-4 of 7 elevated fasting blood sugars. Patient and C PARs messaged to schedule follow up ADAPT. Last Assessment & Plan: The patient states [...] preeclamptic labs with CBC, serum AST/ALT/creatinine and hqidpxo-lk-yayjobhlzf ratio or 24-hour urine protein LIDIA if [...] money to get more. Never true 02/01/2024 [place] Depression Scale Answer Date Recorded [place] Depression Scale Total 0 12/07/2023 The thought [...] No 02/01/2024 Does the household have a [facility] source of income? (Household - for ages [...] as of this encounter Progress Notes * Isiah Yee MD - 02/11/2024 12:35 PM EDT MATERNAL MEDICINE VISIT Sandra Garrido is at 20w1d who presents to [facility] for an ultrasound and follow- up of her high risk . The patient is currently 20 weeks and 1 day gestation with class 3 obesity and gestational diabetescontrolled by diet. She comes in for an evaluation of anatomy. She is being seen today by Maternal- Medicine for the following reasons: Problem List Items Addressed This Visit Class 3 severe obesity due to excess calories with serious comorbidity and body mass index (BMI) of40.0 to 44.9 in adult (HCC) - Primary (Chronic) Obesity in , antepartum We reviewed today's ultrasound findings. (For full report, please refer to ultrasound report provided separately). Ms. Garrido's questions were answered to her satisfaction. Ms. Garrido was instructed to notify her primary word processing machine operator if she felt regular contractions (approximately every 10 mins), leaking of fluid, vaginal bleeding or if movement decreased. RECOMMENDATIONS: Recommend surveillance starting at 34 weeks secondary to class 3 obesity. Recommend follow up ultrasound with MFM in 4 weeks for growth secondary to class 3 obesity. Thank you for allowing us to participate in the care of this patient. Please call with any questions. I spent 20 minutes with Ms. Garrido of which greater than 50% was spent in face to face consultationand coordination of care for the above. Isiah Yee MD 02/11/2024 12:35 PM documented in this encounter Miscellaneous Notes * Assessment & Plan Note - Isiah Yee MD - 02/11/2024 2:00 PM EDT Associated Problem(s): GDM (gestational diabetes mellitus) The patient states that her blood sugars are began to become elevated in the fasting time. . I toldher that this is typical. Also, because of the early diagnosis in , I would expect for herto be on some type of medication by the end of the . We did discuss the need for nonstress testing beginning at 32 weeks if she is placed on medication for blood sugar control. * Assessment & Plan Note - Isiah Yee MD - 02/11/2024 1:59 PM EDT Associated Problem(s): Obesity in , antepartum I reviewed the ultrasound with her. The anatomy that was visualized appears unremarkable and the biometry is appropriate for the gestational age. The amniotic fluid volume is subjectivelynormal and the fetus is in the breech presentation. documented in this encounter Plan of Treatment Upcoming Encounters Date Type Department Care Team (Late st Contact Info) Description 02/12/2024 2:30 PM EDT Telemedicine Hotel Assistant Manager Obstetric MFM [facility], [place] [address] [facility], [place] [address] Ami Coles, SPORTS STATISTICIAN [address] [facility] [place] [address] 02/28/2024 10:00 AM EDT Telemedicine Nutrition, [place] Alvar[place] [address] [place] [address] Alysha Eckert, ORIN [address] [place] [address] 02/29/2024 11:15 AM EDT Office Visit Gynecology/Obstetrics Jumana Alvarado [address] [place] [address] Ruth Busby PA-C [address] [place] [address] Nurse Christiano [facility] Return [place] [address] [place] [address] 03/06/2024 11:45 AM EDT Imaging Maternal Medicine Imaging, [place] Al[place] [address] [place] [address] 04/03/2024 11:45 AM EDT Imaging Maternal Medicine Imaging, [place] Alvraado [address] [place] [address] 2024 11:00 AM EST Imaging Maternal Medicine Imaging, [place] Al[place] [address] [place] [address] 05/29/2024 11:00 AM EST Imaging Maternal Medicine Imaging, [place] Escobars [address] [place] [address] Scheduled Orders Name Type Priority Associated Diagnoses Orde r Schedule M US PREG FOLLOW UP EACH FETUS Medical Imaging Routine Class 3 severe obesity due to excess calories with serious comorbidity and body mass index (BMI) of 40.0 to 44.9 in adult (HCC) Obesity in , antepartum Diet controlled gestational diabetes mellitus (GDM) in second trimester 6 Occurrences starting 02/11/2024 until 08/13/2024 Health Maintenance Due Date Last Done Comments [...] as of this encounter Visit Diagnoses Diagnosis Class 3 severe obesity due to excess calories with serious comorbidity and body mass index (BMI) of 40.0 to 44.9 in adult (HCC)- Primary Obesity in , antepartum Obesity complicating , childbirth, or the puerperium, antepartum condition or complication Diet controlled gestational diabetes mellitus (GDM) in second trimester documented in this encounter Care Teams Plant Director Relationship Specialty Start Date End Date Elina Will DO [address] [place] [address] PCP - General Family Medicine 11/09/23 documented as of this encounter
[2024-06-25] MEDS ORDERED: OXYTOCIN 20 UNITS/LR 1,002 ML IV SCH (09:30)
--- NOTE | 2024-06-25 09:30 | Operative Report ---
Post Operative Report Pre & Post Diagnosis Operation Date: 06/25/24 07:30 Pre-Op Diagnosis: Previous Section Post-Op Diagnosis: Same;Delivery of a Live Male child at 0824 I identified the patient and participated in the time-out.: Yes Procedure Operation Date: 06/25/24 07:30 Actual Procedures p Repeat Section - Federico Rodriguez MD Surgeon Federico Rodriguez MD Tubing Machine Operator Ruth Busby Quantitative Blood Loss (QBL) 157 Findings Consistent with Post-Op Diagnosis Scarring lower uterine segment. Specimens Placenta. Anesthesia Type MAC Spinal Regional Complications None Indications Previous section. Intrauterine 39 weeks 3 days gestation. Macrosomia diagnosed by ultrasound. Description of Procedure Patient was brought to the OR identified by armband and conversation. Spinal anesthesia was administered. Compression stockings were applied. A Menchaca catheter was inserted aseptically into the bladder connected to gravity drainage. Lower abdomen was painted with an alcohol-based sterilizing solution. This was allowed to dry for 3 minutes. The abdomen was then draped in usual sterile fashion. Timeout was called. Adequacy of the anesthesia was tested. An incision was made through her previous Pfannenstiel incisional scar. The scar was pulled upward on the abdomen to get a higher entry into the abdominal cavity. The incision was carried down to the anterior fascia by blunt and sharp dissection. Hemostasis was secured by electrocauterization. The fascia was incised transversely from the underlying muscle by blunt and sharp dissection. The peritoneum was entered in the midline. The bladder reflection was fairly high on the anterior abdominal wall. We were able to get above the reflection. And insert a abdominal retractor. This exposed the lower uterine segment. An entry into the uterine cavity was made at the level of the head a knife was used to cut down through most of the uterine wall. Then ent ered bluntly with the scissors. Clear amniotic fluid was seen at this time. A pectus retractor was applied to the head and with fundal pressure infant was delivered spontaneously. breathing cried spontaneously. Cord was allowed to pulse for 1 full minute. Cord was then clamped cut. The infant was attended to by the electrical maintenance mechanic who is scrubbed and present at the time of delivery. Cord blood was taken. Placenta was removed manually. Uterus tubes and ovaries were brought out through the incision. A careful anatomical approximation of the lower uterine segment was performed. The myometrium was approximated with a continuous running suture of heavy chromic. Then a Vicryl sutures used approximate the fascial layer over the muscular approximation with a horizontal placement of a heavy-duty Vicryl. This brought together the fascia over the muscular approximation. 1 additional gdzzfe-zu-gjghq of Vicryl was placed on the right side to complete the approximation and create good hemostasis. Pelvis cavity was cleansed of all blood clots and debris. Uterus tubes and ovaries were reinserted into the abdominal cavity. The retractor was removed. Hemostasis was excellent. A careful anatomical approximation of the anterior abdominal wall was performed. The peritoneum was closed with continuous Chromic Gut suture. Recti muscles were approximated interrupted vukqwe-ci-gocrq suture chromic catgut. Fascia was closed with continuous interlocking suture of Vicryl on each side tied in the midline. Subcutaneous tissue was approximated with a running plain. The skin edges were approximated with staple clips. Patient tolerated the procedure well. Quantitative blood loss was 157 mL. I attest to the content of the Intraoperative Record and any orders documented therein. Any exceptions are noted below. assurance assistant was necessary for safe surgery and adequate exposure. Tubing Machine Operator was necessary due to the patient's weight and position of her previous incision.
--- OUTSIDE RECORDS SUMMARY | 2024-06-25 09:30 | External Medical Summary ---
Author Name Unknown Address Unknown Organization K01:LABORATORY [facility] [place] - [address] [place] [address] Laboratory Report Ordering Provider Test Date Status PANFILO LOCKHART 01/04/2024 12:14:13 Final Observation Date Value Abnormality Reference (Units ) Status HbA1C 01/04/2024 12:14:13 5.5 4.0-5.6 (% ) Final The use of HbA1c to monitor glycemic status is based on normal hemoglobin and HbA composition. This test should not be used in patients with abnormal hemoglobin that affects the half life of the red blood cell or the in vivo glycation rates. Glucose, estimated average 01/04/2024 12:14:13 111 <126 (mg/dL) Final Performing Location LABORATORY [facility] - [address] [place] [address]
--- OUTSIDE RECORDS SUMMARY | 2024-06-25 09:30 | External Medical Summary | Summary of Care ---
Author Name Unknown Organization [facility] Address [address] [facility] [place] [address] Phone [phone] Care Team Providers Care Dowel Sander Operator Name Role Phone Elina Will DO Primary Care Provider [phone] Reason for Visit * Reason Comments Outpatient Testing Encounter Details Date Type Department Care Team (Late st Contact Info) Description 12/29/2023 9:30 AM EDT Laboratory Laboratory, [facility] [address] [facility] [place] [address] [facility] [place] [address] [facility] [place] [address] Abnormal glucose tolerance in mother complicating Allergies No known active allergiesdocumented as of this encounter (statuses as of 12/31/2023) Medications Medication Sig Dispensed Refills Start Date End Date Status /Folic Acid Oral Tablet Take 1 Tablet by mouth once. Active Aspirin 81 MG Oral Tablet Delayed Release Take 1 Tablet by mouth in the morning. Active documented as of this encounter (statuses as of 12/31/2023) Active Problems Problem Noted Date Diagnosed Date with 12 completed weeks gestation 06/2023 History [...] preeclamptic labs with CBC, serum AST/ALT/creatinine and swmopkd-cy-yzqoylqtjw ratio or 24-hour urine protein LIDIA if [...] or questions 12/07/2023 Susannah Leal RN 12/07/2023 Supervision of high risk in [facility] 12/07/2023 Class 3 severe obesity due t [...] preeclamptic labs with CBC, serum AST/ALT/creatinine and cychinh-db-molgeyvmsw ratio or 24-hour urine protein LIDIA if [...] as of this encounter (statuses as of 12/31/2023) Social History Tobacco Use Types Packs/Day Years [...] money to get more. Never true 05/12/2023 [place] Depression Scale Answer Date Recorded [place] Depression Scale Total 0 12/07/2023 The thought [...] 05/12/2023 Does the household have a re gular [...] Care Team (Late st Contact Info) Description 01/04/2024 11:30 AM EDT Office Visit Gynecology/Obstetrics Jumana Alvarado [address] [place] [address] Ruth Busby PA-C [address] [place] [address] Nurse Jonny Alvarado Beginnings Return [place] [address] [place] [address] 02/11/2024 12:45 PM EDT Office Visit [address] Mri Technologist Obstetrics Maternal Medicine, [place] [address] [facility] [place] [address] Ger Cuellar, [address] [place] [address] 02/11/2024 12:45 PM EDT [facility] [place] [address] [place] [address] Health Maintenance Due Date Last Done Comments Depression Screening 2003 DTaP,Tdap,and Td Vaccines (1 - Tdap) 2010 Hepatitis B Vaccine (1 of 3 - 19+ 3-dose series) 2010 COVID-19 Vaccine (2022-2 4 season) 2023 Influenza Vaccine (FLU shot) [...] Procedure Name Priority Date/Time Associated Diagnosis Comments 100-G GESTATIONAL GLUCOSE, 3 HOUR Routine 12/29/2023 11:54 AM EDT Abnormal glucose tolerance in mother complicating 100-G GESTATIONAL GLUCOSE, 2 HOUR Routine 12/29/2023 10:56 AM EDT Abnormal glucose tolerance in mother complicating 100-G GESTATIONAL GLUCOSE, 1 HOUR Routine 12/29/2023 9:55 AM EDT Abnormal glucose tolerance in mother complicating GESTATIONAL GLUCOSE TOLERANCE, 3 HOUR Routine 12/29/2023 8:50 AM EDT Abnormal glucose tolerance in mother complicating 100-G GESTATIONAL GLUCOSE, FASTING Routine 12/29/2023 8:50 AM EDT Abnormal glucose tolerance in mother complicating documented in this encounter Results * 100-G GESTATIONAL GLUCOSE, 3 HOUR (12/29/2023 11:54 AM EDT) 100-g Gestational Glucose, 3 Hour 82 70 - 139 mg/dL 12/29/2023 12:49 PM EDT LABORATORY [place] 57-10 Blood Venous blood specimen / Unknown Venipuncture / Unknown 12/29/2023 11:54 AM EDT 12/29/2023 11:54 AM EDT Erin Gould PA-C LAB BLOOD ORDERABL ES LAB[facility]AT[facility] [place] 57-10 [address] [facility] [place] [address] * (ABNORMAL) 100-G GESTATIONAL GLUCOSE, 2 HOUR (12/29/2023 10:56 AM EDT) 100-g Gestational Glucose, 2 Hour 161(H) 70 - 154 mg/dL 12/29/2023 12:26 PM EDT LAB[facility]ATORY [place] [facility]-10 Blood Venous blood specimen / Unknown Venipuncture / Unknown 12/29/2023 10:56 AM EDT 12/29/2023 10:56 AM EDT Erin Gould PA-C LAB BLOOD ORDERABL ES LABORATORY [place] 57-10 [address] [place] [address] * (ABNORMAL) 100-G GESTATIONAL GLUCOSE, 1 HOUR (12/29/2023 9:55 AM EDT) 100-g Gestational Glucose, 1 Hour 190(H) 70 - 179 mg/dL 12/29/2023 10:33 AM EDT LAB[facility]ATORY [place] 57-10 Blood Venous blood specimen / Unknown Venipuncture / Unknown 12/29/2023 9:55 AM EDT 12/29/2023 9:55 AM EDT Erin Gould PA-C LAB BLOOD ORDERABL ES LAB[facility]ATORY [place] 57-10 [address] [place] [address] * (ABNORMAL) 100-G GESTATIONAL GLUCOSE, FASTING (12/29/2023 8:50 AM EDT) 100-g Gestational Glucose, Fasting 95(H) 70 - 94 mg/dL 12/29/2023 9:55 AM EDT LABORATORY [place] 57-10 Blood Venous blood specimen / Unknown Venipuncture / Unknown 12/29/2023 8:50 AM EDT 12/29/2023 8:50 AM EDT Narrative LABORATORY [place] 57-10 - 12/29/2023 9:55 AM EDT Based on ACOG guideline, gestational diabetes mellitus is diagnosed when any of the following is met: Fasting is greater than or equal to 95 mg/dL 1 hour is greater than or equal to 180 mg/dL 2 hour is greater than or equal to 155 mg/dL 3 hour is greater than or equal to 140 mg/dL Erin Gould PA-C LAB BLOOD ORDERABL ES LABORATORY [place] 57-10 [address] [place] [address] documented in this encounter Visit Diagnoses Diagnosis Abnormal glucose tolerance in mother complicating Abnormal maternal glucose tolerance, complicating , childbirth, or the puerperium, unspecified as to episode of care documented in this encounter Care Teams Dowel Sander Operator Relationship Specialty Start Date End Date Elina Will DO [address] [place] [address] PCP - General Family Medicine 11/09/23 documented as of this encounter
--- OUTSIDE RECORDS SUMMARY | 2024-06-25 09:30 | External Medical Summary | Summary of Care ---
Author Name Unknown Organization [facility] Address [address] [facility] [place] [address] Phone [phone] Care Team Providers Care Fountain Waitress/Waiter Name Role Phone Elina Will DO Primary Care Provider Reason for Visit * Reason Comments Return Visit Encounter Details Date Type Department Care Team (Late st Contact Info) Description 01/04/2024 11:30 AM EDT Office Visit Gynecology/Obstetri sruthi Alvarado [address] [employer] [email or web address] [place] [address] Ruth Busby PA-C [address] [place] [address] Nurse Jonny Alvarado Beginnings Return [place] [address] [employer] [place] [address] High risk teen in second trimester*; Hx of section; History of gestational hypertension; Obesity in , antepartum; Diet controlled gestational diabetes mellitus (GDM) in first trimester Allergies No known active allergiesdocumented as of this encounter (statuses as of 01/04/2024) Medications Medication Sig Dispensed Refills Start Date [...] as of this encounter (statuses as of 01/04/2024) Active Problems Problem Noted Date Diagnosed Date [...] blood sugars each week for MFM review Last Assessment & Plan: CONSIDERATIONS: Reviewed etiology and risks associated with [...] Recommend nutrition consult with RDN (Registered Dietitian Plastic Fabricator). Lifestyle changes are also indicated including optimizing [...] with 75-gram glucose load 6-8 weeks . with 12 completed weeks gestation 06/2023 History [...] preeclamptic labs with CBC, serum AST/ALT/creatinine and epzknlu-zn-hikdjeuijw ratio or 24-hour urine protein LIDIA if [...] preeclamptic labs with CBC, serum AST/ALT/creatinine and fubeldc-zf-wztxcyxttc ratio or 24-hour urine protein LIDIA if [...] as of this encounter (statuses as of 01/04/2024) Social History Tobacco Use Types Packs/Day Years [...] money to get more. Never true 05/12/2023 [place] Depression Scale Answer Date Recorded [place] Depression Scale Total 0 12/07/2023 The thought [...] Sign Reading Time Taken Comments Blood Pressure 132/76 01/04/2024 11:26 AM EDT Pulse - - Temperature - - Respiratory Rate - - Oxygen Saturation - - Inhaled Oxygen Concentration - - Weight 107.5 kg (237 lb) 01/04/2024 11:26 AM EDT Height 162.6 cm (5' 4") 01/04/2024 11:26 AM EDT Body Mass Index 40.68 01/04/2024 11:26 AM EDT documented in this encounter Progress Notes * Ruth Busby PA-C - 01/04/2024 12:00 PM EDT 14w5d Early GDM diagnosis. Has appointment with [employer] team today. Reports BG good, has been able to keep diet controlled. Will get A1C at lab today. BP remain WNL 132/76. Pt has been monitoring at home and no elevations. Denies LOF, VB. No quickening as of yet. RTC in 4 weeks Ruth Busby PA-C documented in this encounter Nursing Notes * Susannah Leal RN - 01/04/2024 11:45 AM EDT Patient seen by [facility] Pot Fireman. Patient denies any questions or concerns have you cut down with your smokingn/a have you quit n/a have you seen a blocker metal base no have you seen a dialysis social worker are you receiving counseling no have you received dental care during your no are you enrolled in WIC yes do you receive food stamps or calvin assistance yes Susannah Leal RN * Georgia Venegas LPN - 01/04/2024 11:27 AM EDT 14w5d Denies concerns documented in this encounter Plan of Treatment Upcoming Encounters Date Type Department Care Team (Late st Contact Info) Description 01/11/2024 11:30 AM EDT Office Visit Performing Arts [address] Manager Obstetrics Maternal Medicine, [address] [address] Yaneth Cid DO [address] [place] [address] 01/11/2024 11:30 AM EDT Imaging Radiology [address] [address] 02/01/2024 11:30 AM EDT Office Visit Gynecology/Obstetrics [facility] [address] [place] [address] Chloe Hurtado CRNP [address] [place] [address] 02/11/2024 12:45 PM EDT Office Visit [address] Manager Obstetrics Maternal Medicine, [address] [address] Isiah Yee MD [address] [place] [address] 02/11/2024 12:45 PM EDT Imaging Radiology [place] [address] [facility] [place] [address] Health Maintenance Due Date Last Done Comments [...] this encounter Visit Diagnoses Diagnosis High risk teen in second trimester- Primary Hx of section Other postprocedural status History of gestational hypertension Obesity in , antepartum Obesity complicating , childbirth, or the puerperium, antepartum condition or complication Diet controlled gestational diabetes mellitus (GDM) in first trimester documented in this encounter Care Teams Fountain Waitress/Waiter Relationship Specialty Start Date End Date Elina Will DO [facility] [address] [place] [address] PCP - General Family Medicine 11/09/23 documented as of this encounter
--- OUTSIDE RECORDS SUMMARY | 2024-06-25 09:30 | External Medical Summary | Summary of Care ---
Author Name Unknown Organization [facility] Address [address] [place] [address] Phone [phone] Care Team Providers Care Paver Name Role Phone Elina Will DO Primary Care Provider [phone] Reason for Visit * Reason Comments DSMT INITIAL * Evaluate & Treat - Unlimited Visits (Within 10 days (routine)) - Authorized Specialty Diagnoses / Procedures Referred By Contac t Referred To Contact Dashboard Developer / Nutrition Services Diagnoses Diet controlled gestational diabetes mellitus (GDM) in second trimester Erin Gould PA-C [address] [place] [address] Referral ID Status Reason Start Date Expiration Date Visits Requested Visits Authorized [id number] Authorized Specialty Services Required 01/01/2024 999 [id number] Encounter Details Date Type Department Care Team (Late st Contact Info) Description 01/17/2024 11:00 AM EDT [facility] [address] [place] [place] [address] Alysha Eckert RDN [facility] [place] [address] Diet controlled gestational diabetes mellitus (GDM) in [...] Tablet by mouth in the morning. Active CS Disco Flex System w/Device Kit Use to test blood sugars 4 times daily (fasting, 1 hour after breakfast, lunch, and dinner) 1 Kit 01/01/2024 Active CS Disco In Vitro Strip (Glucose Blood) Use to test blood sugars 4 times daily (fasting, 1 hour after breakfast, lunch, and dinner) 125 Strip 6 01/01/2024 Active [employer] DelG2Link Lancets 30G Use to test blood sugars [...] preeclamptic labs with CBC, serum AST/ALT/creatinine and yfjodhp-jl-jkjdnigqsc ratio or 24-hour urine protein LIDIA if [...] preeclamptic labs with CBC, serum AST/ALT/creatinine and qhbgwnu-rk-zgfsuulumy ratio or 24-hour urine protein LIDIA if [...] money to get more. Never true 05/12/2023 [place] Depression Scale Answer Date Recorded [place] Depression Scale Total 0 12/07/2023 The thought [...] 140/84 Gestational Diabetes Participant, being monitored by SUPPOSITORY MOLDING MACHINE OPERATOR. Dyslipidemia: No results found for: [...] clean hands. Encouraged her to avoid using city library director when checking. She has been disposing of [...] Planning Healthy Meals GDM info Understanding [facility] Diabetes Self-Management Support:: Apps/Smart Phone Technology: [employer] Current Health calli Possible Future Topics: Content areas that were not assessed in first visit: All content areas have been assessed. Time Spent With Patient: Time in: 11:06 AM Time out: 11:44 AM Billing: DSMT: 30 Minutes Plan for Return: 02/28/2024 Participant provided with contact information for Diabetes Care and Bolter Helper. All [facility] providers within the system are able to see [place] [employer] education and outcomes within the participant's electronic medical record. Alysha Eckert RDN, NUTRITION SERVICES [facility] Diabetes Care and Bolter Helper documented in this encounter Plan of Treatment Upcoming Encounters Date Type Department Care Team (Late st Contact Info) Description 02/01/2024 11:30 AM EDT Office Visit Gynecology/Obstetrics Jumana Escobars [address] [place] [address] Chloe Hurtado CRNP [address] [place] [address] 02/11/2024 12:45 PM EDT Office Visit Certified Performance Technologist Obstetrics Maternal Medicine, [place] [address] [place] [address] Isiah Yee MD [address] [place] [address] 02/11/2024 12:45 PM EDT Imaging [facility] [place] [address] [place] [address] 02/28/2024 10:00 AM EDT Telemedicine [facility] [address] [facility] [place] [address] Alysha Eckert RDN [address] [place] [address] Scheduled Referrals Name Type Priority Associated Diagnoses [...] counseling documented in this encounter Care Teams Paver Relationship Specialty Start Date End Date Elina Will DO [address] [place] [address] PCP - General Family Medicine 11/09/23 documented as of this encounter
--- OUTSIDE RECORDS SUMMARY | 2024-06-25 09:30 | External Medical Summary | Summary of Care ---
Author Name Unknown Organization [facility] Address [address] [place] [address] Phone [phone] Care Team Providers Care Watermelon Inspector Name Role Phone Elina Will DO Primary Care Provider [phone] Reason for Visit * Reason Onset Date Comments Test Results 01/07/2024 QNATAL Results Encounter Details Date Type Department Care Team (Late st Contact Info) Description 01/07/2024 Telephone Contact Lens Technician Obstetrics Maternal Medicine, [place] [address] [place] [address] Shea Johnson CHRA Test Results (QNATAL Results) Allergies No known active allergiesdocumented as of this encounter (statuses as of 01/07/2024) Medications Medication Sig Dispensed Refills Start Date End Date Status /Folic Acid Oral Tablet Take 1 Tablet by mouth once. Active Aspirin 81 MG Oral Tablet Delayed Release Take 1 Tablet by mouth in the morning. Active Adometry By GoogleToXtreme Installs Verio Flex System w/Device Kit Use to test blood sugars 4 times daily (fasting, 1 hour after breakfast, lunch, and dinner) 1 Kit 01/01/2024 Active Adometry By GoogleTouch Verio In Vitro Strip (Glucose Blood) Use to test blood sugars 4 times daily (fasting, 1 hour after breakfast, lunch, and dinner) 125 Strip 6 01/01/2024 Active Adometry By GoogleTouch Delica Lancets 30G Use to test blood sugars 4 times daily (fasting, 1 hour after breakfast, lunch, and dinner) 200 Each 6 01/01/2024 Active documented as of this encounter (statuses as of 01/07/2024) Active Problems Problem Noted Date Diagnosed Date [...] 01/04/24: MFM ADAPT consult complete. Enrolled in [facility]. Instructions provided to report blood sugars each week for MFM review 01/07/24: RPM reviewed; Stable Last Assessment & Plan: CONSIDERATIONS: Reviewed etiology [...] Recommend nutrition consult with RDN (Registered Dietitian Drum Attendant). Lifestyle changes are also indicated including optimizing [...] preeclamptic labs with CBC, serum AST/ALT/creatinine and cavxzvd-je-xrwdbeetxr ratio or 24-hour urine protein LIDIA if [...] preeclamptic labs with CBC, serum AST/ALT/creatinine and xkdnbwj-wq-pkusuclljr ratio or 24-hour urine protein LIDIA if [...] as of this encounter (statuses as of 01/07/2024) Social History Tobacco Use Types Packs/Day Years [...] money to get more. Never true 05/12/2023 [place] Depression Scale Answer Date Recorded [place] Depression Scale Total 0 12/07/2023 The thought [...] encounter Miscellaneous Notes * Telephone Encounter - Shea Johnson CHRA - 01/07/2024 10:06 AM EDT Cell-free DNA genetic screening results came back LOW RISK. Informed patient that based on this screening test, the is not at high risk for trisomy 21, 18, 13, and sex chromosome abnormalities. Patient is aware of male sex of the fetus. GUERDA Garcia Genetic Counseling Bridge Game Director Maternal Medicine For further questions call the Genetic Counselor at . documented in this encounter Plan of Treatment Upcoming Encounters Date Type Department Care Team (Late st Contact Info) Description 01/11/2024 11:30 AM EDT Office Visit Contact Lens Technician Obstetrics Maternal Medicine, [place] [address] [place] [address] Yaneth Cid [address] [place] [address] 01/11/2024 11:30 AM EDT Imaging Radiology [facility] [address] [place] [address] 02/01/2024 11:30 AM EDT [facility] [address] [place] [address] Chloe Hurtado CRNP [address] [place] [address] 02/11/2024 12:45 PM EDT Office Visit Contact Lens Technician Obstetrics Maternal Medicine, [place] [address] [place] [address] Isiah Yee MD [address] [place] [address] 02/11/2024 12:45 PM EDT Imaging [facility]iology [facility] [address] [place] [address] Health Maintenance Due Date Last Done Comments [...] filedocumented as of this encounter Care Teams Watermelon Inspector Relationship Specialty Start Date End Date Elina Will DO [address] [place] [address] PCP - General Family Medicine 11/09/23 documented as of this encounter
--- OUTSIDE RECORDS SUMMARY | 2024-06-25 09:30 | External Medical Summary | Summary of Care ---
Author Name Unknown Organization [facility] Address [address] [place] [address] Phone [phone] Care Team Providers Care High [employer] Computer Science Teacher Name Role Phone Elina Will DO Primary Care Provider [phone] Reason for Visit * Reason Comments Ultrasound Encounter Details Date Type Department Care Team (Late st Contact Info) Description 01/11/2024 11:30 AM EDT Office Visit [place] Obstetrics Maternal Medicine, [place] [address] [place], [place] [phone] Yaneth Cid, [address] [place] [address] Obesity in , antepartum*; Diet controlled gestational diabetes mellitus (GDM) in second trimester; 15 weeks gestation of Allergies No known active allergiesdocumented as of this encounter (statuses as of 01/11/2024) Medications Medication Sig Dispensed Refills Start Date End Date Status /Folic Acid Oral Tablet Take 1 Tablet by mouth once. Active Aspirin 81 MG Oral Tablet Delayed Release Take 1 Tablet by mouth in the morning. Active Genesis Operating SystemToDigital Performance Verio Flex System w/Device Kit Use to test blood sugars 4 times daily (fasting, 1 hour after breakfast, lunch, and dinner) 1 Kit 01/01/2024 Active Genesis Operating SystemTouch Verio In Vitro Strip (Glucose Blood) Use to test blood sugars 4 times daily (fasting, 1 hour after breakfast, lunch, and dinner) 125 Strip 6 01/01/2024 Active Genesis Operating SystemTouch Delica Lancets 30G Use to test blood sugars 4 times daily (fasting, 1 hour after breakfast, lunch, and dinner) 200 Each 6 01/01/2024 Active documented as of this encounter (statuses as of 01/11/2024) Active Problems Problem Noted Date Diagnosed Date [...] RPM reviewed; Stable Last Assessment & Plan: Working with ADAPT. [...] preeclamptic labs with CBC, serum AST/ALT/creatinine and danagmw-bs-llmrxhjfaw ratio or 24-hour urine protein LIDIA if [...] preeclamptic labs with CBC, serum AST/ALT/creatinine and fhxxxze-if-momomidkdy ratio or 24-hour urine protein LIDIA if [...] as of this encounter (statuses as of 01/11/2024) Social History Tobacco Use Types Packs/Day Years [...] money to get more. Never true 05/12/2023 [place] Depression Scale Answer Date Recorded [place] Depression Scale Total 0 12/07/2023 The thought [...] of this encounter Progress Notes * Yaneth Cid DO - 01/11/2024 12:43 PM EDT Sandra presented today at 15w5d for an ultrasound for the following indications: Obesity in , antepartum Diet controlled gestational diabetes mellitus (GDM) in second trimester Assessment & Plan: Working with ADAPT. 15 weeks gestation of Ultrasound summary: Single live IUP at 15w 6d, scan consistent with dates. Early limited anatomy appears normal. I reviewed the ultrasound images. Sandra was given the opportunity to meet with me if she had anyquestions. Please refer to the ultrasound report for additional details about today's ultrasound examination. RECOMMENDATIONS: Recommend follow up ultrasound with MFM in 4 weeks for anatomy survey secondary to above indications. See prior formal MFM consultation note. Thank you for allowing us to participate in the care of this patient. Please call with any questions. Yaneth Cid DO 01/11/2024 12:43 PM documented in this encounter Miscellaneous Notes * Assessment & Plan Note - Yaneth Cid DO - 01/11/2024 9:05 AM EDT Associated Problem(s): GDM (gestational diabetes mellitus) Working with ADAPT. documented in this encounter Plan of Treatment Upcoming Encounters Date Type Department Care Team (Late st Contact Info) Description 01/17/2024 11:00 AM EDT [facility] [address] [place] [address] Alysha Eckert RDN [address] [place] [address] 02/01/2024 11:30 AM EDT Office Visit Gynecology/Obstetrics [facility] [address] [place] [address] Chloe Hurtado CRNP [address] [place] [address] 02/11/2024 12:45 PM EDT Office Visit [place] Obstetrics Maternal Medicine, [place] [address] [place] [address] Isiah Yee MD [address] [place] [address] 02/11/2024 12:45 PM EDT Imaging Radiology [facility] [address] [place], [place] [id number] Health Maintenance Due Date Last Done Comments [...] as of this encounter Visit Diagnoses Diagnosis Obesity in , antepartum- Primary Obesity complicating , childbirth, or the puerperium, antepartum condition or complication Diet controlled gestational diabetes mellitus (GDM) in second trimester 15 weeks gestation of state, incidental documented in this encounter Care Teams High School Computer Science Teacher Relationship Specialty Start Date End Date Elina Will DO [address] [place] [address] PCP - General Family Medicine 11/09/23 documented as of this encounter
--- OUTSIDE RECORDS SUMMARY | 2024-06-25 09:30 | External Medical Summary | Summary of Care ---
Author Name Unknown Organization [facility] Address [address] [facility] [place] [address] Phone [phone] Care Team Providers Care Industrial Roof Plumber Name Role Phone Elina Will DO Primary Care Provider Reason for Visit * Reason Comments Return Visit Encounter Details Date Type Department Care Team (Late st Contact Info) Description 01/04/2024 11:30 AM EDT Office Visit Gynecology/Obstetri sruthi Alvarado [email or web address] [place] [address] Ruth Busby PA-C [address] [place] [address] Nurse Jonny Alvarado Beginnings Return [place] [email or web address] [place] [address] High risk teen in second trimester*; Hx [...] Recommend nutrition consult with RDN (Registered Dietitian Programming Director). Lifestyle changes are also indicated including [...] preeclamptic labs with CBC, serum AST/ALT/creatinine and xvgperq-vq-kyusookffm ratio or 24-hour urine protein LIDIA if [...] Leal RN 01/04/2024 Supervision of high risk in [facility] 12/07/2023 Class 3 severe obesity due t [...] preeclamptic labs with CBC, serum AST/ALT/creatinine and yuguexg-vl-lkswuglnwv ratio or 24-hour urine protein LIDIA if [...] money to get more. Never true 05/12/2023 [place] Depression Scale Answer Date Recorded [place] Depression Scale Total 0 12/07/2023 The thought [...] 01/04/2024 11:45 AM EDT Patient seen by [facility] Payable Representative. Patient denies any questions or concerns Susannah Leal RN * Georgia Venegas LPN - 01/04/2024 11:27 AM EDT 14w5d Denies concerns documented in this encounter Plan of Treatment Upcoming Encounters Date Type Department Care Team (Late st Contact Info) Description 01/11/2024 11:30 AM EDT Office Visit Quality Process Lead Obstetrics Maternal Medicine, [place] [address] [place], [place] [phone] Yaneth Cid DO [address] [place] [address] 01/11/2024 11:30 AM EDT Imaging Radiology [facility] [address] [place], [place] [address] 02/01/2024 11:30 AM EDT Office Visit Gynecology/Obstetrics [facility] [address] [place] [address] Chloe Hurtado CRNP [address] [place] [address] 02/11/2024 12:45 PM EDT Office Visit Quality Process Lead Obstetrics Maternal Medicine, [place] [address] [place] [address] Isiah Yee MD [address] [place], [place] [phone] 02/11/2024 12:45 PM EDT Imaging Radiology [facility] [address] [place], [place] [phone] Health Maintenance Due Date Last Done Comments [...] trimester documented in this encounter Care Teams Industrial Roof Plumber Relationship Specialty Start Date End Date Elina Will DO [address] [place] [address] PCP - General Family Medicine 11/09/23 documented as of this encounter
--- OUTSIDE RECORDS SUMMARY | 2024-06-25 09:30 | External Medical Summary | Summary of Care ---
Author Name Unknown Organization [facility] Address [address] [place] [address] Phone [phone] Care Team Providers Care Ice Cutter Name Role Phone Elina Will DO Primary Care Provider [phone] Reason for Visit * Reason Onset Date Comments Referral 01/02/2024 Encounter Details Date Type Department Care Team (Late st Contact Info) Description 01/02/2024 Telephone Labor Conciliator Obstetrics Maternal Medicine, [place] [address] [place], [place] [phone] [place], Nurse Labor Conciliator [facility] [address] [place], [place] [phone] Referral Allergies No known active allergiesdocumented as of this encounter (statuses as of 01/02/2024) Medications Medication Sig Dispensed Refills Start Date End Date Status /Folic Acid Oral Tablet Take 1 Tablet by mouth once. Active Aspirin 81 MG Oral Tablet Delayed Release Take 1 Tablet by mouth in the morning. Active eflowTouch Verio Flex System w/Device Kit Use to test blood sugars 4 times daily (fasting, 1 hour after breakfast, lunch, and dinner) 1 Kit 01/01/2024 Active eflowTouch Verio In Vitro Strip (Glucose Blood) Use to test blood sugars 4 times daily (fasting, 1 hour after breakfast, lunch, and dinner) 125 Strip 6 01/01/2024 Active OneTouch Delica Lancets 30G Use to test blood sugars 4 times daily (fasting, 1 hour after breakfast, lunch, and dinner) 200 Each 6 01/01/2024 Active documented as of this encounter (statuses as of 01/02/2024) Active Problems Problem Noted Date Diagnosed Date [...] preeclamptic labs with CBC, serum AST/ALT/creatinine and sncorbd-rv-fcytpfipiu ratio or 24-hour urine protein LIDIA if [...] RN 12/07/2023 Supervision of high risk in [facility] 12/07/2023 Class 3 severe obesity due t [...] preeclamptic labs with CBC, serum AST/ALT/creatinine and ujgnlec-eq-ojflgureks ratio or 24-hour urine protein LIDIA if [...] as of this encounter (statuses as of 01/02/2024) Social History Tobacco Use Types Packs/Day Years [...] money to get more. Never true 05/12/2023 [place] Depression Scale Answer Date Recorded [place] Depression Scale Total 0 12/07/2023 The thought [...] Telephone Encounter - Wendy Orr OSA - 01/02/2024 11:02 AM EDT Spoke with Sandra. Appointment scheduled. Patient aware of date, time and location of Maternal Medicine appointment. * Telephone Encounter - Teresa Marks CCMA - 01/02/2024 10:53 AM EDT Estimated Date of Delivery: 06/29/24 Please schedule for 45 MINUTE ADAPT WITH KNOT SAW OPERATOR, in time frame of within 1 week at location [facility] with the indication of GDM. Please schedule limited anatomy within 1 week. Referring Provider: Erin Gould PA-C documented in this encounter Plan of Treatment Upcoming Encounters Date Type Department Care Team (Late st Contact Info) Description 01/04/2024 11:30 AM EDT Office Visit Gynecology/Obstetrics [facility] [address] [place] [address] Ruth Busby PA-C [address] [place] [address] Nurse Christian[address] [facility] Beginnings Return [facility] [address] [place] [address] 01/04/2024 1:00 PM EDT Telemedicine Labor Conciliator Obstetrics Maternal Medicine, [place] [address] [facility] [address] [place] [address] Domitila Elaine CRNP [address] [facility] [address] [place] [address] 01/11/2024 11:30 AM EDT Office Visit Labor Conciliator Obstetrics Maternal Medicine, [place] [address] [place] [address] Yaneth Cid DO [address] [place] [address] 01/11/2024 11:30 AM EDT Imaging Rad[facility], [place] [address] [place] [address] 02/11/2024 12:45 PM EDT Office Visit Labor Conciliator Obstetrics Maternal Medicine, [place] [address] [place] [address] Ger Cuellar DO [address] [place] [address] 02/11/2024 12:45 PM EDT Imaging Rad[facility] [place] [address] [place] [address] Health Maintenance Due Date Last Done Comments [...] filedocumented as of this encounter Care Teams Ice Cutter Relationship Specialty Start Date End Date Elina Will DO [address] [place] [address] PCP - General Family Medicine 11/09/23 documented as of this encounter
--- OUTSIDE RECORDS SUMMARY | 2024-06-25 09:30 | External Medical Summary ---
Author Name Unknown Address Unknown Organization [facility] [address] [place] [address] Laboratory Report Ordering Provider Test Date Status PANFILO LOCKHART 12/29/2023 11:54:28 Final Observation Date Value Abnormality Reference (Units ) Status Glucose [Mass/volume] in Serum or Plasma --3 hours post dose glucose 12/29/2023 11:54:28 82 70-139 (mg/dL) Final Performing Location [facility] [address] [place] [address]
--- OUTSIDE RECORDS SUMMARY | 2024-06-25 09:30 | External Medical Summary ---
Author Name Unknown Address Unknown Organization [facility] [address] [place] [id number] Laboratory Report Ordering Provider Test Date Status PANFILO LOCKHART 12/29/2023 09:55:22 Final Observation Date Value Abnormality Reference (Units ) Status Glucose [Mass/volume] in Serum or Plasma --1 hour post dose glucose 12/29/2023 09:55:22 190 Above high normal 70-179 (mg/dL) Final Performing Location [facility] [place] [address]
--- OUTSIDE RECORDS SUMMARY | 2024-06-25 09:30 | External Medical Summary | Summary of Care ---
Author Name Unknown Organization [facility] Address [address] [place] [address] Phone [phone] Care Team Providers Care Bag Loader Machine Operator Name Role Phone Elina Will DO Primary Care Provider [phone] Reason for Referral * Evaluate & Treat - Unlimited Visits (Within 10 days (routine)) - Authorized Specialty Diagnoses / Procedures Referred By Contgabrielle t Referred To Contact Water Operator / Nutrition Services Diagnoses Diet controlled gestational diabetes mellitus (GDM) in second trimester Erin Gould [place] [address] [place] [id number] Referral ID Status Reason Start Date Expiration Date Visits Requested Visits Authorized [id number] Authorized Specialty Services Required 01/01/2024 [id number] Question Answer Is the patient ? Yes Referral Priority Within 10 days (routine) Where should this appointment be scheduled? [facility] Comments This referral is for Diabetes Self-Management Training (DSMT) by a recognized [place] [employer] (ADA) breastfeeding educator: Nurse (RN), Registered Dietitian Medical Legal Investigator (RDN), and/or Diabetes Medical Nutrition Therapy (MNT) Management (dietitian only). Diabetes educators are responsible for assessing the participant's diabetes education needs, and providing diabetes self-management training in accordance with the standards set by the ADA for DSMT. Any adjustment in diabetes therapy will be made within the guidelines of standards of practice and [facility] approved policies and procedures. I understand that the breastfeeding educator will keep me informed. Areas of Education: Pathophysiology Nutrition Physical Activity Medications Monitoring Acute Complications Chronic Complications Psychosocial Management Promote Health/Behavior Change Participant will be offered 1:1 education training if there is a lack of classes available within 2 months. Providers can also order 1:1 training if indicated for participant for the following reasons: 1:1 Training for Insulin Initiation Participant Inappropriate for Class Setting By my electronic signature, I understand that my patient will be offered the comprehensive ADA content area above unless deemed not appropriate of I specify otherwise here: * Evaluate & Treat - Unlimited Visits (Within 10 days (routine)) - Authorized Specialty Diagnoses / Procedures Referred By Janie mcdowell Referred To Contact Obstetrics/Gynecology / Maternal Medicine Diagnoses Diet controlled gestational diabetes mellitus (GDM) in second trimester Erin Gould PA-C [address] [place] [phone] Referral ID Status Reason Start Date Expiration Date Visits Requested Visits Authorized [id number] Authorized Specialty Services Required 01/01/2024 999 [id number] Question Answer Referral Priority Within 10 days (routine) Has the patient had a viability scan? Yes Date performed 12/03/2023 Location performed Radiology Reason for referral Diabetes Diabetes type Gestational Where should this appointment be scheduled? [facility] Comments /Para: LMP: Patient's last menstrual period was 09/23/2023 (exact date). Patient is . GINGER: 06/29/2024, by Last Menstrual Period Pre-Gravid BMI: Could not be calculated Reason for Visit * Reason Onset Date Comments Test Results 01/01/2024 Encounter Details Date Type Department Care Team (Late st Contact Info) Description 01/01/2024 Telephone Gynecology/Obstetrics [address] [place] [address] Erin Gould PA-C [address] [place] [id number] Test Results Allergies No known active allergiesdocumented as of this encounter (statuses as of 01/01/2024) Medications Medication Sig Dispensed Refills Start Date End Date Status /Folic Acid Oral Tablet Take 1 Tablet by mouth once. Active Aspirin 81 MG Oral Tablet Delayed Release Take 1 Tablet by mouth in the morning. Active PhiloTouch Verio Flex System w/Device Kit Use to test blood sugars 4 times daily (fasting, 1 hour after breakfast, lunch, and dinner) 1 Kit 01/01/2024 Active PhiloTouch Verio In Vitro Strip (Glucose Blood) Use to test blood sugars 4 times daily (fasting, 1 hour after breakfast, lunch, and dinner) 125 Strip 6 01/01/2024 Active PhiloTouch DelSift Lancets 30G Use to test blood sugars 4 times daily (fasting, 1 hour after breakfast, lunch, and dinner) 200 Each 6 01/01/2024 Active documented as of this encounter (statuses as of 01/01/2024) Active Problems Problem Noted Date Diagnosed Date [...] preeclamptic labs with CBC, serum AST/ALT/creatinine and nablley-zn-oarmhlwbjs ratio or 24-hour urine protein LIDIA if [...] RN 12/07/2023 Supervision of high risk in [facility] 12/07/2023 Class 3 severe obesity [...] preeclamptic labs with CBC, serum AST/ALT/creatinine and ruhtqzw-qj-gsnitvjnht ratio or 24-hour urine protein LIDIA if [...] as of this encounter (statuses as of 01/01/2024) Social History Tobacco Use Types Packs/Day Years [...] money to get more. Never true 05/12/2023 [place] Depression Scale Answer Date Recorded [place] Depression Scale Total 0 12/07/2023 The thought [...] encounter Miscellaneous Notes * Telephone Encounter - Teresa Azul RN - 01/01/2024 1:36 PM EDT Pt aware. * Telephone Encounter - Erin Gould PA-C - 01/01/2024 12:47 PM EDT Supplies sent and referral placed. I have also ordered a hemoglobin A1c for her to complete at her convenience. * Telephone Encounter - Teresa Azul RN - 01/01/2024 11:33 AM EDT Pt aware. She is agreeable to start checking her sugars. She is agreeable to mfm referral. Pharmacyupdated. * Telephone Encounter - Teresa Azul RN - 01/01/2024 11:16 AM EDT ----- Message from Erin Gould sent at 01/01/2024 8:47 AM EDT ----- Please let patient know her 3 hour GTT was elevated enough to be diagnostic of gestational diabetes. I would like to order a glucometer and test supplies for her to begin monitoring her blood sugar. We recommended monitoring 4x/day- Once in the morning upon awakening and prior to anything to eat/drink. This level should be <95. The other 3 checks should be 1 hour after the first bite of each meal and should be <140. Please write these levels down and bring to each visit. I am also going to place referrals to [facility] for monitoring and education. Can you please confirm pharmacy to send GDM test supplies? Thanks! documented in this encounter Plan of Treatment Upcoming Encounters Date Type Department Care Team (Late st Contact Info) Description 01/04/2024 11:30 AM EDT Office Visit Gynecology/[facility]stetrics [facility] [place] [address] Ruth Busby PA-C [address] [facility] [place] [address] Nurse Christiano [facility] [place] [address] [place] [address] 02/11/2024 12:45 PM EDT Office Visit Driver Supervisor Obstetrics Maternal Medicine, [place] [address] [place] [address] Ger Cuellar, [address] [place] [address] 02/11/2024 12:45 PM EDT Imaging Radiology [place] [address] [place], [place] [id number] Scheduled Orders Name Type Priority Associated Diagnoses Orde r Schedule MFM US MATERNAL 1ST FETUS Medical Imaging Routine Diet controlled gestational diabetes mellitus (GDM) in second trimester Expected: 01/01/2024 (Approximate), Expires: 01/31/2025 HEMOGLOBIN A1C Lab Routine Diet controlled gestational diabetes mellitus (GDM) in second trimester Expected: 01/01/2024 (Approximate), Expires: 12/31/2024 Scheduled Referrals Name Type Priority Associated Diagnoses Orde r Schedule MATERNAL MEDICINE REFERRAL OP Referral Within 10 days (routine) Diet controlled gestational diabetes mellitus (GDM) in second trimester Ordered: 01/01/2024 DIABETES MANAGEMENT EDUCATION (ADA) REFERRAL Referral Within [...] diabetes mellitus (GDM) in second trimester- Primary documented in this encounter Care Teams Bag Loader Machine Operator Relationship Specialty Start Date End Date Elina Will DO [address] [place] [address] PCP - General Family Medicine 11/09/23 documented as of this encounter
--- OUTSIDE RECORDS SUMMARY | 2024-06-25 09:30 | External Medical Summary | Summary of Care ---
Author Name Unknown Organization [facility] Address [address] [facility] [place] [address] Phone [phone] Care Team Providers Care Computer Bookkeeper Name Role Phone Elina Will DO Primary Care Provider [phone] Reason for Visit * Reason Comments Outpatient Testing Encounter Details Date Type Department Care Team (Late st Contact Info) Description 12/29/2023 9:30 AM EDT Laboratory Laboratory, [facility] [address] [facility] [place] [address] [facility] [address] [facility] [place] [address] Abnormal glucose tolerance in mother complicating Allergies No known active allergiesdocumented as of this encounter (statuses as of 12/29/2023) Medications Medication Sig Dispensed Refills Start Date End Date Status /Folic Acid Oral Tablet Take 1 Tablet by mouth once. Active Aspirin 81 MG Oral Tablet Delayed Release Take 1 Tablet by mouth in the morning. Active documented as of this encounter (statuses as of 12/29/2023) Active Problems Problem Noted Date Diagnosed Date [...] preeclamptic labs with CBC, serum AST/ALT/creatinine and fsneeam-ik-egnxnykhlp ratio or 24-hour urine protein LIDIA if [...] RN 12/07/2023 Supervision of high risk in [facility] 12/07/2023 Class 3 severe obesity due t [...] preeclamptic labs with CBC, serum AST/ALT/creatinine and voqotvr-bx-srckodhkbi ratio or 24-hour urine protein LIDIA if [...] as of this encounter (statuses as of 12/29/2023) Social History Tobacco Use Types Packs/Day Years [...] money to get more. Never true 05/12/2023 [place] Depression Scale Answer Date Recorded [place] Depression Scale Total 0 12/07/2023 The thought [...] Gynecology/Obstetrics Jumana Alvarado [address] [place] [address] Ruth Busby PA-C [address] [place] [address] Nurse Jonny Alvarado [facility] [place] [address] [place] [address] 02/11/2024 12:45 PM EDT Office Visit Cvt Rn Obstetrics Maternal Medicine, [place] [address] [facility] [place] [address] Ger Cuellar, [address] [place] [address] 02/11/2024 12:45 PM EDT [facility] [address] [place] [address] Pending Results Name Type Priority Associated Diagnoses Date /Time GESTATIONAL GLUCOSE TOLERANCE, 3 HOUR Lab Routine Abnormal glucose tolerance in mother complicating 12/29/2023 8:50 AM EDT 100-G GESTATIONAL GLUCOSE, 2 HOUR Lab Routine Abnormal glucose tolerance in mother complicating 12/29/2023 10:56 AM EDT 100-G GESTATIONAL GLUCOSE, 3 HOUR Lab Routine Abnormal glucose tolerance in mother complicating 12/29/2023 11:54 AM EDT Health Maintenance Due Date Last Done [...] Date/Time Associated Diagnosis Comments 100-G GESTATIONAL GLUCOSE, 1 HOUR Routine 12/29/2023 9:55 AM EDT Abnormal glucose tolerance in mother complicating 100-G GESTATIONAL GLUCOSE, FASTING Routine 12/29/2023 8:50 AM EDT Abnormal glucose tolerance in mother complicating documented in this encounter Results * (ABNORMAL) 100-G GESTATIONAL GLUCOSE, 1 HOUR (12/29/2023 9:55 AM EDT) 100-g Gestational Glucose, 1 Hour 190(H) 70 - 179 mg/dL 12/29/2023 10:33 AM EDT [facility] [place] [facility]10 Blood Venous blood specimen / Unknown Venipuncture / Unknown 12/29/2023 9:55 AM EDT 12/29/2023 9:55 AM EDT Erin Gould PA-C LAB BLOOD ORDERABL ES Performing Organization Address [facility]/ZIP Co de Phone Number [facility] [place] [phone] [place] [phone] * (ABNORMAL) 100-G GESTATIONAL GLUCOSE, FASTING (12/29/2023 8:50 AM EDT) 100-g Gestational Glucose, Fasting 95(H) 70 - 94 mg/dL 12/29/2023 9:55 AM EDT [facility] [place]10 Blood Venous blood specimen / Unknown Venipuncture / Unknown 12/29/2023 8:50 AM EDT 12/29/2023 8:50 AM EDT Narrative [facility] [place] 57-10 - 12/29/2023 9:55 AM EDT Based [...] Gould PA-C LAB BLOOD ORDERABL ES LAB[facility]AT[facility] [place] 57[address] [place] [address] documented in this encounter Visit Diagnoses Diagnosis Abnormal glucose tolerance in mother complicating Abnormal maternal glucose tolerance, complicating , childbirth, or the puerperium, unspecified as to episode of care documented in this encounter Care Teams Computer Bookkeeper Relationship Specialty Start Date End Date Elina Will DO [address] [place] [address] PCP - General Family Medicine 11/09/23 documented as of this encounter
--- OUTSIDE RECORDS SUMMARY | 2024-06-25 09:30 | External Medical Summary | Summary of Care ---
Author Name Unknown Organization [facility] Address [address] [place] [address] Phone [phone] Care Team Providers Care Behavioral Health Worker Name Role Phone Elina Will DO Primary Care Provider [phone] Reason for Referral * Evaluate & Treat - Unlimited Visits (Within 3 days (urgent)) - Authorized Specialty Diagnoses / Procedures Referred By Contac t Referred To Contact Pick Up Attendant Diagnoses Diet controlled gestational diabetes mellitus (GDM) in second trimester oDmitila Elaine CRNP [address] [place] [id number] Referral ID Status Reason Start Date Expiration Date Visits Requested Visits Authorized [id number] Authorized Specialty Services Required 01/04/2024 1 1 Question Answer Referral Priority Within 3 days (urgent) Where should this appointment be scheduled? [facility] Type Chronic Disease Management Chronic Disease Management Diabetes in Alarm Settings Standard per protocol Comments Has OneTouch Verio meter Reason for Visit * Reason Comments Consultation Early onset of gesta tional diabetes * Evaluate & Treat - Unlimited Visits (Within 10 days (routine)) - Authorized Specialty Diagnoses / Procedures Referred By Contac t Referred To Contact Obstetrics/Gynecology / Maternal Medicine Diagnoses Diet controlled gestational diabetes mellitus (GDM) in second trimester Erin Gould PA-C [address] [place] [id number] Referral ID Status Reason Start Date Expiration Date Visits Requested Visits Authorized [id number] Authorized Specialty Services Required 01/01/[id number] Encounter Details Date Type Department Care Team (Late st Contact Info) Description 01/04/2024 1:00 PM EDT Telemedicine Construction Skills Teacher Obstetrics Maternal Medicine, [place] [address] [facility] [address] [place] [address] Domitila Elaine CRNP [address] [facility] [address] [place] [address] Diet controlled gestational diabetes mellitus (GDM) in second trimester*; Supervision of high risk , antepartum, second trimester; 14 weeks gestation of Allergies No known active allergiesdocumented as of this encounter (statuses as of 01/04/2024) Medications Medication Sig Dispensed Refills Start Date End Date Status /Folic Acid Oral Tablet Take 1 Tablet by mouth once. Active Aspirin 81 MG Oral Tablet Delayed Release Take 1 Tablet by mouth in the morning. Active PurplleTouch Verio Flex System w/Device Kit Use to [...] Recommend nutrition consult with RDN (Registered Dietitian Color Adviser). Lifestyle changes are also indicated including optimizing [...] weeks . with 12 completed weeks gestation 07/0 06/2023 History of gestational hypertension 12/14/2023 Overview: [...] preeclamptic labs with CBC, serum AST/ALT/creatinine and uecinfq-hi-bgqfgwwkfa ratio or 24-hour urine protein LIDIA if [...] preeclamptic labs with CBC, serum AST/ALT/creatinine and ompdlah-ku-aztuepwsuz ratio or 24-hour urine protein LIDIA if [...] money to get more. Never true 05/12/2023 [place] Depression Scale Answer Date Recorded [place] Depression Scale Total 0 12/07/2023 The thought [...] as of this encounter Progress Notes * Domitila Elaine CRNP - 01/04/2024 1:17 PM EDT MATERNAL MEDICINE CONSULT Sandra Garrido 01/04/24 REFERRING PROVIDER: Erin Gould PA-C Patient location: HOME. I was in a hospital or clinic location. After connecting through televideo,patient was verified with two unique identifiers. Patient (or authorized legal customer support representative) was then informed that this was a Telemedicine visit and being conducted confidentially over secure lines. Methods to assure confidentiality were taken. Patient acknowledged consent and understanding of pr ivacy and security of the Telemedicine visit. The patient agreed to participate. Sandra aGrrido is a 33 year old with intrauterine at 14w5d (Estimated Date of Delivery: 06/29/24 by exact LMP) who presents today for an MFM consult due to early onset of gestational diabetes. Ms. Garrido had a full MFM consult on 12/17/23 due to class 3 obesity, history of gestational hypertension, history of previous . Please refer to prior MFM consult and notes for details regarding additional risk factors and recommendations. HPI/CURRENT : pre- BMI=class 3 obesity (107.5 kg (237 lb); 5' 4"); FOB #1; complicated by above. Genetic testing: Qnatal in process OB Lakia Alvarado HBP Problems (from 12/07/23 to present) Problem Noted Resolved GDM (gestational diabetes mellitus) 01/03/2024 by Domitila Elaine CRNP No Overview Addendum 01/04/2024 1:05 PM by Domitila Elaine CRNP Diagnosed at 13 weeks Nutrition consult ordered [...] blood sugars each week for MFM review History of gestational hypertension 12/14/2023 by Mary Chao CRNP No Overview Addendum 12/17/2023 9:43 AM by Mary Chao CRNP 11/2021: First , induced at 37w due [...] Readings from Last 10 Encounters: 12/07/23 140/84 Obesity in , antepartum 12/14/2023 by Mary Chao CRNP No Overview Addendum 12/17/2023 9:44 AM by Mary Chao CRNP Pre gravid BMI: 40.7 Class 3 obesity Early 1 hour GTT ordered, not yet completed No results found for: "50-G GESTATIONAL GLUCOSE", "100-G GESTATIONAL GLUCOSE", "HEMOGLOBIN A1C - [facility]", "50-G GESTATIONAL GLUCOSE, 1 HOUR - [facility]", "100-G GESTATIONAL GLUCOSE, FASTING - [facility]" Supervision of high risk , antepartum 12/07/2023 by Brandi Roger DNP, CNM No Hx of section 12/07/2023 by Brandi Roger DNP, CNM No Overview Addendum 12/17/2023 9:43 AM by Mary Chao CRNP 11/2021: primary / failed induction 2023 Plan: undecided I have reviewed this patient's previous OB ultrasound reports, pertinent labwork and testing provided by her referring OB provider. Current Outpatient Medications Medication Sig Dispense Refill Aspirin 81 MG Oral Tablet Delayed Release Take 1 Tablet by mouth in the morning. PurplleTouch Delica Lancets 30G Use to test blood sugars 4 times daily (fasting, 1 hour after breakfast, lunch, and dinner) 200 Each 6 OneTouch Verio Flex System w/Device Kit Use to test blood sugars 4 times daily (fasting, 1 hour after breakfast, lunch, and dinner) 1 Kit 0 OneTouch Verio In Vitro Strip (Glucose Blood) Use to test blood sugars 4 times daily (fasting, 1 hour after breakfast, lunch, and dinner) 125 Strip 6 /Folic Acid Oral Tablet Take 1 Tablet by mouth once. No current facility-administered medications for this visit. Review of patient's allergies indicates: No Known Allergies OB History Para Term AB Living 3 1 1 0 1 1 SAB IAB Ectopic Multiple Live Births 1 0 0 0 1 # Outcome Date GA Lbr Reuben/2nd Weight Sex Type Anes PTL Lv 3 Current 2 SAB 06/2023 1 Term 11/30/21 37w0d 3.204 kg (7 lb 1 oz) M CS-LTranv TOBY Comments: IOL for GHTN / After start of Pitocin, FHR kept going down Complications: Intolerance, Gestational hypertension Obstetric Comments 2021, 2023, 2023: Rakan Brown, age 35, healthy, no other children Past Medical History: Diagnosis Date Gestational hypertension 2021 Past Surgical History: Procedure Laterality Date GA DELIVERY ONLY 2021 GA TONSILLECTOMY PRIMARY/SECONDARY LESS THAN AGE 13 Family History Problem Relation Name Age of Onset No Known Problems Mother Hyperlipidemia Father Social History Tobacco Use Smoking status: Never Smokeless tobacco: Never Substance Use Topics Alcohol use: Not Currently Drug use: Not Currently REVIEW OF SYSTEMS: headaches: no nausea/vomiting: denies reports movement: n/a abdominal pain/tenderness/cramping/contractions: no vaginal bleeding: no vaginal leaking of fluid: no all other systems negative PHYSICAL EXAM: LMP 09/23/2023 (Exact Date) General: Well appearing Psych: Alert to time, place, and person and Pleasant DISCUSSION/RECOMMENDATIONS: Problem List Items Addressed This Visit OB Lakia Alvarado HBP GDM (gestational diabetes mellitus) - Primary CONSIDERATIONS: Reviewed etiology and risks associated with gestational diabetes mellitus (GDM), including risks topregnancy, fetus, and maternal progression to Type 2 [...] Recommend nutrition consult with RDN (Registered Dietitian Color Adviser). Lifestyle changes are also indicated including optimizing gestational weight gain and physical activity of 30 minutes per day, if not otherwise contraindicated in . Insulin is preferred if medications are indicated to optimize euglycemia. Metformin (preferred overglyburide) may also be used in some circumstances. [...] with 75-gram glucose load 6-8 weeks . Relevant Orders REMOTE PATIENT MONITORING REFERRAL Other Visit Diagnoses Supervision of high risk , antepartum, second trimester 14 weeks gestation of Follow up ultrasound with Maternal Medicine is scheduled on 01/11/[address] Cid for limited anatomy scan and 02/11/[address] Yee. Patient is aware of upcoming MFM appointment. LINDA Bell 01/04/2024 1:31 PM documented in this encounter Miscellaneous Notes * Assessment & Plan Note - Domitila Elaine CRNP - 01/04/2024 1:07 PM EDT Associated Problem(s): GDM (gestational diabetes mellitus) CONSIDERATIONS: Reviewed etiology and risks associated with gestational diabetes mellitus (GDM), including risks topregnancy, fetus, and maternal progression to Type 2 [...] Recommend nutrition consult with RDN (Registered Dietitian Color Adviser). Lifestyle changes are also indicated including optimizing gestational weight gain and physical activity of 30 minutes per day, if not otherwise contraindicated in . Insulin is preferred if medications are indicated to optimize euglycemia. Metformin (preferred overglyburide) may also be used in some circumstances. [...] with 75-gram glucose load 6-8 weeks . * Pt Handout (on AVS) - Domitila Elaine CRNP - 01/04/2024 1:00 PM EDT Images from the original note were not included. [id number] Understanding Carbohydrates Just like a car needs the right type of fuel to run, you need the right kind of food to function. To keep your energy level up, your body needs food that has carbohydrates (carbs). But carbs raise blood sugar levels higher and faster than other kinds of food. Your dietitian will work with you to figure out the amount of carbs you need. Carbs come in 3 types: starches, sugars, and fiber. Starches Starches are found in grains, some vegetables, and beans. Grain products include bread, pasta, cereal, and tortillas. Starchy vegetables include potatoes, peas, corn, correa beans, yams, and squash. Kidney beans, lovett beans, black beans, garbanzo beans, and lentils also have starches. Sugars Sugars are found naturally in many foods. Or they can be added. Foods that contain natural sugar include fruits and fruit juices, dairy products, honey, and molasses. Added sugars are found in most desserts, processed foods, candy, regular soda, and fruit drinks. These are very helpful to treat lowblood sugar (hypoglycemia). They give you sugar quickly. Try to keep at least 15 to 20 grams of these simple sugars with you at all times. Eat or drink these if you start to have symptoms of low blood sugar. Fiber Fiber comes from plant foods. Your body can't digest most fiber. Instead of raising blood sugar levels like other carbs, fiber stops blood sugar from rising too quickly. Fiber is found in fruits, vegetables, whole grains, beans, peas, and many nuts. Understanding how to count your carbs Keep track of the amount of carbs you eat. This can help you keep the right balance of carbs, physical activity, and medicine. The amount of carbs you need will be different from what other people need. How much you need depends on many things. These include your health, the medicines you take, andhow active you are. Your healthcare team will help you figure out the right amount of carbs for you. You may start with 45 to 60 grams of carbs per meal, depending on your case. Carb counting is a system that helps you keep track of the carbohydrates you eat at each meal. Carbs come from many foods. These include grains, starchy vegetables, fruit, milk, beans, and snackfoods. You can either count carbohydrate grams or carbohydrate servings. When you count carbohydrate servings, 1 carbohydrate serving = 15 grams of carbohydrates. Here are some examples of foods that have about 15 grams of carbs (1 serving of carbohydrates): 1/2 cup of canned or frozen fruit A small piece of fresh fruit (4 ounces) 1 slice of bread 1/2 cup of oatmeal 1/3 cup of rice 4 to 6 crackers 1/2 [place] muffin 1/2 cup of black beans 1/4 of a large baked potato (3 ounces) 2/3 cup of plain fat-free yogurt 1 cup of soup 1/2 cup of casserole 6 chicken nuggets 8-ceyn-myzgnn brownie or cake without frosting 2 small cookies 1/2 cup of ice cream or sherbet Carb counting is easier when food labels are available. Look at the label to see how many grams of total carbs per serving the food contains. Then you can figure out how much you should eat. If your food doesn't have a nutrition label, you should be able to get an idea of how many carbs there are per serving by using a book or website. Two very important lines to look at on the label are the serving size and the total carbohydrate amount per serving. Here are some tips for using food labels to count your carbs: Check the serving size. The information on the label is based on that serving size. If you eat more than the listed serving size, you may have to double or triple the other information on the label. Check the total grams of carbs. Total carbohydrate from the label includes sugar, starch, and fiber. Be sure to use the total carbohydrate number (minus the fiber) and not sugar alone. Know how many grams of carbs you can have. Be familiar with the matching portion sizes. Compare labels. Compare the labels of different products. Look at serving sizes and total carbs to find the products that work best for you. Don't forget protein and fat. With the focus on carb counting, it might be easy to forget protein and fat in your meals. Don't forget to include sources of protein and healthy fat to balance your meals. Also watch how much salt (sodium) you eat. This is especially true if you have high blood pressure. If you have diabetes, limit the amount of sodium to less than 2,300 mg a day. It?s also important to be consistent with the amount of carbs and time you eat when taking a fixed dose of diabetes medicine. Work with your healthcare provider or dietitian if you need more help. They can help you keep track of your carbs. They can also help you figure out how many grams of carbs you should have. Last Reviewed Date: 08/17/202319990957-1311 [employer]. All rights reserved. This information is not intended as a substitute for professional medical care. Always follow your healthcare professional's instructions. * Pt Handout (on AVS) - Domitila Elaine CRNP - 01/04/2024 1:00 PM EDT [id number] Understanding Blood Sugar During Gestational diabetes causes high blood sugar levels during . You are at risk of developing, or perhaps have already developed, gestational diabetes. Controlling your blood sugar can help prevent problems for you and your baby. Your body turns food into blood sugar As food is digested, it turns into sugar (glucose), a fuel that feeds your body. This sugar goes into your bloodstream. Your body then releases a substance called insulin to help your body use blood sugar correctly. Blood sugar goes to your baby The placenta is where nutrients in your blood are exchanged with your baby's blood. Your blood sugar goes to your baby from the placenta through the umbilical cord. Your baby uses this sugar to grow. Too much blood sugar affects you and your baby During , the placenta makes hormones that can disrupt the way your body uses insulin. If your body can't use insulin correctly, your blood sugar level gets too high. Then too much blood sugar goes to your baby. This can cause problems for both you and your baby. Controlling your blood sugar helps prevent problems You can lower your blood sugar by eating right, exercising, and taking medicines that your healthcare provider prescribes to control your blood sugar. If you keep your blood sugar in control, the risks to you and your baby are the same as those for a normal . Last Reviewed Date: 12/16/202019999666-0958 [employer]. All rights reserved. This information is not intended as a substitute for professional medical care. Always follow your healthcare professional's instructions. * Pt Handout (on AVS) - Domitila Elaine CRNP - 01/04/2024 1:00 PM EDT Images from the original note were not included. [address]58 Diabetes: Shopping for and Making Meals Having diabetes doesn?t mean you have to shop in a special aisle or look for special foods. But you'll need to make healthy food choices. Comparing items and reading food labels is leiva. This can helpyou find the healthiest foods for you and your family. Comparing items When you shop, compare items to find the best ones for your needs. Keep these facts in mind: No sugar added doesn't mean a product is sugar-free. Sugar-free means less than 1/2 gram (g) of sugar per serving. Fat-free means less than 1/2 g of fat per serving. This does not necessarily mean the product islow in calories. Low fat means 3 g fat or less per serving. Reduced fat or less fat means 25% less fat than the regular version. Some of this fat may be saturated or trans fat. And the calories per serving may be similar to the regular version. Making small changes Don?t try to change all of your eating habits at once. Here are some ideas to start with: Try fat-free or low-fat cheese, milk, and yogurt. Also, try leaner cuts of meat. This will help you cut down on saturated fat. Try whole-grain bread, brown rice, and whole-wheat pasta. Load up on fresh or frozen vegetables. If you buy canned, choose low-sodium vegetables. Stay away from processed foods as much as possible. They tend to be low in fiber and high in trans fats and salt. Limit how much salt you have to 2,300 mg per day. Try tofu, soy milk, or meat substitutes.?They can help you cut cholesterol and saturated fat outof your diet. Learning to read food labels To find healthy foods that help you control blood sugar, learn how to read food labels. Look for the Nutrition Facts label on packaged foods. It will tell you how many servings there are in the package. It will also tell you the amount of carbohydrate, sugar, fat, and fiber in each serving. Then you can decide if the food fits into your meal plan. Using the food label So, once you have the food label, what do you do with it? The food label helps in many ways. Use itto: Compare items. Decide which is the best for your health needs. Track the number of carbohydrates in your portions. Figure out how many servings of a food you can have and still stay within the number of carbohydrates for that meal. Planning meals For good blood sugar control, plan what and when you?ll eat. Start by making a meal plan that includes all the food groups. Then time your meals and exercise to help keep your blood sugar level steady. You may need to adjust your plan for special situations. But 3 of the best ways to manage your blood sugar are to: Eat meals and snacks at the same time every day Eat about the same amount of food Exercise each day Eating from all the food groups A healthy meal plan starts with eating many different types of foods. Look for lean meats, fresh fruits and vegetables, whole grains, and low-fat or nonfat dairy products. Eating a wide variety of healthy foods offers the nutrients your body needs. It can also keep you from getting bored with your meal plan. Reducing liquid sugars Extra calories from sodas, sports drinks, and fruit drinks make it hard to keep blood sugar in range. Cut as many liquid sugars from your meal plan as you can. This includes most fruit juices. These are often high in natural or added sugar. Instead, take plenty of water and other sugar-free drinks. Eating less fat If you need to lose some weight, try to reduce the amount of fat in your diet. This can also help lower your cholesterol level. This can keep blood vessels healthier. Cut fat by using only small amounts of liquid oil for cooking. Read food labels carefully. This can help you stay away from foods with unhealthy trans fats. Timing your meals When it comes to blood sugar control, when you eat is as important as what you eat. You may need toeat several small meals spaced evenly during the day. This can help you stay in your target range. So don?t skip breakfast or wait until late in the day to get most of your calories. Doing so can make your blood sugar rise too high or fall too low. Cooking wisely Broil, steam, bake, or grill meats and vegetables. Don't gao them. Flavor foods with vegetable pure, lemon or [place] juice, or herb seasonings. Don't use cream-based sauces or sugary glazes. Remove skin from chicken and turkey before serving. Look in cookbooks for easy low-fat, low-sugar recipes. When making your normal recipes, cut sugar by 1/2. Cut fat by 1/3. Last Reviewed Date: 09/17/202319999423-9328 [employer]. All rights reserved. This information is not intended as a substitute for professional medical care. Always follow your healthcare professional's instructions. * Pt Handout (on AVS) - Domitila Elaine CRNP - 01/04/2024 1:00 PM EDT Images from the original note were not included. [id number] Gestational Diabetes: After Your blood sugar will most likely return to normal after delivery. But gestational diabetes is a warning sign that you are at risk of getting diabetes later in life. You?re also more likely to have gestational diabetes with your next . But you can take steps to reduce these risks. Taking care of yourself Even if your blood sugar goes back to normal, you still need to take care of yourself. This will help prevent diabetes later in life. You'll need to: Keep your weight down. Eating food that is low in fat and sugar can help you control your weight. If you?re overweight, your risk of getting diabetes in 10 to 15 years more than doubles. Keeping your weight down also reduces your risk of gestational diabetes in your next . Get regular exercise. Exercise helps lower your blood sugar. It can also help you control your weight. Try to work up to at least 150 to 300 minutes of moderate exercise every week. This is at least 30 minutes each day. Have your blood sugar checked. Make an appointment to have your blood sugar checked 6 to 8 weeksafter delivery. If your blood sugar is still high, you may have type 2 diabetes. Your healthcare provider will tell you more about how to manage diabetes long-term. Have regular diabetes screenings. Have blood tests every year, or as often as your healthcare provider advises. Breastmilk is the best food for your baby. Giving only breastmilk is advised for at least your baby's first 6 months. may also help lower your blood sugar. Your healthcare provider can show you how to breastfeed. Be sure to eat healthy foods and drink extra water while you?re . You may find exercise easier right after . This is when your breasts may feel plant chief. Planning a future Your blood sugar needs to be back to normal before you get again. Have your blood sugar checked before you plan your next . And remember that it?s possible to get again soon after you give . Talk with your healthcare provider about the best method of control for you and your partner. Last Reviewed Date: 07/19/202119993399-2514 [employer]. All rights reserved. This information is not intended as a substitute for professional medical care. Always follow your healthcare professional's instructions. * Pt Handout (on AVS) - Domitila Elaine CRNP - 01/04/2024 1:00 PM EDT Images from the original note were not included. 77610 Gestational Diabetes: Exercise Exercise can help you keep your blood sugar in a normal range. That?s because your body uses more blood sugar when you exercise. Diabetes in can often be managed with careful nutrition and exercise alone. Then you may not need medicine to control your blood sugar. Exercise regularly Your healthcare provider may want you to exercise each day. The best time depends on when your blood sugar is highest. Exercising may also help ease some common symptoms of . These include bloating, constipation, and backaches. Ask about exercise at your first care visit. Your provider will work with you to make an exercise plan that fits your needs. Here are some tips: Aim to exercise for 30 to 60 minutes a day. Do this at moderate intensity. This means you're moving enough to raise your heart rate and start sweating. But you can still talk normally. Try breaking up daily exercise into 2 or 3 sessions. For example, take a 15- minute walk after each meal. Exercise with a friend or your partner. This may help you stick to your exercise plan. Go at a comfortable pace. Don?t tire yourself out. Exercise safely Ask your provider about exercise safety for you and your baby. Walking, swimming, and low-impact orwater aerobics are often the safest things to do. Other safety tips include: Don't do activities where you jump, turn, twist, stop or start quickly. Don't lift heavy weights. Don't exercise on your back after the first trimester. This can put too much pressure on an important vein. It can limit blood flow to the baby. If you do yoga or Pilates, find a class designed for . Use a sports bra to support your breasts. You may also want to use a belly support belt later inpregnancy. Don't get overheated. Don't do hot yoga or hot Pilates. Don't raise your heart rate to a level that makes it hard to talk. Drink plenty of water. If you use insulin, carry a carbohydrate snack with you. If you walk or do low-impact aerobics, wear sturdy shoes. If you haven?t eaten in 2 or more hours, have a light snack before exercising. Don't do contact sports that put you at risk of being hit in the belly. These include boxing, ice hockey, soccer, and basketball. Don't go skydiving or scuba diving. Don't do things that may cause a serious fall. These include horseback riding, gymnastics, and off-road cycling. Use a stationary bike. It's a safer choice than a standard bike. It will stop you from getting off balance with your growing belly. When it's not safe to exercise It's not advised to exercise when if you have any of these health conditions: Some types of heart and lung diseases with twins or more, and at risk for labor labor of your water has broken (ruptured membranes) Placenta previa later than 26 weeks of Preeclampsia or high blood pressure due to Severe anemia Cervical insufficiency or cerclage When to call your healthcare provider Call your provider right away or go to the emergency room (ER) if you have any of these: Belly pain Shortness of breath before starting exercise Vaginal bleeding Dizziness or feeling faint Chest pain Headache Decreased movement contractions Muscle weakness Calf pain or swelling Fluid leaking from the vagina Last Reviewed Date: 07/19/202119993143-8133 [employer]. All rights reserved. This information is not intended as a substitute for professional medical care. Always follow your healthcare professional's instructions. * Pt Handout (on AVS) - Domitila Elaine CRNP - 01/04/2024 1:00 PM EDT Images from the original note were not included. 96834 Healthy Meals for Diabetes Figuring out what to eat can be one of the most confusing parts of diabetes. It will help you to have a meal plan. You can ask your healthcare team to help you make a meal plan that fits your needs. Your meal plan tells you when to eat your meals and snacks, what kinds of foods to eat, and how muchof each food to eat. You don?t have to give up all the foods you like but following some guidelines will set you up for success in managing your diabetes. A healthcare provider will help you develop a meal plan that fits your needs. Choose healthy carbohydrates Starches, sugars, and fiber are all types of carbohydrates (carbs). Carbs can get a bad reputation since they affect your blood sugar the most. It is important to remember that your body benefits from the right amount of healthy carbs. Fiber can help lower your cholesterol and triglycerides. Fiber is also healthy for your heart. You should have 20 to 35 grams of total fiber each day. Fiber comes from plants. Fiber-rich foods include: Whole-grain breads and cereals Nuts Brown rice and quinoa Whole-wheat pasta Fruits and vegetables Beans and peas Keep track of the amount of carbs you eat. This can help you keep the right balance of physical activity and medicine. The amount of carbs needed will vary for each person. It depends on many things such as your health, the medicines you take, and how active you are. Your healthcare team will help you figure out the right amount of carbs for you. You may start with around 45 to 60 grams of carbs per meal, depending on your needs. Here are some examples of foods that have about 15 grams of carbs (1 serving of carbs): 1/2 cup of canned or frozen fruit A small piece of fresh fruit (4 ounces) 1 slice of bread 1/2 cup of oatmeal 1/3 cup of rice 4 to 6 crackers 1/2 [place] Verdean muffin 1/2 cup of black beans 1/4 of a large baked potato (3 ounces) 2/3 cup of plain fat-free yogurt 1 cup of soup 1/2 cup of casserole 6 chicken nuggets 3-ikik-zvirdc brownie or cake without frosting 2 small cookies 1/2 cup of ice cream or sherbet Choose healthy protein foods Proteins play a leiva role in building healthy muscles, bones, skin, and many other parts of your body. Eating protein that's low in fat can help you control your weight. It also helps keep your heart healthy. Low-fat protein foods include: Fish Plant proteins, such as lentils, beans, peas, nuts, and soy products like tofu and soymilk Lean meat with all visible fat removed Poultry with the skin removed Low-fat or nonfat milk, cheese, and yogurt Limit unhealthy fats and sugar Saturated and trans fats are unhealthy for your heart. They raise LDL (bad) cholesterol. Fat is also high in calories. To cut down on unhealthy fats and sugar, limit these foods: Butter or margarine Palm and palm kernel oils and coconut oil Cream Cheese Zabala Lunch meats Ice cream Sweet bakery goods such as pies, muffins, and donuts Jams and jellies Candy bars Regular sodas How much to eat The amount of food you eat affects your blood sugar. It also affects your weight. Your healthcare team will tell you how much of each type of food you should eat. Use measuring cups and spoons and a food scale to measure serving sizes. Learn what a correct serving size looks like on your plate. This will help when you're away fromhome and can?t measure your servings. For instance, a serving of meat is about the size of the palmof your hand. Eat only the number of servings given on your meal plan for each food. Don?t take seconds. Learn to read food labels. Be sure to look at serving size, total carbohydrates, fiber, calories, sugar, salt, and saturated and trans fats. Look for healthier options such as foods with no added sugar or salt. Plan ahead for parties. Then you can still have a good time without diving into unhealthy food choices. Bring a healthy dish to [employer]. Choose healthy snacks When it comes to snacks, we often think about foods with added sugar and fats. But there are many other options for healthier snack choices. Here are a few snack ideas to choose from: Snacks with less than 5 grams of carbohydrates 1 piece of string cheese 3 celery sticks plus 1 tablespoon of peanut butter 5 blum tomatoes plus 1 tablespoon of ranch dressing 1 hard-boiled egg 1/4 cup of fresh blueberries 5 baby carrots 1 cup of light popcorn 1/2 cup of sugar-free gelatin 15 almonds Snacks with about 10 to 20 grams of carbohydrates 1/3 cup of hummus plus 1 cup of fresh cut non-starchy vegetables (carrots, green peppers, broccoli, celery, or a mix) 1/2 cup of fresh or canned fruit plus 1/4 cup of cottage cheese 1/2 cup of tuna salad with 4 crackers 2 rice cakes and a tablespoon of peanut butter 1 small apple or orange 3 cups light popcorn 1/2 of a turkey sandwich (1 slice of whole-wheat bread, 2 ounces of turkey, and mustard) Portion sizes are important for controlling your blood sugar and staying at a healthy weight. Stockup on healthy snack foods so you always have them on hand. When to eat Your meal plan will likely include breakfast, lunch, dinner, and some snacks. Try to eat your meals and snacks at about the same times each day. Eat all your meals and snacks. Skipping a meal or snack can make your blood sugar drop too low. It can also cause you to eat too much at the next meal or snack. Then your blood sugar could get toohigh. Be patient It can be stressful trying to figure out what to eat. But over time, you?ll form new habits around your meal plan and healthy guidelines. Then eating right for your blood sugar will be much easier. Last Reviewed Date: 09/17/202319994025-0927 [employer]. All rights reserved. This information is not intended as a substitute for professional medical care. Always follow your healthcare professional's instructions. * Pt Handout (on AVS) - Domitila Elaine CRNP - 01/04/2024 1:00 PM EDT Images from the original note were not included. 66105 If You Need Extra Insulin During During [...] Don?t rub your skin in the area. Marrero and syringes should be used only 1 [...] call your healthcare provider. Last Reviewed Date: 05/18/202219996588-4604 [employer]. All rights reserved. This information is not intended as a substitute for professional medical care. Always follow your healthcare professional's instructions. * Pt Handout (on AVS) - Domitila Elaine CRNP - 01/04/2024 1:00 PM EDT Images from the original note were not included. Managing Gestational Diabetes - Video Being diagnosed with gestational diabetes can be stressful. But with proper care and management, you can stay healthy and deliver a healthy baby. In many cases, gestational diabetes goes away on its own after the mother gives . To view the video go to this web address: [email or web address] Or, scan this QR code with your smart phone [employer]. * Pt Handout (on AVS) - Domitila Elaine CRNP - 01/04/2024 1:00 PM EDT Images from the original note were not included. 65120 What Is Gestational Diabetes? Gestational diabetes is a type of diabetes that happens during . Unlike type 1 diabetes, gestational diabetes is not caused by having too little insulin. Instead, hormones made by your placenta keep your body from using insulin as it should. This is called insulin resistance. Blood sugar (glucose) then builds up in your blood instead of being absorbed by the cells in your body and used for energy. This can cause high blood sugar and can cause problems for both you and your baby. You can take steps to control your blood sugar. This will help reduce the risks for you and your baby. Managing gestational diabetes You need to control your blood sugar while you are . Your healthcare team will help you make a plan to do this. This plan will include: Eating the right foods. This is the main way to control your blood sugar. You need to eat a variety of healthy foods each day. To help you plan changes in your diet, you will likely work with a registered dietitian (RD). This is an expert on food and nutrition. The dietitian may have you take part in a nutrition program to help you reach your goals. Getting exercise. Your body uses more blood sugar when you exercise. Your healthcare team can help you pick the best kinds of exercise for you. Checking your blood sugar. You will likely need to check your blood sugar at home. You will do this 2 or more times a day. You will likely check your fasting blood sugar and after meal (postprandial) blood sugar. Your healthcare team will teach you how. They will talk with you about your blood sugar goals. Your blood sugar may also be tested every week or so at a clinic. If your blood sugar stays too high, you may need to have insulin shots during your . Risks to your baby If your blood sugar stays high, your baby is at risk for these problems: Your baby may grow too large. If your blood sugar stays too high, your baby may grow too large. This is called macrosomia. This means a baby is too big for a safe vaginal . A large baby may get their shoulder stuck behind the pubic bone during . This is called shoulder dystocia. The baby's arms and shoulders could be injured. This may cause permanent arm damage. The baby may also have low oxygen levels (hypoxia) while they are stuck. Hypoxia can lead to cerebral palsy. In rare cases, it can lead to . Your baby?s organs may not be fully grown at . If you have diabetes, your baby may need to be delivered early. This may be because of problems with the . Or it may be because of risks to you or your baby. If your baby is delivered early, their lungs may not work well. This is called respiratory distress syndrome. Your baby's liver also may not work normally. And your baby may have yellow color in their skin and eyes (jaundice) after . Your baby?s blood sugar may be low after . If your blood sugar is too high, your baby makesextra insulin. The baby will keep making extra insulin right after . Your baby may need to be treated for low blood sugar. Your baby could be stillborn. This is very rare. But your baby could before if your blood sugar stays high for too long. Risks to you If you don?t control your blood sugar, you are more likely to have: High blood pressure. High blood sugar makes you more likely to have high blood pressure during your . This is a danger to your health. It could lead to early delivery for your baby. Infections. High blood sugar makes you more likely to have bladder, kidney, and vaginal infections. Trouble breathing. You may feel short of breath. High blood sugar can cause too much fluid around the baby. This is called polyhydramnios. Your abdomen gets big and pushes up on your lungs. Difficult labor. Your delivery may be harder. And your recovery may take longer. If your blood sugar stays too high, your baby may grow too large. A large baby might cause injury to you during . Or the baby may have to be delivered by section (). This means making a cut (incision) in your abdomen and uterus. A is a common risk of gestational diabetes. Reduce your future risk for type 2 diabetes Women who have gestational diabetes are at higher risk of type 2 diabetes later. You are also at higher risk for gestational diabetes in your next . You can help reduce your risk in these ways: Lose excess weight. Be as active as you can. Eat more fruits and vegetables. Eat fewer processed foods. Get regular blood tests to check for diabetes. Breastfeed your baby. Who is at risk for gestational diabetes? You're more at risk if you: Are overweight Have a family history of diabetes Have had a baby who before Had gestational diabetes in the past Are , , , South or [place] , or How daily issues affect your health Many things in your daily life impact your health. This can include transportation, money problems,housing, access to food, and childcare. If you can?t get to medical appointments, you may not receive the care you need. When money is tight, it may be difficult to pay for medicines. And living far from a grocery store can make it hard to buy healthy food. If you have concerns in any of these or other areas, talk with your healthcare team. They may know of local resources to assist you. Or they may have a staff person who can help. Last Reviewed Date: 01/16/202319999922-1508 [employer]. All rights reserved. This information is not intended as a substitute for professional medical care. Always follow your healthcare professional's instructions. * Pt Handout (on AVS) - Domitila Elaine CRNP - 01/04/2024 1:00 PM EDT Images from the original note were not included. Diabetes and Healthy Eating - Video If you have diabetes, you know it's important to keep your blood glucose level within a safe range.One of the best ways to do this is by eating a healthy diet. Let's take a few minutes to learn about some good eating habits that can make a difference for you. To view the video go to this web address: https://bit.ly/3LLSHqM Or, scan this QR code with your smart phone [employer]. documented in this encounter Plan of Treatment Upcoming Encounters Date Type Department Care Team (Late st Contact Info) Description 01/11/2024 11:30 AM EDT Office Visit Construction Skills Teacher Obstetrics Maternal Medicine, [place] [address] [place] [address] Yaneth Cid DO [address] [place] [address] 01/11/2024 11:30 AM EDT Imaging Radiology [place] [address] [place] [address] 02/01/2024 11:30 AM EDT Office Visit Gynecology/Obstetrics [facility] [address] [place] [address] Chloe Hurtado CRNP [address] [place] [address] 02/11/2024 12:45 PM EDT Office Visit Construction Skills Teacher Obstetrics Maternal Medicine, [place] [address] [place] [address] Isiah Yee MD [address] [place] [address] 02/11/2024 12:45 PM EDT Imaging Radiology [place] [address] [place] [address] Scheduled Referrals Name Type Priority Associated Diagnoses Orde r Schedule REMOTE PATIENT MONITORING REFERRAL Referral Within 3 days (urgent) Diet controlled gestational diabetes mellitus (GDM) in second trimester Ordered: 01/04/2024 Health Maintenance Due Date Last Done Comments Depression Screening 2003 DTaP,Tdap,and Td Vaccines (1 - Tdap) 2010 Hepatitis B Vaccine (1 of - 19+ 3-dose series) 2010 COVID-19 Vaccine [...] trimester 14 weeks gestation of state, incidental documented in this encounter Care Teams Behavioral Health Worker Relationship Specialty Start Date End Date Elina Will DO [address] [place] [address] PCP - General Family Medicine 11/09/23 documented as of this encounter
--- OUTSIDE RECORDS SUMMARY | 2024-06-25 09:30 | External Medical Summary | Summary of Care ---
Author Name Unknown Organization [facility] Address [address] [place] [address] Phone [phone] Care Team Providers Care Ammunition Specialist Name Role Phone Elina Will DO Primary Care Provider [phone] Reason for Visit * Reason Onset Date Comments Home Monitoring Orders Only 01/04/2024 Encounter Details Date Type Department Care Team ([facility] st Contact Info) Description 01/04/2024 Home Monitoring Care Coordination [address] [place] [address] Domitila Elaine CRNP [address] [address] GDM (gestational diabetes mellitus)* Allergies No known active allergiesdocumented as of this encounter (statuses as of 01/04/2024) Medications Medication Sig Dispensed Refills Start Date End Date Status /Folic Acid Oral Tablet Take 1 Tablet by mouth once. Active Aspirin 81 MG Oral Tablet Delayed Release Take 1 Tablet by mouth in the morning. Active [employer] Verio Flex System w/Device Kit Use to test blood sugars 4 times daily (fasting, 1 hour after breakfast, lunch, and dinner) 1 Kit 01/01/2024 Active Hepa WashTouch Verio In Vitro Strip (Glucose Blood) Use to test blood sugars 4 times daily (fasting, 1 hour after breakfast, lunch, and dinner) 125 Strip 6 01/01/2024 Active Hepa WashTouch Delica Lancets 30G Use to test blood [...] Recommend nutrition consult with RDN (Registered Dietitian Bass String Winder). Lifestyle changes are also indicated including optimizing [...] preeclamptic labs with CBC, serum AST/ALT/creatinine and dfaxaly-ur-iorwpseigs ratio or 24-hour urine protein LIDIA if [...] preeclamptic labs with CBC, serum AST/ALT/creatinine and oaxdlks-py-rhnlqkdlvc ratio or 24-hour urine protein LIDIA if [...] money to get more. Never true 05/12/2023 Fries Depression Scale Answer Date Recorded Fries Depression Scale Total 0 12/07/2023 The thought [...] as of this encounter Progress Notes * [facility] Leather Cutter - 01/04/2024 2:21 PM EDT Patient has been successfully enrolled to the [id number] Diabetes Management in program. Standard alarm settings have been set as follows: Singular glucose level > 200 Singular glucose level < 60 Patient has been advised to take blood sugar four times a day (fasting upon waking, and one hour after each meal). Patient has been oriented to remote patient monitoring, assisted with initial device set-up, and provided with instruction and education regarding the program. Patient understands that this monitoring should not be used as a replacement for emergency and/or urgent care. If patient experiences any urgent symptoms, they are aware to call office/enterprise solutions architect provider for additional instructions. In emergency situations, they will report directly to the ED for further evaluation. If you would like to customize the alert parameters and/or instructions for this patient, please let me know and we can have them changed. documented in this encounter Plan of Treatment Upcoming Encounters Date Type Department Care Team (Late st Contact Info) Description 01/11/2024 11:30 AM EDT Office Visit Barrow Worker Obstetrics Maternal Medicine, [place] [address] [place] [address] Yaneth Cid, [facility] [place] [address] 01/11/2024 11:30 AM EDT Imaging Radiology [facility] [place] [address] [place] [address] 02/01/2024 11:30 AM EDT Office Visit Gynecology/Obstetrics Jumana Alvarado [address] [place] [address] Chloe Hurtado CRNP [address] [place] [address] 02/11/2024 12:45 PM EDT Office Visit Barrow Worker Obstetrics Maternal Medicine, [place] [address] [place] [address] Isiah Yee MD [address] [place] [address] 02/11/2024 12:45 PM EDT Imaging Radiology [facility], [place] [address] [place] [address] Health Maintenance Due Date Last Done Comments [...] as of this encounter Visit Diagnoses Diagnosis GDM (gestational diabetes mellitus)- Primary Abnormal maternal glucose tolerance, complicating , childbirth, or the puerperium, unspecified as to episode of care documented in this encounter Care Teams Ammunition Specialist Relationship Specialty Start Date End Date Elina Will DO [address] [place] [address] PCP - General Family Medicine 11/09/23 documented as of this encounter
--- OUTSIDE RECORDS SUMMARY | 2024-06-25 09:30 | External Medical Summary | Summary of Care ---
Author Name Unknown Organization [facility] Address [address] [place] [place] [address] Phone [phone] Care Team Providers Care Manhole Stripper Name Role Phone Elina Will DO Primary Care Provider [phone] Reason for Visit * Reason Comments Outpatient Testing Encounter Details Date Type Department Care Team (Late st Contact Info) Description 01/04/2024 12:20 PM EDT Laboratory Laboratory, [facility] [address] [facility] [address] [facility] [address] [place] [address] Diet controlled gestational diabetes mellitus (GDM) in second trimester Allergies No known active allergiesdocumented as of this encounter (statuses as of 01/04/2024) Medications Medication Sig Dispensed Refills Start Date End Date Status /Folic Acid Oral Tablet Take 1 Tablet by mouth once. Active Aspirin 81 MG Oral Tablet Delayed Release Take 1 Tablet by mouth in the morning. Active StoreFlixToCareParent Verio Flex System w/Device Kit Use to test blood sugars 4 times daily (fasting, 1 hour after breakfast, lunch, and dinner) 1 Kit 01/01/2024 Active StoreFlixTouch Verio In Vitro Strip (Glucose Blood) Use [...] - [facility] 95 (H) 12/29/2023 08:50 AM Needs updated hemoglobin A1c with 12 completed weeks gestation 06/2023 History [...] preeclamptic labs with CBC, serum AST/ALT/creatinine and tdyxxbo-vv-wgbcavujdh ratio or 24-hour urine protein LIDIA if [...] RN 01/04/2024 Supervision of high risk in [facility] 12/07/2023 Class 3 severe obesity [...] preeclamptic labs with CBC, serum AST/ALT/creatinine and ihlgrkz-qn-yatemzuqcw ratio or 24-hour urine protein ILDIA if not already done. For patients with [...] money to get more. Never true 05/12/2023 [place] Depression Scale Answer Date Recorded [place] Depression Scale Total 0 12/07/2023 The thought [...] Info) Description 01/04/2024 1:00 PM EDT Telemedicine Executive Communications Manager Obstetrics Maternal Medicine, [address] [place] [address] Domitila Elaine CRNP 190 [facility] [address] [place] [address] 01/11/2024 11:30 AM EDT Office Visit Executive Communications Manager Obstetrics Maternal Medicine, [place] [address] [place] [address] Yaneth Cid DO [address] [place] [address] 01/11/2024 11:30 AM EDT Imaging Rad[facility], [place] [address] [place] [address] 02/01/2024 11:30 AM EDT Office Visit Gynecology/Obstetrics [place] [address] [facility] [place] [address] Chloe Hurtado CRNP [address] [facility] [place] [address] 02/11/2024 12:45 PM EDT Office Visit Executive Communications Manager Obstetrics Maternal Medicine, [place] [address] [place] [address] Isiah Yee MD [address] [facility] [place] [address] 02/11/2024 12:45 PM EDT Imaging [facility] [address] [place] [address] Pending Results Name Type Priority Associated Diagnoses Date /Time HEMOGLOBIN A1C Lab Routine Diet controlled gestational diabetes mellitus (GDM) in second trimester 01/04/2024 12:14 PM EDT Health Maintenance Due Date [...] trimester documented in this encounter Care Teams Manhole Stripper Relationship Specialty Start Date End Date Elina Will DO [address] [place] [address] PCP - General Family Medicine 11/09/23 documented as of this encounter
--- OUTSIDE RECORDS SUMMARY | 2024-06-25 09:30 | External Medical Summary | Summary of Care ---
Author Name Unknown Organization [facility] Address [address] [facility] [place] [address] Phone [phone] Care Team Providers Care Assembler Filters Name Role Phone Elina Will DO Primary Care Provider [phone] Encounter Details Date Type Department Care Team (Late st Contact Info) Description 01/04/2024 Orders Only PATIENT PORTAL DO NOT DELETE THIS DEPT USED BY [place] [id number] Allergies No known active allergiesdocumented as of [...] preeclamptic labs with CBC, serum AST/ALT/creatinine and nxzzcgc-bc-asorwtxeng ratio or 24-hour urine protein LIDIA if [...] RN 12/07/2023 Supervision of high risk in [facility] 12/07/2023 Class 3 severe obesity due [...] preeclamptic labs with CBC, serum AST/ALT/creatinine and felbtwq-lw-kyrhssvdif ratio or 24-hour urine protein LIDIA if [...] money to get more. Never true 05/12/2023 [place] Depression Scale Answer Date Recorded [place] Depression Scale Total 0 12/07/2023 The thought [...] [place] [address] [place] [address] Ruth Busby PA-C [address] [place] [address] Nurse Christiano [facility] [place] [address] [place] [address] 01/04/2024 1:00 PM EDT Telemedicine Senior Validation Engineer Obstetrics Maternal Medicine, [place] [address] [facility] [address] [place] [address] Domitila Elaine CRNP [address] [facility] [address] [place] [address] 01/11/2024 11:30 AM EDT Office Visit Senior Validation Engineer Obstetrics Maternal Medicine, [place] [address] [place] [address] Yaneth Cid DO [address] [place] [address] 01/11/2024 11:30 AM EDT Imaging Radiology [facility], [place] [address] [place] [address] 02/11/2024 12:45 PM EDT Office Visit Senior Validation Engineer Obstetrics Maternal Medicine, [place] [address] [place] [address] Isiah Yee MD [address] [place] [address] 02/11/2024 12:45 PM EDT Imaging Radiology [facility] [address] [place] [address] Health Maintenance Due Date Last Done Comments [...] filedocumented as of this encounter Care Teams Assembler Filters Relationship Specialty Start Date End Date Elina Will DO [address] [place] [address] PCP - General Family Medicine 11/09/23 documented as of this encounter
--- OUTSIDE RECORDS SUMMARY | 2024-06-25 09:30 | External Medical Summary ---
Author Name Unknown Address Unknown Organization K0[facility] [address] [place] [id number] Laboratory Report Ordering Provider Test Date Status PANFILO LOCKHART 12/29/2023 10:56:25 Final Observation Date Value Abnormality Reference (Units ) Status Glucose, 2-hr post glucose challenge 12/29/2023 10:56:25 161 Above high normal 70-154 (mg/dL) Final Performing Location [facility] [address] [place] [id number]
--- OUTSIDE RECORDS SUMMARY | 2024-06-25 09:31 | External Medical Summary | Summary of Care ---
Author Name Unknown Organization [facility] Address [address] [place] [address] Phone [phone] Care Team Providers Care Legal Secretary Receptionist Name Role Phone Elina Will DO Primary Care Provider [phone] Encounter Details Date Type Department Care Team (Late st Contact Info) Description 12/28/2023 Telephone Gynecology/Obstetrics [facility] [address] [place] [address] Brandi Roger, DNP, CNM [address] [place], [place] [id number] Allergies No known active allergiesdocumented as of this encounter (statuses as of 12/28/2023) Medications Medication Sig Dispensed Refills Start Date End Date Status /Folic Acid Oral Tablet Take 1 Tablet by mouth once. Active Aspirin 81 MG Oral Tablet Delayed Release Take 1 Tablet by mouth in the morning. Active documented as of this encounter (statuses as of 12/28/2023) Active Problems Problem Noted Date Diagnosed Date [...] preeclamptic labs with CBC, serum AST/ALT/creatinine and xcuuxdc-sm-dfuirhipwk ratio or 24-hour urine protein LIDIA if [...] RN 12/07/2023 Supervision of high risk in [facility] 12/07/2023 Class 3 severe obesity due [...] preeclamptic labs with CBC, serum AST/ALT/creatinine and tgdzjau-xe-mowfoicjdq ratio or 24-hour urine protein LIDIA if [...] as of this encounter (statuses as of 12/28/2023) Social History Tobacco Use Types Packs/Day Years [...] money to get more. Never true 05/12/2023 [place] Depression Scale Answer Date Recorded [place] Depression Scale Total 0 12/07/2023 The thought [...] encounter Miscellaneous Notes * Telephone Encounter - Tameka Momin LPN - 12/28/2023 1:23 PM EDT Patient notified of abnormal glucola. The order has been placed in [facility]. Patient. advised to be NPO after 10pm the night before the test.The patient must stay on the premises for the entire time of the test. Patient counseled to take something to eat for after testing. Patient transferred to [facility] to schedule. * Telephone Encounter - Navjot Renner RN - 12/28/2023 1:07 PM EDT ----- Message from Erin Gould sent at 12/28/2023 8:05 AM EDT ----- Addressing for Brandi - Please let patient know that her 1 hour glucose test was elevated. Order placed for 3 hour GTT. documented in this encounter Plan of Treatment Upcoming Encounters Date Type Department Care Team (Late st Contact Info) Description 01/04/2024 11:30 AM EDT Office Visit Gynecology/Obstetrics [place] [address] [facility] [place] [address] Ruth Busby PA-C [address] [place] [address] Nurse Christiano [facility] [place] [address] [place] [address] 02/11/2024 12:45 PM EDT Office Visit Figurine Maker Obstetrics Maternal Medicine, [place] [address] [place] [address] Ger Cuellar, [address] [place] [address] 02/11/2024 12:45 PM EDT [facility] [address] [place] [address] Health Maintenance Due Date Last Done Comments [...] filedocumented as of this encounter Care Teams Legal Secretary Receptionist Relationship Specialty Start Date End Date Elina Will DO [address] [place] [address] PCP - General Family Medicine 11/09/23 documented as of this encounter
--- OUTSIDE RECORDS SUMMARY | 2024-06-25 09:31 | External Medical Summary ---
Author Name Unknown Address Unknown Organization [facility] [address] [place] [id number] Laboratory Report Ordering Provider Test Date Status PANFILO LOCKHART 12/29/2023 08:50:55 Final Based on ACOG guideline, ges tational diabetes mellitus is diagnosed when any of the following is met:
Fasting is greater than or equal to 95 mg/dL
1 hour is greater than or equal to 180 mg/dL
2 hour is greater than or equal to 155 mg/dL
3 hour is greater than or equal to 140 mg/dL Observation Date Value Abnormality Reference (Units ) Status Glucose, fasting 12/29/2023 08:50:55 95 Above high no rmal 70-94 (mg/dL) Final Performing Location [facility] [place] [address] [place] [id number]
[2024-06-25] MEDS: KETOROLAC 30 MG/ML VIAL IV SCH (10:39)
[2024-06-25] MEDS: OXYTOCIN 20 UNITS/LR 1,002 ML IV SCH (10:39)
[2024-06-25] MEDS: DIPHTHER/TETAN/PERTUS Vaccine (Tdap, Adol/Adult) 0.5mL IM ONE (10:45)
[2024-06-25] MEDS: MoRPHine SULFATE PF 1 MG/ML 10 ML AMP/VIAL INT SPINAL ONE (10:45)
--- NOTE | 2024-06-25 10:53 | Anesthesiology Progress Note ---
Date of Service June 25, 2024 Anesthesia Post Procedure Vital Signs Vital Signs: Temp Pulse Resp BP Pulse Ox 06/25/24 10:50 85 136/68 06/25/24 10:47 87 97 06/25/24 10:42 83 98 06/25/24 10:40 85 134/63 06/25/24 10:37 88 97 06/25/24 10:32 83 100 06/25/24 10:30 90 142/70 H 06/25/24 10:20 100 H 20 132/62 98 06/25/24 10:20 100 H 132/62 06/25/24 10:10 86 14 134/67 99 06/25/24 10:10 86 134/67 06/25/24 10:00 86 14 146/73 H 97 06/25/24 10:00 86 146/73 H 06/25/24 09:50 83 12 146/86 H 99 06/25/24 09:50 83 146/86 H 06/25/24 09:44 82 142/87 H 06/25/24 09:43 75 12 142/87 H 97 06/25/24 09:33 71 14 100 06/25/24 09:23 36.6 C 83 22 125/71 100 06/25/24 09:23 80 125/71 06/25/24 07:34 99 H 163/92 H 06/25/24 07:05 20 06/25/24 07:05 37.1 C 20 06/25/24 06:01 104 H 136/94 06/25/24 05:51 36.8 C 18 Transfer of Care Handoff Completed per policy Notes Mental Status: alert / awake / arousable and participated in evaluation Patient Amnestic to Procedure: Yes Nausea / Vomiting: adequately controlled Pain: adequately controlled Airway Patency, RR, SpO2: stable & adequate BP & HR: stable & adequate Hydration State: stable & adequate Anesthetic Complications: no major complications apparent and Pt Satisfied with anesthetic care
[2024-06-25] MEDS ORDERED: Nursing to Pharmacy Communication SCH (11:00)
[2024-06-25] MEDS ORDERED: SODIUM CHLORIDE 0.9% 100 ML IV PRN (12:00)
[2024-06-25] MEDS ORDERED: SODIUM CHLORIDE 0.9% 50 ML IV PRN (12:00)
[2024-06-25] MEDS: SIMETHICONE 80 MG CHEW PO SCH (12:45)
[2024-06-25] MEDS: ACETAMINOPHEN 325 MG TAB PO SCH (16:22)
[2024-06-25] MEDS: DOCUSATE SODIUM 100 MG CAP PO SCH (20:24)
[2024-06-26] MEDS ORDERED: diphenhydrAMINE Capsule 25 MG CAP PO PRN (01:09)
[2024-06-26] MEDS ORDERED: diphenhydrAMINE 50 MG/ML VIAL IV PRN (01:09)
[2024-06-26] MEDS ORDERED: PROMETHAZINE 12.5 MG/50.5 ML BAG IV PRN (01:09)
[2024-06-26] MEDS ORDERED: HYDROmorphone INJ 0.5 MG/0.5 ML SYR IV PRN (01:09)
[2024-06-26] MEDS ORDERED: ZOLPIDEM TARTRATE 5 MG TAB PO PRN (01:09)
[2024-06-26 07:16] LABS: Basophils # (auto) 0.05 K/uL (0.00-0.20); Basophils % (auto) 0.4 %; Eosinophils % (auto) 0.8 %; Hematocrit (blood only) 30.6 % (37.0-47.0); Hemoglobin 10.5 g/dl (12.0-16.0); Immature Granulocytes # (auto) 0.11 K/uL (0.01-0.20); Immature Granulocytes % (auto) 0.8 %; Lymphocytes # (auto) 3.71 K/uL (1.20-3.40); Lymphocytes % (auto) 28.3 %; Mean Corpuscular Hemoglobin 29.2 pg (25.0-34.0); Mean Corpuscular Hgb Conc 34.3 g/dL (32.0-36.0); Mean Platelet Volume 11.1 fL (9.4-12.4); Monocytes # (auto) 1.03 K/uL (0.11-0.59); Monocytes % (auto) 7.9 %; Neutrophils # (auto) 8.12 K/uL (1.40-6.50); Neutrophils % (auto) 61.8 %; Platelet Count 199 K/uL (130-400); RDW Coefficient of Variation 13.6 % (11.5-14.5); RDW Standard Deviation 42.3 fL (36.4-46.3); White Blood Count 13.12 K/ul (4.8-10.8)
[2024-06-26] MEDS: traMADol HCL 50 MG TABLET PO SCH (07:25)
[2024-06-26] MEDS: FERROUS SULFATE 325 MG TAB PO SCH (08:44)
[2024-06-26] MEDS: PRENATAL VITAMIN 1 TAB PO SCH (08:44)
[2024-06-26] MEDS ORDERED: KETOROLAC 30 MG/ML VIAL IV PRN (09:23)
[2024-06-26] MEDS: IBUPROFEN 600 MG TAB PO SCH (09:37)
--- NOTE | 2024-06-26 10:04 | Obstetrical Progress Note ---
Date of Service June 26, 2024 Assessment & Plan Admission and Anticipated Discharge Date Admission Date: June 25, 2024 Subjective Patient is seen and examined. She feels well, no complaints. Pain is under control with oral meds. Ambulating without dizziness Voiding without difficulty Tolerating regular diet with out N&V Flatus + BM neg Bleeding is minimal No fever/ chills/ CP/ SOB/ N&V/ Leg pain Breast feeding without problems Vital Signs Temp Pulse Pulse Resp BP Pulse Ox O2 Del Method 06/26/24 07:53 36.6 C 92 H 18 111/68 97 Room Air 06/26/24 03:45 36.8 C 88 16 125/69 97 Room Air 06/26/24 01:14 18 95 06/26/24 00:28 16 96 06/25/24 23:45 36.6 C 78 16 137/77 97 Room Air 06/25/24 22:48 18 98 Lab Results 06/25/24 06/25/24 06/26/24 Range/Units 05:47 06:03 06:41 WBC 11.40 H 13.12 H (4.8-10.8) K/ul RBC 4.78 3.60 L (4.20-5.40) M/uL Hgb 13.6 10.5 L D (12.0-16.0) g/dl Hct 39.9 30.6 L (37.0-47.0) % MCV 83.5 85.0 (80.0-100.0) fL MCH 28.5 29.2 (25.0-34.0) pg MCHC 34.1 34.3 (32.0-36.0) g/dL RDW Std Deviation 40.5 42.3 (36.4-46.3) fL RDW Coeff of Halina 13.2 13.6 (11.5-14.5) % Plt Count 257 199 (130-400) K/uL MPV 11.2 11.1 (9.4-12.4) fL Immature Gran % (Auto) 0.7 0.8 % Neut % (Auto) 67.6 61.8 % Lymph % (Auto) 23.2 28.3 % [place] % (Auto) 6.8 7.9 % Eos % (Auto) 1.2 0.8 % Baso % (Auto) 0.5 0.4 % Neut # (Auto) 7.69 H 8.12 H (1.40-6.50) K/uL Lymph # (Auto) 2.65 3.71 H (1.20-3.40) K/uL [place] # (Auto) 0.78 H 1.03 H (0.11-0.59) K/uL Eos # (Auto) 0.14 0.10 (0.00-0.50) K/uL Baso # (Auto) 0.06 0.05 (0.00-0.20) K/uL Immature Gran # (Auto) 0.08 0.11 (0.01-0.20) K/uL POC Glucose 101 H (70-99) mg/dl Treponema pallidum Ab Negative (Negative) Blood Type AB Positive Antibody Screen NEGATIVE PE: General: Alert, orientedx3, NAD CVS: S1S2 RRR Lungs; CTAB Abd: soft, NT, ND, BS+, fundus firm, below Umbilicus Incision/ Dressing: Clean, dry, intact Perineum intact, Lochia rubra minimal Ext; NT, no edema AP: 34 yo s/p C Section, pod# 1 VSS Afebrile doing well Continue routine postop care Encourage ambulation, PO intake All questions were answered D/C home tomorrow Results & Data Vital Signs (Past 12 Hours) Vital Signs Temp Pulse Pulse Resp BP Pulse Ox O2 Del Method 06/26/24 07:53 36.6 C 92 H 18 111/68 97 Room Air 06/26/24 03:45 36.8 C 88 16 125/69 97 Room Air 06/26/24 01:14 18 95 06/26/24 00:28 16 96 06/25/24 23:45 36.6 C 78 16 137/77 97 Room Air 06/25/24 22:48 18 98
[2024-06-26] MEDS: oxyCODONE HCL IR 5 MG TAB (IMMEDIATE RELEASE) PO PRN (17:37)
[2024-06-26] MEDS: bisacodyL 5 MG TABEC PO SCH (20:41)
[2024-06-27 00:47] VITALS: RESP 16; O2SAT 97
[2024-06-27 06:48] LABS: Hematocrit (blood only) 34.4 % (37.0-47.0); Hemoglobin 11.2 g/dl (12.0-16.0)
[2024-06-27 08:05] VITALS: BP 126/83; PULSE 86; TEMP 98.1
--- NOTE | 2024-06-27 09:22 | Obstetrical Progress Note ---
Date of Service June 27, 2024 Subjective Ambulation: ambulating normally Voiding: no voiding problems Passing Gas:: Yes Diet Tolerance:: regular diet Lochia:: Small Feeding Type:: breast feeding Current Pain Level(1-10): 0 doing well. plans for d/c today. Physical Exam Constitutional WD/WN, vitals as above Gastrointestinal (Abdomen) Inspection/Auscultation: abdomen normal to inspection incision c/d/i Musculoskeletal Extremities: extremities normal to inspection Skin no rashes, warm and dry Neurologic patellar DTR's 2+ bilat, sensation intact Psychiatric A+Ox3, euthymic affect Results & Data Vital Signs (Past 12 Hours) Vital Signs Temp Pulse Resp BP Pulse Ox O2 Del Method 06/27/24 07:38 36.7 C 86 16 126/83 97 Room Air 06/27/24 00:00 36.6 C 88 16 125/77 97 Room Air Laboratory Results 06/25/24 06/25/24 06/26/24 05:47 06:03 06:41 WBC 11.40 H 13.12 H RBC 4.78 3.60 L Hgb 13.6 10.5 L D Hct 39.9 30.6 L MCV 83.5 85.0 MCH 28.5 29.2 MCHC 34.1 34.3 RDW Std Deviation 40.5 42.3 RDW Coeff of Halina 13.2 13.6 Plt Count 257 199 MPV 11.2 11.1 Immature Gran % (Auto) 0.7 0.8 Neut % (Auto) 67.6 61.8 Lymph % (Auto) 23.2 28.3 [place] % (Auto) 6.8 7.9 Eos % (Auto) 1.2 0.8 Baso % (Auto) 0.5 0.4 Neut # (Auto) 7.69 H 8.12 H Lymph # (Auto) 2.65 3.71 H [place] # (Auto) 0.78 H 1.03 H Eos # (Auto) 0.14 0.10 Baso # (Auto) 0.06 0.05 Immature Gran # (Auto) 0.08 0.11 POC Glucose 101 H Treponema pallidum Ab Negative Blood Type AB Positive Antibody Screen NEGATIVE Crossmatch See Detail 06/27/24 06:20 WBC RBC Hgb 11.2 L Hct 34.4 L MCV MCH MCHC RDW Std Deviation RDW Coeff of Halina Plt Count MPV Immature Gran % (Auto) Neut % (Auto) Lymph % (Auto) [place] % (Auto) Eos % (Auto) Baso % (Auto) Neut # (Auto) Lymph # (Auto) [place] # (Auto) Eos # (Auto) Baso # (Auto) Immature Gran # (Auto) POC Glucose Treponema pallidum Ab Blood Type Antibody Screen Crossmatch
[2024-06-27] MEDS ORDERED: traMADol HCL 50 MG TABLET PO PRN (09:23)
[2024-06-27] MEDS ORDERED: bisacodyL 10 MG SUPP PR PRN (09:23)
[2024-06-27] MEDS: IBUPROFEN 600 MG TAB PO PRN (12:45)
[2024-06-27] MEDS ORDERED: ACETAMINOPHEN 325 MG TAB PO PRN (15:23)
== END 2024-06-27 13:45 | disposition home or self-care (01) | DRG 788 ==
LOC: 4S1 05:31 → EDSTATUS 07:30 → 4E2 11:44